=== PATIENT | male | born 1970 | race Caucasian/White ===

== ENCOUNTER 2019-07-17 12:53 | Emergency (ER) | payer SELFPAY ==
[2019-07-17] MEDS ORDERED: Sodium Chloride 0.9% 10 ML Syringe FLUSH PRN (13:42)
[2019-07-17] MEDS ORDERED: Sodium Chloride 0.9% 1,000 ML IV SCH (13:45)
--- NOTE | 2019-07-17 14:08 | EDM.PDOC ---
ED HPI GENERAL MEDICAL PROBLEM - General Chief Complaint: Back Pain or Injury Stated Complaint: [facility] Time Seen by Provider: 07/17/19 13:41 Source of Information: Reports: Patient, Family, RN Notes Reviewed History Limitations: Reports: No Limitations - History of Present Illness INITIAL COMMENTS - FREE TEXT/NARRATIVE: Patient is a 49-year-old male who presents to the ED via [place] [facility] for a few different reasons. The patient states that he is an alcoholic and drinks roughly a 12 pack of beer per day, he states that he did have 8-9 beers this morning already. He notes that he has a history of low back pain, cirrhosis, pancreas issues. They recently moved to [place] from [place] at the beginning of June and has not established a primary care provider in this area. The patient's had to call 911 today because she was unable to get him into the car as he was too weak to walk. The patient states that he was prescribed "a lot"of medications but he is unsure of what they car and has not taken these for 4-5 months. Patient also complains of bilateral 1 edema to his legs. Patient notes he has been to alcohol treatment centers in the past but these have failed to provide him sobriety. He notes that he did quit once or twice by himself but fell back into alcohol. Patient does have some mild nausea, lower back pain that is worse than normal. He states that the back pain is a sharp stabbing pain in nature and rates this at a 7 out of 10. Middle Back Pain Score (Numeric/FACES): 7 - Related Data Allergies Allergy/AdvReac Type Severity Reaction Status Date / Time adhesive tape Allergy Rash Verified 07/17/19 13:02 Home Meds: Home Meds LORazepam [Ativan] 1 mg PO TID PRN #12 tab 07/17/19 [Rx] levoFLOXacin [Levaquin] 500 mg PO DAILY #4 tab 07/17/19 [Rx] Past Medical History HEENT History: Reports: Impaired Vision Cardiovascular History: Reports: None Respiratory History: Reports: SOB Gastrointestinal History: Reports: Cirrhosis, Pancreatitis, Other (See Below) Other Gastrointestinal History: Fecal incontinence. Other Genitourinary History: Blood in the urine. Musculoskeletal History: Reports: Arthritis, Back Pain, Chronic Neurological History: Reports: Concussion, CVA Psychiatric History: Reports: ADD, ADHD, Addiction, Anxiety, Depression, Other ( See Below) Other Psychiatric History: Social Phobia Endocrine/Metabolic History: Reports: None Hematologic History: Reports: None Immunologic History: Reports: None Oncologic (Cancer) History: Reports: None Other Dermatologic History: Rash to the back for the last 2 years, unsure of what it is. - Infectious Disease History Infectious Disease History: Reports: Hepatitis C - Past Surgical History Head Surgeries/Procedures: Reports: None Other GI Surgeries/Procedures: Surgery on the belly when he was a baby, unsure of what it was for. Musculoskeletal Surgical History: Reports: Other (See Below) Other Musculoskeletal Surgeries/Procedures:: Pt had plates and screws placed and removed in the right foot. Social & Family History - Tobacco Use Smoking Status *Q: Current Every Day Smoker Years of Tobacco use: 33 Packs/Tins Daily: 1 - Caffeine Use Caffeine Use: Reports: None - Recreational Drug Use Recreational Drug Use: Yes Drug Use in Last 12 Months: Yes Recreational Drug Type: Reports: Marijuana/Hashish ED ROS GENERAL - Review of Systems Review Of Systems: See Below Constitutional: Reports: Weakness (generalized). Denies: Fever, Chills, Decreased Appetite, Weight Loss HEENT: Reports: No Symptoms Respiratory: Denies: Shortness of Breath Cardiovascular: Denies: Chest Pain Endocrine: Reports: No Symptoms GI/Abdominal: Reports: Nausea. Denies: Abdominal Pain, Diarrhea, Decreased Appetite, Hematemesis, Vomiting : Reports: No Symptoms Musculoskeletal: Reports: Back Pain (lower back apin) Skin: Reports: No Symptoms Neurological: Denies: Dizziness, Headache Psychiatric: Reports: No Symptoms Hematologic/Lymphatic: Reports: No Symptoms Immunologic: Reports: No Symptoms ED EXAM, GENERAL - Physical Exam Exam: See Below Exam Limited By: No Limitations General Appearance: Alert, WD/WN, No Apparent Distress (pt has a very strong odor of alcohol on him) Eye Exam: Bilateral Eye: EOMI, Normal Inspection, PERRL Ears: Normal External Exam Throat/Mouth: Normal Inspection, Normal Lips, Normal Gums, Normal Oropharynx, Normal Voice, No Airway Compromise, Other (dentition in poor repair) Head: Atraumatic, Normocephalic Neck: Normal Inspection, Supple, Non-Tender, Full Range of Motion Respiratory/Chest: No Respiratory Distress, Lungs Clear, Normal Breath Sounds, No Accessory Muscle Use, Chest Non-Tender Cardiovascular: Normal Peripheral Pulses, Regular Rate, Rhythm, No Murmur, Other (slight 1+ bilateral pitting edema to lower extremities) Peripheral Pulses: 3+: Dorsalis Pedis (L), Dorsalis Pedis (R) GI/Abdominal: Normal Bowel Sounds, Soft, Non-Tender, No Distention, No Mass Back Exam: Normal Inspection, Decreased Range of Motion (d/t pain). No: Full Range of Motion Extremities: Normal Inspection, Normal Range of Motion, Normal Capillary Refill , Other (bilateral 1 + pitting edema to lower extremities) Neurological: Alert, Oriented, Normal Cognition, No Motor/Sensory Deficits Psychiatric: Normal Affect, Normal Mood Skin Exam: Warm, Dry, Intact, Normal Color, No Rash Course - Vital Signs Last Recorded V/S: Last Vital Signs Temp 97.4 F 07/17/19 12:56 Pulse 72 07/17/19 12:56 Resp 16 07/17/19 12:56 BP 125/65 07/17/19 12:56 Pulse Ox 97 07/17/19 12:56 - Orders/Labs/Meds Orders: Active Orders 24 hr Category Date Time Status Peripheral IV Care [RC] . DIRECTED Care 07/17/19 13:42 Active Abdomen Pelvis w Cont [CT] Stat Exams 07/17/19 14:21 Ordered Foot Comp Min 3V Rt [CR] Stat Exams 07/17/19 15:53 Ordered CULTURE URINE [RM] Routine Lab 07/17/19 16:43 Ordered Levofloxacin/Dextrose 5%-Water [Levaquin in D5W 500 MG/ Med 07/17/19 17:01 Ordered 100 ML] 500 mg Premix Bag 1 bag IV ONETIME Sodium Chloride 0.9% [Normal Saline] 1,000 ml Med 07/17/19 13:45 Active IV ASDIRECTED Sodium Chloride 0.9% [Saline Flush] Med 07/17/19 13:42 Active 10 ml FLUSH ASDIRECTED PRN Peripheral IV Insertion Adult [OM.PC] Stat Oth 07/17/19 13:42 Ordered Medication Orders Sodium Chloride (Normal Saline) 1,000 mls @ 500 mls/hr IV ASDIRECTED ERI Last Admin: 07/17/19 13:52 Dose: 500 mls/hr Levofloxacin/Dextrose 500 mg/ (Premix) 100 mls @ 100 mls/hr IV ONETIME ONE Stop: 07/17/19 18:00 Sodium Chloride (Saline Flush) 10 ml FLUSH ASDIRECTED PRN PRN Reason: Keep Vein Open Last Admin: 07/17/19 13:49 Dose: 10 ml Labs: Laboratory Tests 07/17/19 07/17/19 07/17/19 Range/Units 13:50 13:50 14:21 WBC 3.91 L (4.23-9.07) K/mm3 RBC 3.87 L (4.63-6.08) M/mm3 Hgb 13.5 L (13.7-17.5) gm/L Hct 38.6 L (40.1-51.0) % MCV 99.7 H (79.0-92.2) fl MCH 34.9 H (25.7-32.2) pg MCHC 35.0 (32.2-35.5) g/dl RDW Std Deviation 47.1 H (35.1-43.9) fL Plt Count 65 L (163-337) K/mm3 MPV 10.1 (9.4-12.3) fl Neutrophils % (Manual) 57 (40-60) % Band Neutrophils % 0 (0-10) % Lymphocytes % (Manual) 33 (20-40) % Atypical Lymphs % 0 % Monocytes % (Manual) 6 (2-10) % Eosinophils % (Manual) 4 (0.8-7.0) % Basophils % (Manual) 0 L (0.2-1.2) Platelet Estimate Decreased RBC Morph Comment Normal Sodium 142 (136-145) mEq/L Potassium 3.8 (3.5-5.1) mEq/L Chloride 107 (98-107) mEq/L Carbon Dioxide 25 (21-32) mEq/L Anion Gap 13.8 (5-15) BUN 4 L (7-18) mg/dL Creatinine 0.6 L (0.7-1.3) mg/dL Est Cr Clr Drug Dosing 178.70 mL/min Estimated GFR (MDRD) > 60 (>60) mL/min BUN/Creatinine Ratio 6.7 L (14-18) Glucose 96 (74-106) mg/dL Calcium 8.3 L (8.5-10.1) mg/dL Total Bilirubin 2.0 H (0.2-1.0) mg/dL AST 143 H (15-37) U/L ALT 79 H (16-63) U/L Alkaline Phosphatase 89 (46-116) U/L Total Protein 7.2 (6.4-8.2) g/dl Albumin 3.5 (3.4-5.0) g/dl Globulin 3.7 gm/dL Albumin/Globulin Ratio 1.0 (1-2) Lipase 124 (73-393) U/L Urine Color (Yellow) Urine Appearance (Clear) Urine pH (5.0-8.0) Ur Specific [place] (1.005-1.030) Urine Protein (Negative) Urine Glucose (UA) (Negative) Urine Ketones (Negative) Urine Occult Blood (Negative) Urine Nitrite (Negative) Urine Bilirubin (Negative) Urine Urobilinogen (0.2-1.0) Ur Leukocyte Esterase (Negative) Urine RBC (0-5) /hpf Urine WBC (0-5) /hpf Ur Squamous Epith Cells (0-5) /hpf Urine Bacteria (FEW) /hpf Urine Mucus (FEW) /hpf Ethyl Alcohol 0.33 (0.00) gm% 07/17/19 Range/Units 14:30 WBC (4.23-9.07) K/mm3 RBC (4.63-6.08) M/mm3 Hgb (13.7-17.5) gm/L Hct (40.1-51.0) % MCV (79.0-92.2) fl MCH (25.7-32.2) pg MCHC (32.2-35.5) g/dl RDW Std Deviation (35.1-43.9) fL Plt Count (163-337) K/mm3 MPV (9.4-12.3) fl Neutrophils % (Manual) (40-60) % Band Neutrophils % (0-10) % Lymphocytes % (Manual) (20-40) % Atypical Lymphs % % Monocytes % (Manual) (2-10) % Eosinophils % (Manual) (0.8-7.0) % Basophils % (Manual) (0.2-1.2) Platelet Estimate RBC Morph Comment Sodium (136-145) mEq/L Potassium (3.5-5.1) mEq/L Chloride (98-107) mEq/L Carbon Dioxide (21-32) mEq/L Anion Gap (5-15) BUN (7-18) mg/dL Creatinine (0.7-1.3) mg/dL Est Cr Clr Drug Dosing mL/min Estimated GFR (MDRD) (>60) mL/min BUN/Creatinine Ratio (14-18) Glucose (74-106) mg/dL Calcium (8.5-10.1) mg/dL Total Bilirubin (0.2-1.0) mg/dL AST (15-37) U/L ALT (16-63) U/L Alkaline Phosphatase (46-116) U/L Total Protein (6.4-8.2) g/dl Albumin (3.4-5.0) g/dl Globulin gm/dL Albumin/Globulin Ratio (1-2) Lipase (73-393) U/L Urine Color Yellow (Yellow) Urine Appearance Clear (Clear) Urine pH 7.0 (5.0-8.0) Ur Specific [place] 1.015 (1.005-1.030) Urine Protein Negative (Negative) Urine Glucose (UA) Negative (Negative) Urine Ketones Negative (Negative) Urine Occult Blood Negative (Negative) Urine Nitrite Positive H (Negative) Urine Bilirubin Negative (Negative) Urine Urobilinogen 1.0 (0.2-1.0) Ur Leukocyte Esterase Negative (Negative) Urine RBC Not seen (0-5) /hpf Urine WBC Not seen (0-5) /hpf Ur Squamous Epith Cells 0-5 (0-5) /hpf Urine Bacteria Rare (FEW) /hpf Urine Mucus Not seen (FEW) /hpf Ethyl Alcohol (0.00) gm% Meds: Medications Generic Name Dose Route Start Last Admin Trade Name Freq PRN Reason Stop Dose Admin Sodium Chloride 1,000 mls @ 500 mls/hr 07/17/19 13:45 07/17/19 13:52 Normal Saline IV 500 mls/hr ASDIRECTED ERI Administration Levofloxacin/Dextrose 500 mg/ 100 mls @ 100 mls/hr 07/17/19 17:01 Premix IV 07/17/19 18:00 ONETIME ONE Sodium Chloride 10 ml 07/17/19 13:42 07/17/19 13:49 Saline Flush FLUSH 10 ml ASDIRECTED PRN Administration Keep Vein Open Discontinued Medications Generic Name Dose Route Start Last Admin Trade Name Freq PRN Reason Stop Dose Admin Diatrizoate Meglum/Diatrizoate Sod 90 ml 07/17/19 14:31 07/17/19 15:34 Gastrografin 37% PO 07/17/19 14:32 90 ml ONETIME ONE Administration Hydromorphone HCl 0.5 mg 07/17/19 14:22 07/17/19 14:32 Dilaudid IVPUSH 07/17/19 14:23 0.5 mg ONETIME ONE Administration Iopamidol 100 ml 07/17/19 15:29 07/17/19 15:34 Isovue-370 (76%) IVPUSH 07/17/19 15:30 100 ml ONETIME ONE Administration Lorazepam 0.5 mg 07/17/19 15:17 07/17/19 15:20 Ativan PO 07/17/19 15:18 0.5 mg ONETIME ONE Administration Lorazepam 0.5 mg 07/17/19 17:03 Ativan PO 07/17/19 17:04 ONETIME ONE Ondansetron HCl 4 mg 07/17/19 14:22 07/17/19 14:32 Zofran IVPUSH 07/17/19 14:23 4 mg ONETIME ONE Administration Sodium Chloride 10 ml 07/17/19 14:31 07/17/19 15:35 Saline Flush FLUSH 07/17/19 14:32 10 ml ONETIME ONE Administration Thiamine HCl 100 mg 07/17/19 14:55 07/17/19 15:15 Vitamin B-1 PO 07/17/19 14:56 100 mg ONETIME ONE Administration - Radiology Interpretation Free Text/Narrative:: Abdominal CT was done and demonstrates 1. mild proximal small bowel ileus. With no bowel obstruction. 2. Cirrhosis with portal hypertension and varices, with large splenorenal shunt on the left, an large varix between the inferior vena cava and superior mesenteric vein on the right. 3. Bladder distention. 4. Cholecystectomy. 5. Mild cardiomegaly. - Re-Assessments/Exams Free Text/Narrative Re-Assessment/Exam: 07/17/19 14:59 Patient presents to the ED for the evaluation of multiple issues. Did order CBC , CMP, lipase, UA, blood alcohol level, IV fluids to be given 4 mg Zofran, 0.5 mg Dilaudid in an abdomen and pelvis CT for further evaluation. As he notes he has had issues with his liver and pancreas in the times past imaging will be to assess complications due to alcoholism. We do not have access to his old records, as he has not had them transferred here. 07/17/19 15:25 The nurse taking care of the patient informed me that he was quite tremulous, I did order 0.5 mg PO Ativan for this. 07/17/19 17:04 Patient was reassessed at bedside, he states he is feeling better. I did direct him to consult with [facility] tomorrow regarding his alcohol use, he will call tomorrow morning. He was wondering about some medications for withdrawal type symptoms at home, did write him with a few tablets of Ativan for this. I will recommend that he takes some ibuprofen or Tylenol for his back pain. He states that he has not had much luck with tramadol the past. I did order 500 mg IV levofloxacin for initial management, his urinalysis was nitrite positive but everything else negative, I did send the urine for culture. Suspect this might be an early sort of UTI versus contamination. Patient was also advised to establish care with a primary care provider. He was also made aware of the CT results regarding his portal varices. Departure - Departure Time of Disposition: 17:06 Disposition: Home, Self-Care 01 Condition: Fair Clinical Impression: Alcohol abuse Back pain Qualifiers: Back pain location: back pain in unspecified location Chronicity: chronic Back pain laterality: unspecified Qualified Code(s): M54.9 - Dorsalgia, unspecified - Discharge Information Prescriptions: levoFLOXacin [Levaquin] 500 mg PO DAILY #4 tab LORazepam [Ativan] 1 mg PO TID PRN #12 tab PRN Reason: Withdrawal Symptoms Instructions: Alcohol Use Disorder, What You Need to Know About Alcohol Abuse and Dependence, Adult, What You Need to Know About Chronic Back Pain, Alcohol Abuse and Nutrition Forms: ED Department Discharge Additional Instructions: You were evaluated in the ED today for your back pain and alcohol issues. The imaging done at today's ER visit demonstrated that you to have some engorged veins near your liver which is due to your chronic alcoholism. These are called varices. You also did have a fatty liver which also is due to chronic alcoholism. All other findings on the CT were essentially within normal limits. Your urinalysis was positive for nitrites which could suggest a UTI, your urine was sent for culture and you will be given a dose of antibiotics for management of this. You will be called when your culture results to let you know if this is an actual UTI or if this is just contamination. You were given some tablets of Ativan, 1 mg TID PRN for withdrawal type symptoms. You will need to follow-up with [facility] resources for further management of your alcohol use. [facility] human services number is [phone] , their emergency number is [phone]. Your medications were electronically prescribed to the [place] pharmacy located [facility] [employer]. Please try to refrain from further alcohol use as much as able, you will need to wean yourself off of this please do not stop cold turkey. Please also establish with a primary care provider of your choosing, [facility]' s number [phone], the [place] clinic is [phone]. Please also have your records transferred so that they can provide you with the best care. Please return to the ED if your symptoms change or worsen. - My Orders Last 24 Hours: My Active Orders 07/17/19 13:42 Peripheral IV Care [RC] . DIRECTED Sodium Chloride 0.9% [Saline Flush] 10 ml FLUSH ASDIRECTED PRN Peripheral IV Insertion Adult [OM.PC] Stat 07/17/19 13:45 Sodium Chloride 0.9% [Normal Saline] 1,000 ml IV ASDIRECTED 07/17/19 14:21 Abdomen Pelvis w Cont [CT] Stat 07/17/19 15:53 Foot Comp Min 3V Rt [CR] Stat 07/17/19 16:43 CULTURE URINE [RM] Routine 07/17/19 17:01 Levofloxacin/Dextrose 5%-Water [Levaquin in D5W 500 MG/100 ML] 500 mg Premix Bag 1 bag IV ONETIME - Assessment/Plan Last 24 Hours: My Active Orders 07/17/19 13:42 Peripheral IV Care [RC] . DIRECTED Sodium Chloride 0.9% [Saline Flush] 10 ml FLUSH ASDIRECTED PRN Peripheral IV Insertion Adult [OM.PC] Stat 07/17/19 13:45 Sodium Chloride 0.9% [Normal Saline] 1,000 ml IV ASDIRECTED 07/17/19 14:21 Abdomen Pelvis w Cont [CT] Stat 07/17/19 15:53 Foot Comp Min 3V Rt [CR] Stat 07/17/19 16:43 CULTURE URINE [RM] Routine 07/17/19 17:01 Levofloxacin/Dextrose 5%-Water [Levaquin in D5W 500 MG/100 ML] 500 mg Premix Bag 1 bag IV ONETIME
[2019-07-17] MEDS ORDERED: Ondansetron 4 MG/2 ML SDV IVPUSH ONE (14:22)
[2019-07-17] MEDS ORDERED: HYDROmorphone 0.5 MG/0.5 ML Syringe IVPUSH ONE (14:22)
[2019-07-17] MEDS ORDERED: Iopamidol 612 MG/ML 100 ML Bottle IVPUSH ONE (14:31)
[2019-07-17] MEDS ORDERED: Diatrizoate Meglumine/Diatrizoate Sodium 37% 120 ML Bottle PO ONE (14:31)
[2019-07-17] MEDS ORDERED: Sodium Chloride 0.9% 10 ML Syringe FLUSH ONE (14:31)
[2019-07-17] MEDS ORDERED: Thiamine 100 MG Tab PO ONE (14:55)
[2019-07-17] MEDS ORDERED: LORazepam 0.5 MG Tab PO ONE ×2 (15:17→17:03)
[2019-07-17] MEDS ORDERED: Iopamidol 755 Mg/ML 100 ML Bottle IVPUSH ONE (15:29)
[2019-07-17] MEDS ORDERED: Levofloxacin/Dextrose 5%-Water 500 MG in Premix Bag 1 BAG IV ONE (17:01)
--- NOTE | 2019-07-21 06:41 | CT ---
CT abdomen and pelvis Technique: Multiple axial sections were obtained from above the dome of the diaphragm inferiorly through the pubic symphysis. Intravenous and oral contrast was utilized. Delayed images were also obtained through the bladder. Comparison: No prior abdominal imaging. Findings: Visualized portions of both lung bases show nothing acute. Liver is low in density compatible with fatty infiltration. Surface margins of the liver are slightly nodular suggesting the possibility of cirrhotic change. Spleen appears within normal limits. Adrenal glands show no nodule. Kidneys show symmetric contrast enhancement without hydronephrosis or mass. Pancreas is within normal limits. Surgical clips are seen from prior cholecystectomy. Aorta shows diffuse atherosclerotic calcification which continues into the iliac vessels. No aneurysm is seen. No retroperitoneal adenopathy or mesenteric abnormalities are seen. Vascular anomaly is noted anterior to the right psoas muscle which appears to originate or terminate within the superior mesenteric vein. This most likely represents a varicosity. No pelvic mass or adenopathy is seen. Delayed images show contrast within the distal ureters and within the bladder. Bone window settings were reviewed which appear within normal limits for the patient's age. Appendix is seen and is normal in size. Impression: 1. Low density within the liver suspicious for fatty infiltration as well as mildly nodular contour suspicious for cirrhosis. 2. Varicosity noted within the right abdomen which originates or terminates into the superior mesenteric vein. 3. Other incidental findings as noted above. No acute abnormality appreciated on CT study of the abdomen and pelvis. Diagnostic code #3 I agree with preliminary report from [facility], finalized on 07/17/19, 5:22 PM Central Time, code #2
--- NOTE | 2019-07-21 07:12 | CR ---
Right foot: Four views of the right foot were obtained. Comparison: No prior foot exam. Spur is noted at the attachment of the Achilles tendon to the calcaneus. Slight degenerative change is noted within the IP joint of the 1st digit. No acute fracture, dislocation or other bony abnormality is seen. Impression: 1. Incidental findings as noted above. Nothing acute is definitely appreciated on right foot study. Diagnostic code #2
== END 2019-07-17 18:25 | disposition home or self-care (01) ==
LOC: JD.ED 12:53
DX: F10.20 Alcohol dependence, uncomplicated (principal); Y90.0 Blood alcohol level of less than 20 mg/100 ml; M54.5 Low back pain; G89.29 Other chronic pain; F41.9 Anxiety disorder, unspecified; F32.9 Major depressive disorder, single episode, unspecified; F17.210 Nicotine dependence, cigarettes, uncomplicated; Z88.8 Allergy status to other drugs, medicaments and biological substances; Z79.899 Other long term (current) drug therapy
CPT/HCPCS: 36415; 73630; 74177; 80053; 80320; 81001; 83690; 85007; 85027; 87086; 96361; 96365; 96375; 99285; A9270; J1170; J1956; J2405; J7040; Q9963; Q9967; 99284; G0480

== ENCOUNTER 2019-10-12 18:27 | Emergency (ER) | payer MEDICAID | END 2019-10-12 19:45 | disposition left against medical advice (07) | LOC: JD.ED 18:27 | DX: Z53.21 Procedure and treatment not carried out due to patient leaving prior to being seen by health care provider (principal) ==

== ENCOUNTER 2020-02-21 09:38 | Emergency (ER) | payer MEDICAID ==
--- NOTE | 2020-02-21 09:55 | EDM.PDOC ---
ED HPI GENERAL MEDICAL PROBLEM - General Chief Complaint: Gastrointestinal Problem Stated Complaint: [facility] Time Seen by Provider: 02/21/20 09:55 - History of Present Illness INITIAL COMMENTS - FREE TEXT/NARRATIVE: 49-year-old male presents the emergency room with increased confusion weakness. This is been going on for several weeks. He is also noted some rectal bleeding when he has BMs. This started out as maroon blood now it is getting brighter. The patient has chronic alcoholism he is already had 6 or 7 beers today before 10 AM and he also says this is light for him. He states he has a 12 pack a day. Patient's had increasing weakness he never gets out of the house he eats some. His called and mentioned he is having some confusion this was reported to the airplane rental clerk. Patient also complains of worsening lower extremity edema over the last couple of weeks and he has some discomfort associated with this. - Related Data Allergies Allergy/AdvReac Type Severity Reaction Status Date / Time adhesive tape Allergy Rash Verified 02/21/20 09:56 Home Meds: Home Meds LORazepam [Ativan] 1 mg PO DAILY 02/21/20 [History] Past Medical History HEENT History: Reports: Impaired Vision Cardiovascular History: Reports: None Respiratory History: Reports: SOB Gastrointestinal History: Reports: Cirrhosis, Pancreatitis, Other (See Below) Other Gastrointestinal History: Fecal incontinence. Other Genitourinary History: Blood in the urine. Musculoskeletal History: Reports: Arthritis, Back Pain, Chronic, Other (See Below) Other Musculoskeletal History: cervical stenosis Neurological History: Reports: Concussion, CVA Psychiatric History: Reports: ADD, ADHD, Addiction, Anxiety, Depression, Other ( See Below) Other Psychiatric History: Social Phobia Endocrine/Metabolic History: Reports: None Hematologic History: Reports: None Immunologic History: Reports: None Other Immunologic History: Hep c pt says he has had treatment for it Oncologic (Cancer) History: Reports: None Other Dermatologic History: Rash to the back for the last 2 years, unsure of what it is. - Infectious Disease History Infectious Disease History: Reports: Hepatitis C - Past Surgical History Head Surgeries/Procedures: Reports: None Other GI Surgeries/Procedures: Surgery on the belly when he was a baby, unsure of what it was for. Musculoskeletal Surgical History: Reports: Other (See Below) Other Musculoskeletal Surgeries/Procedures:: Pt had plates and screws placed and removed in the right foot. Social & Family History - Caffeine Use Caffeine Use: Reports: Soda ED ROS GENERAL - Review of Systems Review Of Systems: See Below Constitutional: Reports: No Symptoms HEENT: Reports: No Symptoms Respiratory: Reports: No Symptoms, Other (Noted to be hypoxic with an O2 saturation of 88% so he was started on supplemental oxygen) Cardiovascular: Reports: Dyspnea on Exertion, Edema. Denies: No Symptoms, Chest Pain Endocrine: Reports: No Symptoms GI/Abdominal: Reports: No Symptoms : Reports: No Symptoms Musculoskeletal: Reports: No Symptoms Skin: Reports: No Symptoms Neurological: Reports: Confusion Psychiatric: Reports: Agitation, Anxiety, Confusion, Depression. Denies: Homicidal Ideation, Suicidal Ideation Hematologic/Lymphatic: Reports: Easy Bruising Immunologic: Reports: No Symptoms ED EXAM, GI/ABD - Physical Exam Exam: See Below Exam Limited By: Intoxication General Appearance: No Apparent Distress, Other (Is mildly tremulous) Eyes: Bilateral: Normal Appearance (Possible mild jaundice) Ears: Normal External Exam, Normal Canal, Hearing Grossly Normal, Normal TMs Nose: Normal Inspection, Normal Mucosa, No Blood Throat/Mouth: Other (Poor teeth semi-dry mucosa) Head: Atraumatic, Normocephalic Neck: Normal Inspection, Non-Tender. No: Limited Range of Motion, Lymphadenopathy (L), Lymphadenopathy (R) Respiratory/Chest: No Respiratory Distress, Lungs Clear, Normal Breath Sounds Cardiovascular: Normal Peripheral Pulses, Regular Rate, Rhythm, No Murmur GI/Abdominal Exam: Normal Bowel Sounds, Soft, Non-Tender, Other (No obvious ascites) Back Exam: Normal Inspection. No: CVA Tenderness (L), CVA Tenderness (R) Extremities: Pedal Edema (Lower extremity edema) Neurological: Alert, Oriented, Other (He is slow to respond but overall does answer mostly appropriately he is acting intoxicated) Psychiatric: Anxious Skin Exam: Warm, Dry, Intact, Other (Possible mild jaundice skin changes consistent with chronic alcoholism) Course - Vital Signs Last Recorded V/S: Last Vital Signs Temp 36.8 C 02/21/20 09:47 Pulse 70 02/21/20 09:47 Resp 14 02/21/20 09:47 BP 111/63 02/21/20 09:47 Pulse Ox 88 L 02/21/20 09:47 - Orders/Labs/Meds Orders: Active Orders 24 hr Category Date Time Status EKG Documentation Completion [RC] STAT Care 02/21/20 10:19 Active Chest 1V Frontal [CR] Stat Exams 02/21/20 10:19 Ordered DRUG SCREEN, URINE [URCHEM] Stat Lab 02/21/20 10:19 Ordered UA RFX JAME AND CULT IF INDIC [URIN] Stat Lab 02/21/20 10:19 Ordered Labs: Laboratory Tests 02/21/20 02/21/20 02/21/20 Range/Units 10:00 10:00 10:00 WBC 4.40 (4.23-9.07) K/mm3 RBC 3.88 L (4.63-6.08) M/mm3 Hgb 13.6 L (13.7-17.5) gm/dl Hct 39.1 L (40.1-51.0) % MCV 100.8 H (79.0-92.2) fl MCH 35.1 H (25.7-32.2) pg MCHC 34.8 (32.2-35.5) g/dl RDW Std Deviation 45.8 H (35.1-43.9) fL Plt Count 66 L (163-337) K/mm3 MPV 10.1 (9.4-12.3) fl Neut % (Auto) 59.6 (34.0-67.9) % Lymph % (Auto) 30.0 (21.8-53.1) % Rincon % (Auto) 7.0 (5.3-12.2) % Eos % (Auto) 1.8 (0.8-7.0) Baso % (Auto) 1.4 H (0.1-1.2) % Neut # (Auto) 2.62 (1.78-5.38) K/mm3 Lymph # (Auto) 1.32 (1.32-3.57) K/mm3 [place] # (Auto) 0.31 (0.30-0.82) K/mm3 Eos # (Auto) 0.08 (0.04-0.54) K/mm3 Baso # (Auto) 0.06 (0.01-0.08) K/mm3 Manual Slide Review Abnormal smear PT 13.2 H (9.7-12.0) SECONDS INR 1.23 APTT 32 H (22-31) SECONDS Sodium 142 (136-145) mEq/L Potassium 3.8 (3.5-5.1) mEq/L Chloride 106 (98-107) mEq/L Carbon Dioxide 24 (21-32) mEq/L Anion Gap 15.8 H (5-15) BUN 4 L (7-18) mg/dL Creatinine 0.6 L (0.7-1.3) mg/dL Est Cr Clr Drug Dosing 163.07 mL/min Estimated GFR (MDRD) > 60 (>60) mL/min BUN/Creatinine Ratio 6.7 L (14-18) Glucose 112 H (74-106) mg/dL Calcium 8.6 (8.5-10.1) mg/dL Total Bilirubin 2.8 H (0.2-1.0) mg/dL Direct Bilirubin 1.20 H (0.0-0.2) mg/dl GGT 141 H (15-85) U/L AST 150 H (15-37) U/L ALT 84 H (16-63) U/L Alkaline Phosphatase 80 (46-116) U/L Ammonia (11-32) umol/L Total Protein 7.6 (6.4-8.2) g/dl Albumin 3.5 (3.4-5.0) g/dl Globulin 4.1 gm/dL Albumin/Globulin Ratio 0.9 L (1-2) Ethyl Alcohol 0.38 (0.00) gm% 02/21/20 Range/Units 10:00 WBC (4.23-9.07) K/mm3 RBC (4.63-6.08) M/mm3 Hgb (13.7-17.5) gm/dl Hct (40.1-51.0) % MCV (79.0-92.2) fl MCH (25.7-32.2) pg MCHC (32.2-35.5) g/dl RDW Std Deviation (35.1-43.9) fL Plt Count (163-337) K/mm3 MPV (9.4-12.3) fl Neut % (Auto) (34.0-67.9) % Lymph % (Auto) (21.8-53.1) % Rincon % (Auto) (5.3-12.2) % Eos % (Auto) (0.8-7.0) Baso % (Auto) (0.1-1.2) % Neut # (Auto) (1.78-5.38) K/mm3 Lymph # (Auto) (1.32-3.57) K/mm3 [place] # (Auto) (0.30-0.82) K/mm3 Eos # (Auto) (0.04-0.54) K/mm3 Baso # (Auto) (0.01-0.08) K/mm3 Manual Slide Review PT (9.7-12.0) SECONDS INR APTT (22-31) SECONDS Sodium (136-145) mEq/L Potassium (3.5-5.1) mEq/L Chloride (98-107) mEq/L Carbon Dioxide (21-32) mEq/L Anion Gap (5-15) BUN (7-18) mg/dL Creatinine (0.7-1.3) mg/dL Est Cr Clr Drug Dosing mL/min Estimated GFR (MDRD) (>60) mL/min BUN/Creatinine Ratio (14-18) Glucose (74-106) mg/dL Calcium (8.5-10.1) mg/dL Total Bilirubin (0.2-1.0) mg/dL Direct Bilirubin (0.0-0.2) mg/dl GGT (15-85) U/L AST (15-37) U/L ALT (16-63) U/L Alkaline Phosphatase (46-116) U/L Ammonia 19 (11-32) umol/L Total Protein (6.4-8.2) g/dl Albumin (3.4-5.0) g/dl Globulin gm/dL Albumin/Globulin Ratio (1-2) Ethyl Alcohol (0.00) gm% - Re-Assessments/Exams Free Text/Narrative Re-Assessment/Exam: 02/21/20 10:44 After a visit with the patient the patient decided enough was not being done for him and signed out AMA. I did review his records and very concerned with his weakness and history from his who is not here but did call the hotel or motel receptionist and said he is more confused that he may have advancing alcoholic encephalopathy. Departure - Departure Time of Disposition: 10:30 Disposition: Against Medical Advice 07 Clinical Impression: Alcoholism /alcohol abuse, Alcohol intoxication, Rectal bleeding - Discharge Information Forms: ED Department Discharge Sepsis Event Note - Focused Exam Vital Signs: Vital Signs Temp Pulse Resp BP Pulse Ox 02/21/20 09:47 36.8 C 70 14 111/63 88 L Date Exam was Performed: 02/21/20 Time Exam was Performed: 10:43 - My Orders Last 24 Hours: My Active Orders 02/21/20 10:19 EKG Documentation Completion [RC] STAT Chest 1V Frontal [CR] Stat DRUG SCREEN, URINE [URCHEM] Stat UA RFX JAME AND CULT IF INDIC [URIN] Stat - Assessment/Plan Last 24 Hours: My Active Orders 02/21/20 10:19 EKG Documentation Completion [RC] STAT Chest 1V Frontal [CR] Stat DRUG SCREEN, URINE [URCHEM] Stat UA RFX JAME AND CULT IF INDIC [URIN] Stat
== END 2020-02-21 10:26 | disposition left against medical advice (07) ==
LOC: JD.ED 09:38
DX: K62.5 Hemorrhage of anus and rectum (principal); F10.229 Alcohol dependence with intoxication, unspecified; F17.210 Nicotine dependence, cigarettes, uncomplicated; Z86.73 Personal history of transient ischemic attack (TIA), and cerebral infarction without residual deficits
CPT/HCPCS: 36415; 80053; 80307; 82140; 82248; 82977; 85025; 85610; 85730; 99282; 99285-25

== ENCOUNTER 2020-02-23 16:15 | Emergency (ER) | payer MEDICAID ==
--- NOTE | 2020-02-23 17:35 | EDM.PDOC ---
ED HPI GENERAL MEDICAL PROBLEM - General Chief Complaint: General Stated Complaint: [facility] Time Seen by Provider: 02/23/20 17:00 Source of Information: Reports: Patient, Old Records History Limitations: Reports: Intoxication, Uncooperative - History of Present Illness INITIAL COMMENTS - FREE TEXT/NARRATIVE: Elmer is a 49 year old male brought in by EMS for multiple different complaints. seen Sunday. Left AMA. Complains of symptoms worsening since being seen. Reports symptoms of fever, temperatures of 109 and 103, fatigue, weakness, cough, bodyaches and malaise. He has multiple bruises on his right posterior upper arm, right chest which he will not elaborate on or says they are from his pit bull. Patient reprots he had 4-5 beers today. States he significantly cut down since sunday. called prior to arrival in the ER asking covid result from Sunday. Covid test was not done Sunday. He denies any contact with covid patients. I informed him I would like to do a work-up including chest xray, blood work and covid test. he told me i should know what is wrong with him since he had lab work done Sunday. I informed him what his tests were but according to him his symptoms have worsened therefor we need to do a more extensive work-up. He then left AMA. Generalized Pain Score (Numeric/FACES): 8 - Related Data Allergies Allergy/AdvReac Type Severity Reaction Status Date / Time adhesive tape Allergy Rash Verified 02/23/20 16:34 Home Meds: Home Meds LORazepam [Ativan] 1 mg PO DAILY 02/21/20 [History] Past Medical History HEENT History: Reports: Impaired Vision Cardiovascular History: Reports: None Respiratory History: Reports: SOB Gastrointestinal History: Reports: Cirrhosis, Pancreatitis, Other (See Below) Other Gastrointestinal History: Fecal incontinence. Other Genitourinary History: Blood in the urine. Musculoskeletal History: Reports: Arthritis, Back Pain, Chronic, Fracture, Other (See Below) Other Musculoskeletal History: cervical stenosis Neurological History: Reports: Concussion, CVA Psychiatric History: Reports: ADD, ADHD, Addiction, Anxiety, Depression, Other ( See Below) Other Psychiatric History: Social Phobia Endocrine/Metabolic History: Reports: None Hematologic History: Reports: None Immunologic History: Reports: None Other Immunologic History: Hep c pt says he has had treatment for it Oncologic (Cancer) History: Reports: None Other Dermatologic History: Rash to the back for the last 2 years, unsure of what it is. - Infectious Disease History Infectious Disease History: Reports: Hepatitis C - Past Surgical History GI Surgical History: Reports: Appendectomy, Cholecystectomy Other GI Surgeries/Procedures: Surgery on the belly when he was a baby, unsure of what it was for. Musculoskeletal Surgical History: Reports: Other (See Below) Other Musculoskeletal Surgeries/Procedures:: Pt had plates and screws placed and removed in the right foot. Social & Family History - Tobacco Use Smoking Status *Q: Current Every Day Smoker Years of Tobacco use: 39 Packs/Tins Daily: 1 - Caffeine Use Caffeine Use: Reports: Soda - Alcohol Use Days Per Week of Alcohol Use: 7 Number of Drinks Per Day: 15 Total Drinks Per Week: 105 - Recreational Drug Use Recreational Drug Use: Yes Drug Use in Last 12 Months: Yes Recreational Drug Type: Reports: Marijuana/Hashish Recreational Drug Use Frequency: Monthly ED ROS GENERAL - Review of Systems Review Of Systems: See Below Constitutional: Reports: Fever, Chills, Malaise, Weakness, Fatigue Respiratory: Reports: Shortness of Breath, Cough ED EXAM, GENERAL - Physical Exam Exam: See Below Exam Limited By: Intoxication General Appearance: Alert, No Apparent Distress, Thin Respiratory/Chest: No Respiratory Distress, Lungs Clear, Normal Breath Sounds Cardiovascular: Normal Peripheral Pulses, Regular Rate, Rhythm, No Murmur Neurological: Alert, Oriented, Normal Cognition Skin Exam: Ecchymosis (right posterior upper arm, right chest) Course - Vital Signs Last Recorded V/S: Last Vital Signs Temp 98.5 F 02/23/20 16:15 Pulse 72 02/23/20 16:15 Resp 12 02/23/20 16:15 BP 112/71 02/23/20 16:15 Pulse Ox 96 02/23/20 16:15 - Re-Assessments/Exams Free Text/Narrative Re-Assessment/Exam: 02/23/20 17:36 patient left AMA prior to testing or completion of the History and physical. Departure - Departure Time of Disposition: 17:36 Disposition: Against Medical Advice 07 Condition: Undetermined Clinical Impression: Alcohol intoxication - Discharge Information *PRESCRIPTION DRUG MONITORING PROGRAM REVIEWED*: No *COPY OF PRESCRIPTION DRUG MONITORING REPORT IN PATIENT LILA: No Referrals: PCP,None [Primary Care Provider] - Additional Instructions: Patient left AMA. Sepsis Event Note - Evaluation Sepsis Screening Result: No Definite Risk - Focused Exam Vital Signs: Vital Signs Temp Pulse Resp BP Pulse Ox 02/23/20 16:15 98.5 F 72 12 112/71 96 Date Exam was Performed: 02/23/20 Time Exam was Performed: 17:18
== END 2020-02-23 16:59 | disposition left against medical advice (07) ==
LOC: JD.ED 16:15
DX: S40.021A Contusion of right upper arm, initial encounter (principal); S20.211A Contusion of right front wall of thorax, initial encounter; F10.129 Alcohol abuse with intoxication, unspecified; M19.90 Unspecified osteoarthritis, unspecified site; F41.9 Anxiety disorder, unspecified; F32.9 Major depressive disorder, single episode, unspecified; F17.210 Nicotine dependence, cigarettes, uncomplicated; Z91.048 Other nonmedicinal substance allergy status; Z79.899 Other long term (current) drug therapy; X58.XXXA Exposure to other specified factors, initial encounter
CPT/HCPCS: 99284

== ENCOUNTER 2020-03-01 13:01 | Emergency (ER) | payer MEDICAID ==
[2020-03-01] MEDS ORDERED: Lactated Ringers 1,000 ML IV ONE (13:46)
--- NOTE | 2020-03-01 13:46 | EDM.PDOC ---
ED HPI GENERAL MEDICAL PROBLEM - General Chief Complaint: General Stated Complaint: WEAKNESS/DIARRHEA Time Seen by Provider: 03/01/20 13:41 - History of Present Illness INITIAL COMMENTS - FREE TEXT/NARRATIVE: 49-year-old male returns the emergency room with continued weakness and diarrhea. The patient has been here couple times over the last week, and left the last 2 visits AMA. He was intoxicated belligerent and inpatient. Apparently he was seen in the clinic today and found to be too weak and possibly dehydrated for them to deal with so he was sent over here there was some communication with the patient's and our ER director because the patient's was insistent on the ability to come back with the patient and this is not possible because of the COVID-19 restrictions. Patient is not able to give much of a history except he is weak and tired he has some abdominal discomfort he has been falling a lot he is uncertain if he is hit his head and he has diarrhea. No other history is obtained from the patient he appears tired and weak. - Related Data Allergies Allergy/AdvReac Type Severity Reaction Status Date / Time adhesive tape Allergy Rash Verified 03/01/20 13:34 Home Meds: Home Meds LORazepam [Ativan] 1 mg PO DAILY 02/21/20 [History] Past Medical History HEENT History: Reports: Impaired Vision Cardiovascular History: Reports: None Respiratory History: Reports: SOB Gastrointestinal History: Reports: Cirrhosis, Pancreatitis, Other (See Below) Other Gastrointestinal History: Fecal incontinence. Other Genitourinary History: Blood in the urine. Musculoskeletal History: Reports: Arthritis, Back Pain, Chronic, Fracture, Other (See Below) Other Musculoskeletal History: cervical stenosis Neurological History: Reports: Concussion, CVA Psychiatric History: Reports: ADD, ADHD, Addiction, Anxiety, Depression, Other ( See Below) Other Psychiatric History: Social Phobia Endocrine/Metabolic History: Reports: None Hematologic History: Reports: None Immunologic History: Reports: None Other Immunologic History: Hep c pt says he has had treatment for it Oncologic (Cancer) History: Reports: None Other Dermatologic History: Rash to the back for the last 2 years, unsure of what it is. - Infectious Disease History Infectious Disease History: Reports: Hepatitis C - Past Surgical History Head Surgeries/Procedures: Reports: None GI Surgical History: Reports: Appendectomy, Cholecystectomy Other GI Surgeries/Procedures: Surgery on the belly when he was a baby, unsure of what it was for. Musculoskeletal Surgical History: Reports: Other (See Below) Other Musculoskeletal Surgeries/Procedures:: Pt had plates and screws placed and removed in the right foot. Social & Family History - Tobacco Use Smoking Status *Q: Current Every Day Smoker Years of Tobacco use: 30 Packs/Tins Daily: 1 - Caffeine Use Caffeine Use: Reports: Soda ED ROS GENERAL - Review of Systems Review Of Systems: See Below Constitutional: Reports: Weakness, Fatigue. Denies: No Symptoms HEENT: Denies: No Symptoms Respiratory: Reports: No Symptoms. Denies: Cough, Sputum Cardiovascular: Reports: No Symptoms Endocrine: Reports: Fatigue. Denies: No Symptoms GI/Abdominal: Reports: No Symptoms, Abdominal Pain, Diarrhea, Nausea. Denies: Black Stool, Bloody Stool, Constipation, Vomiting : Reports: No Symptoms Musculoskeletal: Reports: No Symptoms, Other Skin: Reports: Other Neurological: Reports: Confusion ED EXAM, GENERAL - Physical Exam Exam: See Below Exam Limited By: Other (Lethargic) General Appearance: No Apparent Distress, Lethargic Eye Exam: Bilateral Eye: Normal Inspection Ears: Normal External Exam, Normal Canal, Hearing Grossly Normal, Normal TMs Nose: Normal Inspection, Normal Mucosa, No Blood Throat/Mouth: Other (Oral mucosa does not appear dry his teeth are in a poor state of repair and need attention and airway is stable). No: Normal Teeth Head: Atraumatic, Normocephalic Neck: No: Lymphadenopathy (L), Lymphadenopathy (R) Respiratory/Chest: No Respiratory Distress, Lungs Clear, Normal Breath Sounds Cardiovascular: Regular Rate, Rhythm, No Edema, No Murmur GI/Abdominal: Normal Bowel Sounds, Soft, Non-Tender. No: Guarding, Rigid, Rebound, Tender Back Exam: Normal Inspection. No: CVA Tenderness (L), CVA Tenderness (R) Neurological: Slow to Respond Course - Vital Signs Last Recorded V/S: Last Vital Signs Temp 36.4 C 03/01/20 13:30 Pulse 66 03/01/20 13:30 Resp 16 03/01/20 13:30 BP 125/72 03/01/20 13:30 Pulse Ox 94 L 03/01/20 13:30 - Orders/Labs/Meds Orders: Active Orders 24 hr Category Date Time Status EKG Documentation Completion [RC] STAT Care 03/01/20 13:48 Active Lactated Ringers [Ringers, Lactated] 1,000 ml Med 03/01/20 14:00 Active IV ASDIRECTED Magnesium Sulfate/Water [Magnesium Sulfate in Water Med 03/01/20 15:24 Active Premix] 2 gm Premix Bag 1 bag IV ONETIME Medication Orders Lactated Ringer's (Ringers, Lactated) 1,000 mls @ 150 mls/hr IV ASDIRECTED ERI Last Admin: 03/01/20 15:09 Dose: 150 mls/hr Magnesium Sulfate 2 gm/ Premix 50 mls @ 25 mls/hr IV ONETIME ONE Stop: 03/01/20 17:23 Labs: Laboratory Tests 03/01/20 03/01/20 03/01/20 Range/Units 13:55 13:55 13:55 WBC 2.68 L (4.23-9.07) K/mm3 RBC 3.70 L (4.63-6.08) M/mm3 Hgb 13.0 L (13.7-17.5) gm/dl Hct 36.8 L (40.1-51.0) % MCV 99.5 H (79.0-92.2) fl MCH 35.1 H (25.7-32.2) pg MCHC 35.3 (32.2-35.5) g/dl RDW Std Deviation 45.3 H (35.1-43.9) fL Plt Count 35 L (163-337) K/mm3 MPV 10.0 (9.4-12.3) fl Neut % (Auto) 77.3 H (34.0-67.9) % Lymph % (Auto) 16.0 L (21.8-53.1) % Burt % (Auto) 5.6 (5.3-12.2) % Eos % (Auto) 0.4 L (0.8-7.0) Baso % (Auto) 0.7 (0.1-1.2) % Neut # (Auto) 2.07 (1.78-5.38) K/mm3 Lymph # (Auto) 0.43 L (1.32-3.57) K/mm3 Burt # (Auto) 0.15 L (0.30-0.82) K/mm3 Eos # (Auto) 0.01 L (0.04-0.54) K/mm3 Baso # (Auto) 0.02 (0.01-0.08) K/mm3 Manual Slide Review Abnormal smear PT 13.9 H (9.7-12.0) SECONDS INR 1.29 Sodium 141 (136-145) mEq/L Potassium 3.4 L (3.5-5.1) mEq/L Chloride 105 (98-107) mEq/L Carbon Dioxide 24 (21-32) mEq/L Anion Gap 15.4 H (5-15) BUN 4 L (7-18) mg/dL Creatinine 0.5 L (0.7-1.3) mg/dL Est Cr Clr Drug Dosing 199.20 mL/min Estimated GFR (MDRD) > 60 (>60) mL/min BUN/Creatinine Ratio 8.0 L (14-18) Glucose 109 H (74-106) mg/dL Calcium 8.5 (8.5-10.1) mg/dL Magnesium (1.8-2.4) mg/dl Total Bilirubin 3.2 H (0.2-1.0) mg/dL GGT 230 H (15-85) U/L AST 234 H (15-37) U/L ALT 115 H (16-63) U/L Alkaline Phosphatase 91 (46-116) U/L Total Protein 7.5 (6.4-8.2) g/dl Albumin 3.0 L (3.4-5.0) g/dl Globulin 4.5 gm/dL Albumin/Globulin Ratio 0.7 L (1-2) Lipase (73-393) U/L Urine Color (Yellow) Urine Appearance (Clear) Urine pH (5.0-8.0) Ur Specific Harlan (1.005-1.030) Urine Protein (Negative) Urine Glucose (UA) (Negative) Urine Ketones (Negative) Urine Occult Blood (Negative) Urine Nitrite (Negative) Urine Bilirubin (Negative) Urine Urobilinogen (0.2-1.0) Ur Leukocyte Esterase (Negative) Urine Opiates Screen (OKDUZM=567) Ur Buprenorphine Scrn (CUTOFF=10) Ur Oxycodone Screen (CDM5UY=029) Urine Methadone Screen (IQW7LW=170) Ur Propoxyphene Screen (LMXYNF=375) Ur Barbiturates Screen (CJRXUD=590) Ur Tricyclics Screen (ISVRQU=106) Ur Phencyclidine Scrn (CUTOFF=25) Ur Amphetamine Screen (INNNUV=857) U Methamphetamines Scrn (EYILBV=820) U Benzodiazepines Scrn (NQWQWV=300) U Cocaine Metab Screen (SYQGDQ=779) U Marijuana (THC) Screen (CUTOFF=50) Ethyl Alcohol 0.09 (0.00) gm% 03/01/20 03/01/20 03/01/20 Range/Units 13:55 15:10 15:10 WBC (4.23-9.07) K/mm3 RBC (4.63-6.08) M/mm3 Hgb (13.7-17.5) gm/dl Hct (40.1-51.0) % MCV (79.0-92.2) fl MCH (25.7-32.2) pg MCHC (32.2-35.5) g/dl RDW Std Deviation (35.1-43.9) fL Plt Count (163-337) K/mm3 MPV (9.4-12.3) fl Neut % (Auto) (34.0-67.9) % Lymph % (Auto) (21.8-53.1) % Burt % (Auto) (5.3-12.2) % Eos % (Auto) (0.8-7.0) Baso % (Auto) (0.1-1.2) % Neut # (Auto) (1.78-5.38) K/mm3 Lymph # (Auto) (1.32-3.57) K/mm3 Burt # (Auto) (0.30-0.82) K/mm3 Eos # (Auto) (0.04-0.54) K/mm3 Baso # (Auto) (0.01-0.08) K/mm3 Manual Slide Review PT (9.7-12.0) SECONDS INR Sodium (136-145) mEq/L Potassium (3.5-5.1) mEq/L Chloride (98-107) mEq/L Carbon Dioxide (21-32) mEq/L Anion Gap (5-15) BUN (7-18) mg/dL Creatinine (0.7-1.3) mg/dL Est Cr Clr Drug Dosing mL/min Estimated GFR (MDRD) (>60) mL/min BUN/Creatinine Ratio (14-18) Glucose (74-106) mg/dL Calcium (8.5-10.1) mg/dL Magnesium 1.4 L (1.8-2.4) mg/dl Total Bilirubin (0.2-1.0) mg/dL GGT (15-85) U/L AST (15-37) U/L ALT (16-63) U/L Alkaline Phosphatase (46-116) U/L Total Protein (6.4-8.2) g/dl Albumin (3.4-5.0) g/dl Globulin gm/dL Albumin/Globulin Ratio (1-2) Lipase 114 (73-393) U/L Urine Color Alanis H (Yellow) Urine Appearance Clear (Clear) Urine pH 7.0 (5.0-8.0) Ur Specific Harlan 1.025 (1.005-1.030) Urine Protein Negative (Negative) Urine Glucose (UA) Negative (Negative) Urine Ketones Negative (Negative) Urine Occult Blood Negative (Negative) Urine Nitrite Negative (Negative) Urine Bilirubin 1+ H (Negative) Urine Urobilinogen 1.0 (0.2-1.0) Ur Leukocyte Esterase Negative (Negative) Urine Opiates Screen Negative (STCHTI=581) Ur Buprenorphine Scrn Negative (CUTOFF=10) Ur Oxycodone Screen Negative (ZEG4CL=326) Urine Methadone Screen Negative (FWU7OC=681) Ur Propoxyphene Screen Negative (LGOJTG=224) Ur Barbiturates Screen Negative (DTIVKC=332) Ur Tricyclics Screen Negative (EFGDZT=895) Ur Phencyclidine Scrn Negative (CUTOFF=25) Ur Amphetamine Screen Negative (SIDUAV=612) U Methamphetamines Scrn Negative (VZSWPF=142) U Benzodiazepines Scrn Negative (ECGXYX=953) U Cocaine Metab Screen Negative (LVHHEE=539) U Marijuana (THC) Screen Presumptive positive H (CUTOFF=50) Ethyl Alcohol (0.00) gm% Meds: Medications Generic Name Dose Route Start Last Admin Trade Name Freq PRN Reason Stop Dose Admin Lactated Ringer's 1,000 mls @ 150 mls/hr 03/01/20 14:00 03/01/20 15:09 Ringers, Lactated IV 150 mls/hr ASDIRECTED ERI Administration Magnesium Sulfate 2 gm/ Premix 50 mls @ 25 mls/hr 03/01/20 15:24 IV 04/27/20 17:23 ONETIME ONE Discontinued Medications Generic Name Dose Route Start Last Admin Trade Name Gaetano PRN Reason Stop Dose Admin Folic Acid 1 mg 03/02/20 13:48 Folic Acid IV 03/02/20 13:49 ONETIME ONE Folic Acid 1 mg 03/01/20 13:55 03/01/20 14:37 Folic Acid IV 03/01/20 13:56 1 mg ONETIME STA Administration Lactated Ringer's 1,000 mls @ 999 mls/hr 03/01/20 13:46 03/01/20 13:57 Ringers, Lactated IV 03/01/20 14:46 999 mls/hr .BOLUS ONE Administration Ondansetron HCl 4 mg 03/01/20 13:47 03/01/20 13:58 Zofran IVPUSH 03/01/20 13:48 4 mg ONETIME ONE Administration Pantoprazole Sodium 80 mg 03/01/20 15:27 Protonix Iv IVPUSH 03/01/20 15:28 BOLUS ONE Potassium Chloride 20 meq 03/01/20 15:24 Klor-Con M20 PO 03/01/20 15:25 ONETIME ONE - Re-Assessments/Exams Free Text/Narrative Re-Assessment/Exam: 03/01/20 15:39 Patient is doing much better he is received a liter of LR second liter is going. His magnesium is low I have ordered to grams of mag and some oral potassium. The patient is hinting that he really wants to go home and be with his I discussed the situation with the patient's who says she is getting supportive and what ever decision he makes but legally I have no grounds to hold him. Still waiting on some labs. Head CT is unremarkable. EKG shows no acute changes. 03/01/20 16:01 Several conversations with the patient he is wanting to leave AMA. I will put some recommendations in my discharge instructions. Departure - Departure Time of Disposition: 16:01 Disposition: Against Medical Advice 07 Clinical Impression: Alcoholism /alcohol abuse, Hypokalemia, Hypomagnesemia, Dehydration - Discharge Information Referrals: Mio Bowers Jr, MD [Primary Care Provider] - Forms: ED Department Discharge Additional Instructions: Return to the emergency room with any questions problems or worsening symptoms. Follow-up with your doctor soon as you can. pick up operator some magnesium oxide and some [id number] potassium and take as directed. pick up operator a vitamin and take 1 daily. Seek some help for your alcoholism Sepsis Event Note - Evaluation Sepsis Screening Result: No Definite Risk - Focused Exam Vital Signs: Vital Signs Temp Pulse Resp BP Pulse Ox 03/01/20 13:30 36.4 C 66 16 125/72 94 L Date Exam was Performed: 03/01/20 Time Exam was Performed: 16:01 - My Orders Last 24 Hours: My Active Orders 03/01/20 13:48 EKG Documentation Completion [RC] STAT 03/01/20 14:00 Lactated Ringers [Ringers, Lactated] 1,000 ml IV ASDIRECTED 03/01/20 15:24 Magnesium Sulfate/Water [Magnesium Sulfate in Water Premix] 2 gm Premix Bag 1 bag IV ONETIME - Assessment/Plan Last 24 Hours: My Active Orders 03/01/20 13:48 EKG Documentation Completion [RC] STAT 03/01/20 14:00 Lactated Ringers [Ringers, Lactated] 1,000 ml IV ASDIRECTED 03/01/20 15:24 Magnesium Sulfate/Water [Magnesium Sulfate in Water Premix] 2 gm Premix Bag 1 bag IV ONETIME
[2020-03-01] MEDS ORDERED: Ondansetron 4 MG/2 ML SDV IVPUSH ONE (13:47)
[2020-03-01] MEDS ORDERED: Folic Acid 50 MG/10 ML MDV IV STA (13:55)
[2020-03-01] MEDS ORDERED: Lactated Ringers 1,000 ML IV SCH (14:00)
--- NOTE | 2020-03-01 14:25 | CT ---
Head CT Technique: Multiple axial sections through the brain were obtained. Intravenous contrast was not utilized. Comparison: No prior intracranial imaging is available. Findings: Ventricles along with basal cisterns and sulci over the convexities are mildly prominent. Minimal areas of decreased density are scattered within the periventricular white matter which is compatible with small vessel ischemic demyelination change. No other abnormal parenchymal densities are seen. No evidence of intracranial hemorrhage. No midline shift or mass-effect is seen. Bone window settings were reviewed which shows minimal mucosal thickening within the right maxillary sinus. No acute calvarial abnormality is appreciated. Impression: 1. Mild senescent change as noted above. 2. Minimal sinus finding believed to be incidental. 3. No acute intracranial abnormality is appreciated. Diagnostic code #2 This report was dictated in MDT
[2020-03-01] MEDS ORDERED: Magnesium Sulfate/Water 2 GM in Premix Bag 1 BAG IV ONE (15:24)
[2020-03-01] MEDS ORDERED: Potassium Chloride 20 MEQ Tab.ER PO ONE (15:24)
[2020-03-01] MEDS ORDERED: Pantoprazole 40 MG Vial IVPUSH ONE (15:27)
[2020-03-02] MEDS ORDERED: Folic Acid 50 MG/10 ML MDV IV ONE (13:48)
== END 2020-03-01 16:06 | disposition left against medical advice (07) ==
LOC: JD.ED 13:01
DX: E86.0 Dehydration (principal); E83.42 Hypomagnesemia; F10.20 Alcohol dependence, uncomplicated; E87.6 Hypokalemia; F17.210 Nicotine dependence, cigarettes, uncomplicated; F10.229 Alcohol dependence with intoxication, unspecified; Y90.0 Blood alcohol level of less than 20 mg/100 ml; F41.9 Anxiety disorder, unspecified; Z91.09 Other allergy status, other than to drugs and biological substances
CPT/HCPCS: 36415; 70450; 80053; 80306; 80307; 81003; 82977; 83690; 83735; 85025; 85610; 93005; 96361; 96374; 96375; 99285; J2405; J7120; 99283

== ENCOUNTER 2020-04-07 18:34 | Emergency (ER) | payer MEDICAID | END 2020-04-07 19:30 | LOC: JD.ED 18:34 | DX: Z53.21 Procedure and treatment not carried out due to patient leaving prior to being seen by health care provider (principal) ==

== ENCOUNTER 2021-02-17 19:04 | Inpatient (IN) | payer MEDICAID ==
[2021-02-17] MEDS ORDERED: Sodium Chloride 0.9% 10 ML Syringe FLUSH PRN (19:43)
[2021-02-17] MEDS ORDERED: Ondansetron 4 MG/2 ML SDV IVPUSH ONE (19:45)
--- NOTE | 2021-02-17 20:15 | EDM.PDOC ---
ED HPI GENERAL MEDICAL PROBLEM - General Chief Complaint: General Stated Complaint: [facility] Time Seen by Provider: 02/17/21 19:22 Source of Information: Reports: Patient, EMS, Family History Limitations: Reports: No Limitations - History of Present Illness INITIAL COMMENTS - FREE TEXT/NARRATIVE: The patient presents by [facility] for generalized weakness and leg pain and swelling. The patient has had swelling and pain in his legs for months. They have never been this swollen though. He also has generalized weakness and this has gotten worse over the past week. He cannot walk because of this and the pain in his legs. He is an alcoholic and drinks from 2 to 18 twelve ounce cans of beer per day depending on the day. He says he drank from 5 to 10 beers today. He he has a history of hepatitis C that was treated when he lived in [place] years ago. He also was told by his doctor that he has cirrhosis of the liver. He has some generalized abdominal pain with nausea and vomiting. At one time he did vomit up some blood. He has no fever or chill but he does admit to having a cough the past few days. He has no chest pain but he is short of breath at times. Onset: Gradual Duration: Week(s): Location: Reports: Lower Extremity, Left, Lower Extremity, Right Quality: Reports: Sharp Severity: Severe Improves with: Reports: Immobilization Worsens with: Reports: Movement Context: Denies: Trauma Associated Symptoms: Reports: Cough, Nausea/Vomiting, Shortness of Breath. Denies: Chest Pain, Fever/Chills, Headaches Feet Pain Score (Numeric/FACES): 10 - Related Data Allergies Allergy/AdvReac Type Severity Reaction Status Date / Time adhesive tape Allergy Rash Verified 02/17/21 19:15 Home Meds: Home Meds Amitriptyline [Elavil] 1 tab PO BEDTIME 02/17/21 [History] Past Medical History HEENT History: Reports: Impaired Vision Cardiovascular History: Reports: None Respiratory History: Reports: SOB Gastrointestinal History: Reports: Cirrhosis, Pancreatitis, Other (See Below) Other Gastrointestinal History: Fecal incontinence. Other Genitourinary History: Blood in the urine. Musculoskeletal History: Reports: Arthritis, Back Pain, Chronic, Fracture, Other (See Below) Other Musculoskeletal History: cervical stenosis Neurological History: Reports: Concussion, CVA Psychiatric History: Reports: ADD, ADHD, Addiction, Anxiety, Depression, Other (See Below) Other Psychiatric History: Social Phobia Endocrine/Metabolic History: Reports: None Hematologic History: Reports: None Immunologic History: Reports: None Other Immunologic History: Hep c pt says he has had treatment for it Oncologic (Cancer) History: Reports: None Other Dermatologic History: Rash to the back for the last 2 years, unsure of what it is. - Infectious Disease History Infectious Disease History: Reports: Hepatitis C - Past Surgical History Head Surgeries/Procedures: Reports: None GI Surgical History: Reports: Appendectomy, Cholecystectomy Other GI Surgeries/Procedures: Surgery on the belly when he was a baby, unsure of what it was for. Musculoskeletal Surgical History: Reports: Other (See Below) Other Musculoskeletal Surgeries/Procedures:: Pt had plates and screws placed and removed in the right foot. Social & Family History - Tobacco Use Tobacco Use Status *Q: Current Every Day Tobacco User Years of Tobacco use: 30 Packs/Tins Daily: 0.5 - Caffeine Use Caffeine Use: Reports: Soda - Recreational Drug Use Recreational Drug Use: Yes Recreational Drug Type: Reports: Marijuana/Hashish ED ROS GENERAL - Review of Systems Review Of Systems: See Below Constitutional: Reports: Malaise, Weakness, Fatigue. Denies: Fever, Chills HEENT: Reports: No Symptoms Respiratory: Reports: Shortness of Breath, Cough Cardiovascular: Reports: Edema (bilateral lower legs). Denies: Chest Pain Endocrine: Reports: Fatigue GI/Abdominal: Reports: Abdominal Pain, Nausea, Vomiting. Denies: Diarrhea : Reports: No Symptoms Musculoskeletal: Reports: Leg Pain ED EXAM, GENERAL - Physical Exam Exam: See Below Exam Limited By: No Limitations General Appearance: Alert, No Apparent Distress Ears: Normal External Exam Nose: Normal Inspection Head: Atraumatic, Normocephalic Neck: Normal Inspection Respiratory/Chest: No Respiratory Distress, Decreased Breath Sounds Cardiovascular: Regular Rate, Rhythm, No Edema, No Murmur, Other (Edema of both legs) GI/Abdominal: Soft, No Organomegaly, No Mass, Tender (Moderate generalized abdominal pain) Extremities: Other (3+ edema to both legs) Neurological: Alert #1 Interpretation EKG Date: 02/17/21 Time: 19:58 Rhythm: NSR Rate (Beats/Min): 70 Trilla: Normal P-Wave: Present QRS: Normal ST-T: Normal QT: Normal Course - Vital Signs Last Recorded V/S: Last Vital Signs Temp 99.0 F 02/17/21 19:11 Pulse 69 02/17/21 19:11 Resp 13 02/17/21 19:11 BP 136/78 02/17/21 19:11 Pulse Ox 100 02/17/21 19:11 - Orders/Labs/Meds Orders: Active Orders 24 hr Category Date Time Status Cardiac Monitoring [RC] . DIRECTED Care 02/17/21 19:43 Active EKG Documentation Completion [RC] STAT Care 02/17/21 19:45 Active Peripheral IV Care [RC] . DIRECTED Care 02/17/21 19:45 Active Abdomen Pelvis w Cont [CT] Stat Exams 02/17/21 19:45 Taken Chest 1V Frontal [CR] Stat Exams 02/17/21 19:45 Taken DRUG SCREEN, URINE [URCHEM] Stat Lab 02/17/21 19:43 Ordered Sodium Chloride 0.9% [Saline Flush] Med 02/17/21 21:00 Active 10 ml FLUSH ASDIRECTED Sodium Chloride 0.9% [Saline Flush] Med 02/17/21 19:43 Active 10 ml FLUSH ASDIRECTED PRN Peripheral IV Insertion Adult [OM.PC] Stat Oth 02/17/21 19:43 Ordered Medication Orders Sodium Chloride (Sodium Chloride 0.9% 10 Ml Syringe) 10 ml FLUSH ASDIRECTED PRN PRN Reason: Keep Vein Open Last Admin: 02/17/21 19:54 Dose: 10 ml Documented by: KATIE Sodium Chloride (Sodium Chloride 0.9% 10 Ml Syringe) 10 ml FLUSH ASDIRECTED [facility] Last Admin: 02/17/21 20:55 Dose: 10 ml Documented by: SHO Labs: Laboratory Tests 02/17/21 02/17/21 02/17/21 Range/Units 20:12 20:12 20:12 WBC 3.28 L (4.23-9.07) K/mm3 RBC 3.47 L (4.63-6.08) M/mm3 Hgb 12.2 L (13.7-17.5) gm/dl Hct 35.8 L (40.1-51.0) % MCV 103.2 H D (79.0-92.2) fl MCH 35.2 H (25.7-32.2) pg MCHC 34.1 (32.2-35.5) g/dl RDW Std Deviation 56.6 H (35.1-43.9) fL Plt Count 39 L (163-337) K/mm3 MPV 9.9 (9.4-12.3) fl Neut % (Auto) 58.2 (34.0-67.9) % Lymph % (Auto) 30.5 (21.8-53.1) % [place] % (Auto) 7.3 (5.3-12.2) % Eos % (Auto) 3.4 (0.8-7.0) Baso % (Auto) 0.3 (0.1-1.2) % Neut # (Auto) 1.91 (1.78-5.38) K/mm3 Lymph # (Auto) 1.00 L (1.32-3.57) K/mm3 [place] # (Auto) 0.24 L (0.30-0.82) K/mm3 Eos # (Auto) 0.11 (0.04-0.54) K/mm3 Baso # (Auto) 0.01 (0.01-0.08) K/mm3 Manual Slide Review Abnormal smear PT 17.7 H (9.7-12.0) SECONDS INR 1.67 Sodium 142 (136-145) mEq/L Potassium 3.0 L (3.5-5.1) mEq/L Chloride 105 (98-107) mEq/L Carbon Dioxide 26 (21-32) mEq/L Anion Gap 14.0 (5-15) BUN 3 L (7-18) mg/dL Creatinine 0.7 (0.7-1.3) mg/dL Est Cr Clr Drug Dosing 162.64 mL/min Estimated GFR (MDRD) > 60 (>60) mL/min BUN/Creatinine Ratio 4.3 L (14-18) Glucose 101 (74-106) mg/dL Calcium 7.1 L (8.5-10.1) mg/dL Magnesium 1.7 L (1.8-2.4) mg/dl Total Bilirubin 6.6 H (0.2-1.0) mg/dL AST 253 H (15-37) U/L ALT 118 H (16-63) U/L Alkaline Phosphatase 130 H (46-116) U/L Ammonia (11-32) umol/L Troponin I 0.019 (0.00-0.056) ng/mL NT-Pro-B Natriuret Pep (0-125) pg/mL Total Protein 6.3 L (6.4-8.2) g/dl Albumin 2.5 L (3.4-5.0) g/dl Globulin 3.8 gm/dL Albumin/Globulin Ratio 0.7 L (1-2) Lipase 143 (73-393) U/L Ethyl Alcohol 0.27 (0.00) gm% SARS-CoV-2 RNA (BRIDGET) (NEGATIVE) 02/17/21 02/17/21 02/17/21 Range/Units 20:12 20:12 21:07 WBC (4.23-9.07) K/mm3 RBC (4.63-6.08) M/mm3 Hgb (13.7-17.5) gm/dl Hct (40.1-51.0) % MCV (79.0-92.2) fl MCH (25.7-32.2) pg MCHC (32.2-35.5) g/dl RDW Std Deviation (35.1-43.9) fL Plt Count (163-337) K/mm3 MPV (9.4-12.3) fl Neut % (Auto) (34.0-67.9) % Lymph % (Auto) (21.8-53.1) % [place] % (Auto) (5.3-12.2) % Eos % (Auto) (0.8-7.0) Baso % (Auto) (0.1-1.2) % Neut # (Auto) (1.78-5.38) K/mm3 Lymph # (Auto) (1.32-3.57) K/mm3 [place] # (Auto) (0.30-0.82) K/mm3 Eos # (Auto) (0.04-0.54) K/mm3 Baso # (Auto) (0.01-0.08) K/mm3 Manual Slide Review PT (9.7-12.0) SECONDS INR Sodium (136-145) mEq/L Potassium (3.5-5.1) mEq/L Chloride (98-107) mEq/L Carbon Dioxide (21-32) mEq/L Anion Gap (5-15) BUN (7-18) mg/dL Creatinine (0.7-1.3) mg/dL Est Cr Clr Drug Dosing mL/min Estimated GFR (MDRD) (>60) mL/min BUN/Creatinine Ratio (14-18) Glucose (74-106) mg/dL Calcium (8.5-10.1) mg/dL Magnesium (1.8-2.4) mg/dl Total Bilirubin (0.2-1.0) mg/dL AST (15-37) U/L ALT (16-63) U/L Alkaline Phosphatase (46-116) U/L Ammonia 24 (11-32) umol/L Troponin I (0.00-0.056) ng/mL NT-Pro-B Natriuret Pep 94 (0-125) pg/mL Total Protein (6.4-8.2) g/dl Albumin (3.4-5.0) g/dl Globulin gm/dL Albumin/Globulin Ratio (1-2) Lipase (73-393) U/L Ethyl Alcohol (0.00) gm% SARS-CoV-2 RNA ([facility]GET) Negative (NEGATIVE) Meds: Medications Generic Name Dose Route Start Last Admin Trade Name Frebossman PRN Reason Stop Dose Admin Sodium Chloride 10 ml 02/17/21 19:43 02/17/21 19:54 Sodium Chloride 0.9% 10 Ml Syringe FLUSH 10 ml ASDIRECTED PRN Administration Keep Vein Open Sodium Chloride 10 ml 02/17/21 21:00 02/17/21 20:55 Sodium Chloride 0.9% 10 Ml Syringe FLUSH 10 ml ASDIRECTED ERI Administration Discontinued Medications Generic Name Dose Route Start Last Admin Trade Name Freq PRN Reason Stop Dose Admin Hydromorphone HCl 0.5 mg 02/17/21 22:15 Hydromorphone 0.5 Mg/0.5 Ml Syringe IVPUSH 02/17/21 22:16 ONETIME ONE Iopamidol 100 ml 02/17/21 20:54 02/17/21 20:55 Iopamidol 612 Mg/Ml 100 Ml Bottle IVPUSH 02/17/21 20:55 100 ml ONETIME ONE Administration Iopamidol 50 ml 02/17/21 20:54 02/17/21 20:55 Iopamidol 612 Mg/Ml 50 Ml Sdv IVPUSH 02/17/21 20:55 50 ml ONETIME ONE Administration Ondansetron HCl 4 mg 02/17/21 19:45 02/17/21 19:55 Ondansetron 4 Mg/2 Ml Sdv IVPUSH 02/17/21 19:46 4 mg ONETIME ONE Administration - Re-Assessments/Exams Free Text/Narrative Re-Assessment/Exam: 02/17/21 20:17 I ordered an IV saline lock, EKG, CXR, CT of his abdomen and pelvis and labs. 02/17/21 22:16 His EKG shows a NSR with no acute changes. His CXR looks good. His WBC is low at 3.28. His Hgb is low at 12.2. His platelets are low at 39. His INR is 1.67. His K is low at 3. His calcium is low at 7.1. His magnesium is 1.7. His total bili is 6.6. His AST is elevated at 253. His ALT is elevated at 118. His Alk Phos is elevated at 130. He is COVID 19 negative. His ETOH is elevateda t 0.27. His ammonia is normal at 24. His troponin is negative. His lipase is normal. His BNP is normal. His CT shows marked hepatocellular disease as evidenced by nodular, heterogeneous liver, splenomegaly as well as numerous varices in the abdomen as above. Live is quite heterogeneous especially right lobe. Consider future dedicated hepatic mass MRI without with contrast to better characterize and exclude underlying mass. Moderate wall thickening of the colon predominately right colon. This can be seen with underlying hepatocellular disease although other colitis not excluded. In addition there are multiple scattered fluid- filled loops of small bowel which may represent enteritis or ileus. The patient is very weak and cannot get up because of that and leg pain and edema. I feel he may need to be admitted. 02/17/21 22:[address] Rivera our hospitalist and he agreed to the admission. Departure - Departure Time of Disposition: 22:30 Disposition: Admitted As Inpatient 68 Condition: Fair Clinical Impression: Alcoholism /alcohol abuse, Hypokalemia, Hypomagnesemia, Thrombocytopenia, Liver disease, Generalized weakness, Leg edema Alcohol intoxication Qualifiers: Complication of substance-induced condition: uncomplicated Qualified Code(s): F10.920 - Alcohol use, unspecified with intoxication, uncomplicated - Discharge Information Referrals: Radha Hayden PA-C [Primary Care Provider] - Forms: ED Department Discharge Sepsis Event Note (ED) - Evaluation Sepsis Screening Result: No Definite Risk - Focused Exam Vital Signs: Vital Signs Temp Pulse Resp BP Pulse Ox 02/17/21 19:11 99.0 F 69 13 136/78 100 - My Orders Last 24 Hours: My Active Orders 02/17/21 19:43 Cardiac Monitoring [RC] . DIRECTED DRUG SCREEN, URINE [URCHEM] Stat Sodium Chloride 0.9% [Saline Flush] 10 ml FLUSH ASDIRECTED PRN Peripheral IV Insertion Adult [OM.PC] Stat 02/17/21 19:45 EKG Documentation Completion [RC] STAT Peripheral IV Care [RC] . DIRECTED Abdomen Pelvis w Cont [CT] Stat Chest 1V Frontal [CR] Stat 02/17/21 21:00 Sodium Chloride 0.9% [Saline Flush] 10 ml FLUSH ASDIRECTED - Assessment/Plan Last 24 Hours: My Active Orders 02/17/21 19:43 Cardiac Monitoring [RC] . DIRECTED DRUG SCREEN, URINE [URCHEM] Stat Sodium Chloride 0.9% [Saline Flush] 10 ml FLUSH ASDIRECTED PRN Peripheral IV Insertion Adult [OM.PC] Stat 02/17/21 19:45 EKG Documentation Completion [RC] STAT Peripheral IV Care [RC] . DIRECTED Abdomen Pelvis w Cont [CT] Stat Chest 1V Frontal [CR] Stat 02/17/21 21:00 Sodium Chloride 0.9% [Saline Flush] 10 ml FLUSH ASDIRECTED
[2021-02-17] MEDS ORDERED: Iopamidol 612 MG/ML 50 ML SDV IVPUSH ONE (20:54)
[2021-02-17] MEDS ORDERED: Iopamidol 612 MG/ML 100 ML Bottle IVPUSH ONE (20:54)
[2021-02-17] MEDS ORDERED: Sodium Chloride 0.9% 10 ML Syringe FLUSH SCH (21:00)
[2021-02-17] MEDS ORDERED: HYDROmorphone 0.5 MG/0.5 ML Syringe IVPUSH ONE (22:15)
[2021-02-17] MEDS ORDERED: Thiamine 200 MG/2 ML MDV IVPUSH ONE (22:34)
[2021-02-17] MEDS ORDERED: D5 1/2 NS w/ 20 mEq/L KCl 1,000 ML IV SCH (22:45)
[2021-02-18] MEDS ORDERED: Ondansetron 4 MG/2 ML SDV IVPUSH PRN (01:36)
[2021-02-18] MEDS ORDERED: HYDROmorphone 0.5 MG/0.5 ML Syringe IVPUSH PRN (01:38)
--- NOTE | 2021-02-18 06:49 | PCM.HP.2 ---
H&P History of Present Illness - General Date of Service: 02/18/21 Admit Problem/Dx: Admission Diagnosis/Problem Admission Diagnosis/Problem Alcohol intoxication Source of Information: Patient, Old Records History Limitations: Reports: Intoxication - History of Present Illness Initial Comments - Free Text/Narative: The patient is a 50-year-old gentleman who was admitted to the emergency department with a complaint of generalized weakness and swelling of his lower extremities. In the emergency department the patient was found to be intoxicated with a blood alcohol level of 0.27. Patient reports heavy alcohol consumption for decades. He says he normally drinks anywhere between 4-8 drinks per night. Patient says that his feet hurt. 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 The patient does not have a concrete plan for sobriety after discharge. The patient had been previously taking amitriptyline although he is a poor historian. The patient is a tobacco user. The patient also reports a history of substance abuse with methamphetamine and heroin although he says he has not used illicit drugs in decades. Onset of Symptoms: Reports: Unknown/Unsure Duration of Symptoms: Reports: Chronic Location: Reports: Generalized Quality: Reports: Burning, Throbbing Severity: Moderate Improves with: Reports: Medication Worsens with: Reports: Movement Associated Symptoms: Reports: Confusion Feet Pain Score (Numeric/FACES): 4 - Related Data Allergies/Adverse Reactions: Allergies Allergy/AdvReac Type Severity Reaction Status Date / Time adhesive tape Allergy Rash Verified 02/17/21 19:15 Home Medications: Home Meds Amitriptyline [Elavil] 25 mg PO BEDTIME 02/18/21 [History] Furosemide 20 mg PO DAILY 02/18/21 [History] Past Medical History HEENT History: Reports: Impaired Vision Cardiovascular History: Reports: None Respiratory History: Reports: SOB Gastrointestinal History: Reports: Cirrhosis, Pancreatitis, Other (See Below) Other Gastrointestinal History: Fecal incontinence. Other Genitourinary History: Blood in the urine. Musculoskeletal History: Reports: Arthritis, Back Pain, Chronic, Fracture, Other (See Below) Other Musculoskeletal History: cervical stenosis Neurological History: Reports: Concussion, CVA Psychiatric History: Reports: ADD, ADHD, Addiction, Anxiety, Depression, Other (See Below) Other Psychiatric History: Social Phobia Endocrine/Metabolic History: Reports: None Hematologic History: Reports: None Immunologic History: Reports: None Other Immunologic History: Hep c pt says he has had treatment for it Oncologic (Cancer) History: Reports: None Other Dermatologic History: Rash to the back for the last 2 years, unsure of what it is. - Infectious Disease History Infectious Disease History: Reports: Hepatitis C - Past Surgical History Head Surgeries/Procedures: Reports: None GI Surgical History: Reports: Appendectomy, Cholecystectomy Other GI Surgeries/Procedures: Surgery on the belly when he was a baby, unsure of what it was for. Male Surgical History: Reports: None Musculoskeletal Surgical History: Reports: Other (See Below) Other Musculoskeletal Surgeries/Procedures:: Pt had plates and screws placed and removed in the right foot. Social & Family History - Family History Hematologic: Reports: None Oncologic: Reports: Pancreatic, Other (See Below) Other Oncologic Family History: gallbladder - Tobacco Use Tobacco Use Status *Q: Current Every Day Tobacco User Years of Tobacco use: 40 Packs/Tins Daily: 1 Used Tobacco, but Quit: No Month/Year Tobacco Last Used: 02/17/21 Second Hand Smoke Exposure: No - Caffeine Use Caffeine Use: Reports: Soda - Alcohol Use Days Per Week of Alcohol Use: 7 Number of Drinks Per Day: 10 Total Drinks Per Week: 70 Date of Last Drink: 02/17/21 Time of Last Drink: 15:00 - Recreational Drug Use Recreational Drug Use: Yes Drug Use in Last 12 Months: No Recreational Drug Type: Reports: Codiene, Heroin, Methamphetamine, Other (see below) Other Recreational Drug Type: Pt has been clean from recreational drug use for the last 23 yearsw Recreational Drug Use Frequency: Not Used In Over 6 Months H&P Review of Systems - Review of Systems: Review Of Systems: See Below General: Reports: Weakness, Fatigue, Decreased Appetite HEENT: Reports: No Symptoms Pulmonary: Reports: Shortness of Breath, Wheezing, Cough Cardiovascular: Reports: No Symptoms Gastrointestinal: Reports: Abdominal Pain, Nausea, Vomiting Genitourinary: Reports: No Symptoms Musculoskeletal: Reports: No Symptoms Skin: Reports: No Symptoms Psychiatric: Reports: No Symptoms Neurological: Reports: No Symptoms Hematologic/Lymphatic: Reports: No Symptoms Immunologic: Reports: No Symptoms Exam - Exam Exam: See Below - Vital Signs Vital Signs: Last Vital Signs Temp 36.3 C 02/18/21 00:48 Pulse 81 02/18/21 00:48 Resp 18 02/18/21 00:48 BP 108/63 02/18/21 00:48 Pulse Ox 98 02/18/21 00:48 Weight: 105.37 kg - Exam Quality Assessment: Supplemental Oxygen. No: DVT Prophylaxis (Antithrombotic hose) General: Alert, Oriented, Mild Distress, Other (Олег complexion) HEENT: Conjunctiva Clear, EOMI. No: Mucosa Moist & [place] (Very poor oral hygiene multiple decayed blackened teeth) Neck: Supple, Trachea Midline Lungs: Normal Respiratory Effort, Crackles (Bibasilar) Cardiovascular: Regular Rate, Regular Rhythm GI/Abdominal Exam: Normal Bowel Sounds, Distended (Ascites), Tender (Tender right upper quadrant) (Male) Exam: Deferred Rectal (Males) Exam: Deferred Back Exam: Normal Inspection Extremities: Normal Inspection, Pedal Edema (+2 pitting) Skin: Warm, Dry, Intact, Rash (Telangiectasias) Neurological: Cranial Nerves Intact, Normal Speech Neuro Extensive - Mental Status: Alert, Oriented x3 Psychiatric: Alert, Normal Affect - Patient Data Lab Results Last 24 hrs: Laboratory Results - last 24 hr 02/17/21 02/17/21 02/17/21 Range/Units 20:12 20:12 20:12 WBC 3.28 L (4.23-9.07) K/mm3 RBC 3.47 L (4.63-6.08) M/mm3 Hgb 12.2 L (13.7-17.5) gm/dl Hct 35.8 L (40.1-51.0) % MCV 103.2 H D (79.0-92.2) fl MCH 35.2 H (25.7-32.2) pg MCHC 34.1 (32.2-35.5) g/dl RDW Std Deviation 56.6 H (35.1-43.9) fL Plt Count 39 L (163-337) K/mm3 MPV 9.9 (9.4-12.3) fl Neut % (Auto) 58.2 (34.0-67.9) % Lymph % (Auto) 30.5 (21.8-53.1) % [place] % (Auto) 7.3 (5.3-12.2) % Eos % (Auto) 3.4 (0.8-7.0) Baso % (Auto) 0.3 (0.1-1.2) % Neut # (Auto) 1.91 (1.78-5.38) K/mm3 Lymph # (Auto) 1.00 L (1.32-3.57) K/mm3 [place] # (Auto) 0.24 L (0.30-0.82) K/mm3 Eos # (Auto) 0.11 (0.04-0.54) K/mm3 Baso # (Auto) 0.01 (0.01-0.08) K/mm3 Manual Slide Review Abnormal smear PT 17.7 H (9.7-12.0) SECONDS INR 1.67 Sodium 142 (136-145) mEq/L Potassium 3.0 L (3.5-5.1) mEq/L Chloride 105 (98-107) mEq/L Carbon Dioxide 26 (21-32) mEq/L Anion Gap 14.0 (5-15) BUN 3 L (7-18) mg/dL Creatinine 0.7 (0.7-1.3) mg/dL Est Cr Clr Drug Dosing 162.64 mL/min Estimated GFR (MDRD) > 60 (>60) mL/min BUN/Creatinine Ratio 4.3 L (14-18) Glucose 101 (74-106) mg/dL Calcium 7.1 L (8.5-10.1) mg/dL Magnesium 1.7 L (1.8-2.4) mg/dl Total Bilirubin 6.6 H (0.2-1.0) mg/dL AST 253 H (15-37) U/L ALT 118 H (16-63) U/L Alkaline Phosphatase 130 H (46-116) U/L Ammonia (11-32) umol/L Troponin I 0.019 (0.00-0.056) ng/mL NT-Pro-B Natriuret Pep (0-125) pg/mL Total Protein 6.3 L (6.4-8.2) g/dl Albumin 2.5 L (3.4-5.0) g/dl Globulin 3.8 gm/dL Albumin/Globulin Ratio 0.7 L (1-2) Lipase 143 (73-393) U/L Urine Opiates Screen (KJCBZR=624) Ur Buprenorphine Scrn (CUTOFF=10) Ur Oxycodone Screen (YLF1JP=871) Urine Methadone Screen (EQY2BI=101) Ur Propoxyphene Screen (VPMLQV=015) Ur Barbiturates Screen (SJFSQF=990) Ur Tricyclics Screen (HGYVOJ=203) Ur Phencyclidine Scrn (CUTOFF=25) Ur Amphetamine Screen (XZDZGR=153) U Methamphetamines Scrn (UXNHGR=691) U Benzodiazepines Scrn (AMVGCE=849) U Cocaine Metab Screen (LLPIDN=610) U Marijuana (THC) Screen (CUTOFF=50) Ethyl Alcohol 0.27 (0.00) gm% SARS-CoV-2 RNA (BRIDGET) (NEGATIVE) 02/17/21 02/17/21 02/17/21 Range/Units 20:12 20:12 21:07 WBC (4.23-9.07) K/mm3 RBC (4.63-6.08) M/mm3 Hgb (13.7-17.5) gm/dl Hct (40.1-51.0) % MCV (79.0-92.2) fl MCH (25.7-32.2) pg MCHC (32.2-35.5) g/dl RDW Std Deviation (35.1-43.9) fL Plt Count (163-337) K/mm3 MPV (9.4-12.3) fl Neut % (Auto) (34.0-67.9) % Lymph % (Auto) (21.8-53.1) % [place] % (Auto) (5.3-12.2) % Eos % (Auto) (0.8-7.0) Baso % (Auto) (0.1-1.2) % Neut # (Auto) (1.78-5.38) K/mm3 Lymph # (Auto) (1.32-3.57) K/mm3 [place] # (Auto) (0.30-0.82) K/mm3 Eos # (Auto) (0.04-0.54) K/mm3 Baso # (Auto) (0.01-0.08) K/mm3 Manual Slide Review PT (9.7-12.0) SECONDS INR Sodium (136-145) mEq/L Potassium (3.5-5.1) mEq/L Chloride (98-107) mEq/L Carbon Dioxide (21-32) mEq/L Anion Gap (5-15) BUN (7-18) mg/dL Creatinine (0.7-1.3) mg/dL Est Cr Clr Drug Dosing mL/min Estimated GFR (MDRD) (>60) mL/min BUN/Creatinine Ratio (14-18) Glucose (74-106) mg/dL Calcium (8.5-10.1) mg/dL Magnesium (1.8-2.4) mg/dl Total Bilirubin (0.2-1.0) mg/dL AST (15-37) U/L ALT (16-63) U/L Alkaline Phosphatase (46-116) U/L Ammonia 24 (11-32) umol/L Troponin I (0.00-0.056) ng/mL NT-Pro-B Natriuret Pep 94 (0-125) pg/mL Total Protein (6.4-8.2) g/dl Albumin (3.4-5.0) g/dl Globulin gm/dL Albumin/Globulin Ratio (1-2) Lipase (73-393) U/L Urine Opiates Screen (GZQRRA=930) Ur Buprenorphine Scrn (CUTOFF=10) Ur Oxycodone Screen (LGA7GJ=257) Urine Methadone Screen (BGV8BW=364) Ur Propoxyphene Screen (GEWCUL=339) Ur Barbiturates Screen (SKDQLO=992) Ur Tricyclics Screen (MEVUST=639) Ur Phencyclidine Scrn (CUTOFF=25) Ur Amphetamine Screen (CUKLMQ=178) U Methamphetamines Scrn (TEWEOD=906) U Benzodiazepines Scrn (XCOHBO=078) U Cocaine Metab Screen (BVTPLX=893) U Marijuana (THC) Screen (CUTOFF=50) Ethyl Alcohol (0.00) gm% SARS-CoV-2 RNA (BRIDGET) Negative (NEGATIVE) 02/18/21 Range/Units 01:08 WBC (4.23-9.07) K/mm3 RBC (4.63-6.08) M/mm3 Hgb (13.7-17.5) gm/dl Hct (40.1-51.0) % MCV (79.0-92.2) fl MCH (25.7-32.2) pg MCHC (32.2-35.5) g/dl RDW Std Deviation (35.1-43.9) fL Plt Count (163-337) K/mm3 MPV (9.4-12.3) fl Neut % (Auto) (34.0-67.9) % Lymph % (Auto) (21.8-53.1) % [place] % (Auto) (5.3-12.2) % Eos % (Auto) (0.8-7.0) Baso % (Auto) (0.1-1.2) % Neut # (Auto) (1.78-5.38) K/mm3 Lymph # (Auto) (1.32-3.57) K/mm3 [place] # (Auto) (0.30-0.82) K/mm3 Eos # (Auto) (0.04-0.54) K/mm3 Baso # (Auto) (0.01-0.08) K/mm3 Manual Slide Review PT (9.7-12.0) SECONDS INR Sodium (136-145) mEq/L Potassium (3.5-5.1) mEq/L Chloride (98-107) mEq/L Carbon Dioxide (21-32) mEq/L Anion Gap (5-15) BUN (7-18) mg/dL Creatinine (0.7-1.3) mg/dL Est Cr Clr Drug Dosing mL/min Estimated GFR (MDRD) (>60) mL/min BUN/Creatinine Ratio (14-18) Glucose (74-106) mg/dL Calcium (8.5-10.1) mg/dL Magnesium (1.8-2.4) mg/dl Total Bilirubin (0.2-1.0) mg/dL AST (15-37) U/L ALT (16-63) U/L Alkaline Phosphatase (46-116) U/L Ammonia (11-32) umol/L Troponin I (0.00-0.056) ng/mL NT-Pro-B Natriuret Pep (0-125) pg/mL Total Protein (6.4-8.2) g/dl Albumin (3.4-5.0) g/dl Globulin gm/dL Albumin/Globulin Ratio (1-2) Lipase (73-393) U/L Urine Opiates Screen Presumptive positive H (EBVMZZ=341) Ur Buprenorphine Scrn Negative (CUTOFF=10) Ur Oxycodone Screen Negative (HXZ9MC=676) Urine Methadone Screen Negative (JGT2QA=600) Ur Propoxyphene Screen Negative (BDATKQ=734) Ur Barbiturates Screen Negative (ABLETG=414) Ur Tricyclics Screen Presumptive positive H (DGSAPT=042) Ur Phencyclidine Scrn Negative (CUTOFF=25) Ur Amphetamine Screen Negative (UCDBTS=932) U Methamphetamines Scrn Negative (HYODJG=928) U Benzodiazepines Scrn Negative (IXARIY=908) U Cocaine Metab Screen Negative (SLLIKC=747) U Marijuana (THC) Screen Presumptive positive H (CUTOFF=50) Ethyl Alcohol (0.00) gm% SARS-CoV-2 RNA (BRIDGET) (NEGATIVE) Result Diagrams: 02/18/21 10:35 02/18/21 10:35 Sepsis Event Note - Evaluation Sepsis Screening Result: No Definite Risk - Focused Exam Vital Signs: Vital Signs Temp Pulse Pulse Resp BP Pulse Ox 02/18/21 00:48 36.3 C 81 18 108/63 98 02/17/21 19:11 37.2 C 69 13 136/78 100 - Problem List (1) Acute, mixed level of activity, alcohol withdrawal delirium SNOMED Code(s): 3251210, 642677305, 76409037284100211 ICD Code: F10.231 - ALCOHOL DEPENDENCE WITH WITHDRAWAL DELIRIUM Status: Acute Priority: High Current Visit: Yes (2) Leukopenia SNOMED Code(s): 81519222, 668297798 ICD Code: D72.819 - DECREASED WHITE BLOOD CELL COUNT, UNSPECIFIED Status: Acute Priority: High Current Visit: Yes Qualifiers: Leukopenia type: neutropenia (3) Alcohol intoxication SNOMED Code(s): 38047221 ICD Code: F10.929 - ALCOHOL USE, UNSPECIFIED WITH INTOXICATION, UNSPECIFIED Status: Chronic Priority: High Current Visit: Yes Qualifiers: Complication of substance-induced condition: with unspecified complication Qualified Code(s): F10.929 - Alcohol use, unspecified with intoxication, unspecified (4) Alcoholic cirrhosis of liver with ascites SNOMED Code(s): 324193121, 262734892 ICD Code: K70.31 - ALCOHOLIC CIRRHOSIS OF LIVER WITH ASCITES Status: Chronic Priority: High Current Visit: Yes (5) Hepatitis C SNOMED Code(s): 58389597 ICD Code: B19.20 - UNSPECIFIED VIRAL HEPATITIS C WITHOUT HEPATIC COMA Status: Chronic Priority: Medium Current Visit: Yes Qualifiers: Viral hepatitis chronicity: chronic Hepatic coma status: without hepatic coma Qualified Code(s): B18.2 - Chronic viral hepatitis C (6) Thrombocytopenia SNOMED Code(s): 261662031 ICD Code: D69.6 - THROMBOCYTOPENIA, UNSPECIFIED Status: Acute Priority: High Current Visit: Yes Problem List Initiated/Reviewed/Updated: Yes Orders Last 24hrs: Active Orders 24 hr Category Date Time Status Patient Status [ADT] Routine ADT 02/17/21 23:18 Active Bedrest [RC] ASDIRECTED Care 02/18/21 01:36 Active CIWAA Assessment [RC] Q1HR Care 02/18/21 01:39 Active Cardiac Monitoring [RC] . DIRECTED Care 02/17/21 19:43 Active EKG Documentation Completion [RC] STAT Care 02/17/21 19:45 Active Peripheral IV Care [RC] . DIRECTED Care 02/17/21 19:45 Active Regular Diet [DIET] Diet 02/18/21 Breakfast Active Abdomen Pelvis w Cont [CT] Stat Exams 02/17/21 19:45 Taken Chest 1V Frontal [CR] Stat Exams 02/17/21 19:45 Taken D5 1/2 NS w/ 20 mEq/L KCl 1,000 ml Med 02/17/21 22:45 Active IV ASDIRECTED HYDROmorphone [Dilaudid] Med 02/18/21 01:38 Active 0.5 mg IVPUSH Q2H PRN Ondansetron [Zofran] Med 02/18/21 01:36 Active 4 mg IVPUSH Q8H PRN Sodium Chloride 0.9% [Saline Flush] Med 02/17/21 21:00 Active 10 ml FLUSH ASDIRECTED Sodium Chloride 0.9% [Saline Flush] Med 02/17/21 19:43 Active 10 ml FLUSH ASDIRECTED PRN Isolation [COMM] Routine Oth 02/18/21 00:48 Ordered Peripheral IV Insertion Adult [OM.PC] Stat Oth 02/17/21 19:43 Ordered Resuscitation Status Routine Resus Stat 02/18/21 01:35 Ordered Medication Orders Hydromorphone HCl (Hydromorphone 0.5 Mg/0.5 Ml Syringe) 0.5 mg IVPUSH Q2H PRN PRN Reason: Pain Potassium Chloride/Dextrose/Sod Cl (D5 1/2 Ns W/ 20 Meq/L Kcl) 1,000 mls @ 100 mls/hr IV ASDIRECTED ERI Last Admin: 02/17/21 23:01 Dose: 100 mls/hr Documented by: KATIE Ondansetron HCl (Ondansetron 4 Mg/2 Ml Sdv) 4 mg IVPUSH Q8H PRN PRN Reason: Nausea/Vomiting Sodium Chloride (Sodium Chloride 0.9% 10 Ml Syringe) 10 ml FLUSH ASDIRECTED PRN PRN Reason: Keep Vein Open Last Admin: 02/17/21 19:54 Dose: 10 ml Documented by: KATIE Sodium Chloride (Sodium Chloride 0.9% 10 Ml Syringe) 10 ml FLUSH ASDIRECTED ERI Last Admin: 02/17/21 20:55 Dose: 10 ml Documented by: SHO Assessment/Plan Comment:: The patient is a 50-year-old gentleman who has been admitted as an inpatient secondary to possible alcohol withdrawal. The patient is currently intoxicated. The patient also has a CT scan that shows cirrhotic liver with a questionable liver mass. MRI of the liver and abdomen has been ordered to better evaluate this. The patient also has rather severe thrombocytopenia and is a fall risk therefore DVT prophylaxis will be completed with antithrombolic stockings. Patient also has peripheral edema and I have ordered a 2D echocardiogram. The patient will be kept on CIWA protocol. The patient will also have Ativan with regards to the CIWA protocol. The patient will also be fluid resuscitated with lactated Ringer's. I have ordered repeat laboratory studies for the morning. Patient also was noted to be hypomagnesemic and I have ordered 2 g of magnesium and water for him. The patient will also have thiamine 100 mg p.o. daily and folic acid 1 mg p.o. daily. - Mortality Measure Prognosis:: Good
[2021-02-18] MEDS ORDERED: oxyCODONE 5 MG Tab PO PRN (08:31)
[2021-02-18] MEDS ORDERED: Ondansetron 4 MG Tab.DIS PO PRN (08:31)
[2021-02-18] MEDS ORDERED: Ibuprofen 200 MG Tab PO PRN (08:31)
[2021-02-18] MEDS ORDERED: LORazepam 2 MG/ML SDV IVPUSH PRN ×2 (08:31→13:21)
--- NOTE | 2021-02-18 09:25 | CR ---
Chest: Portable view of the chest was obtained. Comparison: No prior chest imaging is available. Heart size and mediastinum are normal. Nodular density is seen above the left hilum measuring approximately 2 cm. Lungs otherwise are clear. No acute osseous finding is appreciated. Impression: 1. Questionable 2 cm nodular density off the upper left hilum. Please consider noncontrast chest CT study to hopefully rule out this possibility. 2. Nothing acute is otherwise seen. Diagnostic code #9
--- NOTE | 2021-02-18 09:27 | CT ---
CT abdomen and pelvis Technique: Multiple axial sections were obtained from above the dome of the diaphragm inferiorly through the pubic symphysis. Intravenous contrast was utilized. No oral contrast has been given. Delayed images were also obtained through the abdomen and pelvis. Comparison: Prior CT abdomen and pelvis exam of 07/17/19. Findings: Visualized lung bases show nothing acute. Liver is diffusely decreased in density. Slight nodularity is noted within the liver contour. There is a low-density abnormality being seen within the posterior right lobe of the liver measuring 2.7 cm. Uncertain if this represents normal liver or represents an actual liver mass. This is an interval change from prior exam. Spleen is enlarged with length of 4.9 cm. Small amount of low density is seen within the esophagus compatible with gastroesophageal reflux. Surgical clips are seen from prior cholecystectomy. Varicosities are seen within the upper abdomen. Varicosities are fairly stable from prior exam. Pancreas shows no focal abnormality. Kidneys show symmetric contrast enhancement. No hydronephrosis is appreciated. Very small low-density lesion noted within the inferior kidney measuring 6 mm which is too small to characterize but most likely represents a small cyst. Abdominal aorta shows atherosclerotic calcification without aneurysm. Atherosclerotic calcification continues into the iliac vessels. No retroperitoneal adenopathy is seen. Appendix is seen which is normal. No pelvic mass or adenopathy is appreciated. Bowel wall thickening is noted within the right colon and transverse colon. Slight areas of fluid within the small bowel are seen which most likely represent a mild ileus. Delayed images shows contrast excretion from both kidneys into nondilated ureters and into the bladder. Bone window settings were reviewed. No acute osseous abnormality is seen. Slight degenerative spurring is noted. Impression: 1. Fatty infiltration within the liver with nodular surface characteristics. Mild splenomegaly is seen with stable varicosities within the upper abdomen. 2. Hypoechoic area within the posterior right lobe of the liver, this may represent normal liver but difficult to exclude a liver mass. Consider liver MRI to further evaluate. 3. Slight fluid within the small bowel raising the possibility of an ileus. 4. Bowel wall thickening within the right and transverse colon raising the possibility of colitis versus change from liver disease. 5. Other nonacute findings as noted above. Diagnostic code #3 Agree with preliminary report issued by [email or web address], preliminary report finalized on 02/17/21, 10:40 PM CDT, code #1
[2021-02-18] MEDS: Nicotine 14 MG/24 Hr Patch TRDERM SCH (09:44)
[2021-02-18] MEDS: Folic Acid 1 MG Tab PO SCH (09:44)
[2021-02-18] MEDS: Lactated Ringers 1,000 ML IV SCH ×2 (10:12→20:21)
[2021-02-18] MEDS ORDERED: Magnesium Sulfate/Water 2 GM/50 ML BAG IV ONE (10:30)
[2021-02-18] MEDS ORDERED: Gadoxetate Disodium 10 ML SDV IV ONE (15:13)
[2021-02-18] MEDS ORDERED: Sodium Chloride 0.9% 100 ML IV SCH (15:15)
--- NOTE | 2021-02-18 16:54 | MR ---
MRI abdomen (without and with intravenous contrast) Technique: Various sequences were obtained in coronal and axial planes before and after contrast administration. Comparison: Prior CT abdomen and pelvis study performed on 02/17/21. Findings: Liver shows diffuse fatty infiltration. Liver shows irregular contrast enhancement. There is no focal mass being seen within the liver at this time. Spleen size is enlarged. Varicosities are again noted. Kidneys appear within normal limits. Pancreas shows no discrete abnormality. Abdominal aorta shows no aneurysm. Impression: 1. Liver shows diffuse fatty infiltration as well as irregular enhancement after contrast administration. No focal liver mass is seen. 2. Other findings as noted on prior CT study are appreciated which include splenomegaly and varicosities. Diagnostic code #3
[2021-02-18] MEDS ORDERED: AMITRIPTYLINE 50 MG PO SCH (21:00)
[2021-02-18] MEDS ORDERED: Thiamine 100 MG Tab PO SCH (21:00)
[2021-02-19] MEDS: Folic Acid 1 MG Tab PO SCH (08:05)
[2021-02-19] MEDS: Nicotine 14 MG/24 Hr Patch TRDERM SCH (08:05)
[2021-02-19] MEDS ORDERED: chlordiazePOXIDE 25 MG Cap PO SCH (09:00)
[2021-02-19] MEDS ORDERED: Sertraline 25 MG Tab PO SCH (09:00)
--- NOTE | 2021-02-19 13:04 | PCM.DCSUM1 ---
Discharge Summary - Hospital Course Free Text/Narrative:: - General Date of Service: 02/18/21 Admit Problem/Dx: Admission Diagnosis/Problem Admission Diagnosis/Problem Alcohol intoxication Source of Information: Patient, Old Records History Limitations: Reports: Intoxication - History of Present Illness Initial Comments - Free Text/Narative: The patient is a 50-year-old gentleman who was admitted to the emergency department with a complaint of generalized weakness and swelling of his lower extremities. In the emergency department the patient was found to be intoxicated with a blood alcohol level of 0.27. Patient reports heavy alcohol consumption for decades. He says he normally drinks anywhere between 4-8 drinks per night. Patient says that his feet hurt. 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 The patient does not have a concrete plan for sobriety after discharge. The patient had been previously taking amitriptyline although he is a poor historian. The patient is a tobacco user. The patient also reports a history of substance abuse with methamphetamine and heroin although he says he has not used illicit drugs in decades. Onset of Symptoms: Reports: Unknown/Unsure Duration of Symptoms: Reports: Chronic Location: Reports: Generalized Quality: Reports: Burning, Throbbing Severity: Moderate Improves with: Reports: Medication Worsens with: Reports: Movement Associated Symptoms: Reports: Confusion Feet Pain Score (Numeric/FACES): 4 - Related Data Allergies/Adverse Reactions: Allergies Allergy/AdvReac Type Severity Reaction Status Date / Time adhesive tape Allergy Rash Verified 02/17/21 19:15 Home Medications: Home Meds Amitriptyline [Elavil] 25 mg PO BEDTIME 02/18/21 [History] Furosemide 20 mg PO DAILY 02/18/21 [History] Past Medical History HEENT History: Reports: Impaired Vision Cardiovascular History: Reports: None Respiratory History: Reports: SOB Gastrointestinal History: Reports: Cirrhosis, Pancreatitis, Other (See Below) Other Gastrointestinal History: Fecal incontinence. Other Genitourinary History: Blood in the urine. Musculoskeletal History: Reports: Arthritis, Back Pain, Chronic, Fracture, Other (See Below) Other Musculoskeletal History: cervical stenosis Neurological History: Reports: Concussion, CVA Psychiatric History: Reports: ADD, ADHD, Addiction, Anxiety, Depression, Other (See Below) Other Psychiatric History: Social Phobia Endocrine/Metabolic History: Reports: None Hematologic History: Reports: None Immunologic History: Reports: None Other Immunologic History: Hep c pt says he has had treatment for it Oncologic (Cancer) History: Reports: None Other Dermatologic History: Rash to the back for the last 2 years, unsure of what it is. - Infectious Disease History Infectious Disease History: Reports: Hepatitis C - Past Surgical History Head Surgeries/Procedures: Reports: None GI Surgical History: Reports: Appendectomy, Cholecystectomy Other GI Surgeries/Procedures: Surgery on the belly when he was a baby, unsure of what it was for. Male Surgical History: Reports: None Musculoskeletal Surgical History: Reports: Other (See Below) Other Musculoskeletal Surgeries/Procedures:: Pt had plates and screws placed and removed in the right foot. Social & Family History - Family History Hematologic: Reports: None Oncologic: Reports: Pancreatic, Other (See Below) Other Oncologic Family History: gallbladder - Tobacco Use Tobacco Use Status *Q: Current Every Day Tobacco User Years of Tobacco use: 40 Packs/Tins Daily: 1 Used Tobacco, but Quit: No Month/Year Tobacco Last Used: 02/17/21 Second Hand Smoke Exposure: No - Caffeine Use Caffeine Use: Reports: Soda - Alcohol Use Days Per Week of Alcohol Use: 7 Number of Drinks Per Day: 10 Total Drinks Per Week: 70 Date of Last Drink: 02/17/21 Time of Last Drink: 15:00 - Recreational Drug Use Recreational Drug Use: Yes Drug Use in Last 12 Months: No Recreational Drug Type: Reports: Codiene, Heroin, Methamphetamine, Other (see below) Other Recreational Drug Type: Pt has been clean from recreational drug use for the last 23 yearsw Recreational Drug Use Frequency: Not Used In Over 6 Months H&P Review of Systems - Review of Systems: Review Of Systems: See Below General: Reports: Weakness, Fatigue, Decreased Appetite HEENT: Reports: No Symptoms Pulmonary: Reports: Shortness of Breath, Wheezing, Cough Cardiovascular: Reports: No Symptoms Gastrointestinal: Reports: Abdominal Pain, Nausea, Vomiting Genitourinary: Reports: No Symptoms Musculoskeletal: Reports: No Symptoms Skin: Reports: No Symptoms Psychiatric: Reports: No Symptoms Neurological: Reports: No Symptoms Hematologic/Lymphatic: Reports: No Symptoms Immunologic: Reports: No Symptoms Exam - Exam Exam: See Below - Vital Signs Vital Signs: Last Vital Signs Temp 36.3 C 02/18/21 00:48 Pulse 81 02/18/21 00:48 Resp 18 02/18/21 00:48 BP 108/63 02/18/21 00:48 Pulse Ox 98 02/18/21 00:48 Weight: 105.37 kg - Exam Quality Assessment: Supplemental Oxygen. No: DVT Prophylaxis (Antithrombotic hose) General: Alert, Oriented, Mild Distress, Other (Олег complexion) HEENT: Conjunctiva Clear, EOMI. No: Mucosa Moist & [place] (Very poor oral hygiene multiple decayed blackened teeth) Neck: Supple, Trachea Midline Lungs: Normal Respiratory Effort, Crackles (Bibasilar) Cardiovascular: Regular Rate, Regular Rhythm GI/Abdominal Exam: Normal Bowel Sounds, Distended (Ascites), Tender (Tender right upper quadrant) (Male) Exam: Deferred Rectal (Males) Exam: Deferred Back Exam: Normal Inspection Extremities: Normal Inspection, Pedal Edema (+2 pitting) Skin: Warm, Dry, Intact, Rash (Telangiectasias) Neurological: Cranial Nerves Intact, Normal Speech Neuro Extensive - Mental Status: Alert, Oriented x3 Psychiatric: Alert, Normal Affect - Patient Data Lab Results Last 24 hrs: Laboratory Results - last 24 hr 02/17/21 02/17/21 02/17/21 Range/Units 20:12 20:12 20:12 WBC 3.28 L (4.23-9.07) K/mm3 RBC 3.47 L (4.63-6.08) M/mm3 Hgb 12.2 L (13.7-17.5) gm/dl Hct 35.8 L (40.1-51.0) % MCV 103.2 H D (79.0-92.2) fl MCH 35.2 H (25.7-32.2) pg MCHC 34.1 (32.2-35.5) g/dl RDW Std Deviation 56.6 H (35.1-43.9) fL Plt Count 39 L (163-337) K/mm3 MPV 9.9 (9.4-12.3) fl Neut % (Auto) 58.2 (34.0-67.9) % Lymph % (Auto) 30.5 (21.8-53.1) % Beckham % (Auto) 7.3 (5.3-12.2) % Eos % (Auto) 3.4 (0.8-7.0) Baso % (Auto) 0.3 (0.1-1.2) % Neut # (Auto) 1.91 (1.78-5.38) K/mm3 Lymph # (Auto) 1.00 L (1.32-3.57) K/mm3 Beckham # (Auto) 0.24 L (0.30-0.82) K/mm3 Eos # (Auto) 0.11 (0.04-0.54) K/mm3 Baso # (Auto) 0.01 (0.01-0.08) K/mm3 Manual Slide Review Abnormal smear PT 17.7 H (9.7-12.0) SECONDS INR 1.67 Sodium 142 (136-145) mEq/L Potassium 3.0 L (3.5-5.1) mEq/L Chloride 105 (98-107) mEq/L Carbon Dioxide 26 (21-32) mEq/L Anion Gap 14.0 (5-15) BUN 3 L (7-18) mg/dL Creatinine 0.7 (0.7-1.3) mg/dL Est Cr Clr Drug Dosing 162.64 mL/min Estimated GFR (MDRD) > 60 (>60) mL/min BUN/Creatinine Ratio 4.3 L (14-18) Glucose 101 (74-106) mg/dL Calcium 7.1 L (8.5-10.1) mg/dL Magnesium 1.7 L (1.8-2.4) mg/dl Total Bilirubin 6.6 H (0.2-1.0) mg/dL AST 253 H (15-37) U/L ALT 118 H (16-63) U/L Alkaline Phosphatase 130 H (46-116) U/L Ammonia (11-32) umol/L Troponin I 0.019 (0.00-0.056) ng/mL NT-Pro-B Natriuret Pep (0-125) pg/mL Total Protein 6.3 L (6.4-8.2) g/dl Albumin 2.5 L (3.4-5.0) g/dl Globulin 3.8 gm/dL Albumin/Globulin Ratio 0.7 L (1-2) Lipase 143 (73-393) U/L Urine Opiates Screen (IOBJLH=638) Ur Buprenorphine Scrn (CUTOFF=10) Ur Oxycodone Screen (UEJ1TZ=559) Urine Methadone Screen (JBF8UP=923) Ur Propoxyphene Screen (LTEQUL=491) Ur Barbiturates Screen (TXLTVE=087) Ur Tricyclics Screen (LGXGQY=120) Ur Phencyclidine Scrn (CUTOFF=25) Ur Amphetamine Screen (YERWAS=590) U Methamphetamines Scrn (MOYFSB=532) U Benzodiazepines Scrn (PJAJVI=403) U Cocaine Metab Screen (FSGRRX=474) U Marijuana (THC) Screen (CUTOFF=50) Ethyl Alcohol 0.27 (0.00) gm% SARS-CoV-2 RNA (BRIDGET) (NEGATIVE) 02/17/21 02/17/21 02/17/21 Range/Units 20:12 20:12 21:07 WBC (4.23-9.07) K/mm3 RBC (4.63-6.08) M/mm3 Hgb (13.7-17.5) gm/dl Hct (40.1-51.0) % MCV (79.0-92.2) fl MCH (25.7-32.2) pg MCHC (32.2-35.5) g/dl RDW Std Deviation (35.1-43.9) fL Plt Count (163-337) K/mm3 MPV (9.4-12.3) fl Neut % (Auto) (34.0-67.9) % Lymph % (Auto) (21.8-53.1) % Beckham % (Auto) (5.3-12.2) % Eos % (Auto) (0.8-7.0) Baso % (Auto) (0.1-1.2) % Neut # (Auto) (1.78-5.38) K/mm3 Lymph # (Auto) (1.32-3.57) K/mm3 Beckham # (Auto) (0.30-0.82) K/mm3 Eos # (Auto) (0.04-0.54) K/mm3 Baso # (Auto) (0.01-0.08) K/mm3 Manual Slide Review PT (9.7-12.0) SECONDS INR Sodium (136-145) mEq/L Potassium (3.5-5.1) mEq/L Chloride (98-107) mEq/L Carbon Dioxide (21-32) mEq/L Anion Gap (5-15) BUN (7-18) mg/dL Creatinine (0.7-1.3) mg/dL Est Cr Clr Drug Dosing mL/min Estimated GFR (MDRD) (>60) mL/min BUN/Creatinine Ratio (14-18) Glucose (74-106) mg/dL Calcium (8.5-10.1) mg/dL Magnesium (1.8-2.4) mg/dl Total Bilirubin (0.2-1.0) mg/dL AST (15-37) U/L ALT (16-63) U/L Alkaline Phosphatase (46-116) U/L Ammonia 24 (11-32) umol/L Troponin I (0.00-0.056) ng/mL NT-Pro-B Natriuret Pep 94 (0-125) pg/mL Total Protein (6.4-8.2) g/dl Albumin (3.4-5.0) g/dl Globulin gm/dL Albumin/Globulin Ratio (1-2) Lipase (73-393) U/L Urine Opiates Screen (EUUCLE=824) Ur Buprenorphine Scrn (CUTOFF=10) Ur Oxycodone Screen (ONA4CN=699) Urine Methadone Screen (IKF5AG=785) Ur Propoxyphene Screen (WQTCJV=912) Ur Barbiturates Screen (DYERVX=937) Ur Tricyclics Screen (GOIZED=539) Ur Phencyclidine Scrn (CUTOFF=25) Ur Amphetamine Screen (XATEGU=253) U Methamphetamines Scrn (DAWUBS=338) U Benzodiazepines Scrn (DPTWSA=857) U Cocaine Metab Screen (YUCZXI=729) U Marijuana (THC) Screen (CUTOFF=50) Ethyl Alcohol (0.00) gm% SARS-CoV-2 RNA (BRIDGET) Negative (NEGATIVE) 02/18/21 Range/Units 01:08 WBC (4.23-9.07) K/mm3 RBC (4.63-6.08) M/mm3 Hgb (13.7-17.5) gm/dl Hct (40.1-51.0) % MCV (79.0-92.2) fl MCH (25.7-32.2) pg MCHC (32.2-35.5) g/dl RDW Std Deviation (35.1-43.9) fL Plt Count (163-337) K/mm3 MPV (9.4-12.3) fl Neut % (Auto) (34.0-67.9) % Lymph % (Auto) (21.8-53.1) % Beckham % (Auto) (5.3-12.2) % Eos % (Auto) (0.8-7.0) Baso % (Auto) (0.1-1.2) % Neut # (Auto) (1.78-5.38) K/mm3 Lymph # (Auto) (1.32-3.57) K/mm3 Beckham # (Auto) (0.30-0.82) K/mm3 Eos # (Auto) (0.04-0.54) K/mm3 Baso # (Auto) (0.01-0.08) K/mm3 Manual Slide Review PT (9.7-12.0) SECONDS INR Sodium (136-145) mEq/L Potassium (3.5-5.1) mEq/L Chloride (98-107) mEq/L Carbon Dioxide (21-32) mEq/L Anion Gap (5-15) BUN (7-18) mg/dL Creatinine (0.7-1.3) mg/dL Est Cr Clr Drug Dosing mL/min Estimated GFR (MDRD) (>60) mL/min BUN/Creatinine Ratio (14-18) Glucose (74-106) mg/dL Calcium (8.5-10.1) mg/dL Magnesium (1.8-2.4) mg/dl Total Bilirubin (0.2-1.0) mg/dL AST (15-37) U/L ALT (16-63) U/L Alkaline Phosphatase (46-116) U/L Ammonia (11-32) umol/L Troponin I (0.00-0.056) ng/mL NT-Pro-B Natriuret Pep (0-125) pg/mL Total Protein (6.4-8.2) g/dl Albumin (3.4-5.0) g/dl Globulin gm/dL Albumin/Globulin Ratio (1-2) Lipase (73-393) U/L Urine Opiates Screen Presumptive positive H (YJKQVS=068) Ur Buprenorphine Scrn Negative (CUTOFF=10) Ur Oxycodone Screen Negative (JKO7RW=989) Urine Methadone Screen Negative (FYK5MZ=800) Ur Propoxyphene Screen Negative (APUAJB=842) Ur Barbiturates Screen Negative (QPHAZZ=028) Ur Tricyclics Screen Presumptive positive H (GPPOVW=079) Ur Phencyclidine Scrn Negative (CUTOFF=25) Ur Amphetamine Screen Negative (HOQHFH=941) U Methamphetamines Scrn Negative (RFGERP=752) U Benzodiazepines Scrn Negative (YFYFCW=164) U Cocaine Metab Screen Negative (IQYFZR=319) U Marijuana (THC) Screen Presumptive positive H (CUTOFF=50) Ethyl Alcohol (0.00) gm% SARS-CoV-2 RNA (BRIDGET) (NEGATIVE) Result Diagrams: 02/18/21 10:35 02/18/21 10:35 Sepsis Event Note - Evaluation Sepsis Screening Result: No Definite Risk - Focused Exam Vital Signs: Vital Signs Temp Pulse Pulse Resp BP Pulse Ox 02/18/21 00:48 36.3 C 81 18 108/63 98 02/17/21 19:11 37.2 C 69 13 136/78 100 - Problem List (1) Acute, mixed level of activity, alcohol withdrawal delirium SNOMED Code(s): 4551862, 906222007, 40053838509086482 ICD Code: F10.231 - ALCOHOL DEPENDENCE WITH WITHDRAWAL DELIRIUM Status: Acute Priority: High Current Visit: Yes (2) Leukopenia SNOMED Code(s): 10226453, 519372549 ICD Code: D72.819 - DECREASED WHITE BLOOD CELL COUNT, UNSPECIFIED Status: Acute Priority: High Current Visit: Yes Qualifiers: Leukopenia type: neutropenia (3) Alcohol intoxication SNOMED Code(s): 81679630 ICD Code: F10.929 - ALCOHOL USE, UNSPECIFIED WITH INTOXICATION, UNSPECIFIED Status: Chronic Priority: High Current Visit: Yes Qualifiers: Complication of substance-induced condition: with unspecified complication Qualified Code(s): F10.929 - Alcohol use, unspecified with intoxication, unspecified (4) Alcoholic cirrhosis of liver with ascites SNOMED Code(s): 448375899, 057632405 ICD Code: K70.31 - ALCOHOLIC CIRRHOSIS OF LIVER WITH ASCITES Status: Chronic Priority: High Current Visit: Yes (5) Hepatitis C SNOMED Code(s): 93939611 ICD Code: B19.20 - UNSPECIFIED VIRAL HEPATITIS C WITHOUT HEPATIC COMA Status: Chronic Priority: Medium Current Visit: Yes Qualifiers: Viral hepatitis chronicity: chronic Hepatic coma status: without hepatic coma Qualified Code(s): B18.2 - Chronic viral hepatitis C (6) Thrombocytopenia SNOMED Code(s): 463798255 ICD Code: D69.6 - THROMBOCYTOPENIA, UNSPECIFIED Status: Acute Priority: High Current Visit: Yes Problem List Initiated/Reviewed/Updated: Yes Orders Last 24hrs: Active Orders 24 hr Category Date Time Status Patient Status [ADT] Routine ADT 02/17/21 23:18 Active Bedrest [RC] ASDIRECTED Care 02/18/21 01:36 Active CIWAA Assessment [RC] Q1HR Care 02/18/21 01:39 Active Cardiac Monitoring [RC] . DIRECTED Care 02/17/21 19:43 Active EKG Documentation Completion [RC] STAT Care 02/17/21 19:45 Active Peripheral IV Care [RC] . DIRECTED Care 02/17/21 19:45 Active Regular Diet [DIET] Diet 02/18/21 Breakfast Active Abdomen Pelvis w Cont [CT] Stat Exams 02/17/21 19:45 Taken Chest 1V Frontal [CR] Stat Exams 02/17/21 19:45 Taken D5 1/2 NS w/ 20 mEq/L KCl 1,000 ml Med 02/17/21 22:45 Active IV ASDIRECTED HYDROmorphone [Dilaudid] Med 02/18/21 01:38 Active 0.5 mg IVPUSH Q2H PRN Ondansetron [Zofran] Med 02/18/21 01:36 Active 4 mg IVPUSH Q8H PRN Sodium Chloride 0.9% [Saline Flush] Med 02/17/21 21:00 Active 10 ml FLUSH ASDIRECTED Sodium Chloride 0.9% [Saline Flush] Med 02/17/21 19:43 Active 10 ml FLUSH ASDIRECTED PRN Isolation [COMM] Routine Oth 02/18/21 00:48 Ordered Peripheral IV Insertion Adult [OM.PC] Stat Oth 02/17/21 19:43 Ordered Resuscitation Status Routine Resus Stat 02/18/21 01:35 Ordered Medication Orders Hydromorphone HCl (Hydromorphone 0.5 Mg/0.5 Ml Syringe) 0.5 mg IVPUSH Q2H PRN PRN Reason: Pain Potassium Chloride/Dextrose/Sod Cl (D5 1/2 Ns W/ 20 Meq/L Kcl) 1,000 mls @ 100 mls/hr IV ASDIRECTED ERI Last Admin: 02/17/21 23:01 Dose: 100 mls/hr Documented by: KATIE Ondansetron HCl (Ondansetron 4 Mg/2 Ml Sdv) 4 mg IVPUSH Q8H PRN PRN Reason: Nausea/Vomiting Sodium Chloride (Sodium Chloride 0.9% 10 Ml Syringe) 10 ml FLUSH ASDIRECTED PRN PRN Reason: Keep Vein Open Last Admin: 02/17/21 19:54 Dose: 10 ml Documented by: KATIE Sodium Chloride (Sodium Chloride 0.9% 10 Ml Syringe) 10 ml FLUSH ASDIRECTED ERI Last Admin: 02/17/21 20:55 Dose: 10 ml Documented by: SHO Assessment/Plan Comment:: The patient is a 50-year-old gentleman who has been admitted as an inpatient secondary to possible alcohol withdrawal. The patient is currently intoxicated. The patient also has a CT scan that shows cirrhotic liver with a questionable liver mass. MRI of the liver and abdomen has been ordered to better evaluate this. The patient also has rather severe thrombocytopenia and is a fall risk therefore DVT prophylaxis will be completed with antithrombolic stockings. Patient also has peripheral edema and I have ordered a 2D echocardiogram. The patient will be kept on CIWA protocol. The patient will also have Ativan with regards to the CIWA protocol. The patient will also be fluid resuscitated with lactated Ringer's. I have ordered repeat laboratory studies for the morning. Patient also was noted to be hypomagnesemic and I have ordered 2 g of magnesium and water for him. The patient will also have thiamine 100 mg p.o. daily and folic acid 1 mg p.o. daily. HPI Initial Comments: 02/19/21 afebrile//vss/ abd pain resolved. ciwa score 4-5. increased anxiety and aox 3 but hx poor. discussed he wants to dc home even though he has ongoing medical issues and is high risk to relapse (not addressing etoh use , states he has quit ) he describes some hallucinations with medication (given imiprimine 25 mg x 2 yesterday and nothing else.) he is aware of ascites and liver failure and bone marrow failure and platelet count 35 K with low cbc anc >1000. he denies any craving or need to drink/ abd complaints and or balance and or cognitive issues. supportive but does not support him going home sec. to past failures. will not consider etoh treatment . denies current med misuse despite pos. mjh and opiate screen . refractory tachycardia discussed . discussed him following up and switching to low dose librium and dangers of d.ts again discussed with him. p.e. lungs clear. cor rrr without murmur. s3/4 abd liver edge none tender. no splenomegaly noted neuro mild anxiety restless. mild cerebellar type tremors. speech fluent and thought process clear . ate breakfast minimally . assess : 1/ etoh abuse acute and chronic with patient trying to quit on his own . high risk for cog and other impairment and d.ts . cont low dose librium and folate / b12 and eat well . return to er if getting worse. 2/bone marrow failure imminent no active bleeding but high risk for ich if falling and discussed 3/fatty liver with cirrhosis and ascites and known hx of hep c. as well t.b 1.9 and imminent liver failure suspected if continues drinking. 4/ low cbc without bleeding 5/heart failure ruled out with echo showing e.f 70% 6/ongoing secondary effects of addiction . plan: discharge as above and follow up in clinic in 72 hours. libiurm low dose sec to impending widthdrawl and ongoing anxiety and other issues . no driving reviewed a nd picked him up and also acknowledged. avoid al drug use and etoh sec. to impending liver failure. /bne marrow failure / other Diagnosis: Stroke: No - Discharge Data Discharge Date: 02/19/21 Discharge Disposition: Home, Self-Care 01 Condition: Good - Referral to Home Health Primary Care Physician: ARDEN Quiroz - Discharge Diagnosis/Problem(s) (1) Acute, mixed level of activity, alcohol withdrawal delirium SNOMED Code(s): 4657010, 914224865, [id number] ICD Code: F10.231 - ALCOHOL DEPENDENCE WITH WITHDRAWAL DELIRIUM Status: Acute Priority: High Onset Date: ~02/19/21 (2) Alcohol abuse SNOMED Code(s): 62554106 ICD Code: F10.10 - ALCOHOL ABUSE, UNCOMPLICATED Status: Acute Priority: High Onset Date: ~02/19/21 Problem Details: complications liver and bone marrow and cognitive anxiety (3) Alcoholism /alcohol abuse SNOMED Code(s): 6917046 ICD Code: F10.20 - ALCOHOL DEPENDENCE, UNCOMPLICATED Status: Acute Priority: High Onset Date: ~02/19/21 (4) Back pain SNOMED Code(s): 371464069 ICD Code: M54.9 - DORSALGIA, UNSPECIFIED Status: Acute Priority: Medium Onset Date: ~02/19/21 Qualifiers: Back pain location: back pain in unspecified location Chronicity: chronic Back pain laterality: unspecified Qualified Code(s): M54.9 - Dorsalgia, unspecified; G89.29 - Other chronic pain (5) Dehydration SNOMED Code(s): 73974911 ICD Code: E86.0 - DEHYDRATION Status: Acute Priority: Low Onset Date: ~02/19/21 Problem Details: resolved dehydration (6) Generalized weakness SNOMED Code(s): 91705756 ICD Code: R53.1 - WEAKNESS Status: Acute Priority: Medium Onset Date: ~02/19/21 Problem Details: etoh myopathy suspected. high risk for falling and ich with low platlet count (7) Hyperbilirubinemia SNOMED Code(s): 15784200 ICD Code: E80.6 - OTHER DISORDERS OF BILIRUBIN METABOLISM Status: Acute Priority: High Onset Date: ~02/19/21 Problem Details: clotting cofactors thought to be comprimised (8) Hypodense mass of liver SNOMED Code(s): 908121446 ICD Code: R16.0 - HEPATOMEGALY, NOT ELSEWHERE CLASSIFIED Status: Acute Priority: High Onset Date: ~02/19/21 Problem Details: known hep c and no signs of liver failure per say but ongoing relapses theatening his health - Patient Summary/Data Hospital Course: afebrile//vss/ abd pain resolved. ciwa score 4-5. increased anxiety and aox 3 but hx poor. discussed he wants to dc home even though he has ongoing medical issues and is high risk to relapse (not addressing etoh use , states he has quit ) he describes some hallucinations with medication (given imiprimine 25 mg x 2 yesterday and nothing else.) he is aware of ascites and liver failure and bone marrow failure and platelet count 35 K with low cbc anc >1000. he denies any craving or need to drink/ abd complaints and or balance and or cognitive issues. supportive but does not support him going home sec. to past failures. will not consider etoh treatment . denies current med misuse despite pos. mjh and opiate screen . refractory tachycardia discussed . discussed him following up and switching to low dose librium and dangers of d.ts again discussed with him. p.e. lungs clear. cor rrr without murmur. s3/4 abd liver edge none tender. no splenomegaly noted neuro mild anxiety restless. mild cerebellar type tremors. speech fluent and thought process clear . ate breakfast minimally . assess : 1/ etoh abuse acute and chronic with patient trying to quit on his own . high risk for cog and other impairment and d.ts . cont low dose librium and folate / b12 and eat well . return to er if getting worse. 2/bone marrow failure imminent no active bleeding but high risk for ich if falling and discussed 3/fatty liver with cirrhosis and ascites and known hx of hep c. as well t.b 1.9 and imminent liver failure suspected if continues drinking. 4/ low cbc without bleeding 5/heart failure ruled out with echo showing e.f 70% 6/ongoing secondary effects of addiction . plan: discharge as above and follow up in clinic in 72 hours. libiurm low dose sec to impending widthdrawl and ongoing anxiety and other issues . no driving reviewed a nd picked him up and also acknowledged. avoid al drug use and etoh sec. to impending liver failure. /bne marrow failure / other - Patient Instructions Diet: Usual Diet as Tolerated Diet, Other: regular diet Activity: As Tolerated Driving: Do Not Drive Showering/Bathing: May Shower Notify Provider of: Fever, Increased Pain, Nausea and/or Vomiting Other/Special Instructions: Follow-wp with primary care provider within 5-7 days of discharge, sooner if needed. Resume home medications as ordered. Take all new medications as prescribed. You need to stop drinking. Should symptoms return or worsen contact primary care provider or retun to the Emergency Department. - Discharge Plan *PRESCRIPTION DRUG MONITORING PROGRAM REVIEWED*: No *COPY OF PRESCRIPTION DRUG MONITORING REPORT IN PATIENT LILA: No Prescriptions/Med Rec: Folic Acid 1 mg PO DAILY #20 tablet chlordiazePOXIDE [Librium] 10 mg PO BID #30 cap Magnesium Oxide [Magnesium] 400 mg PO DAILY #4 tablet Thiamine [Vitamin B-1] 100 mg PO BEDTIME #20 tablet Sertraline [Zoloft] 25 mg PO DAILY 30 Days tablet Home Medications: Home Meds Furosemide 20 mg PO DAILY 02/18/21 [History] Folic Acid 1 mg PO DAILY #20 tablet 02/19/21 [Rx] Magnesium Oxide [Magnesium] 400 mg PO DAILY #4 tablet 02/19/21 [Rx] Sertraline [Zoloft] 25 mg PO DAILY 30 Days tablet 02/19/21 [Rx] Thiamine [Vitamin B-1] 100 mg PO BEDTIME #20 tablet 02/19/21 [Rx] chlordiazePOXIDE [Librium] 10 mg PO BID #30 cap 02/19/21 [Rx] Oxygen Therapy Mode: Room Air Patient Handouts: Steps to Quit Smoking, Alcohol Use Disorder Forms: ED Department Discharge Referrals: Radha Hayden PA-C [Primary Care Provider] - - Discharge Summary/Plan Comment DC Time >30 min.: Yes - General Info Date of Service: 02/19/21 Admission Dx/Problem (Free Text: Admission Diagnosis/Problem Admission Diagnosis/Problem Alcohol intoxication - General Date of Service: 02/18/21 Admit Problem/Dx: Admission Diagnosis/Problem Admission Diagnosis/Problem Alcohol intoxication Source of Information: Patient, Old Records History Limitations: Reports: Intoxication - History of Present Illness Initial Comments - Free Text/Narative: The patient is a 50-year-old gentleman who was admitted to the emergency department with a complaint of generalized weakness and swelling of his lower extremities. In the emergency department the patient was found to be intoxicated with a blood alcohol level of 0.27. Patient reports heavy alcohol consumption for decades. He says he normally drinks anywhere between 4-8 drinks per night. Patient says that his feet hurt. 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 The patient does not have a concrete plan for sobriety after discharge. The patient had been previously taking amitriptyline although he is a poor historian. The patient is a tobacco user. The patient also reports a history of substance abuse with methamphetamine and heroin although he says he has not used illicit drugs in decades. Onset of Symptoms: Reports: Unknown/Unsure Duration of Symptoms: Reports: Chronic Location: Reports: Generalized Quality: Reports: Burning, Throbbing Severity: Moderate Improves with: Reports: Medication Worsens with: Reports: Movement Associated Symptoms: Reports: Confusion Feet Pain Score (Numeric/FACES): 4 - Related Data Allergies/Adverse Reactions: Allergies Allergy/AdvReac Type Severity Reaction Status Date / Time adhesive tape Allergy Rash Verified 02/17/21 19:15 Home Medications: Home Meds Amitriptyline [Elavil] 25 mg PO BEDTIME 02/18/21 [History] Furosemide 20 mg PO DAILY 02/18/21 [History] Past Medical History HEENT History: Reports: Impaired Vision Cardiovascular History: Reports: None Respiratory History: Reports: SOB Gastrointestinal History: Reports: Cirrhosis, Pancreatitis, Other (See Below) Other Gastrointestinal History: Fecal incontinence. Other Genitourinary History: Blood in the urine. Musculoskeletal History: Reports: Arthritis, Back Pain, Chronic, Fracture, Other (See Below) Other Musculoskeletal History: cervical stenosis Neurological History: Reports: Concussion, CVA Psychiatric History: Reports: ADD, ADHD, Addiction, Anxiety, Depression, Other (See Below) Other Psychiatric History: Social Phobia Endocrine/Metabolic History: Reports: None Hematologic History: Reports: None Immunologic History: Reports: None Other Immunologic History: Hep c pt says he has had treatment for it Oncologic (Cancer) History: Reports: None Other Dermatologic History: Rash to the back for the last 2 years, unsure of what it is. - Infectious Disease History Infectious Disease History: Reports: Hepatitis C - Past Surgical History Head Surgeries/Procedures: Reports: None GI Surgical History: Reports: Appendectomy, Cholecystectomy Other GI Surgeries/Procedures: Surgery on the belly when he was a baby, unsure of what it was for. Male Surgical History: Reports: None Musculoskeletal Surgical History: Reports: Other (See Below) Other Musculoskeletal Surgeries/Procedures:: Pt had plates and screws placed and removed in the right foot. Social & Family History - Family History Hematologic: Reports: None Oncologic: Reports: Pancreatic, Other (See Below) Other Oncologic Family History: gallbladder - Tobacco Use Tobacco Use Status *Q: Current Every Day Tobacco User Years of Tobacco use: 40 Packs/Tins Daily: 1 Used Tobacco, but Quit: No Month/Year Tobacco Last Used: 02/17/21 Second Hand Smoke Exposure: No - Caffeine Use Caffeine Use: Reports: Soda - Alcohol Use Days Per Week of Alcohol Use: 7 Number of Drinks Per Day: 10 Total Drinks Per Week: 70 Date of Last Drink: 02/17/21 Time of Last Drink: 15:00 - Recreational Drug Use Recreational Drug Use: Yes Drug Use in Last 12 Months: No Recreational Drug Type: Reports: Codiene, Heroin, Methamphetamine, Other (see below) Other Recreational Drug Type: Pt has been clean from recreational drug use for the last 23 yearsw Recreational Drug Use Frequency: Not Used In Over 6 Months H&P Review of Systems - Review of Systems: Review Of Systems: See Below General: Reports: Weakness, Fatigue, Decreased Appetite HEENT: Reports: No Symptoms Pulmonary: Reports: Shortness of Breath, Wheezing, Cough Cardiovascular: Reports: No Symptoms Gastrointestinal: Reports: Abdominal Pain, Nausea, Vomiting Genitourinary: Reports: No Symptoms Musculoskeletal: Reports: No Symptoms Skin: Reports: No Symptoms Psychiatric: Reports: No Symptoms Neurological: Reports: No Symptoms Hematologic/Lymphatic: Reports: No Symptoms Immunologic: Reports: No Symptoms Exam - Exam Exam: See Below - Vital Signs Vital Signs: Last Vital Signs Temp 36.3 C 02/18/21 00:48 Pulse 81 02/18/21 00:48 Resp 18 02/18/21 00:48 BP 108/63 02/18/21 00:48 Pulse Ox 98 02/18/21 00:48 Weight: 105.37 kg - Exam Quality Assessment: Supplemental Oxygen. No: DVT Prophylaxis (Antithrombotic hose) General: Alert, Oriented, Mild Distress, Other (Олег complexion) HEENT: Conjunctiva Clear, EOMI. No: Mucosa Moist & [place] (Very poor oral hygiene multiple decayed blackened teeth) Neck: Supple, Trachea Midline Lungs: Normal Respiratory Effort, Crackles (Bibasilar) Cardiovascular: Regular Rate, Regular Rhythm GI/Abdominal Exam: Normal Bowel Sounds, Distended (Ascites), Tender (Tender right upper quadrant) (Male) Exam: Deferred Rectal (Males) Exam: Deferred Back Exam: Normal Inspection Extremities: Normal Inspection, Pedal Edema (+2 pitting) Skin: Warm, Dry, Intact, Rash (Telangiectasias) Neurological: Cranial Nerves Intact, Normal Speech Neuro Extensive - Mental Status: Alert, Oriented x3 Psychiatric: Alert, Normal Affect - Patient Data Lab Results Last 24 hrs: Laboratory Results - last 24 hr 02/17/21 02/17/21 02/17/21 Range/Units 20:12 20:12 20:12 WBC 3.28 L (4.23-9.07) K/mm3 RBC 3.47 L (4.63-6.08) M/mm3 Hgb 12.2 L (13.7-17.5) gm/dl Hct 35.8 L (40.1-51.0) % MCV 103.2 H D (79.0-92.2) fl MCH 35.2 H (25.7-32.2) pg MCHC 34.1 (32.2-35.5) g/dl RDW Std Deviation 56.6 H (35.1-43.9) fL Plt Count 39 L (163-337) K/mm3 MPV 9.9 (9.4-12.3) fl Neut % (Auto) 58.2 (34.0-67.9) % Lymph % (Auto) 30.5 (21.8-53.1) % Beckham % (Auto) 7.3 (5.3-12.2) % Eos % (Auto) 3.4 (0.8-7.0) Baso % (Auto) 0.3 (0.1-1.2) % Neut # (Auto) 1.91 (1.78-5.38) K/mm3 Lymph # (Auto) 1.00 L (1.32-3.57) K/mm3 Beckham # (Auto) 0.24 L (0.30-0.82) K/mm3 Eos # (Auto) 0.11 (0.04-0.54) K/mm3 Baso # (Auto) 0.01 (0.01-0.08) K/mm3 Manual Slide Review Abnormal smear PT 17.7 H (9.7-12.0) SECONDS INR 1.67 Sodium 142 (136-145) mEq/L Potassium 3.0 L (3.5-5.1) mEq/L Chloride 105 (98-107) mEq/L Carbon Dioxide 26 (21-32) mEq/L Anion Gap 14.0 (5-15) BUN 3 L (7-18) mg/dL Creatinine 0.7 (0.7-1.3) mg/dL Est Cr Clr Drug Dosing 162.64 mL/min Estimated GFR (MDRD) > 60 (>60) mL/min BUN/Creatinine Ratio 4.3 L (14-18) Glucose 101 (74-106) mg/dL Calcium 7.1 L (8.5-10.1) mg/dL Magnesium 1.7 L (1.8-2.4) mg/dl Total Bilirubin 6.6 H (0.2-1.0) mg/dL AST 253 H (15-37) U/L ALT 118 H (16-63) U/L Alkaline Phosphatase 130 H (46-116) U/L Ammonia (11-32) umol/L Troponin I 0.019 (0.00-0.056) ng/mL NT-Pro-B Natriuret Pep (0-125) pg/mL Total Protein 6.3 L (6.4-8.2) g/dl Albumin 2.5 L (3.4-5.0) g/dl Globulin 3.8 gm/dL Albumin/Globulin Ratio 0.7 L (1-2) Lipase 143 (73-393) U/L Urine Opiates Screen (AYLJDB=366) Ur Buprenorphine Scrn (CUTOFF=10) Ur Oxycodone Screen (QDN8QZ=136) Urine Methadone Screen (OSD2ON=536) Ur Propoxyphene Screen (OBAVGH=404) Ur Barbiturates Screen (VFYRXQ=080) Ur Tricyclics Screen (DYXNEH=227) Ur Phencyclidine Scrn (CUTOFF=25) Ur Amphetamine Screen (PCNBUR=723) U Methamphetamines Scrn (GOTSMR=566) U Benzodiazepines Scrn (MWQMZU=637) U Cocaine Metab Screen (HFEVPP=034) U Marijuana (THC) Screen (CUTOFF=50) Ethyl Alcohol 0.27 (0.00) gm% SARS-CoV-2 RNA (BRIDGET) (NEGATIVE) 02/17/21 02/17/21 02/17/21 Range/Units 20:12 20:12 21:07 WBC (4.23-9.07) K/mm3 RBC (4.63-6.08) M/mm3 Hgb (13.7-17.5) gm/dl Hct (40.1-51.0) % MCV (79.0-92.2) fl MCH (25.7-32.2) pg MCHC (32.2-35.5) g/dl RDW Std Deviation (35.1-43.9) fL Plt Count (163-337) K/mm3 MPV (9.4-12.3) fl Neut % (Auto) (34.0-67.9) % Lymph % (Auto) (21.8-53.1) % Beckham % (Auto) (5.3-12.2) % Eos % (Auto) (0.8-7.0) Baso % (Auto) (0.1-1.2) % Neut # (Auto) (1.78-5.38) K/mm3 Lymph # (Auto) (1.32-3.57) K/mm3 Beckham # (Auto) (0.30-0.82) K/mm3 Eos # (Auto) (0.04-0.54) K/mm3 Baso # (Auto) (0.01-0.08) K/mm3 Manual Slide Review PT (9.7-12.0) SECONDS INR Sodium (136-145) mEq/L Potassium (3.5-5.1) mEq/L Chloride (98-107) mEq/L Carbon Dioxide (21-32) mEq/L Anion Gap (5-15) BUN (7-18) mg/dL Creatinine (0.7-1.3) mg/dL Est Cr Clr Drug Dosing mL/min Estimated GFR (MDRD) (>60) mL/min BUN/Creatinine Ratio (14-18) Glucose (74-106) mg/dL Calcium (8.5-10.1) mg/dL Magnesium (1.8-2.4) mg/dl Total Bilirubin (0.2-1.0) mg/dL AST (15-37) U/L ALT (16-63) U/L Alkaline Phosphatase (46-116) U/L Ammonia 24 (11-32) umol/L Troponin I (0.00-0.056) ng/mL NT-Pro-B Natriuret Pep 94 (0-125) pg/mL Total Protein (6.4-8.2) g/dl Albumin (3.4-5.0) g/dl Globulin gm/dL Albumin/Globulin Ratio (1-2) Lipase (73-393) U/L Urine Opiates Screen (TLDZME=856) Ur Buprenorphine Scrn (CUTOFF=10) Ur Oxycodone Screen (XVR9GL=927) Urine Methadone Screen (ONR0KE=733) Ur Propoxyphene Screen (IEHIJY=501) Ur Barbiturates Screen (UAZJYN=367) Ur Tricyclics Screen (DIINMK=189) Ur Phencyclidine Scrn (CUTOFF=25) Ur Amphetamine Screen (ZTATYM=274) U Methamphetamines Scrn (KRGDEV=871) U Benzodiazepines Scrn (LZRFNV=949) U Cocaine Metab Screen (JJSCXS=257) U Marijuana (THC) Screen (CUTOFF=50) Ethyl Alcohol (0.00) gm% SARS-CoV-2 RNA (BRIDGET) Negative (NEGATIVE) 02/18/21 Range/Units 01:08 WBC (4.23-9.07) K/mm3 RBC (4.63-6.08) M/mm3 Hgb (13.7-17.5) gm/dl Hct (40.1-51.0) % MCV (79.0-92.2) fl MCH (25.7-32.2) pg MCHC (32.2-35.5) g/dl RDW Std Deviation (35.1-43.9) fL Plt Count (163-337) K/mm3 MPV (9.4-12.3) fl Neut % (Auto) (34.0-67.9) % Lymph % (Auto) (21.8-53.1) % Beckham % (Auto) (5.3-12.2) % Eos % (Auto) (0.8-7.0) Baso % (Auto) (0.1-1.2) % Neut # (Auto) (1.78-5.38) K/mm3 Lymph # (Auto) (1.32-3.57) K/mm3 Beckham # (Auto) (0.30-0.82) K/mm3 Eos # (Auto) (0.04-0.54) K/mm3 Baso # (Auto) (0.01-0.08) K/mm3 Manual Slide Review PT (9.7-12.0) SECONDS INR Sodium (136-145) mEq/L Potassium (3.5-5.1) mEq/L Chloride (98-107) mEq/L Carbon Dioxide (21-32) mEq/L Anion Gap (5-15) BUN (7-18) mg/dL Creatinine (0.7-1.3) mg/dL Est Cr Clr Drug Dosing mL/min Estimated GFR (MDRD) (>60) mL/min BUN/Creatinine Ratio (14-18) Glucose (74-106) mg/dL Calcium (8.5-10.1) mg/dL Magnesium (1.8-2.4) mg/dl Total Bilirubin (0.2-1.0) mg/dL AST (15-37) U/L ALT (16-63) U/L Alkaline Phosphatase (46-116) U/L Ammonia (11-32) umol/L Troponin I (0.00-0.056) ng/mL NT-Pro-B Natriuret Pep (0-125) pg/mL Total Protein (6.4-8.2) g/dl Albumin (3.4-5.0) g/dl Globulin gm/dL Albumin/Globulin Ratio (1-2) Lipase (73-393) U/L Urine Opiates Screen Presumptive positive H (FEPJFV=410) Ur Buprenorphine Scrn Negative (CUTOFF=10) Ur Oxycodone Screen Negative (YCS5PE=983) Urine Methadone Screen Negative (HWP9LI=153) Ur Propoxyphene Screen Negative (SHGDBH=397) Ur Barbiturates Screen Negative (CJOSOY=604) Ur Tricyclics Screen Presumptive positive H (PMHDCP=351) Ur Phencyclidine Scrn Negative (CUTOFF=25) Ur Amphetamine Screen Negative (RAEZVU=705) U Methamphetamines Scrn Negative (TICHPQ=243) U Benzodiazepines Scrn Negative (UCXVDA=054) U Cocaine Metab Screen Negative (MMNXBA=416) U Marijuana (THC) Screen Presumptive positive H (CUTOFF=50) Ethyl Alcohol (0.00) gm% SARS-CoV-2 RNA (BRIDGET) (NEGATIVE) Result Diagrams: 02/18/21 10:35 02/18/21 10:35 Sepsis Event Note - Evaluation Sepsis Screening Result: No Definite Risk - Focused Exam Vital Signs: Vital Signs Temp Pulse Pulse Resp BP Pulse Ox 02/18/21 00:48 36.3 C 81 18 108/63 98 02/17/21 19:11 37.2 C 69 13 136/78 100 - Problem List (1) Acute, mixed level of activity, alcohol withdrawal delirium SNOMED Code(s): 4607001, 457510556, [id number] ICD Code: F10.231 - ALCOHOL DEPENDENCE WITH WITHDRAWAL DELIRIUM Status: Acute Priority: High Current Visit: Yes (2) Leukopenia SNOMED Code(s): 39080535, 267370295 ICD Code: D72.819 - DECREASED WHITE BLOOD CELL COUNT, UNSPECIFIED Status: Acute Priority: High Current Visit: Yes Qualifiers: Leukopenia type: neutropenia (3) Alcohol intoxication SNOMED Code(s): 58626327 ICD Code: F10.929 - ALCOHOL USE, UNSPECIFIED WITH INTOXICATION, UNSPECIFIED Status: Chronic Priority: High Current Visit: Yes Qualifiers: Complication of substance-induced condition: with unspecified complication Qualified Code(s): F10.929 - Alcohol use, unspecified with intoxication, unspecified (4) Alcoholic cirrhosis of liver with ascites SNOMED Code(s): 289649225, 084048621 ICD Code: K70.31 - ALCOHOLIC CIRRHOSIS OF LIVER WITH ASCITES Status: Chronic Priority: High Current Visit: Yes (5) Hepatitis C SNOMED Code(s): 47605420 ICD Code: B19.20 - UNSPECIFIED VIRAL HEPATITIS C WITHOUT HEPATIC COMA Status: Chronic Priority: Medium Current Visit: Yes Qualifiers: Viral hepatitis chronicity: chronic Hepatic coma status: without hepatic coma Qualified Code(s): B18.2 - Chronic viral hepatitis C (6) Thrombocytopenia SNOMED Code(s): 546835146 ICD Code: D69.6 - THROMBOCYTOPENIA, UNSPECIFIED Status: Acute Priority: High Current Visit: Yes Problem List Initiated/Reviewed/Updated: Yes Orders Last 24hrs: Active Orders 24 hr Category Date Time Status Patient Status [ADT] Routine ADT 02/17/21 23:18 Active Bedrest [RC] ASDIRECTED Care 02/18/21 01:36 Active CIWAA Assessment [RC] Q1HR Care 02/18/21 01:39 Active Cardiac Monitoring [RC] . DIRECTED Care 02/17/21 19:43 Active EKG Documentation Completion [RC] STAT Care 02/17/21 19:45 Active Peripheral IV Care [RC] . DIRECTED Care 02/17/21 19:45 Active Regular Diet [DIET] Diet 02/18/21 Breakfast Active Abdomen Pelvis w Cont [CT] Stat Exams 02/17/21 19:45 Taken Chest 1V Frontal [CR] Stat Exams 02/17/21 19:45 Taken D5 1/2 NS w/ 20 mEq/L KCl 1,000 ml Med 02/17/21 22:45 Active IV ASDIRECTED HYDROmorphone [Dilaudid] Med 02/18/21 01:38 Active 0.5 mg IVPUSH Q2H PRN Ondansetron [Zofran] Med 02/18/21 01:36 Active 4 mg IVPUSH Q8H PRN Sodium Chloride 0.9% [Saline Flush] Med 02/17/21 21:00 Active 10 ml FLUSH ASDIRECTED Sodium Chloride 0.9% [Saline Flush] Med 02/17/21 19:43 Active 10 ml FLUSH ASDIRECTED PRN Isolation [COMM] Routine Oth 02/18/21 00:48 Ordered Peripheral IV Insertion Adult [OM.PC] Stat Oth 02/17/21 19:43 Ordered Resuscitation Status Routine Resus Stat 02/18/21 01:35 Ordered Medication Orders Hydromorphone HCl (Hydromorphone 0.5 Mg/0.5 Ml Syringe) 0.5 mg IVPUSH Q2H PRN PRN Reason: Pain Potassium Chloride/Dextrose/Sod Cl (D5 1/2 Ns W/ 20 Meq/L Kcl) 1,000 mls @ 100 mls/hr IV ASDIRECTED [facility] Last Admin: 02/17/21 23:01 Dose: 100 mls/hr Documented by: KATIE Ondansetron HCl (Ondansetron 4 Mg/2 Ml Sdv) 4 mg IVPUSH Q8H PRN PRN Reason: Nausea/Vomiting Sodium Chloride (Sodium Chloride 0.9% 10 Ml Syringe) 10 ml FLUSH ASDIRECTED PRN PRN Reason: Keep Vein Open Last Admin: 02/17/21 19:54 Dose: 10 ml Documented by: KATIE Sodium Chloride (Sodium Chloride 0.9% 10 Ml Syringe) 10 ml FLUSH ASDIRECTED [facility] Last Admin: 02/17/21 20:55 Dose: 10 ml Documented by: SHO Assessment/Plan Comment:: The patient is a 50-year-old gentleman who has been admitted as an inpatient secondary to possible alcohol withdrawal. The patient is currently intoxicated. The patient also has a CT scan that shows cirrhotic liver with a questionable liver mass. MRI of the liver and abdomen has been ordered to better evaluate this. The patient also has rather severe thrombocytopenia and is a fall risk therefore DVT prophylaxis will be completed with antithrombolic stockings. Patient also has peripheral edema and I have ordered a 2D echocardiogram. The patient will be kept on CIWA protocol. The patient will also have Ativan with regards to the CIWA protocol. The patient will also be fluid resuscitated with lactated Ringer's. I have ordered repeat laboratory studies for the morning. Patient also was noted to be hypomagnesemic and I have ordered 2 g of magnesium and water for him. The patient will also have thiamine 100 mg p.o. daily and folic acid 1 mg p.o. daily. - Review of Systems General: Reports: No Symptoms HEENT: Reports: No Symptoms Pulmonary: Reports: No Symptoms Cardiovascular: Reports: No Symptoms Gastrointestinal: Reports: No Symptoms Genitourinary: Reports: No Symptoms Musculoskeletal: Reports: No Symptoms Skin: Reports: No Symptoms Neurological: Reports: No Symptoms Psychiatric: Reports: No Symptoms - Patient Data Vitals - Most Recent: Last Vital Signs Temp 36.7 C 02/19/21 07:15 Pulse 86 02/19/21 07:15 Resp 20 02/19/21 07:15 BP 155/86 H 02/19/21 07:15 Pulse Ox 98 02/19/21 08:31 Weight - Most Recent: 105.732 kg I&O - Last 24 hours: Intake & Output 02/18/21 02/19/21 02/19/21 22:59 06:59 14:59 Intake Total 540 Output Total 825 1150 Balance -285 -1150 Lab Results - Last 24 hrs: Laboratory Results - last 24 hr 02/19/21 02/19/21 Range/Units 04:35 04:35 WBC 2.14 L* (4.23-9.07) K/mm3 RBC 3.53 L (4.63-6.08) M/mm3 Hgb 12.3 L (13.7-17.5) gm/dl Hct 36.8 L (40.1-51.0) % MCV 104.2 H (79.0-92.2) fl MCH 34.8 H (25.7-32.2) pg MCHC 33.4 (32.2-35.5) g/dl RDW Std Deviation 55.8 H (35.1-43.9) fL Plt Count 36 L (163-337) K/mm3 MPV 10.2 (9.4-12.3) fl Neut % (Auto) 59.8 (34.0-67.9) % Lymph % (Auto) 27.1 (21.8-53.1) % Beckham % (Auto) 9.8 (5.3-12.2) % Eos % (Auto) 2.8 (0.8-7.0) Baso % (Auto) 0.5 (0.1-1.2) % Neut # (Auto) 1.28 L (1.78-5.38) K/mm3 Lymph # (Auto) 0.58 L (1.32-3.57) K/mm3 Beckham # (Auto) 0.21 L (0.30-0.82) K/mm3 Eos # (Auto) 0.06 (0.04-0.54) K/mm3 Baso # (Auto) 0.01 (0.01-0.08) K/mm3 Manual Slide Review Abnormal smear Sodium 137 (136-145) mEq/L Potassium 4.0 (3.5-5.1) mEq/L Chloride 105 (98-107) mEq/L Carbon Dioxide 28 (21-32) mEq/L Anion Gap 8.0 (5-15) BUN 3 L (7-18) mg/dL Creatinine 0.7 (0.7-1.3) mg/dL Est Cr Clr Drug Dosing 162.64 mL/min Estimated GFR (MDRD) > 60 (>60) mL/min BUN/Creatinine Ratio 4.3 L (14-18) Glucose 103 (74-106) mg/dL Calcium 8.0 L (8.5-10.1) mg/dL Magnesium 1.6 L (1.8-2.4) mg/dl Total Bilirubin 7.1 H (0.2-1.0) mg/dL AST 223 H (15-37) U/L ALT 105 H (16-63) U/L Alkaline Phosphatase 136 H (46-116) U/L Total Protein 6.2 L (6.4-8.2) g/dl Albumin 2.3 L (3.4-5.0) g/dl Globulin 3.9 gm/dL Albumin/Globulin Ratio 0.6 L (1-2) Med Orders - Current: Current Medications Discontinued Medications Chlordiazepoxide HCl (Chlordiazepoxide 25 Mg Cap) 12.5 mg PO BID [facility] Folic Acid (Folic Acid 1 Mg Tab) 1 mg PO DAILY [facility] Last Admin: 02/19/21 08:05 Dose: 1 mg Documented by: Gadoxetate Disodium (Gadoxetate Disodium 10 Ml Sdv) 10 ml IV ONETIME ONE Stop: 02/18/21 15:14 Last Admin: 02/18/21 16:13 Dose: 10 ml Documented by: Hydromorphone HCl (Hydromorphone 0.5 Mg/0.5 Ml Syringe) 0.5 mg IVPUSH ONETIME ONE Stop: 02/17/21 22:16 Last Admin: 02/17/21 22:33 Dose: 0.5 mg Documented by: Hydromorphone HCl (Hydromorphone 0.5 Mg/0.5 Ml Syringe) 0.5 mg IVPUSH Q2H PRN PRN Reason: Pain Potassium Chloride/Dextrose/Sod Cl (D5 1/2 Ns W/ 20 Meq/L Kcl) 1,000 mls @ [facility] Admin: 02/17/21 23:01 Dose: 100 mls/hr Documented by: Lactated Ringer's (Ringers, Lactated) 1,000 mls @ 50 mls/hr IV ASDIRECTED [facility] Last Infusion: 02/18/21 20:53 Dose: 50 mls/hr Documented by: Magnesium Sulfate (Magnesium Sulfate In Water 2 Gm/50 Ml) 2 gm in 50 mls @ 25 mls/hr IV ONETIME ONE Stop: 02/18/21 12:29 Last Admin: 02/18/21 10:12 Dose: 25 mls/hr Documented by: Sodium Chloride (Normal Saline) 100 mls @ 60 mls/hr IV ASDIRECTED [facility] Stop: 02/18/21 17:00 Last Admin: 02/18/21 16:14 Dose: 60 mls/hr Documented by: Ibuprofen (Ibuprofen 200 Mg Tab) 200 mg PO Q6H PRN PRN Reason: Pain (mild 1-3) Iopamidol (Iopamidol 612 Mg/Ml 100 Ml Bottle) 100 ml IVPUSH ONETIME ONE Stop: 02/17/21 20:55 Last Admin: 02/17/21 20:55 Dose: 100 ml Documented by: Iopamidol (Iopamidol 612 Mg/Ml 50 Ml Sdv) 50 ml IVPUSH ONETIME ONE Stop: 02/17/21 20:55 Last Admin: 02/17/21 20:55 Dose: 50 ml Documented by: Lorazepam (Lorazepam 2 Mg/Ml Sdv) 1 mg IVPUSH Q6H PRN PRN Reason: Agitation Last Admin: 02/18/21 14:19 Dose: 1 mg Documented by: Lorazepam (Lorazepam 2 Mg/Ml Sdv) 0 mg IVPUSH Q4H PRN; Protocol PRN Reason: withdraw symptoms Miscellaneous Information (Remove Nicotine Patch) 1 ea TRDERM DAILY [facility] Last Admin: 02/19/21 08:06 Dose: Not Given Documented by: Nicotine (Nicotine 14 Mg/24 Hr Patch) 14 mg TRDERM DAILY [facility] Last Admin: 02/19/21 08:05 Dose: Not Given Documented by: Non-Formulary Medication (Amitriptyline [Elavil]) 1 tab PO BEDTIME [facility] Ondansetron HCl (Ondansetron 4 Mg/2 Ml Sdv) 4 mg IVPUSH ONETIME ONE Stop: 02/17/21 19:46 Last Admin: 02/17/21 19:55 Dose: 4 mg Documented by: Ondansetron HCl (Ondansetron 4 Mg/2 Ml Sdv) 4 mg IVPUSH Q8H PRN PRN Reason: Nausea/Vomiting Ondansetron HCl (Ondansetron 4 Mg Tab.Dis) 4 mg PO Q6H PRN PRN Reason: nausea, able to take PO Oxycodone HCl (Oxycodone 5 Mg Tab) 5 mg PO Q4H PRN PRN Reason: Pain (moderate 4-6) Sertraline HCl (Sertraline 25 Mg Tab) 25 mg PO DAILY [facility] Last Admin: 02/19/21 08:05 Dose: 25 mg Documented by: Sodium Chloride (Sodium Chloride 0.9% 10 Ml Syringe) 10 ml FLUSH ASDIRECTED PRN PRN Reason: Keep Vein Open Last Admin: 02/17/21 19:54 Dose: 10 ml Documented by: Sodium Chloride (Sodium Chloride 0.9% 10 Ml Syringe) 10 ml FLUSH ASDIRECTED [facility] Last Admin: 02/17/21 20:55 Dose: 10 ml Documented by: Thiamine HCl (Thiamine 200 Mg/2 Ml Mdv) 100 mg IVPUSH ONETIME ONE Stop: 02/17/21 22:35 Last Admin: 02/17/21 23:01 Dose: 100 mg Documented by: Thiamine HCl (Thiamine 100 Mg Tab) 100 mg PO BEDTIME [facility] Last Admin: 02/18/21 20:21 Dose: 100 mg Documented by: - Exam General: Reports: Alert, Oriented HEENT: Reports: Pupils Equal, Pupils Reactive, EOMI, Mucous Membr. Moist/[place] Neck: Reports: Supple Lungs: Reports: Clear to Auscultation, Normal Respiratory Effort Cardiovascular: Reports: Regular Rate, Regular Rhythm GI/Abdominal Exam: Normal Bowel Sounds, Soft, Non-Tender, No Organomegaly, No Distention, No Abnormal Bruit, No Mass, Pelvis Stable (Male) Exam: No Hernia, Normal Inspection, Normal Prostate, Circumcised Rectal (Males) Exam: Normal Exam, Normal Rectal Tone, Prostate Normal Back Exam: Reports: Normal Inspection, Full Range of Motion Extremities: Normal Inspection, Normal Range of Motion, Non-Tender, No Pedal Edema, Normal Capillary Refill Skin: Reports: Warm, Dry, Intact Wound/Incisions: Reports: Healing Well Neurological: Reports: No New Focal Deficit Psy/Mental Status: Reports: Alert, Normal Affect, Normal Mood *Q Meaningful Use (DIS) - VTE *Q VTE Mechanical Contraindications *Q: Bilateral Lower Edema VTE Pharmacological Contraindications *Q: Thrombocytopenia
== END 2021-02-19 08:54 | disposition home or self-care (01) | DRG 897 ==
LOC: JD.ED 19:04 → JD.ICU 23:25
PROVIDERS: ADMIT Internal Medicine; ATTEND Internal Medicine
DX: F10.231 Alcohol dependence with withdrawal delirium (principal); D61.9 Aplastic anemia, unspecified; K70.31 Alcoholic cirrhosis of liver with ascites; B18.2 Chronic viral hepatitis C; D69.6 Thrombocytopenia, unspecified; E83.42 Hypomagnesemia; D72.819 Decreased white blood cell count, unspecified; M54.9 Dorsalgia, unspecified; G89.29 Other chronic pain; E86.0 Dehydration; Z20.822 Contact with and (suspected) exposure to COVID-19; Y90.0 Blood alcohol level of less than 20 mg/100 ml; R53.1 Weakness; E80.6 Other disorders of bilirubin metabolism; R16.0 Hepatomegaly, not elsewhere classified; K76.0 Fatty (change of) liver, not elsewhere classified; H54.7 Unspecified visual loss; F90.9 Attention-deficit hyperactivity disorder, unspecified type; F41.9 Anxiety disorder, unspecified; F32.9 Major depressive disorder, single episode, unspecified; F17.200 Nicotine dependence, unspecified, uncomplicated; E87.6 Hypokalemia; Z79.899 Other long term (current) drug therapy; Z90.49 Acquired absence of other specified parts of digestive tract; Z91.09 Other allergy status, other than to drugs and biological substances; Z86.73 Personal history of transient ischemic attack (TIA), and cerebral infarction without residual deficits
CPT/HCPCS: 36415; 71045; 71045-26; 74177; 74177-26; 74183; 74183-26; 80053; 80306; 80307; 82140; 83690; 83735; 83880; 84484; 85025; 85610; 93005; 93010; 93306; 96365; 96375; 99284; 99285-25; A9270-GY; A9581; J1170; J2060; J2405; J3411; J3475; J3480; J7120; Q9967; U0002

== ENCOUNTER 2021-04-05 17:23 | Emergency (ER) | payer MEDICAID ==
[2021-04-05] MEDS ORDERED: Sodium Chloride 0.9% 10 ML Syringe FLUSH PRN (17:57)
--- NOTE | 2021-04-05 18:20 | EDM.PDOC ---
ED HPI GENERAL MEDICAL PROBLEM - General Chief Complaint: Gastrointestinal Problem Stated Complaint: [facility] Time Seen by Provider: 04/05/21 17:36 Source of Information: Reports: Patient History Limitations: Reports: No Limitations - History of Present Illness INITIAL COMMENTS - FREE TEXT/NARRATIVE: 51-year-old male presents the emergency department with complaints of increased falling at home, confusion, rectal bleeding, and hematuria. The patient has a significant history of alcoholic cirrhosis of the liver and he continues to drink. The patient's states that his last drink was approximately 5 days ago when he did have a couple of beers. In late February the patient was started on Librium and Ativan by his primary care provider. He continued to drink while taking these medications. On March 30, 2021 the patient had a follow-up appointment with his primary care provider and at that time the patient's mentioned that he has been having black tarry stools. The patient's states there was no follow-up at that time regarding the issue. The patient was noted to be having more falls at home at the time and intermittent confusion. The patient was started on lactulose 30 mL twice daily at that time. The patient however has not been compliant with taking this medication. Patient's states that he has fallen numerous times per day over the course the past few days. She does not believe he has his head however the patient states he has hit his head. Of note the patient is a poor historian as he is slightly confused and rambling on words that do not pertain to our conversation. Patient's also states that he has had issues with urinary retention of recent. - Related Data Allergies Allergy/AdvReac Type Severity Reaction Status Date / Time adhesive tape Allergy Rash Verified 04/05/21 17:37 Home Meds: Home Meds Furosemide 20 mg PO DAILY 02/18/21 [History] Folic Acid 1 mg PO DAILY #20 tablet 02/19/21 [Rx] Magnesium Oxide [Magnesium] 400 mg PO DAILY #4 tablet 02/19/21 [Rx] chlordiazePOXIDE [Librium] 10 mg PO BID #30 cap 02/19/21 [Rx] Amitriptyline [Elavil] 100 mg BEDTIME 04/05/21 [History] LORazepam [Lorazepam] 1 mg PO BID PRN 04/05/21 [History] Omeprazole 20 mg PO DAILY 04/05/21 [History] Potassium Chloride 10 meq PO DAILY 04/05/21 [History] Thiamine [Vitamin B-1] 100 mg PO ASDIRECTED 04/05/21 [History] Past Medical History HEENT History: Reports: Impaired Vision Cardiovascular History: Reports: None Respiratory History: Reports: SOB Gastrointestinal History: Reports: Cirrhosis, Pancreatitis, Other (See Below) Other Gastrointestinal History: Fecal incontinence. Other Genitourinary History: Blood in the urine. Musculoskeletal History: Reports: Arthritis, Back Pain, Chronic, Fracture, Other (See Below) Other Musculoskeletal History: cervical stenosis Neurological History: Reports: Concussion, CVA Psychiatric History: Reports: ADD, ADHD, Addiction, Anxiety, Depression, Other (See Below) Other Psychiatric History: Social Phobia Endocrine/Metabolic History: Reports: None Hematologic History: Reports: None Immunologic History: Reports: None Other Immunologic History: Hep c pt says he has had treatment for it Oncologic (Cancer) History: Reports: None Other Dermatologic History: Rash to the back for the last 2 years, unsure of what it is. - Infectious Disease History Infectious Disease History: Reports: Hepatitis C - Past Surgical History Head Surgeries/Procedures: Reports: None GI Surgical History: Reports: Appendectomy, Cholecystectomy Other GI Surgeries/Procedures: Surgery on the belly when he was a baby, unsure of what it was for. Male Surgical History: Reports: None Musculoskeletal Surgical History: Reports: Other (See Below) Other Musculoskeletal Surgeries/Procedures:: Pt had plates and screws placed and removed in the right foot. Social & Family History - Family History Hematologic: Reports: None Oncologic: Reports: Pancreatic, Other (See Below) Other Oncologic Family History: gallbladder - Tobacco Use Tobacco Use Status *Q: Current Every Day Tobacco User Years of Tobacco use: 30 Packs/Tins Daily: 0.5 - Caffeine Use Caffeine Use: Reports: Soda - Alcohol Use Date of Last Drink: 04/03/21 - Recreational Drug Use Recreational Drug Use: No ED ROS GENERAL - Review of Systems Review Of Systems: See Below Constitutional: Reports: Decreased Appetite. Denies: Fever, Chills HEENT: Reports: No Symptoms Respiratory: Reports: No Symptoms Cardiovascular: Reports: No Symptoms Endocrine: Reports: No Symptoms GI/Abdominal: Reports: Black Stool, Decreased Appetite, Melena. Denies: Abdominal Pain, Bloody Stool, Constipation, Diarrhea, Nausea, Vomiting : Reports: Hematuria, Urinary Retention Musculoskeletal: Reports: Other (Weakness with frequent falls at home) Skin: Reports: Jaundice Neurological: Reports: Confusion, Difficulty Walking (Frequent falls at home), Gait Disturbance Psychiatric: Reports: Confusion Hematologic/Lymphatic: Reports: No Symptoms Immunologic: Reports: No Symptoms ED EXAM, GENERAL - Physical Exam Exam: See Below Exam Limited By: No Limitations General Appearance: Alert, WD/WN, No Apparent Distress Ears: Normal External Exam, Hearing Grossly Normal Nose: Normal Inspection, No Blood Throat/Mouth: Normal Inspection, Normal Lips, Normal Voice, No Airway Compromise Head: Atraumatic Neck: Normal Inspection, Supple Respiratory/Chest: No Respiratory Distress, Lungs Clear, Normal Breath Sounds, No Accessory Muscle Use, Chest Non-Tender Cardiovascular: Normal Peripheral Pulses, Regular Rate, Rhythm, No Edema, Systolic Murmur Peripheral Pulses: 2+: Radial (L), Radial (R) GI/Abdominal: Normal Bowel Sounds, Soft, Non-Tender, No Distention (Male) Exam: Deferred Rectal (Males) Exam: Deferred Back Exam: Normal Inspection Extremities: Normal Inspection, Normal Range of Motion Neurological: Alert, Confused. No: Normal Cognition Psychiatric: Normal Affect, Normal Mood Skin Exam: Warm, Dry, Intact, Normal Color, No Rash Lymphatic: No Adenopathy Course - Vital Signs Text/Narrative:: Patient presents with frequent falls over the past 2 days, increased confusion, did not decreased urinary output with retention and hematuria, and melena. Patient does have a his significant history of alcoholic cirrhosis of the liver, held alcoholism. Patient does continue to drink despite being prescribed Librium and Ativan. Was recently started on lactulose 30 mL twice daily approximately 3 days ago. Patient is confused at the time of assessment. Attempting to participate in our conversation however he is not making much sense. I have ordered for the patient to have a CT of the head as he has had several falls recently and he does have cirrhosis on liver and likely has clotting issues. I have also ordered lab studies and a Covid swab as the patient will likely need to be admitted to the hospital. Last Recorded V/S: Last Vital Signs Temp 97.8 F 04/05/21 17:29 Pulse 97 04/05/21 17:29 Resp 20 04/05/21 17:29 BP 131/64 04/05/21 17:29 Pulse Ox 97 04/05/21 17:29 - Orders/Labs/Meds Orders: Active Orders 24 hr Category Date Time Status CULTURE URINE [MREF] Stat Lab 04/05/21 19:50 Received Potassium Chloride [KCl in Water 10 MEQ/100 ML] 10 meq Med 04/05/21 19:30 Active Premix Bag 1 bag IV Q1H Sodium Chloride 0.9% [Normal Saline] 1,000 ml Med 04/05/21 19:30 Active IV ASDIRECTED Sodium Chloride 0.9% [Saline Flush] Med 04/05/21 17:57 Active 10 ml FLUSH ASDIRECTED PRN Saline Lock Insert [OM.PC] Stat Oth 04/05/21 17:57 Ordered Medication Orders Potassium Chloride 10 meq/ (Premix) 100 mls @ 100 mls/hr IV Q1H ERI Stop: 04/05/21 23:29 Last Admin: 04/05/21 21:48 Dose: 100 mls/hr Documented by: Infusion: 04/05/21 21:46 Dose: 100 mls/hr Documented by: Admin: 04/05/21 20:46 Dose: 100 mls/hr Documented by: Infusion: 04/05/21 20:26 Dose: 100 mls/hr Documented by: Admin: 04/05/21 19:26 Dose: 100 mls/hr Documented by: DIMAS Sodium Chloride (Normal Saline) 1,000 mls @ 150 mls/hr IV ASDIRECTED ERI Last Admin: 04/05/21 19:26 Dose: 150 mls/hr Documented by: DIMAS Sodium Chloride (Sodium Chloride 0.9% 10 Ml Syringe) 10 ml FLUSH ASDIRECTED PRN PRN Reason: Keep Vein Open Last Admin: 04/05/21 19:20 Dose: 10 ml Documented by: DIMAS Labs: Laboratory Tests 04/05/21 04/05/21 04/05/21 Range/Units 18:08 18:08 18:08 WBC 5.45 (4.23-9.07) K/mm3 RBC 3.40 L (4.63-6.08) M/mm3 Hgb 12.2 L (13.7-17.5) gm/dl Hct 35.1 L (40.1-51.0) % MCV 103.2 H (79.0-92.2) fl MCH 35.9 H (25.7-32.2) pg MCHC 34.8 (32.2-35.5) g/dl RDW Std Deviation 49.5 H (35.1-43.9) fL Plt Count 79 L (163-337) K/mm3 MPV 9.2 L (9.4-12.3) fl Neut % (Auto) 65.9 (34.0-67.9) % Lymph % (Auto) 19.8 L (21.8-53.1) % [place] % (Auto) 8.4 (5.3-12.2) % Eos % (Auto) 5.0 (0.8-7.0) Baso % (Auto) 0.7 (0.1-1.2) % Neut # (Auto) 3.59 (1.78-5.38) K/mm3 Lymph # (Auto) 1.08 L (1.32-3.57) K/mm3 [place] # (Auto) 0.46 (0.30-0.82) K/mm3 Eos # (Auto) 0.27 (0.04-0.54) K/mm3 Baso # (Auto) 0.04 (0.01-0.08) K/mm3 Manual Slide Review Abnormal smear PT 15.1 H (9.7-12.0) SECONDS INR 1.42 APTT 32.8 H (21.7-31.4) SECONDS Sodium 139 (136-145) mEq/L Potassium 3.0 L (3.5-5.1) mEq/L Chloride 105 (98-107) mEq/L Carbon Dioxide 23 (21-32) mEq/L Anion Gap 14.0 (5-15) BUN 9 (7-18) mg/dL Creatinine 0.9 (0.7-1.3) mg/dL Est Cr Clr Drug Dosing 121.90 mL/min Estimated GFR (MDRD) > 60 (>60) mL/min BUN/Creatinine Ratio 10.0 L (14-18) Glucose 111 H (70-99) mg/dL Calcium 8.5 (8.5-10.1) mg/dL Magnesium 1.8 (1.8-2.4) mg/dL Total Bilirubin 5.8 H (0.2-1.0) mg/dL AST 42 H (15-37) U/L ALT 40 (16-63) U/L Alkaline Phosphatase 110 (46-116) U/L Ammonia (11-32) umol/L C-Reactive Protein 0.8 (<1.0) mg/dL Total Protein 6.9 (6.4-8.2) g/dl Albumin 2.9 L (3.4-5.0) g/dl Globulin 4.0 gm/dL Albumin/Globulin Ratio 0.7 L (1-2) Urine Color (Yellow) Urine Appearance (Clear) Urine pH (5.0-8.0) Ur Specific [place] (1.005-1.030) Urine Protein (Negative) Urine Glucose (UA) (Negative) Urine Ketones (Negative) Urine Occult Blood (Negative) Urine Nitrite (Negative) Urine Bilirubin (Negative) Urine Urobilinogen (0.2-1.0) Ur Leukocyte Esterase (Negative) Urine RBC (0-5) /hpf Urine WBC (0-5) /hpf Ur Squamous Epith Cells (0-5) /hpf Urine Bacteria (FEW) /hpf Urine Mucus (FEW) /hpf SARS-CoV-2 RNA (BRIDGET) (NEGATIVE) 04/05/21 04/05/21 04/05/21 Range/Units 18:08 18:30 19:50 WBC (4.23-9.07) K/mm3 RBC (4.63-6.08) M/mm3 Hgb (13.7-17.5) gm/dl Hct (40.1-51.0) % MCV (79.0-92.2) fl MCH (25.7-32.2) pg MCHC (32.2-35.5) g/dl RDW Std Deviation (35.1-43.9) fL Plt Count (163-337) K/mm3 MPV (9.4-12.3) fl Neut % (Auto) (34.0-67.9) % Lymph % (Auto) (21.8-53.1) % [place] % (Auto) (5.3-12.2) % Eos % (Auto) (0.8-7.0) Baso % (Auto) (0.1-1.2) % Neut # (Auto) (1.78-5.38) K/mm3 Lymph # (Auto) (1.32-3.57) K/mm3 [place] # (Auto) (0.30-0.82) K/mm3 Eos # (Auto) (0.04-0.54) K/mm3 Baso # (Auto) (0.01-0.08) K/mm3 Manual Slide Review PT (9.7-12.0) SECONDS INR APTT (21.7-31.4) SECONDS Sodium (136-145) mEq/L Potassium (3.5-5.1) mEq/L Chloride (98-107) mEq/L Carbon Dioxide (21-32) mEq/L Anion Gap (5-15) BUN (7-18) mg/dL Creatinine (0.7-1.3) mg/dL Est Cr Clr Drug Dosing mL/min Estimated GFR (MDRD) (>60) mL/min BUN/Creatinine Ratio (14-18) Glucose (70-99) mg/dL Calcium (8.5-10.1) mg/dL Magnesium (1.8-2.4) mg/dL Total Bilirubin (0.2-1.0) mg/dL AST (15-37) U/L ALT (16-63) U/L Alkaline Phosphatase (46-116) U/L Ammonia 104 H (11-32) umol/L C-Reactive Protein (<1.0) mg/dL Total Protein (6.4-8.2) g/dl Albumin (3.4-5.0) g/dl Globulin gm/dL Albumin/Globulin Ratio (1-2) Urine Color Alanis H (Yellow) Urine Appearance Clear (Clear) Urine pH 6.0 (5.0-8.0) Ur Specific [place] 1.025 (1.005-1.030) Urine Protein 1+ H (Negative) Urine Glucose (UA) Trace H (Negative) Urine Ketones 1+ H (Negative) Urine Occult Blood Negative (Negative) Urine Nitrite Positive H (Negative) Urine Bilirubin 2+ H (Negative) Urine Urobilinogen >=8.0 H (0.2-1.0) Ur Leukocyte Esterase Negative (Negative) Urine RBC 0-5 (0-5) /hpf Urine WBC 0-5 (0-5) /hpf Ur Squamous Epith Cells 0-5 (0-5) /hpf Urine Bacteria Few (FEW) /hpf Urine Mucus Moderate H (FEW) /hpf SARS-CoV-2 RNA (BRIDGET) Negative (NEGATIVE) Meds: Medications Generic Name Dose Route Start Last Admin Trade Name Christianq PRN Reason Stop Dose Admin Potassium Chloride 10 meq/ 100 mls @ 100 mls/hr 04/05/21 19:30 04/05/21 21:48 Premix IV 04/05/21 23:29 100 mls/hr Q1H ERI Administration Sodium Chloride 1,000 mls @ 150 mls/hr 04/05/21 19:30 04/05/21 19:26 Normal Saline IV 150 mls/hr ASDIRECTED ERI Administration Sodium Chloride 10 ml 04/05/21 17:57 04/05/21 19:20 Sodium Chloride 0.9% 10 Ml Syringe FLUSH 10 ml ASDIRECTED PRN Administration Keep Vein Open Discontinued Medications Generic Name Dose Route Start Last Admin Trade Name Christianq PRN Reason Stop Dose Admin Lactulose 20 gm 04/05/21 19:19 04/05/21 19:32 Lactulose Soln 10 Gm/15 Ml 30 Ml Ud Cup PO 04/05/21 19:20 20 gm ONETIME ONE Administration Pantoprazole Sodium 40 mg 04/05/21 21:21 04/05/21 21:48 Pantoprazole 40 Mg Vial IVPUSH 04/05/21 21:22 40 mg ONETIME ONE Administration - Re-Assessments/Exams Free Text/Narrative Re-Assessment/Exam: 04/05/21 19:17 Hematology reveals a WBC of 5.45, hemoglobin 12.2, hematocrit 35.1, platelet count 79, pro time 15.1, INR 1.42, PTT 32.8, sodium 139, potassium 3.0, carbon dioxide 23, anion gap 14.0, BUN 9, creatinine 0.9, GFR greater than 60, glucose 111, magnesium 1.8, total bilirubin 5.8, AST 42, ALT 40, alk phos 110, ammonia 104, C-reactive protein 0.8, total protein 6.[address] of the head: Comparison to prior head CT of 03/01/2020: Ventricles along with basal cisterns and sulci over the convexities are mildly prominent. Diminished density is noticed within portions of the periventricular white matter which most likely represents small vessel ischemic demyelination change. No other abnormal parenchymal densities are seen. No evidence of intracranial hemorrhage. No midline shift or mass-effect is appreciated. Bone window settings were reviewed which show no acute abnormality within the visualized paranasal sinuses or mastoid sinuses. No acute calvarial abnormality is appreciated. I will order for the patient to receive 40 mEq of IV potassium. He will also need to receive lactulose 30 mL now. 04/05/21 20:07 I do believe that this patient needs to be admitted to the hospital. I have called our hospitalist to see if he would accept him under his care. He is hesitant as he states he believes the patient likely will need to be scoped. I was going to run the patient case by the surgeon on-call however the ER charge nurse notifies me that we no longer have any beds available in the hospital. I will place a call to [place] after speak with the patient. I have done a rectal exam on the patient it is Hemoccult positive. Patient does have a moderate amount of stool noted in his rectal vault. I discussed the severity of the patient's health status with him and his . Patient's wants him transferred to [place] however at this time he does not want to be transferred to [place]. I again reiterated that the patient could likely due to his current health status. I stepped out of the room and allow them to visit regarding what plan of care they like to go forward with. 04/05/21 21:20 I phoned [facility] call as the patient has agreed to be transferred to [place]. I spoke with Dr. Sheriff and gave her report on the patient and she has graciously accepted his care. She asked that we do give him Protonix 40 mg IV x1 dose. Patient will then be transferred to [place] via ambulance. Departure - Departure Time of Disposition: 21:55 Disposition: DC/Tfer to Acute Hospital 02 Condition: Fair Clinical Impression: Hypokalemia, Hepatic encephalopathy GIB (gastrointestinal bleeding) Qualifiers: GI bleed type/associated pathology: unspecified gastrointestinal hemorrhage type Qualified Code(s): K92.2 - Gastrointestinal hemorrhage, unspecified - Discharge Information Referrals: Radha Hayden PA-C [Primary Care Provider] - Forms: ED Department Discharge Sepsis Event Note (ED) - Evaluation Sepsis Screening Result: No Definite Risk - Focused Exam Vital Signs: Vital Signs Temp Pulse Resp BP Pulse Ox 04/05/21 17:29 97.8 F 97 20 131/64 97 - My Orders Last 24 Hours: My Active Orders 04/05/21 17:57 Sodium Chloride 0.9% [Saline Flush] 10 ml FLUSH ASDIRECTED PRN Saline Lock Insert [OM.PC] Stat 04/05/21 19:30 Potassium Chloride [KCl in Water 10 MEQ/100 ML] 10 meq Premix Bag 1 bag IV Q1H Sodium Chloride 0.9% [Normal Saline] 1,000 ml IV ASDIRECTED 04/05/21 19:50 CULTURE URINE [MREF] Stat - Assessment/Plan Last 24 Hours: My Active Orders 04/05/21 17:57 Sodium Chloride 0.9% [Saline Flush] 10 ml FLUSH ASDIRECTED PRN Saline Lock Insert [OM.PC] Stat 04/05/21 19:30 Potassium Chloride [KCl in Water 10 MEQ/100 ML] 10 meq Premix Bag 1 bag IV Q1H Sodium Chloride 0.9% [Normal Saline] 1,000 ml IV ASDIRECTED 04/05/21 19:50 CULTURE URINE [MREF] Stat
--- NOTE | 2021-04-05 18:48 | CT ---
Head CT Technique: Multiple axial sections through the brain were obtained. Intravenous contrast was not utilized. Reconstructed coronal and sagittal images were obtained. Comparison: Prior head CT exam of 03/01/20. Findings: Ventricles along with basal cisterns and sulci over the convexities are mildly prominent. Diminished density is noted within portions of the periventricular white matter which most likely represent small vessel ischemic demyelination change. No other abnormal parenchymal densities are seen. No evidence of intracranial hemorrhage. No midline shift or mass-effect is appreciated. Bone window settings were reviewed which show no acute abnormality within the visualized paranasal sinuses or mastoid sinuses. No acute calvarial abnormality is appreciated. Impression: 1. Senescent findings as noted above. Findings are fairly stable from prior exam. Findings could also relate to chronic drug use. 2. Nothing acute is seen on noncontrast head CT exam. Diagnostic code #2
[2021-04-05] MEDS ORDERED: Lactulose Soln 10 GM/15 ML 30 ML UD Cup PO ONE (19:19)
[2021-04-05] MEDS: Potassium Chloride 10 MEQ in Premix Bag 1 BAG IV SCH ×3 (19:26→21:48)
[2021-04-05] MEDS ORDERED: Sodium Chloride 0.9% 1,000 ML IV SCH (19:30)
[2021-04-05] MEDS ORDERED: Pantoprazole 40 MG Vial IVPUSH ONE (21:21)
== END 2021-04-05 20:15 ==
LOC: JD.ED 17:23
DX: K92.2 Gastrointestinal hemorrhage, unspecified (principal); K72.90 Hepatic failure, unspecified without coma; E87.6 Hypokalemia; Z91.048 Other nonmedicinal substance allergy status; Z79.899 Other long term (current) drug therapy; Z20.822 Contact with and (suspected) exposure to COVID-19; Z72.0 Tobacco use
CPT/HCPCS: 36415; 70450; 80053; 81001; 82140; 83735; 85025; 85610; 85730; 86140; 87086; 87635; 96365; 96366; 96375; 99285; A9270; C9113; J3480; J7030; U0002

== ENCOUNTER 2021-04-12 15:33 | Inpatient (IN) | payer MEDICAID ==
--- NOTE | 2021-04-12 15:44 | EDM.PDOC ---
ED HPI GENERAL MEDICAL PROBLEM - General Chief Complaint: General Stated Complaint: [facility] Time Seen by Provider: 04/12/21 15:43 - History of Present Illness INITIAL COMMENTS - FREE TEXT/NARRATIVE: 51-year-old male brought into the emergency room by EMS with increased confusion and he fell twice today. The patient was able to catch himself with the falls and get himself into chairs and staff he had no hard landings with them. He was also noted to have a fever of 101.7 at home by the in-home care associate. Patient was recently admitted to [facility] in [place]. Since that time he has not been drinking he is taking his medication as directed he is more confused and generally just not doing so well. He denies pain at this time. - Related Data Allergies Allergy/AdvReac Type Severity Reaction Status Date / Time adhesive tape Allergy Rash Verified 04/12/21 15:46 Home Meds: Home Meds Furosemide 20 mg PO DAILY 02/18/21 [History] Folic Acid 1 mg PO DAILY #20 tablet 02/19/21 [Rx] Magnesium Oxide [Magnesium] 400 mg PO DAILY #4 tablet 02/19/21 [Rx] chlordiazePOXIDE [Librium] 10 mg PO BID #30 cap 02/19/21 [Rx] Amitriptyline [Elavil] 100 mg BEDTIME 04/05/21 [History] LORazepam [Lorazepam] 1 mg PO BID PRN 04/05/21 [History] Potassium Chloride 10 meq PO DAILY 04/05/21 [History] Thiamine [Vitamin B-1] 100 mg PO ASDIRECTED 04/05/21 [History] Lactulose 20 gm PO ASDIRECTED 04/12/21 [History] Pantoprazole Sodium [Protonix] 40 mg PO ASDIRECTED 04/12/21 [History] Propranolol [Inderal] 1 tab PO ASDIRECTED 04/12/21 [History] Past Medical History HEENT History: Reports: Impaired Vision Cardiovascular History: Reports: None Respiratory History: Reports: SOB Gastrointestinal History: Reports: Cirrhosis, Pancreatitis, Other (See Below) Other Gastrointestinal History: Fecal incontinence. Other Genitourinary History: Blood in the urine. Musculoskeletal History: Reports: Arthritis, Back Pain, Chronic, Fracture, Other (See Below) Other Musculoskeletal History: cervical stenosis Neurological History: Reports: Concussion, CVA Psychiatric History: Reports: ADD, ADHD, Addiction, Anxiety, Depression, Other (See Below) Other Psychiatric History: Social Phobia Endocrine/Metabolic History: Reports: None Hematologic History: Reports: None Immunologic History: Reports: None Other Immunologic History: Hep c pt says he has had treatment for it Oncologic (Cancer) History: Reports: None Other Dermatologic History: Rash to the back for the last 2 years, unsure of what it is. - Infectious Disease History Infectious Disease History: Reports: Hepatitis C - Past Surgical History Head Surgeries/Procedures: Reports: None GI Surgical History: Reports: Appendectomy, Cholecystectomy Other GI Surgeries/Procedures: Surgery on the belly when he was a baby, unsure of what it was for. Male Surgical History: Reports: None Musculoskeletal Surgical History: Reports: Other (See Below) Other Musculoskeletal Surgeries/Procedures:: Pt had plates and screws placed and removed in the right foot. Social & Family History - Family History Hematologic: Reports: None Oncologic: Reports: Pancreatic, Other (See Below) Other Oncologic Family History: gallbladder - Caffeine Use Caffeine Use: Reports: Soda ED ROS GENERAL - Review of Systems Review Of Systems: See Below Constitutional: Reports: Fever. Denies: Chills HEENT: Reports: No Symptoms Respiratory: Reports: No Symptoms Cardiovascular: Reports: No Symptoms Endocrine: Reports: No Symptoms GI/Abdominal: Reports: No Symptoms. Denies: Abdominal Pain : Reports: No Symptoms Musculoskeletal: Reports: No Symptoms Skin: Reports: No Symptoms Neurological: Reports: Confusion, Difficulty Walking, Weakness. Denies: Headache Hematologic/Lymphatic: Reports: No Symptoms Immunologic: Reports: No Symptoms ED EXAM, GENERAL - Physical Exam Exam: See Below Exam Limited By: No Limitations General Appearance: Alert, No Apparent Distress Eye Exam: Bilateral Eye: Other (Sclera mildly icteric) Ears: Normal External Exam, Normal Canal, Hearing Grossly Normal, Normal TMs Nose: Normal Inspection, Normal Mucosa, No Blood Throat/Mouth: Normal Lips, Normal Oropharynx, Normal Voice, No Airway Compromise. No: Normal Teeth (Poor dentition) Head: Atraumatic, Normocephalic Neck: Normal Inspection, Supple, Non-Tender, Full Range of Motion. No: Lymphadenopathy (L), Lymphadenopathy (R) Respiratory/Chest: No Respiratory Distress, Lungs Clear, Normal Breath Sounds Cardiovascular: Regular Rate, Rhythm, No Murmur, Other (Trace to +1 edema lower extremities) GI/Abdominal: Normal Bowel Sounds, Soft, Non-Tender Back Exam: Normal Inspection. No: CVA Tenderness (L), CVA Tenderness (R) Extremities: Normal Inspection, Pedal Edema. No: No Pedal Edema Neurological: Alert, Confused. No: Oriented, Normal Cognition Lymphatic: No Adenopathy Course - Vital Signs Last Recorded V/S: Last Vital Signs Temp 36.6 C 04/12/21 15:55 Pulse 71 04/12/21 15:55 Resp 22 H 04/12/21 15:55 BP 138/55 L 04/12/21 15:55 Pulse Ox 99 04/12/21 15:55 - Orders/Labs/Meds Orders: Active Orders 24 hr Category Date Time Status Head wo Cont [CT] Stat Exams 04/12/21 18:14 Taken CORONAVIRUS COVID-19 BRIDGET [MOLEC] Stat Lab 04/12/21 18:47 Received CULTURE BLOOD [BC] Stat Lab 04/12/21 16:20 Received CULTURE BLOOD [BC] Stat Lab 04/12/21 16:30 Received CULTURE URINE [MREF] Stat Lab 04/12/21 18:15 Received cefTRIAXone [Rocephin] 1 gm Med 04/12/21 19:15 Ordered Sodium Chloride 0.9% [Normal Saline] 100 ml IV Q24H Blood Culture x2 Reflex Set [OM.PC] Stat Oth 04/12/21 16:00 Ordered Medication Orders Ceftriaxone Sodium 1 gm/ (Sodium Chloride) 100 mls @ 200 mls/hr IV Q24H [facility] Labs: Laboratory Tests 04/12/21 04/12/21 04/12/21 Range/Units 16:20 16:20 16:20 WBC 6.38 (4.23-9.07) K/mm3 RBC 3.58 L (4.63-6.08) M/mm3 Hgb 12.9 L (13.7-17.5) gm/dl Hct 37.7 L (40.1-51.0) % MCV 105.3 H (79.0-92.2) fl MCH 36.0 H (25.7-32.2) pg MCHC 34.2 (32.2-35.5) g/dl RDW Std Deviation 56.6 H (35.1-43.9) fL Plt Count 93 L (163-337) K/mm3 MPV 9.4 (9.4-12.3) fl Neutrophils % (Manual) 77 H (40-60) % Band Neutrophils % 0 (0-10) % Lymphocytes % (Manual) 16 L (20-40) % Atypical Lymphs % 0 % Monocytes % (Manual) 4 (2-10) % Eosinophils % (Manual) 2 (0.8-7.0) % Basophils % (Manual) 1 (0.2-1.2) Platelet Estimate Decreased Plt Morphology Comment See note Anisocytosis 1+ slight Macrocytosis 1+ slight Ovalocytes 1+ slight RBC Morph Comment Not Reportable PT (9.7-12.0) SECONDS INR Sodium 143 (136-145) mEq/L Potassium 4.2 (3.5-5.1) mEq/L Chloride 107 (98-107) mEq/L Carbon Dioxide 26 (21-32) mEq/L Anion Gap 14.2 (5-15) BUN 5 L (7-18) mg/dL Creatinine 0.9 (0.7-1.3) mg/dL Est Cr Clr Drug Dosing 121.90 mL/min Estimated GFR (MDRD) > 60 (>60) mL/min BUN/Creatinine Ratio 5.6 L (14-18) Glucose 117 H (70-99) mg/dL Lactic Acid 1.8 (0.4-2.0) mmol/L Calcium 8.8 (8.5-10.1) mg/dL Total Bilirubin 5.4 H (0.2-1.0) mg/dL GGT 48 (15-85) U/L AST 58 H (15-37) U/L ALT 44 (16-63) U/L Alkaline Phosphatase 102 (46-116) U/L Ammonia (11-32) umol/L Total Protein 7.3 (6.4-8.2) g/dl Albumin 3.0 L (3.4-5.0) g/dl Globulin 4.3 gm/dL Albumin/Globulin Ratio 0.7 L (1-2) Urine Color (Yellow) Urine Appearance (Clear) Urine pH (5.0-8.0) Ur Specific Brooks (1.005-1.030) Urine Protein (Negative) Urine Glucose (UA) (Negative) Urine Ketones (Negative) Urine Occult Blood (Negative) Urine Nitrite (Negative) Urine Bilirubin (Negative) Urine Urobilinogen (0.2-1.0) Ur Leukocyte Esterase (Negative) Urine RBC (0-5) /hpf Urine WBC (0-5) /hpf Ur Squamous Epith Cells (0-5) /hpf Amorphous Sediment (NOT SEEN) /hpf Urine Bacteria (FEW) /hpf Urine Mucus (FEW) /hpf Urine Opiates Screen (QNFVEH=105) Ur Buprenorphine Scrn (CUTOFF=10) Ur Oxycodone Screen (XPH6OJ=599) Urine Methadone Screen (SCP2AW=123) Ur Propoxyphene Screen (QBOREO=053) Ur Barbiturates Screen (EWQNKF=170) Ur Tricyclics Screen (FMOOID=531) Ur Phencyclidine Scrn (CUTOFF=25) Ur Amphetamine Screen (CUPJEG=006) U Methamphetamines Scrn (OJRAOM=079) U Benzodiazepines Scrn (IDHPEW=324) U Cocaine Metab Screen (VFHEZD=528) U Marijuana (THC) Screen (CUTOFF=50) Ethyl Alcohol 0.00 (0.00) gm% 04/12/21 04/12/21 04/12/21 Range/Units 16:20 16:30 18:15 WBC (4.23-9.07) K/mm3 RBC (4.63-6.08) M/mm3 Hgb (13.7-17.5) gm/dl Hct (40.1-51.0) % MCV (79.0-92.2) fl MCH (25.7-32.2) pg MCHC (32.2-35.5) g/dl RDW Std Deviation (35.1-43.9) fL Plt Count (163-337) K/mm3 MPV (9.4-12.3) fl Neutrophils % (Manual) (40-60) % Band Neutrophils % (0-10) % Lymphocytes % (Manual) (20-40) % Atypical Lymphs % % Monocytes % (Manual) (2-10) % Eosinophils % (Manual) (0.8-7.0) % Basophils % (Manual) (0.2-1.2) Platelet Estimate Plt Morphology Comment Anisocytosis Macrocytosis Ovalocytes RBC Morph Comment PT 14.6 H (9.7-12.0) SECONDS INR 1.37 Sodium (136-145) mEq/L Potassium (3.5-5.1) mEq/L Chloride (98-107) mEq/L Carbon Dioxide (21-32) mEq/L Anion Gap (5-15) BUN (7-18) mg/dL Creatinine (0.7-1.3) mg/dL Est Cr Clr Drug Dosing mL/min Estimated GFR (MDRD) (>60) mL/min BUN/Creatinine Ratio (14-18) Glucose (70-99) mg/dL Lactic Acid (0.4-2.0) mmol/L Calcium (8.5-10.1) mg/dL Total Bilirubin (0.2-1.0) mg/dL GGT (15-85) U/L AST (15-37) U/L ALT (16-63) U/L Alkaline Phosphatase (46-116) U/L Ammonia 60 H (11-32) umol/L Total Protein (6.4-8.2) g/dl Albumin (3.4-5.0) g/dl Globulin gm/dL Albumin/Globulin Ratio (1-2) Urine Color [place] H (Yellow) Urine Appearance Slt cloudy H (Clear) Urine pH 7.0 (5.0-8.0) Ur Specific Brooks > or = 1.030 (1.005-1.030) Urine Protein Negative (Negative) Urine Glucose (UA) Negative (Negative) Urine Ketones Negative (Negative) Urine Occult Blood Negative (Negative) Urine Nitrite Positive H (Negative) Urine Bilirubin 1+ H (Negative) Urine Urobilinogen >=8.0 H (0.2-1.0) Ur Leukocyte Esterase Negative (Negative) Urine RBC 0-5 (0-5) /hpf Urine WBC 0-5 (0-5) /hpf Ur Squamous Epith Cells 0-5 (0-5) /hpf Amorphous Sediment Many H (NOT SEEN) /hpf Urine Bacteria Moderate H (FEW) /hpf Urine Mucus Not seen (FEW) /hpf Urine Opiates Screen (JBCBBV=938) Ur Buprenorphine Scrn (CUTOFF=10) Ur Oxycodone Screen (ZCG7XQ=730) Urine Methadone Screen (MVL4SW=193) Ur Propoxyphene Screen (ARQMEO=314) Ur Barbiturates Screen (VINFJP=941) Ur Tricyclics Screen (DUCREP=295) Ur Phencyclidine Scrn (CUTOFF=25) Ur Amphetamine Screen (WLJDXA=767) U Methamphetamines Scrn (TBHDLG=344) U Benzodiazepines Scrn (RGDRBV=373) U Cocaine Metab Screen (XIZHBC=595) U Marijuana (THC) Screen (CUTOFF=50) Ethyl Alcohol (0.00) gm% 04/12/21 Range/Units 18:15 WBC (4.23-9.07) K/mm3 RBC (4.63-6.08) M/mm3 Hgb (13.7-17.5) gm/dl Hct (40.1-51.0) % MCV (79.0-92.2) fl MCH (25.7-32.2) pg MCHC (32.2-35.5) g/dl RDW Std Deviation (35.1-43.9) fL Plt Count (163-337) K/mm3 MPV (9.4-12.3) fl Neutrophils % (Manual) (40-60) % Band Neutrophils % (0-10) % Lymphocytes % (Manual) (20-40) % Atypical Lymphs % % Monocytes % (Manual) (2-10) % Eosinophils % (Manual) (0.8-7.0) % Basophils % (Manual) (0.2-1.2) Platelet Estimate Plt Morphology Comment Anisocytosis Macrocytosis Ovalocytes RBC Morph Comment PT (9.7-12.0) SECONDS INR Sodium (136-145) mEq/L Potassium (3.5-5.1) mEq/L Chloride (98-107) mEq/L Carbon Dioxide (21-32) mEq/L Anion Gap (5-15) BUN (7-18) mg/dL Creatinine (0.7-1.3) mg/dL Est Cr Clr Drug Dosing mL/min Estimated GFR (MDRD) (>60) mL/min BUN/Creatinine Ratio (14-18) Glucose (70-99) mg/dL Lactic Acid (0.4-2.0) mmol/L Calcium (8.5-10.1) mg/dL Total Bilirubin (0.2-1.0) mg/dL GGT (15-85) U/L AST (15-37) U/L ALT (16-63) U/L Alkaline Phosphatase (46-116) U/L Ammonia (11-32) umol/L Total Protein (6.4-8.2) g/dl Albumin (3.4-5.0) g/dl Globulin gm/dL Albumin/Globulin Ratio (1-2) Urine Color (Yellow) Urine Appearance (Clear) Urine pH (5.0-8.0) Ur Specific Brooks (1.005-1.030) Urine Protein (Negative) Urine Glucose (UA) (Negative) Urine Ketones (Negative) Urine Occult Blood (Negative) Urine Nitrite (Negative) Urine Bilirubin (Negative) Urine Urobilinogen (0.2-1.0) Ur Leukocyte Esterase (Negative) Urine RBC (0-5) /hpf Urine WBC (0-5) /hpf Ur Squamous Epith Cells (0-5) /hpf Amorphous Sediment (NOT SEEN) /hpf Urine Bacteria (FEW) /hpf Urine Mucus (FEW) /hpf Urine Opiates Screen Negative (ZZPJXB=748) Ur Buprenorphine Scrn Negative (CUTOFF=10) Ur Oxycodone Screen Negative (VKA8FQ=139) Urine Methadone Screen Negative (CQS2MZ=004) Ur Propoxyphene Screen Negative (YXCMUZ=637) Ur Barbiturates Screen Negative (JYWJDS=595) Ur Tricyclics Screen Presumptive positive H (YUNUXL=168) Ur Phencyclidine Scrn Negative (CUTOFF=25) Ur Amphetamine Screen Negative (RJAGED=418) U Methamphetamines Scrn Negative (PXGOFI=497) U Benzodiazepines Scrn Presumptive positive H (PKBQXI=084) U Cocaine Metab Screen Negative (MWDFLP=102) U Marijuana (THC) Screen Presumptive positive H (CUTOFF=50) Ethyl Alcohol (0.00) gm% Meds: Medications Generic Name Dose Route Start Last Admin Trade Name Freq PRN Reason Stop Dose Admin Ceftriaxone Sodium 1 gm/ 100 mls @ 200 mls/hr 04/12/21 19:15 Sodium Chloride IV Q24H [facility] - Re-Assessments/Exams Free Text/Narrative Re-Assessment/Exam: 04/12/21 18:46 The patient has been afebrile here in the emergency department he did have a reported temperature at home. Awaiting his urinalysis report his ammonia has come down from his admission time. 04/12/21 19:[address] Jurado who will assume care of the patient will give a dose of Rocephin. Departure - Departure Time of Disposition: 19:15 Disposition: Admitted As Inpatient 68 Clinical Impression: Generalized weakness, Alcoholic cirrhosis of liver with ascites, Hepatic encephalopathy - Discharge Information Referrals: Destini Holt NP [Primary Care Provider] - Forms: ED Department Discharge Sepsis Event Note (ED) - Focused Exam Vital Signs: Vital Signs Temp Pulse Resp BP Pulse Ox 04/12/21 15:55 36.6 C 71 22 H 138/55 L 99 - My Orders Last 24 Hours: My Active Orders 04/12/21 16:00 Blood Culture x2 Reflex Set [OM.PC] Stat 04/12/21 16:20 CULTURE BLOOD [BC] Stat 04/12/21 16:30 CULTURE BLOOD [BC] Stat 04/12/21 18:14 Head wo Cont [CT] Stat 04/12/21 18:15 CULTURE URINE [MREF] Stat 04/12/21 18:47 CORONAVIRUS COVID-19 BRIDGET [MOLEC] Stat 04/12/21 19:15 cefTRIAXone [Rocephin] 1 gm Sodium Chloride 0.9% [Normal Saline] 100 ml IV Q24H - Assessment/Plan Last 24 Hours: My Active Orders 04/12/21 16:00 Blood Culture x2 Reflex Set [OM.PC] Stat 04/12/21 16:20 CULTURE BLOOD [BC] Stat 04/12/21 16:30 CULTURE BLOOD [BC] Stat 04/12/21 18:14 Head wo Cont [CT] Stat 04/12/21 18:15 CULTURE URINE [MREF] Stat 04/12/21 18:47 CORONAVIRUS COVID-19 BRIDGET [MOLEC] Stat 04/12/21 19:15 cefTRIAXone [Rocephin] 1 gm Sodium Chloride 0.9% [Normal Saline] 100 ml IV Q24H
[2021-04-12] MEDS ORDERED: cefTRIAXone 1 GM in Sodium Chloride 0.9% 100 ML IV SCH (19:15)
--- NOTE | 2021-04-12 19:16 | CT ---
Head CT Technique: Multiple axial sections through the brain were obtained. Intravenous contrast was not utilized. Reconstructed coronal and sagittal images were obtained. Comparison: Prior noncontrast head CT study of 04/05/21. Findings: Ventricles along with basal cisterns and sulci over the convexities are mildly prominent. Diminished density is noted within portions of the periventricular white matter which is compatible with small vessel ischemic demyelination change. These findings are fairly stable from prior head CT exam. No other abnormal parenchymal densities are seen. No evidence of intracranial hemorrhage. No midline shift or mass-effect is seen. Bone window settings were reviewed. Visualized mastoid sinuses and visualized paranasal sinuses show nothing acute. No acute calvarial abnormality is appreciated. Impression: 1. Mild senescent change as noted above. 2. No acute intracranial abnormality is appreciated. 3. Noncontrast head CT study appears to be fairly stable from previous exam. Diagnostic code #2
[2021-04-12] MEDS ORDERED: Lactulose Soln 10 GM/15 ML 30 ML UD Cup PO SCH (20:00)
[2021-04-12] MEDS ORDERED: Propranolol 20 MG Tab PO SCH (20:00)
[2021-04-12] MEDS ORDERED: Non-Formulary Medication 1 Each (Pantoprazole Sodium 40 MG Tablet.Dr) PO SCH (20:00)
[2021-04-12] MEDS ORDERED: Thiamine 100 MG Tab PO SCH (20:00)
--- NOTE | 2021-04-12 20:05 | PCM.HP.2 ---
H&P History of Present Illness - General Date of Service: 04/12/21 Admit Problem/Dx: Admission Diagnosis/Problem Admission Diagnosis/Problem Metabolic encephalopathy Source of Information: Family, Provider History Limitations: Reports: Altered Mental Status - History of Present Illness Initial Comments - Free Text/Narative: 51-year-old male with a past medical history as listed below who presents to the [facility] emergency department with his due to persistent weakness, worsening mental status, and persistent falls. The patient has a history significant for alcoholic hepatitis and chronic liver failure who was recently admitted and transferred to a higher level of care in [place] due to GI bleeding. Patient was experiencing hematuria and upper GI bleeding. Bleeding varices were ruled out. There was gastritis that was noted. Since then he has been placed on a PPI. Patient is also confused at baseline due to hyperammonemia. Patient was placed on lactulose 3 times daily which his states that she has been giving him faithfully. Today his ammonia level is 60. Upon presentation last admission it was approximately 150. The patient has not drank a drop of alcohol since April 03. He is only taking medications as prescribed. Since being discharged his mental status has been waning. He is not oriented. He does recognize family. The patient is very weak to the point where he cannot get up. His cannot take care of him. He continues to fall if he tries to get up by himself. Visiting nursing came to see him today and supposedly they measured an objective fever of 101 F and recommended that he be brought into the hospital for lester luation. There has not been a measured fever during his entire ER course. His other vital signs are normal. White count normal. His laboratory studies, although being abnormal in regards to various categories, are improved in comparison to previous within the past 2 weeks. Due to a slightly abnormal urinalysis which showed nitrites and bacteria (without white cells) the patient was loaded with Rocephin. Abdominal exam was benign according to ER provider. Patient was then referred to the internal medicine service as he has been increasingly difficult to take care of and likely will require placement into a halfway. His has expressed the wishes to have a hospice discussion. A 14 point review of systems was reviewed with the patient's and only pertinent for the above information. CODE STATUS: Reviewed and she wishes for him to be DNR. He cannot make this decision as he does not have mental capacity to do so. - Related Data Allergies/Adverse Reactions: Allergies Allergy/AdvReac Type Severity Reaction Status Date / Time adhesive tape Allergy Rash Verified 04/12/21 15:46 Home Medications: Home Meds Furosemide 20 mg PO DAILY 02/18/21 [History] Folic Acid 1 mg PO DAILY #20 tablet 02/19/21 [Rx] Magnesium Oxide [Magnesium] 400 mg PO DAILY #4 tablet 02/19/21 [Rx] chlordiazePOXIDE [Librium] 10 mg PO BID #30 cap 02/19/21 [Rx] Amitriptyline [Elavil] 100 mg BEDTIME 04/05/21 [History] LORazepam [Lorazepam] 1 mg PO BID PRN 04/05/21 [History] Potassium Chloride 10 meq PO DAILY 04/05/21 [History] Thiamine [Vitamin B-1] 100 mg PO ASDIRECTED 04/05/21 [History] Lactulose 20 gm PO ASDIRECTED 04/12/21 [History] Pantoprazole Sodium [Protonix] 40 mg PO ASDIRECTED 04/12/21 [History] Propranolol [Inderal] 1 tab PO ASDIRECTED 04/12/21 [History] Past Medical History HEENT History: Reports: Impaired Vision Cardiovascular History: Reports: None Respiratory History: Reports: SOB Gastrointestinal History: Reports: Cirrhosis, Pancreatitis, Other (See Below) Other Gastrointestinal History: Fecal incontinence. Other Genitourinary History: Blood in the urine. Musculoskeletal History: Reports: Arthritis, Back Pain, Chronic, Fracture, Other (See Below) Other Musculoskeletal History: cervical stenosis Neurological History: Reports: Concussion, CVA Psychiatric History: Reports: ADD, ADHD, Addiction, Anxiety, Depression, Other (See Below) Other Psychiatric History: Social Phobia Endocrine/Metabolic History: Reports: None Hematologic History: Reports: None Immunologic History: Reports: None Other Immunologic History: Hep c pt says he has had treatment for it Oncologic (Cancer) History: Reports: None Other Dermatologic History: Rash to the back for the last 2 years, unsure of what it is. - Infectious Disease History Infectious Disease History: Reports: Hepatitis C - Past Surgical History Head Surgeries/Procedures: Reports: None GI Surgical History: Reports: Appendectomy, Cholecystectomy Other GI Surgeries/Procedures: Surgery on the belly when he was a baby, unsure of what it was for. Male Surgical History: Reports: None Musculoskeletal Surgical History: Reports: Other (See Below) Other Musculoskeletal Surgeries/Procedures:: Pt had plates and screws placed and removed in the right foot. Social & Family History - Family History Hematologic: Reports: None Oncologic: Reports: Pancreatic, Other (See Below) Other Oncologic Family History: gallbladder - Tobacco Use Tobacco Use Status *Q: Current Every Day Tobacco User Years of Tobacco use: 30 Packs/Tins Daily: 1 - Caffeine Use Caffeine Use: Reports: Soda - Alcohol Use Date of Last Drink: 04/03/21 - Recreational Drug Use Recreational Drug Use: Yes Drug Use in Last 12 Months: Yes Recreational Drug Type: Reports: Marijuana/Hashish Recreational Drug Use Frequency: Daily H&P Review of Systems - Review of Systems: Review Of Systems: Comprehensive ROS is negative, except as noted in HPI. (ROS as per patient's .) Exam - Exam Exam: See Below - Vital Signs Vital Signs: Last Vital Signs Temp 98.9 F 04/12/21 19:30 Pulse 74 04/12/21 19:30 Resp 16 04/12/21 19:30 BP 102/70 04/12/21 19:30 Pulse Ox 90 L 04/12/21 19:30 Weight: 208 lb - Exam Quality Assessment: DVT Prophylaxis General: Alert. No: Oriented HEENT: EOMI, Mucosa Moist & [place], Pupils Equal, Pupils Reactive, Scleral Icterus Neck: Supple, Trachea Midline Lungs: Clear to Auscultation, Normal Respiratory Effort Cardiovascular: Regular Rate, Regular Rhythm, Normal S1, Normal S2 GI/Abdominal Exam: Normal Bowel Sounds, Soft, Non-Tender, No Organomegaly, No Distention, No Abnormal Bruit Extremities: Normal Inspection, Pedal Edema Skin: Other (diffuse jaundice) Neuro Extensive - Mental Status: Disorientation to Person, Disorientation to Place, Disorientation to Time, Memory Loss-Remote Events, Memory Loss-Recent Events, Opens Eyes to Commands, Slow Response to Commands Neuro Extensive - Motor, Sensory, Reflexes: CN II-XII Intact, Normal Reflexes - Patient Data Lab Results Last 24 hrs: Laboratory Results - last 24 hr 04/12/21 04/12/21 04/12/21 Range/Units 16:20 16:20 16:20 WBC 6.38 (4.23-9.07) K/mm3 RBC 3.58 L (4.63-6.08) M/mm3 Hgb 12.9 L (13.7-17.5) gm/dl Hct 37.7 L (40.1-51.0) % MCV 105.3 H (79.0-92.2) fl MCH 36.0 H (25.7-32.2) pg MCHC 34.2 (32.2-35.5) g/dl RDW Std Deviation 56.6 H (35.1-43.9) fL Plt Count 93 L (163-337) K/mm3 MPV 9.4 (9.4-12.3) fl Neutrophils % (Manual) 77 H (40-60) % Band Neutrophils % 0 (0-10) % Lymphocytes % (Manual) 16 L (20-40) % Atypical Lymphs % 0 % Monocytes % (Manual) 4 (2-10) % Eosinophils % (Manual) 2 (0.8-7.0) % Basophils % (Manual) 1 (0.2-1.2) Platelet Estimate Decreased Plt Morphology Comment See note Anisocytosis 1+ slight Macrocytosis 1+ slight Ovalocytes 1+ slight RBC Morph Comment Not Reportable PT (9.7-12.0) SECONDS INR Sodium 143 (136-145) mEq/L Potassium 4.2 (3.5-5.1) mEq/L Chloride 107 (98-107) mEq/L Carbon Dioxide 26 (21-32) mEq/L Anion Gap 14.2 (5-15) BUN 5 L (7-18) mg/dL Creatinine 0.9 (0.7-1.3) mg/dL Est Cr Clr Drug Dosing 121.90 mL/min Estimated GFR (MDRD) > 60 (>60) mL/min BUN/Creatinine Ratio 5.6 L (14-18) Glucose 117 H (70-99) mg/dL Lactic Acid 1.8 (0.4-2.0) mmol/L Calcium 8.8 (8.5-10.1) mg/dL Total Bilirubin 5.4 H (0.2-1.0) mg/dL GGT 48 (15-85) U/L AST 58 H (15-37) U/L ALT 44 (16-63) U/L Alkaline Phosphatase 102 (46-116) U/L Ammonia (11-32) umol/L Total Protein 7.3 (6.4-8.2) g/dl Albumin 3.0 L (3.4-5.0) g/dl Globulin 4.3 gm/dL Albumin/Globulin Ratio 0.7 L (1-2) Urine Color (Yellow) Urine Appearance (Clear) Urine pH (5.0-8.0) Ur Specific [place] (1.005-1.030) Urine Protein (Negative) Urine Glucose (UA) (Negative) Urine Ketones (Negative) Urine Occult Blood (Negative) Urine Nitrite (Negative) Urine Bilirubin (Negative) Urine Urobilinogen (0.2-1.0) Ur Leukocyte Esterase (Negative) Urine RBC (0-5) /hpf Urine WBC (0-5) /hpf Ur Squamous Epith Cells (0-5) /hpf Amorphous Sediment (NOT SEEN) /hpf Urine Bacteria (FEW) /hpf Urine Mucus (FEW) /hpf Urine Opiates Screen (JJAUOL=801) Ur Buprenorphine Scrn (CUTOFF=10) Ur Oxycodone Screen (XLO8UJ=019) Urine Methadone Screen (KHO0HX=145) Ur Propoxyphene Screen (TBDOFA=812) Ur Barbiturates Screen (EKKJOY=072) Ur Tricyclics Screen (XHIEQW=393) Ur Phencyclidine Scrn (CUTOFF=25) Ur Amphetamine Screen (ICUCLN=127) U Methamphetamines Scrn (IZKUUU=948) U Benzodiazepines Scrn (ECRDEZ=484) U Cocaine Metab Screen (DJTVCR=046) U Marijuana (THC) Screen (CUTOFF=50) Ethyl Alcohol 0.00 (0.00) gm% SARS-CoV-2 RNA (BRIDGET) (NEGATIVE) 04/12/21 04/12/21 04/12/21 Range/Units 16:20 16:30 18:15 WBC (4.23-9.07) K/mm3 RBC (4.63-6.08) M/mm3 Hgb (13.7-17.5) gm/dl Hct (40.1-51.0) % MCV (79.0-92.2) fl MCH (25.7-32.2) pg MCHC (32.2-35.5) g/dl RDW Std Deviation (35.1-43.9) fL Plt Count (163-337) K/mm3 MPV (9.4-12.3) fl Neutrophils % (Manual) (40-60) % Band Neutrophils % (0-10) % Lymphocytes % (Manual) (20-40) % Atypical Lymphs % % Monocytes % (Manual) (2-10) % Eosinophils % (Manual) (0.8-7.0) % Basophils % (Manual) (0.2-1.2) Platelet Estimate Plt Morphology Comment Anisocytosis Macrocytosis Ovalocytes RBC Morph Comment PT 14.6 H (9.7-12.0) SECONDS INR 1.37 Sodium (136-145) mEq/L Potassium (3.5-5.1) mEq/L Chloride (98-107) mEq/L Carbon Dioxide (21-32) mEq/L Anion Gap (5-15) BUN (7-18) mg/dL Creatinine (0.7-1.3) mg/dL Est Cr Clr Drug Dosing mL/min Estimated GFR (MDRD) (>60) mL/min BUN/Creatinine Ratio (14-18) Glucose (70-99) mg/dL Lactic Acid (0.4-2.0) mmol/L Calcium (8.5-10.1) mg/dL Total Bilirubin (0.2-1.0) mg/dL GGT (15-85) U/L AST (15-37) U/L ALT (16-63) U/L Alkaline Phosphatase (46-116) U/L Ammonia 60 H (11-32) umol/L Total Protein (6.4-8.2) g/dl Albumin (3.4-5.0) g/dl Globulin gm/dL Albumin/Globulin Ratio (1-2) Urine Color [place] H (Yellow) Urine Appearance Slt cloudy H (Clear) Urine pH 7.0 (5.0-8.0) Ur Specific [place] > or = 1.030 (1.005-1.030) Urine Protein Negative (Negative) Urine Glucose (UA) Negative (Negative) Urine Ketones Negative (Negative) Urine Occult Blood Negative (Negative) Urine Nitrite Positive H (Negative) Urine Bilirubin 1+ H (Negative) Urine Urobilinogen >=8.0 H (0.2-1.0) Ur Leukocyte Esterase Negative (Negative) Urine RBC 0-5 (0-5) /hpf Urine WBC 0-5 (0-5) /hpf Ur Squamous Epith Cells 0-5 (0-5) /hpf Amorphous Sediment Many H (NOT SEEN) /hpf Urine Bacteria Moderate H (FEW) /hpf Urine Mucus Not seen (FEW) /hpf Urine Opiates Screen (RKUITH=384) Ur Buprenorphine Scrn (CUTOFF=10) Ur Oxycodone Screen (HAU3HZ=668) Urine Methadone Screen (TBW3MK=213) Ur Propoxyphene Screen (BWWBNR=880) Ur Barbiturates Screen (KNWFIO=497) Ur Tricyclics Screen (WEGYZU=125) Ur Phencyclidine Scrn (CUTOFF=25) Ur Amphetamine Screen (DIOBOT=279) U Methamphetamines Scrn (ISVWIT=276) U Benzodiazepines Scrn (JZHCJG=064) U Cocaine Metab Screen (MAKXPZ=521) U Marijuana (THC) Screen (CUTOFF=50) Ethyl Alcohol (0.00) gm% SARS-CoV-2 RNA (BRIDGET) (NEGATIVE) 04/12/21 04/12/21 Range/Units 18:15 18:47 WBC (4.23-9.07) K/mm3 RBC (4.63-6.08) M/mm3 Hgb (13.7-17.5) gm/dl Hct (40.1-51.0) % MCV (79.0-92.2) fl MCH (25.7-32.2) pg MCHC (32.2-35.5) g/dl RDW Std Deviation (35.1-43.9) fL Plt Count (163-337) K/mm3 MPV (9.4-12.3) fl Neutrophils % (Manual) (40-60) % Band Neutrophils % (0-10) % Lymphocytes % (Manual) (20-40) % Atypical Lymphs % % Monocytes % (Manual) (2-10) % Eosinophils % (Manual) (0.8-7.0) % Basophils % (Manual) (0.2-1.2) Platelet Estimate Plt Morphology Comment Anisocytosis Macrocytosis Ovalocytes RBC Morph Comment PT (9.7-12.0) SECONDS INR Sodium (136-145) mEq/L Potassium (3.5-5.1) mEq/L Chloride (98-107) mEq/L Carbon Dioxide (21-32) mEq/L Anion Gap (5-15) BUN (7-18) mg/dL Creatinine (0.7-1.3) mg/dL Est Cr Clr Drug Dosing mL/min Estimated GFR (MDRD) (>60) mL/min BUN/Creatinine Ratio (14-18) Glucose (70-99) mg/dL Lactic Acid (0.4-2.0) mmol/L Calcium (8.5-10.1) mg/dL Total Bilirubin (0.2-1.0) mg/dL GGT (15-85) U/L AST (15-37) U/L ALT (16-63) U/L Alkaline Phosphatase (46-116) U/L Ammonia (11-32) umol/L Total Protein (6.4-8.2) g/dl Albumin (3.4-5.0) g/dl Globulin gm/dL Albumin/Globulin Ratio (1-2) Urine Color (Yellow) Urine Appearance (Clear) Urine pH (5.0-8.0) Ur Specific [place] (1.005-1.030) Urine Protein (Negative) Urine Glucose (UA) (Negative) Urine Ketones (Negative) Urine Occult Blood (Negative) Urine Nitrite (Negative) Urine Bilirubin (Negative) Urine Urobilinogen (0.2-1.0) Ur Leukocyte Esterase (Negative) Urine RBC (0-5) /hpf Urine WBC (0-5) /hpf Ur Squamous Epith Cells (0-5) /hpf Amorphous Sediment (NOT SEEN) /hpf Urine Bacteria (FEW) /hpf Urine Mucus (FEW) /hpf Urine Opiates Screen Negative (TTCJDA=125) Ur Buprenorphine Scrn Negative (CUTOFF=10) Ur Oxycodone Screen Negative (ZVO6MA=336) Urine Methadone Screen Negative (UBZ9IW=352) Ur Propoxyphene Screen Negative (JJWGUI=290) Ur Barbiturates Screen Negative (HUADIN=746) Ur Tricyclics Screen Presumptive positive H (QAGFHW=768) Ur Phencyclidine Scrn Negative (CUTOFF=25) Ur Amphetamine Screen Negative (WGTPKW=666) U Methamphetamines Scrn Negative (NIUJXV=132) U Benzodiazepines Scrn Presumptive positive H (PWFSYQ=287) U Cocaine Metab Screen Negative (NKDJHX=510) U Marijuana (THC) Screen Presumptive positive H (CUTOFF=50) Ethyl Alcohol (0.00) gm% SARS-CoV-2 RNA (BRIDGET) Negative (NEGATIVE) Result Diagrams: 04/12/21 16:20 04/12/21 16:20 Imaging Impressions Last 24 hrs: CT of head personally reviewed. Also have reviewed formal reading. Agree with no acute intracranial process. Sepsis Event Note - Evaluation Sepsis Screening Result: No Definite Risk - Focused Exam Vital Signs: Vital Signs Temp Pulse Resp BP Pulse Ox 04/12/21 19:30 98.9 F 74 16 102/70 90 L 04/12/21 19:00 116/95 H 04/12/21 18:15 122/80 04/12/21 15:55 97.9 F 71 22 H 138/55 L 99 Problem List Initiated/Reviewed/Updated: Yes Orders Last 24hrs: Active Orders 24 hr Category Date Time Status Patient Status [ADT] Routine ADT 04/12/21 19:55 Ordered Oxygen Therapy [RC] PRN Care 04/12/21 19:55 Ordered VTE/DVT Education [RC] PER UNIT ROUTINE Care 04/12/21 19:55 Ordered Vital Signs [RC] Q4H Care 04/12/21 19:55 Ordered CULTURE BLOOD [BC] Stat Lab 04/12/21 16:20 Received CULTURE BLOOD [BC] Stat Lab 04/12/21 16:30 Received CULTURE URINE [MREF] Stat Lab 04/12/21 18:15 Received Amitriptyline Med 04/12/21 21:00 Ordered 100 mg PO BEDTIME Folic Acid Med 04/13/21 09:00 Ordered 1 mg PO DAILY Furosemide [Lasix] Med 04/13/21 09:00 Ordered 20 mg PO DAILY Lactulose [Cephulac] Med 04/12/21 20:00 Ordered 20 gm PO ASDIRECTED Pantoprazole Sodium Med 04/12/21 20:00 Ordered 40 mg PO ASDIRECTED Propranolol [Inderal] Med 04/12/21 20:00 Ordered 20 mg PO ASDIRECTED Thiamine [Vitamin B-1] Med 04/12/21 20:00 Ordered 100 mg PO ASDIRECTED cefTRIAXone [Rocephin] 1 gm Med 04/12/21 19:15 Active Sodium Chloride 0.9% [Normal Saline] 100 ml IV Q24H Blood Culture x2 Reflex Set [OM.PC] Stat Oth 04/12/21 16:00 Ordered Resuscitation Status Routine Resus Stat 04/12/21 19:55 Ordered Medication Orders Folic Acid (Folic Acid 1 Mg Tab) 1 mg PO DAILY ERI Furosemide (Furosemide 20 Mg Tab) 20 mg PO DAILY ERI Ceftriaxone Sodium 1 gm/ (Sodium Chloride) 100 mls @ 200 mls/hr IV Q24H [facility] Last Admin: 04/12/21 19:30 Dose: 200 mls/hr Documented by: BERNA Lactulose (Lactulose Soln 10 Gm/15 Ml 30 Ml Ud Cup) 20 gm PO ASDIRECTED [facility] Non-Formulary Medication (Amitriptyline) 100 mg PO BEDTIME ERI Non-Formulary Medication (Pantoprazole Sodium) 40 mg PO ASDIRECTED [facility] Propranolol HCl (Propranolol 20 Mg Tab) 20 mg PO ASDIRECTED [facility] Thiamine HCl (Thiamine 100 Mg Tab) 100 mg PO ASDIRECTED [facility] Assessment/Plan Comment:: 51-year-old male with a past medical history as listed above who presents to the [facility] emergency department due to worsening mental status, weakness, functional decline, and report of subjective fever in the field. 1. Metabolic encephalopathy. Secondary to hepatic failure and Warnicke Korsakoff syndrome. Continue lactulose as regularly scheduled. Intermittently check ammonia level. Will initiate Xifaxan. Refrain from any mind altering medications including benzodiazepines or sleep aids. Continue folic acid and thiamine. 2. 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 Meld score of 16 and discriminant function of 17. Hold off on steroids as mortality is not significant at current time. has wished for hospice consult which we will consult case management and social work to set up. 3. Subjective fever in the field. Patient does not meet SIRS criteria based upon recorded values in the emergency department. Patient does not appear toxic. Urinalysis although appears abnormal does not show any signs of leukocytes or white blood cells. Patient was given a dose of Rocephin. Will reevaluate tomorrow for the possible need for further antibiotic therapy. 4. Hyperammonemia. Secondary to problem #2. Plan as above as per lactulose. 5. History of GI bleeding. Secondary to alcoholic gastritis recently. Continue PPI. Continue propranolol as the patient likely has varices. CODE STATUS: DNR/DNI. DVT prophylaxis with heparin subcu and close monitoring for bleeding considering mild thrombocytopenia. - Mortality Measure Prognosis:: Poor
[2021-04-12] MEDS ORDERED: Sodium Chloride 0.9% 10 ML Syringe FLUSH PRN (20:15)
[2021-04-12] MEDS ORDERED: Ondansetron 4 MG Tab.DIS PO PRN (20:15)
[2021-04-12] MEDS ORDERED: Ondansetron 4 MG/2 ML SDV IV PRN (20:15)
[2021-04-12] MEDS ORDERED: AMITRIPTYLINE 50 MG PO SCH (21:00)
[2021-04-12] MEDS: Heparin Sodium 5,000 Units/ML Vial SUBCUT SCH (22:20)
[2021-04-12] MEDS: Rifaximin 550 MG Tab PO SCH (22:20)
[2021-04-13] MEDS: Furosemide 20 MG Tab PO SCH (08:42)
[2021-04-13] MEDS: Rifaximin 550 MG Tab PO SCH ×2 (08:43→20:27)
[2021-04-13] MEDS: Pantoprazole 40 MG Tab.CR PO SCH (08:43)
[2021-04-13] MEDS: Folic Acid 1 MG Tab PO SCH (08:43)
[2021-04-13] MEDS: Propranolol 40 MG Tab PO SCH (08:43)
[2021-04-13] MEDS: Lactulose Soln 10 GM/15 ML 30 ML UD Cup PO SCH ×3 (08:44→20:27)
[2021-04-13] MEDS: Heparin Sodium 5,000 Units/ML Vial SUBCUT SCH ×3 (08:44→16:07)
--- NOTE | 2021-04-13 08:44 | PCM.PN ---
- General Info Date of Service: 04/13/21 Admission Dx/Problem (Free Text): Admission Diagnosis/Problem Admission Diagnosis/Problem Metabolic encephalopathy Subjective Update: No acute issues overnight. No new nursing concerns. Patient does not endorse any specific complaints. Mostly sleepy and lethargic. Will answer some questions. - Review of Systems HEENT: Reports: Post Nasal Drip - Patient Data Vitals - Most Recent: Last Vital Signs Temp 98.1 F 04/13/21 06:15 Pulse 57 L 04/13/21 06:15 Resp 16 04/13/21 06:15 BP 95/64 04/13/21 06:15 Pulse Ox 95 04/13/21 06:15 Weight - Most Recent: 217 lb 3.2 oz I&O - Last 24 Hours: Intake & Output 04/12/21 04/13/21 04/13/21 22:59 06:59 14:59 Intake Total 0 Output Total 0 Balance 0 Lab Results Last 24 Hours: Laboratory Results - last 24 hr 04/12/21 04/12/21 04/12/21 Range/Units 16:20 16:20 16:20 WBC 6.38 (4.23-9.07) K/mm3 RBC 3.58 L (4.63-6.08) M/mm3 Hgb 12.9 L (13.7-17.5) gm/dl Hct 37.7 L (40.1-51.0) % MCV 105.3 H (79.0-92.2) fl MCH 36.0 H (25.7-32.2) pg MCHC 34.2 (32.2-35.5) g/dl RDW Std Deviation 56.6 H (35.1-43.9) fL Plt Count 93 L (163-337) K/mm3 MPV 9.4 (9.4-12.3) fl Neutrophils % (Manual) 77 H (40-60) % Band Neutrophils % 0 (0-10) % Lymphocytes % (Manual) 16 L (20-40) % Atypical Lymphs % 0 % Monocytes % (Manual) 4 (2-10) % Eosinophils % (Manual) 2 (0.8-7.0) % Basophils % (Manual) 1 (0.2-1.2) Platelet Estimate Decreased Plt Morphology Comment See note Anisocytosis 1+ slight Macrocytosis 1+ slight Ovalocytes 1+ slight RBC Morph Comment Not Reportable PT (9.7-12.0) SECONDS INR Sodium 143 (136-145) mEq/L Potassium 4.2 (3.5-5.1) mEq/L Chloride 107 (98-107) mEq/L Carbon Dioxide 26 (21-32) mEq/L Anion Gap 14.2 (5-15) BUN 5 L (7-18) mg/dL Creatinine 0.9 (0.7-1.3) mg/dL Est Cr Clr Drug Dosing 121.90 mL/min Estimated GFR (MDRD) > 60 (>60) mL/min BUN/Creatinine Ratio 5.6 L (14-18) Glucose 117 H (70-99) mg/dL Lactic Acid 1.8 (0.4-2.0) mmol/L Calcium 8.8 (8.5-10.1) mg/dL Total Bilirubin 5.4 H (0.2-1.0) mg/dL GGT 48 (15-85) U/L AST 58 H (15-37) U/L ALT 44 (16-63) U/L Alkaline Phosphatase 102 (46-116) U/L Ammonia (11-32) umol/L Total Protein 7.3 (6.4-8.2) g/dl Albumin 3.0 L (3.4-5.0) g/dl Globulin 4.3 gm/dL Albumin/Globulin Ratio 0.7 L (1-2) Urine Color (Yellow) Urine Appearance (Clear) Urine pH (5.0-8.0) Ur Specific [place] (1.005-1.030) Urine Protein (Negative) Urine Glucose (UA) (Negative) Urine Ketones (Negative) Urine Occult Blood (Negative) Urine Nitrite (Negative) Urine Bilirubin (Negative) Urine Urobilinogen (0.2-1.0) Ur Leukocyte Esterase (Negative) Urine RBC (0-5) /hpf Urine WBC (0-5) /hpf Ur Squamous Epith Cells (0-5) /hpf Amorphous Sediment (NOT SEEN) /hpf Urine Bacteria (FEW) /hpf Urine Mucus (FEW) /hpf Urine Opiates Screen (NICHWB=369) Ur Buprenorphine Scrn (CUTOFF=10) Ur Oxycodone Screen (HEN0QX=894) Urine Methadone Screen (KHQ1GI=811) Ur Propoxyphene Screen (TGKACJ=904) Ur Barbiturates Screen (FMCELE=951) Ur Tricyclics Screen (ALHRFR=275) Ur Phencyclidine Scrn (CUTOFF=25) Ur Amphetamine Screen (CHUDMY=975) U Methamphetamines Scrn (REGQCY=569) U Benzodiazepines Scrn (FWRWHM=097) U Cocaine Metab Screen (SZHZAN=139) U Marijuana (THC) Screen (CUTOFF=50) Ethyl Alcohol 0.00 (0.00) gm% SARS-CoV-2 RNA (BRIDGET) (NEGATIVE) 04/12/21 04/12/21 04/12/21 Range/Units 16:20 16:30 18:15 WBC (4.23-9.07) K/mm3 RBC (4.63-6.08) M/mm3 Hgb (13.7-17.5) gm/dl Hct (40.1-51.0) % MCV (79.0-92.2) fl MCH (25.7-32.2) pg MCHC (32.2-35.5) g/dl RDW Std Deviation (35.1-43.9) fL Plt Count (163-337) K/mm3 MPV (9.4-12.3) fl Neutrophils % (Manual) (40-60) % Band Neutrophils % (0-10) % Lymphocytes % (Manual) (20-40) % Atypical Lymphs % % Monocytes % (Manual) (2-10) % Eosinophils % (Manual) (0.8-7.0) % Basophils % (Manual) (0.2-1.2) Platelet Estimate Plt Morphology Comment Anisocytosis Macrocytosis Ovalocytes RBC Morph Comment PT 14.6 H (9.7-12.0) SECONDS INR 1.37 Sodium (136-145) mEq/L Potassium (3.5-5.1) mEq/L Chloride (98-107) mEq/L Carbon Dioxide (21-32) mEq/L Anion Gap (5-15) BUN (7-18) mg/dL Creatinine (0.7-1.3) mg/dL Est Cr Clr Drug Dosing mL/min Estimated GFR (MDRD) (>60) mL/min BUN/Creatinine Ratio (14-18) Glucose (70-99) mg/dL Lactic Acid (0.4-2.0) mmol/L Calcium (8.5-10.1) mg/dL Total Bilirubin (0.2-1.0) mg/dL GGT (15-85) U/L AST (15-37) U/L ALT (16-63) U/L Alkaline Phosphatase (46-116) U/L Ammonia 60 H (11-32) umol/L Total Protein (6.4-8.2) g/dl Albumin (3.4-5.0) g/dl Globulin gm/dL Albumin/Globulin Ratio (1-2) Urine Color [place] H (Yellow) Urine Appearance Slt cloudy H (Clear) Urine pH 7.0 (5.0-8.0) Ur Specific [place] > or = 1.030 (1.005-1.030) Urine Protein Negative (Negative) Urine Glucose (UA) Negative (Negative) Urine Ketones Negative (Negative) Urine Occult Blood Negative (Negative) Urine Nitrite Positive H (Negative) Urine Bilirubin 1+ H (Negative) Urine Urobilinogen >=8.0 H (0.2-1.0) Ur Leukocyte Esterase Negative (Negative) Urine RBC 0-5 (0-5) /hpf Urine WBC 0-5 (0-5) /hpf Ur Squamous Epith Cells 0-5 (0-5) /hpf Amorphous Sediment Many H (NOT SEEN) /hpf Urine Bacteria Moderate H (FEW) /hpf Urine Mucus Not seen (FEW) /hpf Urine Opiates Screen (VEJHIA=317) Ur Buprenorphine Scrn (CUTOFF=10) Ur Oxycodone Screen (AFB8QI=530) Urine Methadone Screen (SUV1OY=385) Ur Propoxyphene Screen (RTMPSB=376) Ur Barbiturates Screen (GXOPEW=580) Ur Tricyclics Screen (SKONZX=367) Ur Phencyclidine Scrn (CUTOFF=25) Ur Amphetamine Screen (PUOVES=919) U Methamphetamines Scrn (EGNWIL=139) U Benzodiazepines Scrn (AVHMLG=720) U Cocaine Metab Screen (ATMFSO=034) U Marijuana (THC) Screen (CUTOFF=50) Ethyl Alcohol (0.00) gm% SARS-CoV-2 RNA (BRIDGET) (NEGATIVE) 04/12/21 04/12/21 Range/Units 18:15 18:47 WBC (4.23-9.07) K/mm3 RBC (4.63-6.08) M/mm3 Hgb (13.7-17.5) gm/dl Hct (40.1-51.0) % MCV (79.0-92.2) fl MCH (25.7-32.2) pg MCHC (32.2-35.5) g/dl RDW Std Deviation (35.1-43.9) fL Plt Count (163-337) K/mm3 MPV (9.4-12.3) fl Neutrophils % (Manual) (40-60) % Band Neutrophils % (0-10) % Lymphocytes % (Manual) (20-40) % Atypical Lymphs % % Monocytes % (Manual) (2-10) % Eosinophils % (Manual) (0.8-7.0) % Basophils % (Manual) (0.2-1.2) Platelet Estimate Plt Morphology Comment Anisocytosis Macrocytosis Ovalocytes RBC Morph Comment PT (9.7-12.0) SECONDS INR Sodium (136-145) mEq/L Potassium (3.5-5.1) mEq/L Chloride (98-107) mEq/L Carbon Dioxide (21-32) mEq/L Anion Gap (5-15) BUN (7-18) mg/dL Creatinine (0.7-1.3) mg/dL Est Cr Clr Drug Dosing mL/min Estimated GFR (MDRD) (>60) mL/min BUN/Creatinine Ratio (14-18) Glucose (70-99) mg/dL Lactic Acid (0.4-2.0) mmol/L Calcium (8.5-10.1) mg/dL Total Bilirubin (0.2-1.0) mg/dL GGT (15-85) U/L AST (15-37) U/L ALT (16-63) U/L Alkaline Phosphatase (46-116) U/L Ammonia (11-32) umol/L Total Protein (6.4-8.2) g/dl Albumin (3.4-5.0) g/dl Globulin gm/dL Albumin/Globulin Ratio (1-2) Urine Color (Yellow) Urine Appearance (Clear) Urine pH (5.0-8.0) Ur Specific [place] (1.005-1.030) Urine Protein (Negative) Urine Glucose (UA) (Negative) Urine Ketones (Negative) Urine Occult Blood (Negative) Urine Nitrite (Negative) Urine Bilirubin (Negative) Urine Urobilinogen (0.2-1.0) Ur Leukocyte Esterase (Negative) Urine RBC (0-5) /hpf Urine WBC (0-5) /hpf Ur Squamous Epith Cells (0-5) /hpf Amorphous Sediment (NOT SEEN) /hpf Urine Bacteria (FEW) /hpf Urine Mucus (FEW) /hpf Urine Opiates Screen Negative (HGXXMA=047) Ur Buprenorphine Scrn Negative (CUTOFF=10) Ur Oxycodone Screen Negative (EJH7VM=532) Urine Methadone Screen Negative (KGN3IW=003) Ur Propoxyphene Screen Negative (KAKFYX=698) Ur Barbiturates Screen Negative (KJPWHY=044) Ur Tricyclics Screen Presumptive positive H (OCKIWX=659) Ur Phencyclidine Scrn Negative (CUTOFF=25) Ur Amphetamine Screen Negative (MYAITV=966) U Methamphetamines Scrn Negative (UEMHOK=322) U Benzodiazepines Scrn Presumptive positive H (IMRVNQ=615) U Cocaine Metab Screen Negative (QYYHRN=902) U Marijuana (THC) Screen Presumptive positive H (CUTOFF=50) Ethyl Alcohol (0.00) gm% SARS-CoV-2 RNA (BRIDGET) Negative (NEGATIVE) Med Orders - Current: Current Medications Amitriptyline HCl (Amitriptyline 25 Mg Tab) 100 mg PO BEDTIME [facility] Docusate Sodium (Docusate Sodium 100 Mg Cap) 100 mg PO BID PRN PRN Reason: Constipation Folic Acid (Folic Acid 1 Mg Tab) 1 mg PO DAILY [facility] Furosemide (Furosemide 20 Mg Tab) 20 mg PO DAILY [facility] Heparin Sodium (Porcine) (Heparin Sodium 5,000 Units/Ml Vial) 5,000 units SUBCUT Q8H [facility] Ceftriaxone Sodium 1 gm/ (Sodium Chloride) 100 mls @ 200 mls/hr IV Q24H [facility] Last Admin: 04/12/21 19:30 Dose: 200 mls/hr Documented by: Lactulose (Lactulose Soln 10 Gm/15 Ml 30 Ml Ud Cup) 20 gm PO TID [facility] Ondansetron HCl (Ondansetron 4 Mg Tab.Dis) 4 mg PO Q4H PRN PRN Reason: nausea, able to take PO Ondansetron HCl (Ondansetron 4 Mg/2 Ml Sdv) 4 mg IV Q4H PRN PRN Reason: Nausea/Vomiting Pantoprazole Sodium (Pantoprazole 40 Mg Tab.Cr) 40 mg PO DAILY [facility] Propranolol HCl (Propranolol 40 Mg Tab) 40 mg PO DAILY [facility] Rifaximin (Rifaximin 550 Mg Tab) 550 mg PO BID [facility] Last Admin: 04/12/21 22:20 Dose: Not Given Documented by: Sodium Chloride (Sodium Chloride 0.9% 10 Ml Syringe) 10 ml FLUSH ASDIRECTED PRN PRN Reason: Keep Vein Open Thiamine HCl (Thiamine 100 Mg Tab) 100 mg PO Q48H ERI Discontinued Medications Heparin Sodium (Porcine) (Heparin Sodium 5,000 Units/Ml Vial) 5,000 units SUBCUT Q8H [facility] Last Admin: 04/12/21 22:20 Dose: 5,000 units Documented by: Lactulose (Lactulose Soln 10 Gm/15 Ml 30 Ml Ud Cup) 20 gm PO ASDIRECTED [facility] Non-Formulary Medication (Amitriptyline) 100 mg PO BEDTIME [facility] Last Admin: 04/12/21 22:20 Dose: Not Given Documented by: Non-Formulary Medication (Pantoprazole Sodium) 40 mg PO ASDIRECTED ERI Propranolol HCl (Propranolol 20 Mg Tab) 20 mg PO ASDIRECTED ERI Thiamine HCl (Thiamine 100 Mg Tab) 100 mg PO ASDIRECTED ERI - Exam Quality Assessment: DVT Prophylaxis General: Alert. No: Oriented HEENT: Pupils Equal, Scleral Icterus Lungs: Clear to Auscultation Cardiovascular: Regular Rate, Regular Rhythm GI/Abdominal Exam: Normal Bowel Sounds, Soft, Non-Tender, Distended Extremities: Normal Inspection, Pedal Edema Neurological: No New Focal Deficit - Patient Data Lab Results Last 24 hrs: Laboratory Results - last 24 hr 04/12/21 04/12/21 04/12/21 Range/Units 16:20 16:20 16:20 WBC 6.38 (4.23-9.07) K/mm3 RBC 3.58 L (4.63-6.08) M/mm3 Hgb 12.9 L (13.7-17.5) gm/dl Hct 37.7 L (40.1-51.0) % MCV 105.3 H (79.0-92.2) fl MCH 36.0 H (25.7-32.2) pg MCHC 34.2 (32.2-35.5) g/dl RDW Std Deviation 56.6 H (35.1-43.9) fL Plt Count 93 L (163-337) K/mm3 MPV 9.4 (9.4-12.3) fl Neutrophils % (Manual) 77 H (40-60) % Band Neutrophils % 0 (0-10) % Lymphocytes % (Manual) 16 L (20-40) % Atypical Lymphs % 0 % Monocytes % (Manual) 4 (2-10) % Eosinophils % (Manual) 2 (0.8-7.0) % Basophils % (Manual) 1 (0.2-1.2) Platelet Estimate Decreased Plt Morphology Comment See note Anisocytosis 1+ slight Macrocytosis 1+ slight Ovalocytes 1+ slight RBC Morph Comment Not Reportable PT (9.7-12.0) SECONDS INR Sodium 143 (136-145) mEq/L Potassium 4.2 (3.5-5.1) mEq/L Chloride 107 (98-107) mEq/L Carbon Dioxide 26 (21-32) mEq/L Anion Gap 14.2 (5-15) BUN 5 L (7-18) mg/dL Creatinine 0.9 (0.7-1.3) mg/dL Est Cr Clr Drug Dosing 121.90 mL/min Estimated GFR (MDRD) > 60 (>60) mL/min BUN/Creatinine Ratio 5.6 L (14-18) Glucose 117 H (70-99) mg/dL Lactic Acid 1.8 (0.4-2.0) mmol/L Calcium 8.8 (8.5-10.1) mg/dL Total Bilirubin 5.4 H (0.2-1.0) mg/dL GGT 48 (15-85) U/L AST 58 H (15-37) U/L ALT 44 (16-63) U/L Alkaline Phosphatase 102 (46-116) U/L Ammonia (11-32) umol/L Total Protein 7.3 (6.4-8.2) g/dl Albumin 3.0 L (3.4-5.0) g/dl Globulin 4.3 gm/dL Albumin/Globulin Ratio 0.7 L (1-2) Urine Color (Yellow) Urine Appearance (Clear) Urine pH (5.0-8.0) Ur Specific [place] (1.005-1.030) Urine Protein (Negative) Urine Glucose (UA) (Negative) Urine Ketones (Negative) Urine Occult Blood (Negative) Urine Nitrite (Negative) Urine Bilirubin (Negative) Urine Urobilinogen (0.2-1.0) Ur Leukocyte Esterase (Negative) Urine RBC (0-5) /hpf Urine WBC (0-5) /hpf Ur Squamous Epith Cells (0-5) /hpf Amorphous Sediment (NOT SEEN) /hpf Urine Bacteria (FEW) /hpf Urine Mucus (FEW) /hpf Urine Opiates Screen (UIUGXJ=334) Ur Buprenorphine Scrn (CUTOFF=10) Ur Oxycodone Screen (FMF0YM=847) Urine Methadone Screen (YPK9VT=261) Ur Propoxyphene Screen (YVGCFL=651) Ur Barbiturates Screen (PIECOC=565) Ur Tricyclics Screen (NKOQQD=285) Ur Phencyclidine Scrn (CUTOFF=25) Ur Amphetamine Screen (EASLXU=391) U Methamphetamines Scrn (XAKCFV=535) U Benzodiazepines Scrn (IGZHDX=048) U Cocaine Metab Screen (SQCMAG=381) U Marijuana (THC) Screen (CUTOFF=50) Ethyl Alcohol 0.00 (0.00) gm% SARS-CoV-2 RNA (BRIDGET) (NEGATIVE) 04/12/21 04/12/21 04/12/21 Range/Units 16:20 16:30 18:15 WBC (4.23-9.07) K/mm3 RBC (4.63-6.08) M/mm3 Hgb (13.7-17.5) gm/dl Hct (40.1-51.0) % MCV (79.0-92.2) fl MCH (25.7-32.2) pg MCHC (32.2-35.5) g/dl RDW Std Deviation (35.1-43.9) fL Plt Count (163-337) K/mm3 MPV (9.4-12.3) fl Neutrophils % (Manual) (40-60) % Band Neutrophils % (0-10) % Lymphocytes % (Manual) (20-40) % Atypical Lymphs % % Monocytes % (Manual) (2-10) % Eosinophils % (Manual) (0.8-7.0) % Basophils % (Manual) (0.2-1.2) Platelet Estimate Plt Morphology Comment Anisocytosis Macrocytosis Ovalocytes RBC Morph Comment PT 14.6 H (9.7-12.0) SECONDS INR 1.37 Sodium (136-145) mEq/L Potassium (3.5-5.1) mEq/L Chloride (98-107) mEq/L Carbon Dioxide (21-32) mEq/L Anion Gap (5-15) BUN (7-18) mg/dL Creatinine (0.7-1.3) mg/dL Est Cr Clr Drug Dosing mL/min Estimated GFR (MDRD) (>60) mL/min BUN/Creatinine Ratio (14-18) Glucose (70-99) mg/dL Lactic Acid (0.4-2.0) mmol/L Calcium (8.5-10.1) mg/dL Total Bilirubin (0.2-1.0) mg/dL GGT (15-85) U/L AST (15-37) U/L ALT (16-63) U/L Alkaline Phosphatase (46-116) U/L Ammonia 60 H (11-32) umol/L Total Protein (6.4-8.2) g/dl Albumin (3.4-5.0) g/dl Globulin gm/dL Albumin/Globulin Ratio (1-2) Urine Color [place] H (Yellow) Urine Appearance Slt cloudy H (Clear) Urine pH 7.0 (5.0-8.0) Ur Specific [place] > or = 1.030 (1.005-1.030) Urine Protein Negative (Negative) Urine Glucose (UA) Negative (Negative) Urine Ketones Negative (Negative) Urine Occult Blood Negative (Negative) Urine Nitrite Positive H (Negative) Urine Bilirubin 1+ H (Negative) Urine Urobilinogen >=8.0 H (0.2-1.0) Ur Leukocyte Esterase Negative (Negative) Urine RBC 0-5 (0-5) /hpf Urine WBC 0-5 (0-5) /hpf Ur Squamous Epith Cells 0-5 (0-5) /hpf Amorphous Sediment Many H (NOT SEEN) /hpf Urine Bacteria Moderate H (FEW) /hpf Urine Mucus Not seen (FEW) /hpf Urine Opiates Screen (OEFQFJ=087) Ur Buprenorphine Scrn (CUTOFF=10) Ur Oxycodone Screen (BUX4ZV=747) Urine Methadone Screen (CZD3IV=946) Ur Propoxyphene Screen (EBFWBG=233) Ur Barbiturates Screen (XLSEYW=167) Ur Tricyclics Screen (XRHKBS=745) Ur Phencyclidine Scrn (CUTOFF=25) Ur Amphetamine Screen (JRVQJZ=694) U Methamphetamines Scrn (EELTAX=784) U Benzodiazepines Scrn (GUDDQC=515) U Cocaine Metab Screen (FUBTDB=772) U Marijuana (THC) Screen (CUTOFF=50) Ethyl Alcohol (0.00) gm% SARS-CoV-2 RNA (BRIDGET) (NEGATIVE) 04/12/21 04/12/21 Range/Units 18:15 18:47 WBC (4.23-9.07) K/mm3 RBC (4.63-6.08) M/mm3 Hgb (13.7-17.5) gm/dl Hct (40.1-51.0) % MCV (79.0-92.2) fl MCH (25.7-32.2) pg MCHC (32.2-35.5) g/dl RDW Std Deviation (35.1-43.9) fL Plt Count (163-337) K/mm3 MPV (9.4-12.3) fl Neutrophils % (Manual) (40-60) % Band Neutrophils % (0-10) % Lymphocytes % (Manual) (20-40) % Atypical Lymphs % % Monocytes % (Manual) (2-10) % Eosinophils % (Manual) (0.8-7.0) % Basophils % (Manual) (0.2-1.2) Platelet Estimate Plt Morphology Comment Anisocytosis Macrocytosis Ovalocytes RBC Morph Comment PT (9.7-12.0) SECONDS INR Sodium (136-145) mEq/L Potassium (3.5-5.1) mEq/L Chloride (98-107) mEq/L Carbon Dioxide (21-32) mEq/L Anion Gap (5-15) BUN (7-18) mg/dL Creatinine (0.7-1.3) mg/dL Est Cr Clr Drug Dosing mL/min Estimated GFR (MDRD) (>60) mL/min BUN/Creatinine Ratio (14-18) Glucose (70-99) mg/dL Lactic Acid (0.4-2.0) mmol/L Calcium (8.5-10.1) mg/dL Total Bilirubin (0.2-1.0) mg/dL GGT (15-85) U/L AST (15-37) U/L ALT (16-63) U/L Alkaline Phosphatase (46-116) U/L Ammonia (11-32) umol/L Total Protein (6.4-8.2) g/dl Albumin (3.4-5.0) g/dl Globulin gm/dL Albumin/Globulin Ratio (1-2) Urine Color (Yellow) Urine Appearance (Clear) Urine pH (5.0-8.0) Ur Specific [place] (1.005-1.030) Urine Protein (Negative) Urine Glucose (UA) (Negative) Urine Ketones (Negative) Urine Occult Blood (Negative) Urine Nitrite (Negative) Urine Bilirubin (Negative) Urine Urobilinogen (0.2-1.0) Ur Leukocyte Esterase (Negative) Urine RBC (0-5) /hpf Urine WBC (0-5) /hpf Ur Squamous Epith Cells (0-5) /hpf Amorphous Sediment (NOT SEEN) /hpf Urine Bacteria (FEW) /hpf Urine Mucus (FEW) /hpf Urine Opiates Screen Negative (XDIZYQ=167) Ur Buprenorphine Scrn Negative (CUTOFF=10) Ur Oxycodone Screen Negative (JFF2YX=986) Urine Methadone Screen Negative (PCI0DS=232) Ur Propoxyphene Screen Negative (RRDXGV=163) Ur Barbiturates Screen Negative (UBETCV=324) Ur Tricyclics Screen Presumptive positive H (RQSGMY=893) Ur Phencyclidine Scrn Negative (CUTOFF=25) Ur Amphetamine Screen Negative (XIYZNV=441) U Methamphetamines Scrn Negative (SVOOYX=360) U Benzodiazepines Scrn Presumptive positive H (BWGRFR=183) U Cocaine Metab Screen Negative (MHYWBV=462) U Marijuana (THC) Screen Presumptive positive H (CUTOFF=50) Ethyl Alcohol (0.00) gm% SARS-CoV-2 RNA (BRIDGET) Negative (NEGATIVE) Result Diagrams: 04/12/21 16:20 04/12/21 16:20 Sepsis Event Note - Evaluation Sepsis Screening Result: No Definite Risk - Focused Exam Vital Signs: Vital Signs Temp Temp Pulse Pulse Resp BP BP 04/13/21 06:15 98.1 F 57 L 16 95/64 04/13/21 00:42 98 F 65 20 135/118 H 04/12/21 22:00 98.2 F 66 20 135/94 H Pulse Ox 04/13/21 06:15 95 04/13/21 00:42 94 L 04/12/21 22:00 99 - Problem List Review Problem List Initiated/Reviewed/Updated: Yes - My Orders Last 24 Hours: My Active Orders 04/12/21 19:55 Patient Status [ADT] Routine Oxygen Therapy [RC] PRN VTE/DVT Education [RC] DAILY Vital Signs [RC] Q4HR Resuscitation Status Routine 04/12/21 20:15 Up With Assistance [RC] BID INVENTORY CONTROLLER Evaluation and Treatment [CONS] Routine Docusate Sodium [Colace] 100 mg PO BID PRN Ondansetron [Zofran ODT] 4 mg PO Q4H PRN Ondansetron [Zofran] 4 mg IV Q4H PRN Sodium Chloride 0.9% [Saline Flush] 10 ml FLUSH ASDIRECTED PRN Saline Lock Insert [OM.PC] Routine 04/12/21 21:00 Rifaximin [Xifaxan] 550 mg PO BID 04/13/21 05:06 Consult to Case Management/Lcac Radar Operator/Navigator [CONS] Routine 04/13/21 07:35 Amitriptyline [Elavil] 100 mg PO BEDTIME 04/13/21 09:00 Folic Acid 1 mg PO DAILY Furosemide [Lasix] 20 mg PO DAILY Heparin Sodium 5,000 units SUBCUT Q8H Lactulose [Cephulac] 20 gm PO TID Pantoprazole [ProTONIX] 40 mg PO DAILY Propranolol [Inderal] 40 mg PO DAILY 04/13/21 21:00 Thiamine [Vitamin B-1] 100 mg PO Q48H - Plan Plan:: 51-year-old male with a past medical history as listed above who presents to the [facility] emergency department due to worsening mental status, weakness, functional decline, and report of subjective fever in the field. 1. Metabolic encephalopathy. Secondary to hepatic failure and Warnicke Korsakoff syndrome. Continue lactulose as regularly scheduled. Intermittently check ammonia level. Xifaxan started at time of admission. Refrain from any mind altering medications including benzodiazepines or sleep aids. Continue folic acid and thiamine. 2. 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 Meld score of 16 and discriminant function of 17. Hold off on steroids as mortality is not significant at current time. has wished for hospice consult. Case management has been aware. They will arrange for consultation. 3. Subjective fever in the field. Patient does not meet SIRS criteria based upon any recorded values. Patient does not appear toxic. Urinalysis although appears abnormal does not show any signs of leukocytes or white blood cells. Patient was given a dose of Rocephin. Patient started on Xifaxan. Abdomen is benign on examination, patient has not received a paracentesis before. Likely has minimal ascites fluid. Low suspicion for spontaneous bacterial peritonitis. 4. Hyperammonemia. Secondary to problem #2. Plan as above as per lactulose. 5. History of GI bleeding. Secondary to alcoholic gastritis recently. Continue PPI. Continue propranolol as the patient likely has varices. CODE STATUS: DNR/DNI. DVT prophylaxis with heparin subcu and close monitoring for bleeding considering mild thrombocytopenia.
[2021-04-13] MEDS: Amitriptyline 25 MG Tab PO SCH (20:27)
[2021-04-13] MEDS: Thiamine 100 MG Tab PO SCH (20:27)
[2021-04-14] MEDS: Heparin Sodium 5,000 Units/ML Vial SUBCUT SCH ×3 (00:10→17:59)
[2021-04-14] MEDS: Lactulose Soln 10 GM/15 ML 30 ML UD Cup PO SCH ×3 (08:40→21:23)
[2021-04-14] MEDS: Furosemide 20 MG Tab PO SCH (08:41)
[2021-04-14] MEDS: Rifaximin 550 MG Tab PO SCH ×2 (08:41→21:23)
[2021-04-14] MEDS: Pantoprazole 40 MG Tab.CR PO SCH (08:42)
[2021-04-14] MEDS: Folic Acid 1 MG Tab PO SCH (08:42)
[2021-04-14] MEDS: Propranolol 40 MG Tab PO SCH (08:42)
--- NOTE | 2021-04-14 10:37 | PCM.PN ---
- General Info Date of Service: 04/14/21 Admission Dx/Problem (Free Text): Admission Diagnosis/Problem Admission Diagnosis/Problem Metabolic encephalopathy Subjective Update: No acute events overnight. No new nursing concerns. Patient has been sleeping most of the time. When he wakes up he is only oriented to self. Past swallow evaluation. Taking medications without issues. Ammonia level stable at 60. Awaiting discharge planning for intermediate disposition. - Patient Data Vitals - Most Recent: Last Vital Signs Temp 97.9 F 04/14/21 08:34 Pulse 53 L 04/14/21 04:04 Resp 16 04/14/21 08:34 BP 133/89 04/14/21 08:34 Pulse Ox 96 04/14/21 04:04 Weight - Most Recent: 218 lb 3.2 oz I&O - Last 24 Hours: Intake & Output 04/13/21 04/14/21 04/14/21 22:59 06:59 14:59 Intake Total 760 300 Balance 760 300 Lab Results Last 24 Hours: Laboratory Results - last 24 hr 04/14/21 04/14/21 Range/Units 09:05 09:05 Sodium 140 (136-145) mEq/L Potassium 4.1 (3.5-5.1) mEq/L Chloride 106 (98-107) mEq/L Carbon Dioxide 27 (21-32) mEq/L Anion Gap 11.1 (5-15) BUN 8 (7-18) mg/dL Creatinine 0.9 (0.7-1.3) mg/dL Est Cr Clr Drug Dosing 121.84 mL/min Estimated GFR (MDRD) > 60 (>60) mL/min BUN/Creatinine Ratio 8.9 L (14-18) Glucose 117 H (70-99) mg/dL Calcium 8.3 L (8.5-10.1) mg/dL Total Bilirubin 4.7 H (0.2-1.0) mg/dL AST 37 (15-37) U/L ALT 28 (16-63) U/L Alkaline Phosphatase 93 (46-116) U/L Ammonia 61 H (11-32) umol/L Total Protein 6.3 L (6.4-8.2) g/dl Albumin 2.6 L (3.4-5.0) g/dl Globulin 3.7 gm/dL Albumin/Globulin Ratio 0.7 L (1-2) [place] Results Last 24 Hours: Microbiology 04/12/21 16:30 Aerobic Blood Culture - Preliminary Blood - Venous - Lab Draw NO GROWTH AFTER 1 DAY Anaerobic Blood Culture - Preliminary NO GROWTH AFTER 1 DAY 04/12/21 16:20 Aerobic Blood Culture - Preliminary Blood - Venous NO GROWTH AFTER 1 DAY Anaerobic Blood Culture - Final Med Orders - Current: Current Medications Amitriptyline HCl (Amitriptyline 25 Mg Tab) 100 mg PO BEDTIME [facility] Last Admin: 04/13/21 20:27 Dose: 100 mg Documented by: Docusate Sodium (Docusate Sodium 100 Mg Cap) 100 mg PO BID PRN PRN Reason: Constipation Folic Acid (Folic Acid 1 Mg Tab) 1 mg PO DAILY [facility] Last Admin: 04/14/21 08:42 Dose: 1 mg Documented by: Furosemide (Furosemide 20 Mg Tab) 20 mg PO DAILY [facility] Last Admin: 04/14/21 08:41 Dose: 20 mg Documented by: Heparin Sodium (Porcine) (Heparin Sodium 5,000 Units/Ml Vial) 5,000 units SUBCUT Q8H [facility] Last Admin: 04/14/21 08:42 Dose: 5,000 units Documented by: Lactulose (Lactulose Soln 10 Gm/15 Ml 30 Ml Ud Cup) 20 gm PO TID [facility] Last Admin: 04/14/21 08:40 Dose: 20 gm Documented by: Ondansetron HCl (Ondansetron 4 Mg Tab.Dis) 4 mg PO Q4H PRN PRN Reason: nausea, able to take PO Ondansetron HCl (Ondansetron 4 Mg/2 Ml Sdv) 4 mg IV Q4H PRN PRN Reason: Nausea/Vomiting Pantoprazole Sodium (Pantoprazole 40 Mg Tab.Cr) 40 mg PO DAILY [facility] Last Admin: 04/14/21 08:42 Dose: 40 mg Documented by: Propranolol HCl (Propranolol 40 Mg Tab) 40 mg PO DAILY [facility] Last Admin: 04/14/21 08:42 Dose: 40 mg Documented by: Rifaximin (Rifaximin 550 Mg Tab) 550 mg PO BID [facility] Last Admin: 04/14/21 08:41 Dose: 550 mg Documented by: Sodium Chloride (Sodium Chloride 0.9% 10 Ml Syringe) 10 ml FLUSH ASDIRECTED PRN PRN Reason: Keep Vein Open Thiamine HCl (Thiamine 100 Mg Tab) 100 mg PO Q48H [facility] Last Admin: 04/13/21 20:27 Dose: 100 mg Documented by: Discontinued Medications Heparin Sodium (Porcine) (Heparin Sodium 5,000 Units/Ml Vial) 5,000 units SUBCUT Q8H [facility] Last Admin: 04/13/21 08:44 Dose: Not Given Documented by: Ceftriaxone Sodium 1 gm/ (Sodium Chloride) 100 mls @ 200 mls/hr IV Q24H [facility] Last Admin: 04/12/21 19:30 Dose: 200 mls/hr Documented by: Lactulose (Lactulose Soln 10 Gm/15 Ml 30 Ml Ud Cup) 20 gm PO ASDIRECTED [facility] Non-Formulary Medication (Amitriptyline) 100 mg PO BEDTIME [facility] Last Admin: 04/12/21 22:20 Dose: Not Given Documented by: Non-Formulary Medication (Pantoprazole Sodium) 40 mg PO ASDIRECTED [facility] Propranolol HCl (Propranolol 20 Mg Tab) 20 mg PO ASDIRECTED [facility] Thiamine HCl (Thiamine 100 Mg Tab) 100 mg PO ASDIRECTED [facility] - Exam General: Alert, Other (Only oriented to self.) HEENT: Scleral Icterus Lungs: Clear to Auscultation, Normal Respiratory Effort Cardiovascular: Regular Rate GI/Abdominal Exam: Normal Bowel Sounds, Soft, Non-Tender, Distended Extremities: Normal Inspection, No Pedal Edema Skin: Other (Diffuse jaundice) Neurological: No New Focal Deficit - Patient Data Lab Results Last 24 hrs: Laboratory Results - last 24 hr 04/14/21 04/14/21 Range/Units 09:05 09:05 Sodium 140 (136-145) mEq/L Potassium 4.1 (3.5-5.1) mEq/L Chloride 106 (98-107) mEq/L Carbon Dioxide 27 (21-32) mEq/L Anion Gap 11.1 (5-15) BUN 8 (7-18) mg/dL Creatinine 0.9 (0.7-1.3) mg/dL Est Cr Clr Drug Dosing 121.84 mL/min Estimated GFR (MDRD) > 60 (>60) mL/min BUN/Creatinine Ratio 8.9 L (14-18) Glucose 117 H (70-99) mg/dL Calcium 8.3 L (8.5-10.1) mg/dL Total Bilirubin 4.7 H (0.2-1.0) mg/dL AST 37 (15-37) U/L ALT 28 (16-63) U/L Alkaline Phosphatase 93 (46-116) U/L Ammonia 61 H (11-32) umol/L Total Protein 6.3 L (6.4-8.2) g/dl Albumin 2.6 L (3.4-5.0) g/dl Globulin 3.7 gm/dL Albumin/Globulin Ratio 0.7 L (1-2) Result Diagrams: 04/12/21 16:20 04/14/21 09:05 [place] Results Last 24 hrs: Microbiology 04/12/21 16:30 Aerobic Blood Culture - Preliminary Blood - Venous - Lab Draw NO GROWTH AFTER 1 DAY Anaerobic Blood Culture - Preliminary NO GROWTH AFTER 1 DAY 04/12/21 16:20 Aerobic Blood Culture - Preliminary Blood - Venous NO GROWTH AFTER 1 DAY Anaerobic Blood Culture - Final Sepsis Event Note - Evaluation Sepsis Screening Result: No Definite Risk - Focused Exam Vital Signs: Vital Signs Temp Pulse Resp BP Pulse Ox 04/14/21 08:34 97.9 F 16 133/89 04/14/21 04:04 98.2 F 53 L 14 111/57 L 96 - Problem List Review Problem List Initiated/Reviewed/Updated: Yes - My Orders Last 24 Hours: My Active Orders 04/13/21 Lunch Mechanical Soft Diet [DIET] 04/13/21 14:34 Consult to Occupational Therapy [OT Evaluation and Treatment] [CONS] Routine Consult to Physical Therapy [PT Evaluation and Treatment] [CONS] Routine 04/13/21 21:00 Thiamine [Vitamin B-1] 100 mg PO Q48H - Plan Plan:: 51-year-old male with a past medical history as listed above who presents to the [facility] emergency department due to worsening mental status, weakness, functional decline, and report of subjective fever in the field. 1. Metabolic encephalopathy. Secondary to hepatic failure and Warnicke Korsakoff syndrome. Continue lactulose as regularly scheduled. Intermittently check ammonia level. Stable at 60. Xifaxan started at time of admission. Refrain from any mind altering medications including benzodiazepines or sleep aids. Continue folic acid and thiamine. 2. 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 Meld score of 16 and discriminant function of 17 on admission. Hold off on steroids as mortality is not significant at current time. 3. Subjective fever in the field. Has not had an objective fever since admission. Patient does not meet SIRS criteria based upon any recorded values. Patient does not appear toxic. Urinalysis, although appears abnormal, does not show any signs of leukocytes or white blood cells. Patient was given a dose of Rocephin. Patient started on Xifaxan. Abdomen is benign on examination, patient has not received a paracentesis before. Likely has minimal ascites fluid. Low suspicion for spontaneous bacterial peritonitis. 4. Hyperammonemia. Secondary to problem #2. Plan as above as per lactulose. Levels stable 5. History of GI bleeding. Secondary to alcoholic gastritis recently. Continue PPI. Continue propranolol as the patient likely has varices. CODE STATUS: DNR/DNI. DVT prophylaxis with heparin subcu and close monitoring for bleeding considering mild thrombocytopenia.
[2021-04-14] MEDS: Amitriptyline 25 MG Tab PO SCH (21:23)
[2021-04-15] MEDS: Heparin Sodium 5,000 Units/ML Vial SUBCUT SCH ×3 (02:04→17:35)
[2021-04-15] MEDS: Lactulose Soln 10 GM/15 ML 30 ML UD Cup PO SCH ×3 (08:45→20:58)
[2021-04-15] MEDS: Pantoprazole 40 MG Tab.CR PO SCH (08:45)
[2021-04-15] MEDS: Folic Acid 1 MG Tab PO SCH (08:45)
[2021-04-15] MEDS: Rifaximin 550 MG Tab PO SCH ×2 (08:45→20:59)
[2021-04-15] MEDS: Furosemide 20 MG Tab PO SCH (08:45)
--- NOTE | 2021-04-15 08:52 | PCM.PN ---
- General Info Date of Service: 04/15/21 Admission Dx/Problem (Free Text): Admission Diagnosis/Problem Admission Diagnosis/Problem Metabolic encephalopathy Subjective Update: No acute events overnight. No new nursing concerns. Patient continues to sleep most of the day. Only oriented to self most of the time. Otherwise encephalopathic. Will answer questions. Does comprehend some. Awaiting cognitive evaluation, which I am told will not be until April 18 . PCP is being established. Case management and social work arranging for placement into correction. - Patient Data Vitals - Most Recent: Last Vital Signs Temp 97.9 F 04/14/21 21:21 Pulse 52 L 04/14/21 21: Resp 18 04/14/21 21:21 BP 101/59 L 04/14/21 21: Pulse Ox 96 04/14/21 21:21 Weight - Most Recent: 219 lb 14.4 oz I&O - Last 24 Hours: Intake & Output 04/14/21 04/15/21 04/15/21 22:59 06:59 14:59 Intake Total 637 200 Output Total 700 Balance -63 200 Lab Results Last 24 Hours: Laboratory Results - last 24 hr 04/14/21 04/14/21 Range/Units 09:05 09:05 Sodium 140 (136-145) mEq/L Potassium 4.1 (3.5-5.1) mEq/L Chloride 106 (98-107) mEq/L Carbon Dioxide 27 (21-32) mEq/L Anion Gap 11.1 (5-15) BUN 8 (7-18) mg/dL Creatinine 0.9 (0.7-1.3) mg/dL Est Cr Clr Drug Dosing 121.84 mL/min Estimated GFR (MDRD) > 60 (>60) mL/min BUN/Creatinine Ratio 8.9 L (14-18) Glucose 117 H (70-99) mg/dL Calcium 8.3 L (8.5-10.1) mg/dL Total Bilirubin 4.7 H (0.2-1.0) mg/dL AST 37 (15-37) U/L ALT 28 (16-63) U/L Alkaline Phosphatase 93 (46-116) U/L Ammonia 61 H (11-32) umol/L Total Protein 6.3 L (6.4-8.2) g/dl Albumin 2.6 L (3.4-5.0) g/dl Globulin 3.7 gm/dL Albumin/Globulin Ratio 0.7 L (1-2) [place] Results Last 24 Hours: Microbiology 04/12/21 16:30 Aerobic Blood Culture - Preliminary Blood - Venous - Lab Draw NO GROWTH AFTER 2 DAYS Anaerobic Blood Culture - Preliminary NO GROWTH AFTER 2 DAYS 04/12/21 16:20 Aerobic Blood Culture - Preliminary Blood - Venous NO GROWTH AFTER 2 DAYS Anaerobic Blood Culture - Final 04/12/21 18:15 Urine Culture - Preliminary Urine Med Orders - Current: Current Medications Amitriptyline HCl (Amitriptyline 25 Mg Tab) 100 mg PO BEDTIME [facility] Last Admin: 04/14/21 21:23 Dose: 100 mg Documented by: Docusate Sodium (Docusate Sodium 100 Mg Cap) 100 mg PO BID PRN PRN Reason: Constipation Folic Acid (Folic Acid 1 Mg Tab) 1 mg PO DAILY [facility] Last Admin: 04/15/21 08:45 Dose: 1 mg Documented by: Furosemide (Furosemide 20 Mg Tab) 20 mg PO DAILY [facility] Last Admin: 04/15/21 08:45 Dose: 20 mg Documented by: Heparin Sodium (Porcine) (Heparin Sodium 5,000 Units/Ml Vial) 5,000 units SUBCUT Q8H [facility] Last Admin: 04/15/21 08:44 Dose: 5,000 units Documented by: Lactulose (Lactulose Soln 10 Gm/15 Ml 30 Ml Ud Cup) 20 gm PO TID [facility] Last Admin: 04/15/21 08:45 Dose: 20 gm Documented by: Ondansetron HCl (Ondansetron 4 Mg Tab.Dis) 4 mg PO Q4H PRN PRN Reason: nausea, able to take PO Ondansetron HCl (Ondansetron 4 Mg/2 Ml Sdv) 4 mg IV Q4H PRN PRN Reason: Nausea/Vomiting Pantoprazole Sodium (Pantoprazole 40 Mg Tab.Cr) 40 mg PO DAILY [facility] Last Admin: 04/15/21 08:45 Dose: 40 mg Documented by: Propranolol HCl (Propranolol 40 Mg Tab) 40 mg PO DAILY [facility] Last Admin: 04/14/21 08:42 Dose: 40 mg Documented by: Rifaximin (Rifaximin 550 Mg Tab) 550 mg PO BID [facility] Last Admin: 04/15/21 08:45 Dose: 550 mg Documented by: Sodium Chloride (Sodium Chloride 0.9% 10 Ml Syringe) 10 ml FLUSH ASDIRECTED PRN PRN Reason: Keep Vein Open Thiamine HCl (Thiamine 100 Mg Tab) 100 mg PO Q48H [facility] Last Admin: 04/13/21 20:27 Dose: 100 mg Documented by: Discontinued Medications Heparin Sodium (Porcine) (Heparin Sodium 5,000 Units/Ml Vial) 5,000 units SUBCUT Q8H [facility] Last Admin: 04/13/21 08:44 Dose: Not Given Documented by: Ceftriaxone Sodium 1 gm/ (Sodium Chloride) 100 mls @ 200 mls/hr IV Q24H [facility] Last Admin: 04/12/21 19:30 Dose: 200 mls/hr Documented by: Lactulose (Lactulose Soln 10 Gm/15 Ml 30 Ml Ud Cup) 20 gm PO ASDIRECTED [facility] Non-Formulary Medication (Amitriptyline) 100 mg PO BEDTIME [facility] Last Admin: 04/12/21 22:20 Dose: Not Given Documented by: Non-Formulary Medication (Pantoprazole Sodium) 40 mg PO ASDIRECTED [facility] Propranolol HCl (Propranolol 20 Mg Tab) 20 mg PO ASDIRECTED [facility] Thiamine HCl (Thiamine 100 Mg Tab) 100 mg PO ASDIRECTED [facility] - Exam Quality Assessment: DVT Prophylaxis General: Alert, Other (Only oriented to self.) HEENT: Pupils Equal, Scleral Icterus Lungs: Clear to Auscultation, Normal Respiratory Effort Cardiovascular: Regular Rate GI/Abdominal Exam: Normal Bowel Sounds, Soft, Non-Tender, Distended Extremities: Normal Inspection, Pedal Edema (Mild) Skin: Other (Diffuse jaundice) Neurological: No New Focal Deficit - Patient Data Lab Results Last 24 hrs: Laboratory Results - last 24 hr 04/14/21 04/14/21 Range/Units 09:05 09:05 Sodium 140 (136-145) mEq/L Potassium 4.1 (3.5-5.1) mEq/L Chloride 106 (98-107) mEq/L Carbon Dioxide 27 (21-32) mEq/L Anion Gap 11.1 (5-15) BUN 8 (7-18) mg/dL Creatinine 0.9 (0.7-1.3) mg/dL Est Cr Clr Drug Dosing 121.84 mL/min Estimated GFR (MDRD) > 60 (>60) mL/min BUN/Creatinine Ratio 8.9 L (14-18) Glucose 117 H (70-99) mg/dL Calcium 8.3 L (8.5-10.1) mg/dL Total Bilirubin 4.7 H (0.2-1.0) mg/dL AST 37 (15-37) U/L ALT 28 (16-63) U/L Alkaline Phosphatase 93 (46-116) U/L Ammonia 61 H (11-32) umol/L Total Protein 6.3 L (6.4-8.2) g/dl Albumin 2.6 L (3.4-5.0) g/dl Globulin 3.7 gm/dL Albumin/Globulin Ratio 0.7 L (1-2) Result Diagrams: 04/12/21 16:20 04/14/21 09:05 [place] Results Last 24 hrs: Microbiology 04/12/21 16:30 Aerobic Blood Culture - Preliminary Blood - Venous - Lab Draw NO GROWTH AFTER 2 DAYS Anaerobic Blood Culture - Preliminary NO GROWTH AFTER 2 DAYS 04/12/21 16:20 Aerobic Blood Culture - Preliminary Blood - Venous NO GROWTH AFTER 2 DAYS Anaerobic Blood Culture - Final 04/12/21 18:15 Urine Culture - Preliminary Urine Sepsis Event Note - Evaluation Sepsis Screening Result: No Definite Risk - Focused Exam Vital Signs: Vital Signs Temp Pulse Resp BP Pulse Ox 04/14/21 21:21 97.9 F 52 L 18 101/59 L 96 - Problem List Review Problem List Initiated/Reviewed/Updated: Yes - My Orders Last 24 Hours: My Active Orders 04/16/21 06:00 AMMONIA VENOUS [CHEM] Routine BASIC METABOLIC PANEL,BMP [CHEM] Routine CBC WITH AUTO DIFF [HEME] Routine 04/18/21 08:22 Consult to Speech Language Pathology [CORPORATE HEALTH CONSULTANT Evaluation and Treatment] [CONS] Routine - Plan Plan:: 51-year-old male with a past medical history as listed above who presents to the [facility] emergency department due to worsening mental status, weakness, fu nctional decline, and report of subjective fever in the field. 1. Metabolic encephalopathy. Secondary to hepatic failure and Warnicke-Korsakoff syndrome. Continue lactulose as regularly scheduled. Intermittently check ammonia level. Stable at 60. Next check will be 04/16/2021. Xifaxan started at time of admission. Refrain from any mind altering medications including benzodiazepines or sleep aids. Continue folic acid and thiamine. Awaiting cognitive evaluation. Case management and social work arranging for placement into local correction. 2. 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 Meld score of 16 and discriminant function of 17 on admission. Hold off on steroids as mortality is not significant at current time. 3. Subjective fever in the field. Has not had an objective fever since admission. Patient does not meet SIRS criteria based upon any recorded values. Patient does not appear toxic. Urinalysis, although appears abnormal, does not show any signs of leukocytes or white blood cells. Patient was given a dose of Rocephin in the emergency department. Patient started on Xifaxan. Abdomen is benign on examination, patient has not received a paracentesis before. Likely has minimal ascites fluid. Low suspicion for spontaneous bacterial peritonitis. 4. Hyperammonemia. Secondary to problem #2. Plan as above as per lactulose. Levels stable 5. History of GI bleeding. Secondary to alcoholic gastritis recently. Continue PPI. Continue propranolol (with parameters) as the patient likely has varices. CODE STATUS: DNR/DNI. DVT prophylaxis with heparin subcu and close monitoring for bleeding considering mild thrombocytopenia.
[2021-04-15] MEDS: Propranolol 40 MG Tab PO SCH (08:55)
[2021-04-15] MEDS: Docusate Sodium 100 MG Cap PO PRN ×2 (14:44→20:59)
[2021-04-15] MEDS: Amitriptyline 25 MG Tab PO SCH (20:58)
[2021-04-15] MEDS: Thiamine 100 MG Tab PO SCH (20:59)
[2021-04-16] MEDS: Heparin Sodium 5,000 Units/ML Vial SUBCUT SCH ×2 (01:47→08:11)
[2021-04-16] MEDS: Lactulose Soln 10 GM/15 ML 30 ML UD Cup PO SCH ×3 (08:11→20:43)
[2021-04-16] MEDS: Docusate Sodium 100 MG Cap PO PRN ×2 (08:12→20:43)
[2021-04-16] MEDS: Pantoprazole 40 MG Tab.CR PO SCH (08:12)
[2021-04-16] MEDS: Rifaximin 550 MG Tab PO SCH ×2 (08:12→20:43)
[2021-04-16] MEDS: Folic Acid 1 MG Tab PO SCH (08:12)
[2021-04-16] MEDS: Propranolol 40 MG Tab PO SCH (08:12)
[2021-04-16] MEDS: Furosemide 20 MG Tab PO SCH (08:12)
--- NOTE | 2021-04-16 12:54 | PCM.PN ---
- General Info Date of Service: 04/16/21 Admission Dx/Problem (Free Text): No new complaints. Patient is afebrile. He is calm and cooperative. - Review of Systems General: Reports: No Symptoms - Patient Data Vitals - Most Recent: Last Vital Signs Temp 97.7 F 04/16/21 11:13 Pulse 62 04/16/21 11:13 Resp 16 04/16/21 11:13 BP 107/73 04/16/21 11:13 Pulse Ox 98 04/16/21 11:13 Weight - Most Recent: 216 lb 9.6 oz I&O - Last 24 Hours: Intake & Output 04/15/21 04/16/21 04/16/21 22:59 06:59 14:59 Intake Total 410 560 Output Total 300 Balance 110 560 Lab Results Last 24 Hours: Laboratory Results - last 24 hr 04/16/21 04/16/21 04/16/21 Range/Units 07:10 07:10 07:10 WBC 5.05 (4.23-9.07) K/mm3 RBC 3.41 L (4.63-6.08) M/mm3 Hgb 12.4 L (13.7-17.5) gm/dl Hct 35.9 L (40.1-51.0) % MCV 105.3 H (79.0-92.2) fl MCH 36.4 H (25.7-32.2) pg MCHC 34.5 (32.2-35.5) g/dl RDW Std Deviation 57.9 H (35.1-43.9) fL Plt Count 100 L (163-337) K/mm3 MPV 9.5 (9.4-12.3) fl Neut % (Auto) 61.4 (34.0-67.9) % Lymph % (Auto) 25.9 (21.8-53.1) % [place] % (Auto) 7.5 (5.3-12.2) % Eos % (Auto) 4.6 (0.8-7.0) Baso % (Auto) 0.6 (0.1-1.2) % Neut # (Auto) 3.10 (1.78-5.38) K/mm3 Lymph # (Auto) 1.31 L (1.32-3.57) K/mm3 [place] # (Auto) 0.38 (0.30-0.82) K/mm3 Eos # (Auto) 0.23 (0.04-0.54) K/mm3 Baso # (Auto) 0.03 (0.01-0.08) K/mm3 Manual Slide Review Abnormal smear Sodium 143 (136-145) mEq/L Potassium 3.8 (3.5-5.1) mEq/L Chloride 108 H (98-107) mEq/L Carbon Dioxide 26 (21-32) mEq/L Anion Gap 12.8 (5-15) BUN 9 (7-18) mg/dL Creatinine 1.0 (0.7-1.3) mg/dL Est Cr Clr Drug Dosing 109.66 mL/min Estimated GFR (MDRD) > 60 (>60) mL/min BUN/Creatinine Ratio 9.0 L (14-18) Glucose 125 H (70-99) mg/dL Calcium 8.4 L (8.5-10.1) mg/dL Ammonia 45 H (11-32) umol/L [place] Results Last 24 Hours: Microbiology 04/12/21 16:30 Aerobic Blood Culture - Preliminary Blood - Venous - Lab Draw NO GROWTH AFTER 3 DAYS Anaerobic Blood Culture - Preliminary NO GROWTH AFTER 3 DAYS 04/12/21 16:20 Aerobic Blood Culture - Preliminary Blood - Venous NO GROWTH AFTER 3 DAYS Anaerobic Blood Culture - Final 04/12/21 18:15 Urine Culture - Final Urine Med Orders - Current: Current Medications Amitriptyline HCl (Amitriptyline 25 Mg Tab) 100 mg PO BEDTIME [facility] Last Admin: 04/15/21 20:58 Dose: 100 mg Documented by: Docusate Sodium (Docusate Sodium 100 Mg Cap) 100 mg PO BID PRN PRN Reason: Constipation Last Admin: 04/16/21 08:12 Dose: 100 mg Documented by: Folic Acid (Folic Acid 1 Mg Tab) 1 mg PO DAILY [facility] Last Admin: 04/16/21 08:12 Dose: 1 mg Documented by: Furosemide (Furosemide 20 Mg Tab) 20 mg PO DAILY [facility] Last Admin: 04/16/21 08:12 Dose: 20 mg Documented by: Heparin Sodium (Porcine) (Heparin Sodium 5,000 Units/Ml Vial) 5,000 units SUBCUT Q8H [facility] Last Admin: 04/16/21 08:11 Dose: 5,000 units Documented by: Lactulose (Lactulose Soln 10 Gm/15 Ml 30 Ml Ud Cup) 20 gm PO TID [facility] Last Admin: 04/16/21 08:11 Dose: 20 gm Documented by: Ondansetron HCl (Ondansetron 4 Mg Tab.Dis) 4 mg PO Q4H PRN PRN Reason: nausea, able to take PO Ondansetron HCl (Ondansetron 4 Mg/2 Ml Sdv) 4 mg IV Q4H PRN PRN Reason: Nausea/Vomiting Pantoprazole Sodium (Pantoprazole 40 Mg Tab.Cr) 40 mg PO DAILY [facility] Last Admin: 04/16/21 08:12 Dose: 40 mg Documented by: Propranolol HCl (Propranolol 40 Mg Tab) 40 mg PO DAILY [facility] Last Admin: 04/16/21 08:12 Dose: 40 mg Documented by: Rifaximin (Rifaximin 550 Mg Tab) 550 mg PO BID [facility] Last Admin: 04/16/21 08:12 Dose: 550 mg Documented by: Sodium Chloride (Sodium Chloride 0.9% 10 Ml Syringe) 10 ml FLUSH ASDIRECTED PRN PRN Reason: Keep Vein Open Thiamine HCl (Thiamine 100 Mg Tab) 100 mg PO Q48H [facility] Last Admin: 04/15/21 20:59 Dose: 100 mg Documented by: Discontinued Medications Heparin Sodium (Porcine) (Heparin Sodium 5,000 Units/Ml Vial) 5,000 units SUBCUT Q8H [facility] Last Admin: 04/13/21 08:44 Dose: Not Given Documented by: Ceftriaxone Sodium 1 gm/ (Sodium Chloride) 100 mls @ 200 mls/hr IV Q24H [facility] Last Admin: 04/12/21 19:30 Dose: 200 mls/hr Documented by: Lactulose (Lactulose Soln 10 Gm/15 Ml 30 Ml Ud Cup) 20 gm PO ASDIRECTED [facility] Non-Formulary Medication (Amitriptyline) 100 mg PO BEDTIME [facility] Last Admin: 04/12/21 22:20 Dose: Not Given Documented by: Non-Formulary Medication (Pantoprazole Sodium) 40 mg PO ASDIRECTED [facility] Propranolol HCl (Propranolol 20 Mg Tab) 20 mg PO ASDIRECTED [facility] Thiamine HCl (Thiamine 100 Mg Tab) 100 mg PO ASDIRECTED [facility] - Exam General: Alert, Oriented HEENT: Pupils Equal, EOMI Neck: Supple Lungs: Clear to Auscultation Cardiovascular: Regular Rate, Regular Rhythm GI/Abdominal Exam: Soft, Non-Tender Extremities: Normal Inspection Skin: Warm, Dry Neurological: No New Focal Deficit, Other (no tremors ) - Patient Data Lab Results Last 24 hrs: Laboratory Results - last 24 hr 04/16/21 04/16/21 04/16/21 Range/Units 07:10 07:10 07:10 WBC 5.05 (4.23-9.07) K/mm3 RBC 3.41 L (4.63-6.08) M/mm3 Hgb 12.4 L (13.7-17.5) gm/dl Hct 35.9 L (40.1-51.0) % MCV 105.3 H (79.0-92.2) fl MCH 36.4 H (25.7-32.2) pg MCHC 34.5 (32.2-35.5) g/dl RDW Std Deviation 57.9 H (35.1-43.9) fL Plt Count 100 L (163-337) K/mm3 MPV 9.5 (9.4-12.3) fl Neut % (Auto) 61.4 (34.0-67.9) % Lymph % (Auto) 25.9 (21.8-53.1) % [place] % (Auto) 7.5 (5.3-12.2) % Eos % (Auto) 4.6 (0.8-7.0) Baso % (Auto) 0.6 (0.1-1.2) % Neut # (Auto) 3.10 (1.78-5.38) K/mm3 Lymph # (Auto) 1.31 L (1.32-3.57) K/mm3 [place] # (Auto) 0.38 (0.30-0.82) K/mm3 Eos # (Auto) 0.23 (0.04-0.54) K/mm3 Baso # (Auto) 0.03 (0.01-0.08) K/mm3 Manual Slide Review Abnormal smear Sodium 143 (136-145) mEq/L Potassium 3.8 (3.5-5.1) mEq/L Chloride 108 H (98-107) mEq/L Carbon Dioxide 26 (21-32) mEq/L Anion Gap 12.8 (5-15) BUN 9 (7-18) mg/dL Creatinine 1.0 (0.7-1.3) mg/dL Est Cr Clr Drug Dosing 109.66 mL/min Estimated GFR (MDRD) > 60 (>60) mL/min BUN/Creatinine Ratio 9.0 L (14-18) Glucose 125 H (70-99) mg/dL Calcium 8.4 L (8.5-10.1) mg/dL Ammonia 45 H (11-32) umol/L Result Diagrams: 04/16/21 07:10 04/16/21 07:10 [place] Results Last 24 hrs: Microbiology 04/12/21 16:30 Aerobic Blood Culture - Preliminary Blood - Venous - Lab Draw NO GROWTH AFTER 3 DAYS Anaerobic Blood Culture - Preliminary NO GROWTH AFTER 3 DAYS 04/12/21 16:20 Aerobic Blood Culture - Preliminary Blood - Venous NO GROWTH AFTER 3 DAYS Anaerobic Blood Culture - Final 04/12/21 18:15 Urine Culture - Final Urine Sepsis Event Note - Evaluation Sepsis Screening Result: No Definite Risk - Focused Exam Vital Signs: Vital Signs Temp Pulse Resp BP Pulse Ox 04/16/21 11:13 97.7 F 62 16 107/73 98 04/16/21 07:56 97.9 F 58 L 18 119/83 97 04/16/21 05:40 97.9 F 66 16 107/76 97 - Problem List Review Problem List Initiated/Reviewed/Updated: Yes - Plan Plan:: 1. Encephalopathy likely secondary to alcoholism. Secondary to hepatic failure and Wernicke-Korsakoff syndrome. Xifaxan started at time of admission Refrain from any mind altering medications including benzodiazepines or sleep aids. Continue folic acid and thiamine. Awaiting cognitive evaluation. Case management and social work arranging for placement into local fpc. 2. 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 Meld score of 16 and discriminant function of 17 on admission. Hold off on steroids as mortality is not significant at current time. 3. Hyperammonemia. On lactulose. Secondary to problem #2. Plan as above as per lactulose. 4. History of GI bleeding. Secondary to alcoholic gastritis recently. Continue PPI. Continue propranolol (with parameters) as the patient likely has varices. CODE STATUS: DNR/DNI. DVT prophylaxis with heparin subcu and close monitoring for bleeding considering mild thrombocytopenia.
[2021-04-16] MEDS: Amitriptyline 25 MG Tab PO SCH (20:43)
[2021-04-17] MEDS: Rifaximin 550 MG Tab PO SCH (08:00)
[2021-04-17] MEDS: Propranolol 40 MG Tab PO SCH (08:00)
[2021-04-17] MEDS: Folic Acid 1 MG Tab PO SCH (08:01)
[2021-04-17] MEDS: Furosemide 20 MG Tab PO SCH (08:01)
[2021-04-17] MEDS: Lactulose Soln 10 GM/15 ML 30 ML UD Cup PO SCH (08:02)
[2021-04-17] MEDS: Pantoprazole 40 MG Tab.CR PO SCH (08:02)
--- NOTE | 2021-04-17 11:49 | PCM.DCSUM1 ---
Discharge Summary - Hospital Course Free Text/Narrative:: Discharge diagnosis: Hepatic encephalopathy Chronic alcoholism Wernicke's encephalopathy Cognitive impairment Alcoholic hepatitis with chronic liver failure Hyperammonemia Frequent falls. Discharge medications: see MAR Short history/ hospital course: Yves Noel is a 51-year-old male with a history of chronic alcoholism who presented to the [facility] emergency department with his due to weakness, worsening mental status, and frequent falls. The patient has a history significant for alcoholic hepatitis and chronic liver failure who was recently admitted and transferred to a higher level of care in [place] due to GI bleeding. The etiology was thought to be due to gastritis. He also was noted to have elevated ammonia levels for which he was started on lactulose. Despite being off alcohol and taking his medication as prescribed, patient remained confused with waxing and waning mentation. According to the , patient is unable to localize family members and was unable to take of his ADLs. The reported he was falling multiple times at home and that she was unable to continue taking care of him. Is at this point it was brought to the hospital for further care. During his hospital stay patient received lactulose along with his other home medications. Case management was involved to help with rehab placement. Patient's hospital stay was uneventful. On 04/17/2021, the requested to have patient discharged home with home health. Arrangements were made for home health to resume services at home. He was later discharged home in a stable condition. Patient on discharge: Patient was stable. Follow-up: Patient will follow up with Dr. Gayle as his new PCP and will monitor the home health treatments. Activity: As tolerated Diet: Regular diet Patient is advised to strictly abstain from alcohol consumption Physical examination: Subjective: Patient has no new complaints. He would like to go home today. The is agreeable to taking him home and is willing to monitor closely for several hours throughout the day. He is still unsteady and requires supervision when ambulating. Objective: Patient is awake and alert in no distress Vitals: Stable CVS: S1-S2 appreciated regular rate and rhythm no murmurs rubs or gallops Lungs: Clear without wheezes Abdomen: Soft nontender bowel sounds present Extremities: No clubbing cyanosis or edema. Neuro: Patient has average poor short-term memory. He is very poor cognitive skills and mental capacity. His conversations are inconsistent. He does not recall things he recently said. Gait is very unsteady and requires a walker along with assistance Diagnosis: Stroke: No - Discharge Data Discharge Date: 04/17/21 Discharge Disposition: Home, Self-Care 01 Condition: Fair - Referral to Home Health Primary Care Physician: Destini Holt NP - Patient Summary/Data Consults: Consultations 04/12/21 20:15 PSYCHOLOGISTS Evaluation and Treatment [CONS] Routine 04/13/21 05:06 Consult to Case Management/Early Childhood Aide Classroom [CONS] Routine 04/13/21 14:34 Consult to Occupational Therapy [OT Evaluation and Treatment] [CONS] Routine Consult to Physical Therapy [PT Evaluation and Treatment] [CONS] Routine 04/18/21 08:22 Consult to Speech Language Pathology [PSYCHOLOGISTS Evaluation and Treatment] [CONS] Routine - Discharge Plan Prescriptions/Med Rec: Multivit with Minerals/Lutein [A Thru Z Advanced Formula Tab] 1 each PO DAILY 90 Days #100 tablet Rifaximin [Xifaxan] 550 mg PO BID 30 Days #60 tablet Home Medications: Home Meds Furosemide 20 mg PO DAILY 02/18/21 [History] Folic Acid 1 mg PO DAILY #20 tablet 02/19/21 [Rx] Magnesium Oxide [Magnesium] 400 mg PO DAILY #4 tablet 02/19/21 [Rx] chlordiazePOXIDE [Librium] 10 mg PO BID #30 cap 02/19/21 [Rx] Amitriptyline [Elavil] 100 mg BEDTIME 04/05/21 [History] Potassium Chloride 10 meq PO DAILY 04/05/21 [History] Thiamine [Vitamin B-1] 100 mg PO Q48H 04/05/21 [History] Lactulose 20 gm PO TID 04/12/21 [History] Pantoprazole Sodium [Protonix] 40 mg PO DAILY 04/12/21 [History] Propranolol [Inderal] 2 tab PO DAILY 04/12/21 [History] Docusate Sodium [Colace] 100 mg PO BID PRN cap 04/17/21 [Rx] Multivit with Minerals/Lutein [A Thru Z Advanced Formula Tab] 1 each PO DAILY 90 Days #100 tablet 04/17/21 [Rx] Rifaximin [Xifaxan] 550 mg PO BID 30 Days #60 tablet 04/17/21 [Rx] Patient Handouts: Alcoholic Liver Disease, [id number], Confusion, Toxic Metabolic Encephalopathy, Steps to Quit Smoking Referrals: Roverto Welch MD [Physician] - (Please call Sunday to see Dr. Welch or his Nurse Practitioner as soon as able.) - Discharge Summary/Plan Comment DC Time >30 min.: Yes - Patient Data Vitals - Most Recent: Last Vital Signs Temp 97.7 F 04/17/21 07:55 Pulse 58 L 04/17/21 07:55 Resp 16 04/17/21 07:55 BP 111/59 L 04/17/21 07:55 Pulse Ox 98 04/17/21 07:55 Weight - Most Recent: 209 lb 14.4 oz I&O - Last 24 hours: Intake & Output 04/16/21 04/17/21 04/17/21 22:59 06:59 14:59 Intake Total 150 300 Output Total 700 Balance -550 300 JAME Results - Last 24 hrs: Microbiology 04/12/21 16:30 Aerobic Blood Culture - Preliminary Blood - Venous - Lab Draw NO GROWTH AFTER 4 DAYS Anaerobic Blood Culture - Preliminary NO GROWTH AFTER 4 DAYS 04/12/21 16:20 Aerobic Blood Culture - Preliminary Blood - Venous NO GROWTH AFTER 4 DAYS Anaerobic Blood Culture - Final Med Orders - Current: Current Medications Amitriptyline HCl (Amitriptyline 25 Mg Tab) 100 mg PO BEDTIME [facility] Last Admin: 04/16/21 20:43 Dose: 100 mg Documented by: Docusate Sodium (Docusate Sodium 100 Mg Cap) 100 mg PO BID PRN PRN Reason: Constipation Last Admin: 04/16/21 20:43 Dose: 100 mg Documented by: Folic Acid (Folic Acid 1 Mg Tab) 1 mg PO DAILY [facility] Last Admin: 04/17/21 08:01 Dose: 1 mg Documented by: Furosemide (Furosemide 20 Mg Tab) 20 mg PO DAILY [facility] Last Admin: 04/17/21 08:01 Dose: 20 mg Documented by: Lactulose (Lactulose Soln 10 Gm/15 Ml 30 Ml Ud Cup) 20 gm PO TID [facility] Last Admin: 04/17/21 08:02 Dose: 20 gm Documented by: Ondansetron HCl (Ondansetron 4 Mg Tab.Dis) 4 mg PO Q4H PRN PRN Reason: nausea, able to take PO Ondansetron HCl (Ondansetron 4 Mg/2 Ml Sdv) 4 mg IV Q4H PRN PRN Reason: Nausea/Vomiting Pantoprazole Sodium (Pantoprazole 40 Mg Tab.Cr) 40 mg PO DAILY [facility] Last Admin: 04/17/21 08:02 Dose: 40 mg Documented by: Propranolol HCl (Propranolol 40 Mg Tab) 40 mg PO DAILY [facility] Last Admin: 04/17/21 08:00 Dose: 40 mg Documented by: Rifaximin (Rifaximin 550 Mg Tab) 550 mg PO BID [facility] Last Admin: 04/17/21 08:00 Dose: 550 mg Documented by: Sodium Chloride (Sodium Chloride 0.9% 10 Ml Syringe) 10 ml FLUSH ASDIRECTED PRN PRN Reason: Keep Vein Open Thiamine HCl (Thiamine 100 Mg Tab) 100 mg PO Q48H [facility] Last Admin: 04/15/21 20:59 Dose: 100 mg Documented by: Discontinued Medications Heparin Sodium (Porcine) (Heparin Sodium 5,000 Units/Ml Vial) 5,000 units SUBCUT Q8H [facility] Last Admin: 04/13/21 08:44 Dose: Not Given Documented by: Heparin Sodium (Porcine) (Heparin Sodium 5,000 Units/Ml Vial) 5,000 units SUBCUT Q8H [facility] Last Admin: 04/16/21 08:11 Dose: 5,000 units Documented by: Ceftriaxone Sodium 1 gm/ (Sodium Chloride) 100 mls @ 200 mls/hr IV Q24H [facility] Last Admin: 04/12/21 19:30 Dose: 200 mls/hr Documented by: Lactulose (Lactulose Soln 10 Gm/15 Ml 30 Ml Ud Cup) 20 gm PO ASDIRECTED [facility] Non-Formulary Medication (Amitriptyline) 100 mg PO BEDTIME [facility] Last Admin: 04/12/21 22:20 Dose: Not Given Documented by: Non-Formulary Medication (Pantoprazole Sodium) 40 mg PO ASDIRECTED [facility] Propranolol HCl (Propranolol 20 Mg Tab) 20 mg PO ASDIRECTED [facility] Thiamine HCl (Thiamine 100 Mg Tab) 100 mg PO ASDIRECTED [facility]
== END 2021-04-17 12:48 | disposition home or self-care (01) | DRG 441 ==
LOC: JD.ED 15:33 → JD.MS 19:55
PROVIDERS: ADMIT Hospitalist; ATTEND Hospitalist
DX: K72.90 Hepatic failure, unspecified without coma (principal); G93.41 Metabolic encephalopathy; E51.2 Wernicke's encephalopathy; F04 Amnestic disorder due to known physiological condition; F10.20 Alcohol dependence, uncomplicated; G31.84 Mild cognitive impairment of uncertain or unknown etiology; Z66 Do not resuscitate; K70.10 Alcoholic hepatitis without ascites; R29.6 Repeated falls; K70.31 Alcoholic cirrhosis of liver with ascites; K72.10 Chronic hepatic failure without coma; H54.7 Unspecified visual loss; R15.9 Full incontinence of feces; M19.90 Unspecified osteoarthritis, unspecified site; G89.29 Other chronic pain; M54.9 Dorsalgia, unspecified; F90.9 Attention-deficit hyperactivity disorder, unspecified type; F41.9 Anxiety disorder, unspecified; F32.9 Major depressive disorder, single episode, unspecified; F17.210 Nicotine dependence, cigarettes, uncomplicated; Z79.899 Other long term (current) drug therapy; Z91.09 Other allergy status, other than to drugs and biological substances; Z90.49 Acquired absence of other specified parts of digestive tract; Z86.73 Personal history of transient ischemic attack (TIA), and cerebral infarction without residual deficits
CPT/HCPCS: 36415; 70450; 70450-26; 80048; 80053; 80306; 80307; 81001; 82140; 82977; 83605; 85007; 85025; 85027; 85610; 87040; 87086; 92523-GN; 92610-GN; 96365; 97116-GP; 97162-GP; 97167-GO; 97530-GO; 99223; 99233; 99239; 99284; 99285-25; A9270-GY; J0696; J1644; U0002

== ENCOUNTER 2021-04-20 10:42 | Inpatient (IN) | payer MEDICAID ==
--- NOTE | 2021-04-20 11:08 | EDM.PDOC ---
ED HPI GENERAL MEDICAL PROBLEM - General Chief Complaint: General Stated Complaint: CONFUSION/UNABLE TO WALK Time Seen by Provider: 04/20/21 11:00 Source of Information: Reports: Patient, Family History Limitations: Reports: Altered Mental Status ( and mother. Patient is mildly confused.) - History of Present Illness INITIAL COMMENTS - FREE TEXT/NARRATIVE: 51-year-old male presents to the ED after being just discharged from the hospital on SundayApril 17. He was admitted on April. Admission was secondary to possible fever at home and possible urinary tract infection. His serum ammonia at that time was 60. Patient carries a history of alcohol induced cirrhosis of the liver. He stopped drinking alcohol April 03. Patient clinically is jaundiced. He fell again this morning at home and his had to help him back up. He does not have a walker to aid his gait at home. A roller walker may be of some benefit. Discussion centered about need to come into a [facility] which the patient is adamantly against. His states that she is no longer able to care for him at home. He is eating satisfactory but likely not taking adequate fluids. She reports that he voids in the morning and then sometimes only once otherwise. Urine is dark magui in color and will be partly due to urobilinogen. She has not appreciated any fever at home. He denies cough or sputum production. 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 Fell again this morning. Did not get hurt other than a few scratches and abrasions to the left knee.). Denies: Activity, Exercise, Lifting, Sick Contact, Trauma Associated Symptoms: Reports: Confusion, Cough, Loss of Appetite, Malaise, Weakness (Particular in his legs.). Denies: Chest Pain, cough w sputum (Nonproductive), Diaphoresis, Fever/Chills, Headaches, Nausea/Vomiting, Rash, Seizure, Syncope Treatments SECURITIES ATTORNEY: Reports: Other (see below) (Only prescribed medications. His provides his medications for him.) - Related Data Allergies Allergy/AdvReac Type Severity Reaction Status Date / Time adhesive tape Allergy Rash Verified 04/20/21 10:54 Home Meds: Home Meds Furosemide 20 mg PO DAILY 02/18/21 [History] Folic Acid 1 mg PO DAILY #20 tablet 02/19/21 [Rx] Magnesium Oxide [Magnesium] 400 mg PO DAILY #4 tablet 02/19/21 [Rx] Amitriptyline [Elavil] 100 mg BEDTIME 04/05/21 [History] Potassium Chloride 10 meq PO DAILY 04/05/21 [History] Thiamine [Vitamin B-1] 100 mg PO Q48H 04/05/21 [History] Lactulose 20 gm PO TID 04/12/21 [History] Pantoprazole Sodium [Protonix] 40 mg PO DAILY 04/12/21 [History] Propranolol [Inderal] 2 tab PO DAILY 04/12/21 [History] Docusate Sodium [Colace] 100 mg PO BID PRN cap 04/17/21 [Rx] Multivit with Minerals/Lutein [A Thru Z Advanced Formula Tab] 1 each PO DAILY 90 Days #100 tablet 04/17/21 [Rx] Rifaximin [Xifaxan] 550 mg PO BID 30 Days #60 tablet 04/17/21 [Rx] Past Medical History HEENT History: Reports: Impaired Vision, Other (See Below) Other HEENT History: Wears glasses, poor dentician Cardiovascular History: Reports: None Respiratory History: Reports: SOB Gastrointestinal History: Reports: Cirrhosis (With hepatic failure.), GERD, Pancreatitis, Other (See Below) Other Gastrointestinal History: Fecal incontinence. Recently hospitalized for a upper GI bleed. No varices were identified and on endoscopy only gastritis. Other Genitourinary History: Blood in the urine. Musculoskeletal History: Reports: Arthritis, Back Pain, Chronic, Fracture, Other (See Below) Other Musculoskeletal History: cervical stenosis Neurological History: Reports: Concussion, CVA Psychiatric History: Reports: ADD, ADHD, Addiction, Anxiety, Depression, Other (See Below) Other Psychiatric History: Social Phobia Endocrine/Metabolic History: Reports: None Hematologic History: Reports: None Immunologic History: Reports: None Other Immunologic History: Hep c pt says he has had treatment for it Oncologic (Cancer) History: Reports: None Other Dermatologic History: Rash to the back for the last 2 years, unsure of what it is. - Infectious Disease History Infectious Disease History: Reports: Chicken Pox, Hepatitis C - Past Surgical History GI Surgical History: Reports: Appendectomy, Cholecystectomy Other GI Surgeries/Procedures: Surgery on the belly when he was a baby, unsure of what it was for. Musculoskeletal Surgical History: Reports: Other (See Below) Other Musculoskeletal Surgeries/Procedures:: Pt had plates and screws placed and removed in the right foot. Social & Family History - Family History Family Medical History: Unobtainable Hematologic: Reports: None Oncologic: Reports: Pancreatic, Other (See Below) Other Oncologic Family History: gallbladder - Tobacco Use Tobacco Use Status *Q: Current Every Day Tobacco User Years of Tobacco use: 30 Packs/Tins Daily: 1 - Caffeine Use Caffeine Use: Reports: Soda - Recreational Drug Use Recreational Drug Use: Yes Recreational Drug Type: Reports: Marijuana/Hashish - Living Situation & Occupation Living situation: Reports: Occupation: Disabled ED ROS GENERAL - Review of Systems Review Of Systems: See Below Constitutional: Reports: Malaise, Weakness, Fatigue, Decreased Appetite, Weight Loss. Denies: Fever, Chills HEENT: Reports: No Symptoms Respiratory: Reports: Shortness of Breath. Denies: Wheezing, Pleuritic Chest Pain, Cough, Sputum, Hemoptysis Cardiovascular: Reports: Blood Pressure Problem, Dyspnea on Exertion ( at the feet.), Edema (Trace edema), Lightheadedness. Denies: Chest Pain, Claudication (Usually runs on the low side.), Orthopnea, Palpitations Endocrine: Reports: Fatigue GI/Abdominal: Reports: Diarrhea ( on lactulose 3 times daily.), Decreased Appetite. Denies: Abdominal Pain, Difficulty Swallowing, Distension, Flatus, Hematemesis, Hematochezia, Melena : Reports: Other ( reports that he only voids once in the morning a day 0830 hrs. and likely if he voids more than once or twice otherwise.) Musculoskeletal: Reports: Neck Pain, Back Pain, Joint Pain Skin: Reports: Bruising (See bruising.), Other (Chronically bruise. Mild pruritus.) Neurological: Reports: Confusion, Dizziness, Difficulty Walking (In his lower extremities.), Weakness, Gait Disturbance (Chronically.). Denies: Headache, Numbness, Syncope, Tingling, Trouble Speaking ( Partly due to cerebellar ataxia.), Change in Speech Psychiatric: Reports: Anxiety, Confusion, Depression Hematologic/Lymphatic: Reports: Easy Bruising Immunologic: Reports: No Symptoms ED EXAM, GENERAL - Physical Exam Exam: See Below Exam Limited By: Altered Mental Status (Patient is oriented to person and place. Disoriented slightly to time. He answers most questions accurately. Speech is mumbled sometimes difficult to understand what he is trying to convey.) General Appearance: Alert, Anxious, Lethargic, Mild Distress (Anxious about possibly being admitted to a [facility] for care.), Other (Obviously jaundiced. Temperature is 35.7. Heart rate 66 and sinus respiratory to 16 with O2 sats of 99% room air. BP 118/64 and later came down to 109/60.) Eye Exam: Bilateral Eye: Normal Inspection (Bilateral scleral icterus and mild blepharal pallor bilaterally.), PERRL Throat/Mouth: Other (Tongue is mildly dry and coated beefy red in appearance.) Head: Atraumatic, Normocephalic, Other (Apparently did hit his head when he fell this morning but no overt signs of any head trauma appreciated. No scalp hematomas). No: Facial Swelling ( no open wounds), Facial Tenderness Neck: Normal Inspection, Full Range of Motion. No: Carotid Bruit, Lymphadenopathy (L), Lymphadenopathy (R), Tender Lateral Respiratory/Chest: No Respiratory Distress, Lungs Clear, Normal Breath Sounds, No Accessory Muscle Use, Decreased Breath Sounds. No: Rhonchi, Wheezing Cardiovascular: Regular Rate, Rhythm, No Edema, No Gallop, No Murmur, No Rub. No: Normal Peripheral Pulses Peripheral Pulses: 2+: Carotid (L), Carotid (R), Posterior Tibial (L), Posterior Tibial (R), Dorsalis Pedis (L), Dorsalis Pedis (R) GI/Abdominal: Normal Bowel Sounds, Soft, Non-Tender, Pelvis Stable, Distended (Mildly tympany to percussion upper abdomen combined with some aerophagia. No clinical evidence of significant ascites.), Hepatomegaly (Liver is palpable with deep inspiration 1 fingerbreadth below the right costal margin. It is mildly tender as well.), Other (Multiple ecchymoses abdominal wall some are very dark purple and color. Presumably this is secondary to Lovenox injections while recently hospitalized.) (Male) Exam: No Hernia Rectal (Males) Exam: Deferred Back Exam: Normal Inspection, Decreased Range of Motion. No: CVA Tenderness (L), CVA Tenderness (R) Extremities: Normal Range of Motion, Pedal Edema (Face edema at the ankles and dorsal feet.), Other (Left patella superficial scratch distal anterior quadriceps of the thigh new abrasion from fall this morning) Neurological: Alert, CN II-XII Intact, Confused (Transiently confused.), Disoriented (Disoriented to time.), Sensory/Motor Deficit. No: Oriented (Disoriented to time), Normal Cognition, Normal Gait Psychiatric: Anxious (He is anxious about having to potentially be admitted to a [facility].) Skin Exam: Warm, Dry, Intact, Ecchymosis (Multiple ecchymoses of varying integrity abdominal wall from recent recent hospitalization and Lovenox subcu injections.), Other (Patient is chronically jaundiced.). No: Normal Color #1 Interpretation EKG Date: 04/20/21 Time: 11:24 Rhythm: Other (Sinus bradycardia) Rate (Beats/Min): 58 [place]: Normal P-Wave: Enlarged (Left atrial hypertrophy pattern) QRS: Other (Early R wave transition consider right ventricular perjury versus septal hypertrophy pattern. Nonspecific intraventricular conduction delay) ST-T: Other (T wave flattening in leads III, aVF nonspecific) QT: Normal EKG Interpretation Comments: Abnormal ECG Course - Vital Signs Last Recorded V/S: Last Vital Signs Temp 35.7 C L 04/20/21 10:50 Pulse 64 04/20/21 12:15 Resp 16 04/20/21 12:15 BP 108/56 L 04/20/21 12:15 Pulse Ox 100 04/20/21 12:15 - Orders/Labs/Meds Orders: Active Orders 24 hr Category Date Time Status EKG Documentation Completion [RC] STAT Care 04/20/21 11:06 Active Consult to Case Management/House Servant [CONS] Cons 04/20/21 11:06 Active Routine PRO B-TYPE NATRIUR PEPT,BNPPRO [CHEM] Stat Lab 04/20/21 11:18 Received URINALYSIS W/MICROSCOPIC [UA W/MICROSCOPIC] [URIN] Stat Lab 04/20/21 11:07 Ordered Dextrose 5%-Lactated Ringers 1,000 ml Med 04/20/21 11:15 Active IV ASDIRECTED Medication Orders Dextrose/Lactated Ringer's (Dextrose 5%-Lactated Ringers) 1,000 mls @ 125 mls/hr IV ASDIRECTED ERI Last Admin: 04/20/21 11:19 Dose: 125 mls/hr Documented by: DIMAS Labs: Laboratory Tests 04/20/21 04/20/21 04/20/21 Range/Units 11:18 11:18 11:18 WBC 4.86 (4.23-9.07) K/mm3 RBC 3.26 L (4.63-6.08) M/mm3 Hgb 11.6 L (13.7-17.5) gm/dl Hct 34.5 L (40.1-51.0) % MCV 105.8 H (79.0-92.2) fl MCH 35.6 H (25.7-32.2) pg MCHC 33.6 (32.2-35.5) g/dl RDW Std Deviation 59.7 H (35.1-43.9) fL Plt Count 89 L (163-337) K/mm3 MPV 10.0 (9.4-12.3) fl Neut % (Auto) 61.6 (34.0-67.9) % Lymph % (Auto) 24.5 (21.8-53.1) % [place] % (Auto) 8.8 (5.3-12.2) % Eos % (Auto) 4.1 (0.8-7.0) Baso % (Auto) 0.8 (0.1-1.2) % Neut # (Auto) 2.99 (1.78-5.38) K/mm3 Lymph # (Auto) 1.19 L (1.32-3.57) K/mm3 [place] # (Auto) 0.43 (0.30-0.82) K/mm3 Eos # (Auto) 0.20 (0.04-0.54) K/mm3 Baso # (Auto) 0.04 (0.01-0.08) K/mm3 Manual Slide Review Abnormal smear PT 14.6 H (9.7-12.0) SECONDS INR 1.37 APTT 32.8 H (21.7-31.4) SECONDS Sodium 142 (136-145) mEq/L Potassium 3.9 (3.5-5.1) mEq/L Chloride 105 (98-107) mEq/L Carbon Dioxide 30 (21-32) mEq/L Anion Gap 10.9 (5-15) BUN 10 (7-18) mg/dL Creatinine 1.0 (0.7-1.3) mg/dL Est Cr Clr Drug Dosing 108.93 mL/min Estimated GFR (MDRD) > 60 (>60) mL/min BUN/Creatinine Ratio 10.0 L (14-18) Glucose 133 H (70-99) mg/dL Calcium 8.5 (8.5-10.1) mg/dL Magnesium 2.6 H (1.8-2.4) mg/dL Total Bilirubin 5.0 H (0.2-1.0) mg/dL AST 47 H (15-37) U/L ALT 41 (16-63) U/L Alkaline Phosphatase 104 (46-116) U/L Ammonia (11-32) umol/L Troponin I < 0.017 (0.00-0.056) ng/mL C-Reactive Protein <0.2 (<1.0) mg/dL Total Protein 7.0 (6.4-8.2) g/dl Albumin 2.9 L (3.4-5.0) g/dl Globulin 4.1 gm/dL Albumin/Globulin Ratio 0.7 L (1-2) SARS-CoV-2 RNA (BRIDGET) (NEGATIVE) 04/20/21 04/20/21 Range/Units 11:18 11:30 WBC (4.23-9.07) K/mm3 RBC (4.63-6.08) M/mm3 Hgb (13.7-17.5) gm/dl Hct (40.1-51.0) % MCV (79.0-92.2) fl MCH (25.7-32.2) pg MCHC (32.2-35.5) g/dl RDW Std Deviation (35.1-43.9) fL Plt Count (163-337) K/mm3 MPV (9.4-12.3) fl Neut % (Auto) (34.0-67.9) % Lymph % (Auto) (21.8-53.1) % [place] % (Auto) (5.3-12.2) % Eos % (Auto) (0.8-7.0) Baso % (Auto) (0.1-1.2) % Neut # (Auto) (1.78-5.38) K/mm3 Lymph # (Auto) (1.32-3.57) K/mm3 [place] # (Auto) (0.30-0.82) K/mm3 Eos # (Auto) (0.04-0.54) K/mm3 Baso # (Auto) (0.01-0.08) K/mm3 Manual Slide Review PT (9.7-12.0) SECONDS INR APTT (21.7-31.4) SECONDS Sodium (136-145) mEq/L Potassium (3.5-5.1) mEq/L Chloride (98-107) mEq/L Carbon Dioxide (21-32) mEq/L Anion Gap (5-15) BUN (7-18) mg/dL Creatinine (0.7-1.3) mg/dL Est Cr Clr Drug Dosing mL/min Estimated GFR (MDRD) (>60) mL/min BUN/Creatinine Ratio (14-18) Glucose (70-99) mg/dL Calcium (8.5-10.1) mg/dL Magnesium (1.8-2.4) mg/dL Total Bilirubin (0.2-1.0) mg/dL AST (15-37) U/L ALT (16-63) U/L Alkaline Phosphatase (46-116) U/L Ammonia 86 H (11-32) umol/L Troponin I (0.00-0.056) ng/mL C-Reactive Protein (<1.0) mg/dL Total Protein (6.4-8.2) g/dl Albumin (3.4-5.0) g/dl Globulin gm/dL Albumin/Globulin Ratio (1-2) SARS-CoV-2 RNA (BRIDGET) Negative (NEGATIVE) Meds: Medications Generic Name Dose Route Start Last Admin Trade Name Freq PRN Reason Stop Dose Admin Dextrose/Lactated Ringer's 1,000 mls @ 125 mls/hr 04/20/21 11:15 04/20/21 11:19 Dextrose 5%-Lactated Ringers IV 125 mls/hr ASDIRECTED ERI Administration - Radiology Interpretation Free Text/Narrative:: 51-year-old male presents to the ED in accompaniment of his and mother whom care for him. Patient has end-stage cirrhosis of the liver secondary to alcoholism. He was recently admitted to the hospital on April 12 and stayed until April 17 when he was discharged home. Serum ammonia at the time of admission was 60. The concern was whether he was running a low-grade fever at home with underlying infective process. Apparently serum ammonia was down to 45 at the time of discharge. He was ambulating in the hallway with the help of 1 nurse. He does not have a roller walker at home. He is prone to falling and fell again this morning skinning up his left knee primarily. Apparently at his head with no significant injuries identified on exam. Patient is alert but confused at times as well. He knows his name and where he is at but it is disoriented to time. Patient is deeply jaundiced. Bilateral scleral icterus. Plan routine labs to be performed including a serum ammonia level. I have asked social work job titles to see the family in consultation as there is some talk that they want him admitted to a [facility] as they can no longer care for him at home. Patient is adamant he does not want to be admitted to a [facility] creating the conflict. There is also some financial barriers to being admitted to a [facility] as he is not on Medicare at this time. - Re-Assessments/Exams Free Text/Narrative Re-Assessment/Exam: 04/20/21 12:01 chest x-ray reveals stigmata of mild COPD. Cardiac silhouette within normal limits. No infiltrates in the lung parenchyma. No pleural effusions. 04/20/21 12:48 White count is 4.86 today. The auto differential shows 61.6% neutrophils on the auto differential. Hemoglobin slightly low at 11.6 with hematocrit of 34.5. MCV elevated at 105.8. Platelet count low at 89,000. The smear reveals 1+ anisocytosis. Macrocytosis 2+ and polychromasia 1+. Platelet count is decreased with normal morphology. PT is 14.6 with an INR of 1.37 i.e. mildly auto anticoagulated. PTT is 32.8. Sodium is 142 with a potassium of 3.9. Chloride is 105 with a bicarb of 30. Anion gap is 110.9 BUN is 10 with a creatinine of 1.0 and a GFR greater than 60. Glucose is slightly elevated at 133. Calcium is 8.5. Magnesium is 2.6. Total bilirubin is 5.0 with an AST of 47 and ALT of 41. Alkaline phosphatase is 104. Serum ammonia today is elevated at 86. Troponin I is less than 0.017. C-reactive protein is less than 0.2. Total protein is 7.0 with an albumin fraction low at 2.9. COVID-19 screen is pending. 04/20/21 13:21 Discussed the findings of his labs including a elevated serum ammonia at 86 which is contributing to his confusional state. He is still trying to get out of the hospital. He is so worried about being admitted to a [facility]. Once again Kim from [employer] has spoken with the family primarily and has a call into [facility] for potential placement for 30 days. Since he does not have Medicare insurance yet admission past that timeframe would be very financially burdensome to the family. Patient essentially has a terminal illness. I will discuss case with our hospitalist Dr. Boyd with a view to admission to the hospital for IV fluids to improve his serum ammonia levels and confusional state. 04/20/21 13:35 Covid 19 screen is negative. I have spoken with Dr. Boyd on-call hospitalist and he agrees to admission to the med surgery floor Departure - Departure Time of Disposition: 13:40 Disposition: Admitted As Inpatient 66 Condition: Poor Clinical Impression: Hepatic encephalopathy syndrome, Elevated INR Fall at home Qualifiers: Encounter type: initial encounter Qualified Code(s): W19.XXXA - Unspecified fall, initial encounter - Discharge Information Sepsis Event Note (ED) - Evaluation Sepsis Screening Result: No Definite Risk - Focused Exam Vital Signs: Vital Signs Temp Pulse Resp BP Pulse Ox 04/20/21 12:15 64 16 108/56 L 100 04/20/21 10:50 35.7 C L 66 16 118/64 100 - My Orders Last 24 Hours: My Active Orders 04/20/21 11:06 EKG Documentation Completion [RC] STAT 04/20/21 11:07 URINALYSIS W/MICROSCOPIC [UA W/MICROSCOPIC] [URIN] Stat 04/20/21 11:15 Dextrose 5%-Lactated Ringers 1,000 ml IV ASDIRECTED 04/20/21 11:18 PRO B-TYPE NATRIUR PEPT,BNPPRO [CHEM] Stat - Assessment/Plan Last 24 Hours: My Active Orders 04/20/21 11:06 EKG Documentation Completion [RC] STAT 04/20/21 11:07 URINALYSIS W/MICROSCOPIC [UA W/MICROSCOPIC] [URIN] Stat 04/20/21 11:15 Dextrose 5%-Lactated Ringers 1,000 ml IV ASDIRECTED 04/20/21 11:18 PRO B-TYPE NATRIUR PEPT,BNPPRO [CHEM] Stat
[2021-04-20] MEDS: Dextrose 5%-Lactated Ringers 1,000 ML IV SCH ×2 (11:19→19:59)
--- NOTE | 2021-04-20 11:57 | CR ---
Chest: Portable view of the chest was obtained. Comparison: Prior chest x-ray of 02/17/21. Heart size and mediastinum are within normal limits for portable technique. Lungs are clear with no acute parenchymal change. Bony structure shows nothing acute. Previous study showed a questionable nodule above the upper left hilum which is not seen on current exam. Impression: 1. Nothing acute is seen on portable chest x-ray. Diagnostic code #1
[2021-04-20] MEDS ORDERED: Albuterol/Ipratropium 3.0-0.5 MG/3 ML Neb Soln NEB PRN (14:53)
[2021-04-20] MEDS ORDERED: Morphine 2 MG/ML SYRINGE IVPUSH PRN (14:53)
[2021-04-20] MEDS ORDERED: oxyCODONE 5 MG Tab PO PRN (14:53)
[2021-04-20] MEDS ORDERED: Promethazine 12.5 MG in Sodium Chloride 0.9% 50 ML IV PRN (14:53)
[2021-04-20] MEDS ORDERED: Docusate Sodium 100 MG Cap PO PRN (14:58)
--- NOTE | 2021-04-20 15:18 | PCM.HP.2 ---
H&P History of Present Illness - General Date of Service: 04/20/21 Admit Problem/Dx: Admission Diagnosis/Problem Admission Diagnosis/Problem Hepatic encephalopathy Source of Information: Patient History Limitations: Reports: Other (chart) - History of Present Illness Initial Comments - Free Text/Narative: Patient is a 51-year-old male with a history of alcoholic liver cirrhosis and a history of GI bleeding who presented to the ER due to a mechanical ground-level fall. Pt added that he had multiple falls recently. Patient was admitted to our hospital on April 12, 2021 due to UTI and encephalopathy and discharged on April 17, 2021. During that admission, ammonia 60. Patient has an alcoholic liver cirrhosis. He stopped drinking alcohol April 03. In the ER, ammonia 86. stated that she is no longer able to take care of him and would like to send him to SNF. But patient self stated to ER physician Dr. Morse that he does not want to go to SNF. - Related Data Allergies/Adverse Reactions: Allergies Allergy/AdvReac Type Severity Reaction Status Date / Time adhesive tape Allergy Rash Verified 04/20/21 10:54 Home Medications: Home Meds Furosemide 20 mg PO DAILY 02/18/21 [History] Folic Acid 1 mg PO DAILY #20 tablet 02/19/21 [Rx] Magnesium Oxide [Magnesium] 400 mg PO DAILY #4 tablet 02/19/21 [Rx] Amitriptyline [Elavil] 100 mg BEDTIME 04/05/21 [History] Potassium Chloride 10 meq PO DAILY 04/05/21 [History] Thiamine [Vitamin B-1] 100 mg PO Q48H 04/05/21 [History] Lactulose 20 gm PO TID 04/12/21 [History] Pantoprazole Sodium [Protonix] 40 mg PO DAILY 04/12/21 [History] Propranolol [Inderal] 2 tab PO DAILY 04/12/21 [History] Docusate Sodium [Colace] 100 mg PO BID PRN cap 04/17/21 [Rx] Multivit with Minerals/Lutein [A Thru Z Advanced Formula Tab] 1 each PO DAILY 90 Days #100 tablet 04/17/21 [Rx] Rifaximin [Xifaxan] 550 mg PO BID 30 Days #60 tablet 04/17/21 [Rx] Past Medical History HEENT History: Reports: Impaired Vision, Other (See Below) Other HEENT History: Wears glasses, poor dentician Cardiovascular History: Reports: None Respiratory History: Reports: SOB Gastrointestinal History: Reports: Cirrhosis (With hepatic failure.), GERD, Pancreatitis, Other (See Below) Other Gastrointestinal History: Fecal incontinence. Recently hospitalized for a upper GI bleed. No varices were identified and on endoscopy only gastritis. Other Genitourinary History: Blood in the urine. Musculoskeletal History: Reports: Arthritis, Back Pain, Chronic, Fracture, Other (See Below) Other Musculoskeletal History: cervical stenosis Neurological History: Reports: Concussion, CVA Psychiatric History: Reports: ADD, ADHD, Addiction, Anxiety, Depression, Other (See Below) Other Psychiatric History: Social Phobia Endocrine/Metabolic History: Reports: None Hematologic History: Reports: None Immunologic History: Reports: None Other Immunologic History: Hep c pt says he has had treatment for it Oncologic (Cancer) History: Reports: None Other Dermatologic History: Rash to the back for the last 2 years, unsure of wha t it is. - Infectious Disease History Infectious Disease History: Reports: Chicken Pox, Hepatitis C - Past Surgical History GI Surgical History: Reports: Appendectomy, Cholecystectomy Other GI Surgeries/Procedures: Surgery on the belly when he was a baby, unsure of what it was for. Musculoskeletal Surgical History: Reports: Other (See Below) Other Musculoskeletal Surgeries/Procedures:: Pt had plates and screws placed and removed in the right foot. Social & Family History - Family History Family Medical History: No Pertinent Family History (Denies genetic diseases in family) Hematologic: Reports: None Oncologic: Reports: Pancreatic, Other (See Below) Other Oncologic Family History: gallbladder - Tobacco Use Tobacco Use Status *Q: Current Every Day Tobacco User Years of Tobacco use: 30 Packs/Tins Daily: 1 - Caffeine Use Caffeine Use: Reports: Soda - Recreational Drug Use Recreational Drug Use: Yes Recreational Drug Type: Reports: Marijuana/Hashish - Living Situation & Occupation Living situation: Reports: Occupation: Disabled H&P Review of Systems - Review of Systems: Review Of Systems: See Below General: Reports: Weakness HEENT: Reports: No Symptoms Pulmonary: Reports: No Symptoms Cardiovascular: Reports: No Symptoms Gastrointestinal: Reports: No Symptoms Genitourinary: Reports: No Symptoms Musculoskeletal: Reports: No Symptoms Skin: Reports: No Symptoms Psychiatric: Reports: No Symptoms Hematologic/Lymphatic: Reports: No Symptoms Immunologic: Reports: No Symptoms Exam - Exam Exam: See Below - Vital Signs Vital Signs: Last Vital Signs Temp 35.7 C L 04/20/21 10:50 Pulse 64 04/20/21 12:15 Resp 16 04/20/21 12:15 BP 108/56 L 04/20/21 12:15 Pulse Ox 100 04/20/21 12:15 Weight: 86.183 kg - Exam General: Cooperative HEENT: EOMI, Pupils Equal, Pupils Reactive Neck: Supple, Trachea Midline, Full Range of Motion Lungs: Clear to Auscultation, Normal Respiratory Effort Cardiovascular: Regular Rate, Regular Rhythm GI/Abdominal Exam: Normal Bowel Sounds, Soft, Non-Tender, Distended Extremities: Normal Inspection, Normal Range of Motion, Non-Tender Skin: Warm, Dry, Intact (mild janundice) Neurological: Strength Equal Bilateral, Normal Speech, Normal Tone, Sensation Intact Neuro Extensive - Mental Status: Normal Mood/Affect, Disorientation to Place, Disorientation to Time Psychiatric: Normal Mood - Patient Data Lab Results Last 24 hrs: Laboratory Results - last 24 hr 04/20/21 04/20/21 04/20/21 Range/Units 11:18 11:18 11:18 WBC 4.86 (4.23-9.07) K/mm3 RBC 3.26 L (4.63-6.08) M/mm3 Hgb 11.6 L (13.7-17.5) gm/dl Hct 34.5 L (40.1-51.0) % MCV 105.8 H (79.0-92.2) fl MCH 35.6 H (25.7-32.2) pg MCHC 33.6 (32.2-35.5) g/dl RDW Std Deviation 59.7 H (35.1-43.9) fL Plt Count 89 L (163-337) K/mm3 MPV 10.0 (9.4-12.3) fl Neut % (Auto) 61.6 (34.0-67.9) % Lymph % (Auto) 24.5 (21.8-53.1) % Sherman % (Auto) 8.8 (5.3-12.2) % Eos % (Auto) 4.1 (0.8-7.0) Baso % (Auto) 0.8 (0.1-1.2) % Neut # (Auto) 2.99 (1.78-5.38) K/mm3 Lymph # (Auto) 1.19 L (1.32-3.57) K/mm3 Sherman # (Auto) 0.43 (0.30-0.82) K/mm3 Eos # (Auto) 0.20 (0.04-0.54) K/mm3 Baso # (Auto) 0.04 (0.01-0.08) K/mm3 Manual Slide Review Abnormal smear PT 14.6 H (9.7-12.0) SECONDS INR 1.37 APTT 32.8 H (21.7-31.4) SECONDS Sodium 142 (136-145) mEq/L Potassium 3.9 (3.5-5.1) mEq/L Chloride 105 (98-107) mEq/L Carbon Dioxide 30 (21-32) mEq/L Anion Gap 10.9 (5-15) BUN 10 (7-18) mg/dL Creatinine 1.0 (0.7-1.3) mg/dL Est Cr Clr Drug Dosing 108.93 mL/min Estimated GFR (MDRD) > 60 (>60) mL/min BUN/Creatinine Ratio 10.0 L (14-18) Glucose 133 H (70-99) mg/dL Calcium 8.5 (8.5-10.1) mg/dL Magnesium 2.6 H (1.8-2.4) mg/dL Total Bilirubin 5.0 H (0.2-1.0) mg/dL AST 47 H (15-37) U/L ALT 41 (16-63) U/L Alkaline Phosphatase 104 (46-116) U/L Ammonia (11-32) umol/L Troponin I < 0.017 (0.00-0.056) ng/mL C-Reactive Protein <0.2 (<1.0) mg/dL NT-Pro-B Natriuret Pep (0-125) pg/mL Total Protein 7.0 (6.4-8.2) g/dl Albumin 2.9 L (3.4-5.0) g/dl Globulin 4.1 gm/dL Albumin/Globulin Ratio 0.7 L (1-2) SARS-CoV-2 RNA ([facility]) (NEGATIVE) 04/20/21 04/20/21 04/20/21 Range/Units 11:18 11:18 11:30 WBC (4.23-9.07) K/mm3 RBC (4.63-6.08) M/mm3 Hgb (13.7-17.5) gm/dl Hct (40.1-51.0) % MCV (79.0-92.2) fl MCH (25.7-32.2) pg MCHC (32.2-35.5) g/dl RDW Std Deviation (35.1-43.9) fL Plt Count (163-337) K/mm3 MPV (9.4-12.3) fl Neut % (Auto) (34.0-67.9) % Lymph % (Auto) (21.8-53.1) % Sherman % (Auto) (5.3-12.2) % Eos % (Auto) (0.8-7.0) Baso % (Auto) (0.1-1.2) % Neut # (Auto) (1.78-5.38) K/mm3 Lymph # (Auto) (1.32-3.57) K/mm3 Sherman # (Auto) (0.30-0.82) K/mm3 Eos # (Auto) (0.04-0.54) K/mm3 Baso # (Auto) (0.01-0.08) K/mm3 Manual Slide Review PT (9.7-12.0) SECONDS INR APTT (21.7-31.4) SECONDS Sodium (136-145) mEq/L Potassium (3.5-5.1) mEq/L Chloride (98-107) mEq/L Carbon Dioxide (21-32) mEq/L Anion Gap (5-15) BUN (7-18) mg/dL Creatinine (0.7-1.3) mg/dL Est Cr Clr Drug Dosing mL/min Estimated GFR (MDRD) (>60) mL/min BUN/Creatinine Ratio (14-18) Glucose (70-99) mg/dL Calcium (8.5-10.1) mg/dL Magnesium (1.8-2.4) mg/dL Total Bilirubin (0.2-1.0) mg/dL AST (15-37) U/L ALT (16-63) U/L Alkaline Phosphatase (46-116) U/L Ammonia 86 H (11-32) umol/L Troponin I (0.00-0.056) ng/mL C-Reactive Protein (<1.0) mg/dL NT-Pro-B Natriuret Pep 148 H (0-125) pg/mL Total Protein (6.4-8.2) g/dl Albumin (3.4-5.0) g/dl Globulin gm/dL Albumin/Globulin Ratio (1-2) SARS-CoV-2 RNA ([facility]) Negative (NEGATIVE) Result Diagrams: 04/20/21 11:18 04/20/21 11:18 Sepsis Event Note - Evaluation Sepsis Screening Result: No Definite Risk - Focused Exam Vital Signs: Vital Signs Temp Pulse Resp BP Pulse Ox 04/20/21 12:15 64 16 108/56 L 100 04/20/21 10:50 35.7 C L 66 16 118/64 100 Problem List Initiated/Reviewed/Updated: Yes Orders Last 24hrs: Active Orders 24 hr Category Date Time Status Patient Status [ADT] Routine ADT 04/20/21 13:37 Active Antiembolic Devices [RC] PER UNIT ROUTINE Care 04/20/21 14:55 Ordered Bedrest Bedside Commode [RC] ASDIRECTED Care 04/20/21 14:53 Ordered EKG Documentation Completion [RC] STAT Care 04/20/21 11:06 Active Height and Weight [RC] DAILY Care 04/20/21 14:53 Ordered Intake and Output [RC] QSHIFT Care 04/20/21 14:54 Ordered Oxygen Therapy [RC] PRN Care 04/20/21 14:53 Ordered Pulse Oximetry [RC] CONTINUOUS Care 04/20/21 14:54 Ordered RT Aerosol Therapy [RC] ASDIRECTED Care 04/20/21 14:56 Ordered VTE/DVT Education [RC] PER UNIT ROUTINE Care 04/20/21 14:53 Ordered Vital Signs [RC] Q4H Care 04/20/21 14:53 Ordered Consult to Case Management/[employer] [CONS] Cons 04/20/21 11:06 Active Routine OT Evaluation and Treatment [CONS] Routine Cons 04/20/21 14:53 Ordered PT Evaluation and Treatment [CONS] Routine Cons 04/20/21 14:53 Ordered 2 Gram Sodium Diet [DIET] Diet 04/20/21 Dinner Ordered CBC WITH AUTO DIFF [HEME] DAILY Lab 04/21/21 05:00 Ordered CBC WITH AUTO DIFF [HEME] DAILY Lab 04/22/21 05:00 Ordered CBC WITH AUTO DIFF [HEME] DAILY Lab 04/23/21 05:00 Ordered CBC WITH AUTO DIFF [HEME] DAILY Lab 04/24/21 05:00 Ordered CBC WITH AUTO DIFF [HEME] DAILY Lab 04/25/21 05:00 Ordered COMPREHENSIVE METABOLIC PN,CMP [CHEM] DAILY Lab 04/21/21 05:00 Ordered COMPREHENSIVE METABOLIC PN,CMP [CHEM] DAILY Lab 04/22/21 05:00 Ordered COMPREHENSIVE METABOLIC PN,CMP [CHEM] DAILY Lab 04/23/21 05:00 Ordered COMPREHENSIVE METABOLIC PN,CMP [CHEM] DAILY Lab 04/24/21 05:00 Ordered COMPREHENSIVE METABOLIC PN,CMP [CHEM] DAILY Lab 04/25/21 05:00 Ordered MAGNESIUM [CHEM] DAILY Lab 04/21/21 05:00 Ordered MAGNESIUM [CHEM] DAILY Lab 04/22/21 05:00 Ordered URINALYSIS W/MICROSCOPIC [UA W/MICROSCOPIC] [URIN] Stat Lab 04/20/21 11:07 Ordered Albuterol/Ipratropium [DuoNeb 3.0-0.5 MG/3 ML] Med 04/20/21 14:53 Ordered 3 ml NEB Q4H PRN Amitriptyline [Elavil] Med 04/20/21 21:00 Ordered 100 mg PO BEDTIME Dextrose 5%-Lactated Ringers 1,000 ml Med 04/20/21 11:15 Active IV ASDIRECTED Docusate Sodium [Colace] Med 04/20/21 14:58 Ordered 100 mg PO BID PRN Folic Acid Med 04/21/21 09:00 Ordered 1 mg PO DAILY Furosemide [Lasix] Med 04/21/21 09:00 Ordered 20 mg PO DAILY Lactulose [Cephulac] Med 04/20/21 15:00 Ordered 20 gm PO TID Morphine Med 04/20/21 14:53 Ordered 2 mg IVPUSH Q4H PRN Multivit with Minerals/Lutein [A Thru Z Advanced Med 04/21/21 09:00 Ordered Formula Tab] 1 each PO DAILY Pantoprazole Med 04/21/21 09:00 Ordered 40 mg PO DAILY Potassium Chloride [Klor-Con 10] Med 04/21/21 09:00 Ordered 10 meq PO DAILY Promethazine [Phenergan] 12.5 mg Med 04/20/21 14:53 Ordered Sodium Chloride 0.9% [Normal Saline] 50 ml IV Q6H Propranolol [Inderal] Med 04/21/21 09:00 Ordered 40 mg PO DAILY Rifaximin [Xifaxan] Med 04/20/21 15:00 Ordered 550 mg PO BID Thiamine [Vitamin B-1] Med 04/20/21 15:00 Ordered 100 mg PO Q48H oxyCODONE Med 04/20/21 14:53 Ordered 5 mg PO Q4H PRN Sequential Compression Device [OM.PC] Per Unit Routine Oth 04/20/21 14:54 Ordered Medication Orders Albuterol/Ipratropium (Albuterol/Ipratropium 3.0-0.5 Mg/3 Ml Neb Soln) 3 ml NEB Q4H PRN PRN Reason: Shortness Of Breath/wheezing Docusate Sodium (Docusate Sodium 100 Mg Cap) 100 mg PO BID PRN PRN Reason: Constipation Folic Acid (Folic Acid 1 Mg Tab) 1 mg PO DAILY [facility]RI Furosemide (Furosemide 20 Mg Tab) 20 mg PO DAILY [facility] Dextrose/Lactated Ringer's (Dextrose 5%-Lactated Ringers) 1,000 mls @ 125 mls/hr IV ASDIRECTED ERI Last Admin: 04/20/21 11:19 Dose: 125 mls/hr Documented by: DIMAS Promethazine HCl 12.5 mg/ (Sodium Chloride) 50.5 mls @ 100 mls/hr IV Q6H PRN PRN Reason: Nausea/Vomiting Lactulose (Lactulose Soln 10 Gm/15 Ml 30 Ml Ud Cup) 20 gm PO TID [facility] Morphine Sulfate (Morphine 2 Mg/Ml Syringe) 2 mg IVPUSH Q4H PRN PRN Reason: Pain (severe 7-10) Stop: 04/21/21 14:55 Non-Formulary Medication (Amitriptyline [Elavil]) 100 mg PO BEDTIME [facility] Non-Formulary Medication (Multivit With Minerals/Lutein [A Thru Z Advanced Formula Tab]) 1 each PO DAILY [facility] Non-Formulary Medication (Pantoprazole) 40 mg PO DAILY [facility] Oxycodone HCl (Oxycodone 5 Mg Tab) 5 mg PO Q4H PRN PRN Reason: Pain (moderate 4-6) Potassium Chloride (Potassium Chloride 10 Meq Tab.Er) 10 meq PO DAILY ERI Propranolol HCl (Propranolol 20 Mg Tab) 40 mg PO DAILY ERI Rifaximin (Rifaximin 550 Mg Tab) 550 mg PO BID ERI Thiamine HCl (Thiamine 100 Mg Tab) 100 mg PO Q48H ERI Assessment/Plan Comment:: Patient is a 51-year-old male with a history of alcoholic liver cirrhosis and a history of GI bleeding who presented to the ER due to a mechanical ground-level fall. Assessment and plan: Hepatic encephalopathy -ammonia 86 -was admitted to hospital on 04/12/2021 due to encephalopathy -continue home lactulose 20mg tid and rifaximin 550mg bid -continue home lasix 20mg daily -repeat ammonia daily in am Alcoholic liver cirrhosis -MELD score - 16 points, 6.0% Estimated 3-Month Mortality -Discriminant function - 17.0 points. > 32 points indicates poor prognosis and patient may benefit from glucocorticoid therapy -continue folic acid, mv and thiamine COPD -inhalers Thrombocytopenia -Hx of GI bleeding -repeat CBC in am Mechanical ground level fall -most likely related to his encephalopathy -no focal neurological deficits -PT/OT DVT prophylaxis: SCD. no pharmacological DVt prophylaxis due to thrombocytpenia and hx of GI bleeding Code status: DNR/DNI Deposition: is unable to take care of him and would like to send him to SNF. - Mortality Measure Prognosis:: Poor
[2021-04-20] MEDS: Lactulose Soln 10 GM/15 ML 30 ML UD Cup PO SCH ×2 (15:42→23:35)
[2021-04-20] MEDS: Amitriptyline 25 MG Tab PO SCH (23:35)
[2021-04-20] MEDS: Rifaximin 550 MG Tab PO SCH (23:35)
[2021-04-21] MEDS: Dextrose 5%-Lactated Ringers 1,000 ML IV SCH ×2 (03:45→14:47)
[2021-04-21] MEDS: Lactulose Soln 10 GM/15 ML 30 ML UD Cup PO SCH ×3 (08:52→21:23)
[2021-04-21] MEDS: Multivitamin Tab PO SCH (08:53)
[2021-04-21] MEDS: Rifaximin 550 MG Tab PO SCH ×2 (08:53→21:24)
[2021-04-21] MEDS: Pantoprazole 40 MG Tab.CR PO SCH (08:53)
[2021-04-21] MEDS: Furosemide 20 MG Tab PO SCH (08:53)
[2021-04-21] MEDS: Potassium Chloride 10 MEQ Tab.ER PO SCH (08:53)
[2021-04-21] MEDS: Thiamine 100 MG Tab PO SCH (08:53)
[2021-04-21] MEDS: Folic Acid 1 MG Tab PO SCH (08:53)
[2021-04-21] MEDS ORDERED: Magnesium Sulfate/Water 4 GM in Premix Bag 1 BAG IV ONE (09:00)
[2021-04-21] MEDS ORDERED: Propranolol 20 MG Tab PO SCH (09:00)
[2021-04-21] MEDS: Potassium Chloride 20 MEQ Tab.ER PO SCH ×3 (09:26→16:46)
--- NOTE | 2021-04-21 12:52 | PCM.PN ---
- General Info Date of Service: 04/21/21 Admission Dx/Problem (Free Text): Admission Diagnosis/Problem Admission Diagnosis/Problem Hepatic encephalopathy Subjective Update: Patient is a 51-year-old male with a history of alcoholic liver cirrhosis and a history of GI bleeding who presented to the ER due to a mechanical ground-level fall. Pt is still confused. He can not give reliable to answers to questions. Blood pressure was soft in the morning but improved in the afternoon He is now on room air Potassium 3.3, magnesium 1.7, Hemoglobin 9.8, platelets 168 T bilirubin 3.3, ammonia 56 - Review of Systems Systems Review Comment:: General: Reports: Weakness HEENT: Reports: No Symptoms Pulmonary: Reports: No Symptoms Cardiovascular: Reports: No Symptoms Gastrointestinal: Reports: No Symptoms Genitourinary: Reports: No Symptoms Musculoskeletal: Reports: No Symptoms Skin: Reports: No Symptoms Psychiatric: Reports: No Symptoms Hematologic/Lymphatic: Reports: No Symptoms Immunologic: Reports: No Symptoms - Patient Data Vitals - Most Recent: Last Vital Signs Temp 36.6 C 04/21/21 11:22 Pulse 56 L 04/21/21 11:22 Resp 14 04/21/21 11:22 BP 128/85 04/21/21 11:22 Pulse Ox 100 04/21/21 11:22 Weight - Most Recent: 97.477 kg I&O - Last 24 Hours: Intake & Output 04/20/21 04/21/21 04/21/21 22:59 06:59 14:59 Intake Total 246 1603 360 Output Total 575 Balance -329 1603 360 Lab Results Last 24 Hours: Laboratory Results - last 24 hr 04/20/21 04/20/21 04/20/21 Range/Units 11:18 11:18 11:30 WBC (4.23-9.07) K/mm3 RBC (4.63-6.08) M/mm3 Hgb (13.7-17.5) gm/dl Hct (40.1-51.0) % MCV (79.0-92.2) fl MCH (25.7-32.2) pg MCHC (32.2-35.5) g/dl RDW Std Deviation (35.1-43.9) fL Plt Count (163-337) K/mm3 MPV (9.4-12.3) fl Neut % (Auto) (34.0-67.9) % Lymph % (Auto) (21.8-53.1) % [place] % (Auto) (5.3-12.2) % Eos % (Auto) (0.8-7.0) Baso % (Auto) (0.1-1.2) % Neut # (Auto) (1.78-5.38) K/mm3 Lymph # (Auto) (1.32-3.57) K/mm3 [place] # (Auto) (0.30-0.82) K/mm3 Eos # (Auto) (0.04-0.54) K/mm3 Baso # (Auto) (0.01-0.08) K/mm3 Manual Slide Review Sodium (136-145) mEq/L Potassium (3.5-5.1) mEq/L Chloride (98-107) mEq/L Carbon Dioxide (21-32) mEq/L Anion Gap (5-15) BUN (7-18) mg/dL Creatinine (0.7-1.3) mg/dL Est Cr Clr Drug Dosing mL/min Estimated GFR (MDRD) (>60) mL/min BUN/Creatinine Ratio (14-18) Glucose (70-99) mg/dL Calcium (8.5-10.1) mg/dL Magnesium 1.9 (1.8-2.4) mg/dL Total Bilirubin (0.2-1.0) mg/dL AST (15-37) U/L ALT (16-63) U/L Alkaline Phosphatase (46-116) U/L Ammonia (11-32) umol/L NT-Pro-B Natriuret Pep 148 H (0-125) pg/mL Total Protein (6.4-8.2) g/dl Albumin (3.4-5.0) g/dl Globulin gm/dL Albumin/Globulin Ratio (1-2) Urine Color (Yellow) Urine Appearance (Clear) Urine pH (5.0-8.0) Ur Specific [place] (1.005-1.030) Urine Protein (Negative) Urine Glucose (UA) (Negative) Urine Ketones (Negative) Urine Occult Blood (Negative) Urine Nitrite (Negative) Urine Bilirubin (Negative) Urine Urobilinogen (0.2-1.0) Ur Leukocyte Esterase (Negative) Urine RBC (0-5) /hpf Urine WBC (0-5) /hpf Ur Squamous Epith Cells (0-5) /hpf Amorphous Sediment (NOT SEEN) /hpf Urine Bacteria (FEW) /hpf Urine Mucus (FEW) /hpf SARS-CoV-2 RNA (BRIDGET) Negative (NEGATIVE) 04/20/21 04/21/21 04/21/21 Range/Units 18:30 05:45 05:45 WBC 2.91 L (4.23-9.07) K/mm3 RBC 2.73 L (4.63-6.08) M/mm3 Hgb 9.8 L D (13.7-17.5) gm/dl Hct 28.9 L (40.1-51.0) % MCV 105.9 H (79.0-92.2) fl MCH 35.9 H (25.7-32.2) pg MCHC 33.9 (32.2-35.5) g/dl RDW Std Deviation 58.9 H (35.1-43.9) fL Plt Count 68 L (163-337) K/mm3 MPV 9.5 (9.4-12.3) fl Neut % (Auto) 52.2 (34.0-67.9) % Lymph % (Auto) 32.3 (21.8-53.1) % [place] % (Auto) 10.0 (5.3-12.2) % Eos % (Auto) 4.8 (0.8-7.0) Baso % (Auto) 0.7 (0.1-1.2) % Neut # (Auto) 1.52 L (1.78-5.38) K/mm3 Lymph # (Auto) 0.94 L (1.32-3.57) K/mm3 [place] # (Auto) 0.29 L (0.30-0.82) K/mm3 Eos # (Auto) 0.14 (0.04-0.54) K/mm3 Baso # (Auto) 0.02 (0.01-0.08) K/mm3 Manual Slide Review Abnormal smear Sodium 144 (136-145) mEq/L Potassium 3.3 L (3.5-5.1) mEq/L Chloride 109 H (98-107) mEq/L Carbon Dioxide 28 (21-32) mEq/L Anion Gap 10.3 (5-15) BUN 8 (7-18) mg/dL Creatinine 0.8 (0.7-1.3) mg/dL Est Cr Clr Drug Dosing 137.13 mL/min Estimated GFR (MDRD) > 60 (>60) mL/min BUN/Creatinine Ratio 10.0 L (14-18) Glucose 121 H (70-99) mg/dL Calcium 8.2 L (8.5-10.1) mg/dL Magnesium 1.7 L (1.8-2.4) mg/dL Total Bilirubin 3.3 H (0.2-1.0) mg/dL AST 46 H (15-37) U/L ALT 33 (16-63) U/L Alkaline Phosphatase 80 (46-116) U/L Ammonia (11-32) umol/L NT-Pro-B Natriuret Pep (0-125) pg/mL Total Protein 5.6 L (6.4-8.2) g/dl Albumin 2.3 L (3.4-5.0) g/dl Globulin 3.3 gm/dL Albumin/Globulin Ratio 0.7 L (1-2) Urine Color Alanis H (Yellow) Urine Appearance Slt cloudy H (Clear) Urine pH 7.0 (5.0-8.0) Ur Specific [place] 1.020 (1.005-1.030) Urine Protein Negative (Negative) Urine Glucose (UA) Trace H (Negative) Urine Ketones Trace H (Negative) Urine Occult Blood Negative (Negative) Urine Nitrite Negative (Negative) Urine Bilirubin 2+ H (Negative) Urine Urobilinogen >=8.0 H (0.2-1.0) Ur Leukocyte Esterase Negative (Negative) Urine RBC 0-5 (0-5) /hpf Urine WBC 0-5 (0-5) /hpf Ur Squamous Epith Cells 0-5 (0-5) /hpf Amorphous Sediment Many H (NOT SEEN) /hpf Urine Bacteria Moderate H (FEW) /hpf Urine Mucus Few (FEW) /hpf SARS-CoV-2 RNA (BRIDGET) (NEGATIVE) 04/21/21 Range/Units 09:05 WBC (4.23-9.07) K/mm3 RBC (4.63-6.08) M/mm3 Hgb (13.7-17.5) gm/dl Hct (40.1-51.0) % MCV (79.0-92.2) fl MCH (25.7-32.2) pg MCHC (32.2-35.5) g/dl RDW Std Deviation (35.1-43.9) fL Plt Count (163-337) K/mm3 MPV (9.4-12.3) fl Neut % (Auto) (34.0-67.9) % Lymph % (Auto) (21.8-53.1) % [place] % (Auto) (5.3-12.2) % Eos % (Auto) (0.8-7.0) Baso % (Auto) (0.1-1.2) % Neut # (Auto) (1.78-5.38) K/mm3 Lymph # (Auto) (1.32-3.57) K/mm3 [place] # (Auto) (0.30-0.82) K/mm3 Eos # (Auto) (0.04-0.54) K/mm3 Baso # (Auto) (0.01-0.08) K/mm3 Manual Slide Review Sodium (136-145) mEq/L Potassium (3.5-5.1) mEq/L Chloride (98-107) mEq/L Carbon Dioxide (21-32) mEq/L Anion Gap (5-15) BUN (7-18) mg/dL Creatinine (0.7-1.3) mg/dL Est Cr Clr Drug Dosing mL/min Estimated GFR (MDRD) (>60) mL/min BUN/Creatinine Ratio (14-18) Glucose (70-99) mg/dL Calcium (8.5-10.1) mg/dL Magnesium (1.8-2.4) mg/dL Total Bilirubin (0.2-1.0) mg/dL AST (15-37) U/L ALT (16-63) U/L Alkaline Phosphatase (46-116) U/L Ammonia 56 H (11-32) umol/L NT-Pro-B Natriuret Pep (0-125) pg/mL Total Protein (6.4-8.2) g/dl Albumin (3.4-5.0) g/dl Globulin gm/dL Albumin/Globulin Ratio (1-2) Urine Color (Yellow) Urine Appearance (Clear) Urine pH (5.0-8.0) Ur Specific [place] (1.005-1.030) Urine Protein (Negative) Urine Glucose (UA) (Negative) Urine Ketones (Negative) Urine Occult Blood (Negative) Urine Nitrite (Negative) Urine Bilirubin (Negative) Urine Urobilinogen (0.2-1.0) Ur Leukocyte Esterase (Negative) Urine RBC (0-5) /hpf Urine WBC (0-5) /hpf Ur Squamous Epith Cells (0-5) /hpf Amorphous Sediment (NOT SEEN) /hpf Urine Bacteria (FEW) /hpf Urine Mucus (FEW) /hpf SARS-CoV-2 RNA (BRIDGET) (NEGATIVE) Med Orders - Current: Current Medications Albuterol/Ipratropium (Albuterol/Ipratropium 3.0-0.5 Mg/3 Ml Neb Soln) 3 ml NEB Q4H PRN PRN Reason: Shortness Of Breath/wheezing Amitriptyline HCl (Amitriptyline 25 Mg Tab) 100 mg PO BEDTIME [facility] Last Admin: 04/20/21 23:35 Dose: 100 mg Documented by: Docusate Sodium (Docusate Sodium 100 Mg Cap) 100 mg PO BID PRN PRN Reason: Constipation Folic Acid (Folic Acid 1 Mg Tab) 1 mg PO DAILY [facility] Last Admin: 04/21/21 08:53 Dose: 1 mg Documented by: Furosemide (Furosemide 20 Mg Tab) 20 mg PO DAILY [facility] Last Admin: 04/21/21 08:53 Dose: 20 mg Documented by: Dextrose/Lactated Ringer's (Dextrose 5%-Lactated Ringers) 1,000 mls @ 125 mls/hr IV ASDIRECTED [facility] Last Admin: 04/21/21 03:45 Dose: 125 mls/hr Documented by: Promethazine HCl 12.5 mg/ (Sodium Chloride) 50.5 mls @ 100 mls/hr IV Q6H PRN PRN Reason: Nausea/Vomiting Magnesium Sulfate 4 gm/ Premix 50 mls @ 12.5 mls/hr IV ONETIME ONE Stop: 04/21/21 12:59 Last Admin: 04/21/21 09:25 Dose: 12.5 mls/hr Documented by: Lactulose (Lactulose Soln 10 Gm/15 Ml 30 Ml Ud Cup) 20 gm PO TID [facility] Last Admin: 04/21/21 08:52 Dose: 20 gm Documented by: Morphine Sulfate (Morphine 2 Mg/Ml Syringe) 2 mg IVPUSH Q4H PRN PRN Reason: Pain (severe 7-10) Stop: 04/21/21 14:55 Multivitamins/Minerals/Vitamin C (Multivitamin Tab) 1 tab PO DAILY [facility] Last Admin: 04/21/21 08:53 Dose: 1 tab Documented by: Oxycodone HCl (Oxycodone 5 Mg Tab) 5 mg PO Q4H PRN PRN Reason: Pain (moderate 4-6) Pantoprazole Sodium (Pantoprazole 40 Mg Tab.Cr) 40 mg PO DAILY [facility] Last Admin: 04/21/21 08:53 Dose: 40 mg Documented by: Potassium Chloride (Potassium Chloride 10 Meq Tab.Er) 10 meq PO DAILY [facility] Last Admin: 04/21/21 08:53 Dose: 10 meq Documented by: Potassium Chloride (Potassium Chloride 20 Meq Tab.Er) 20 meq PO TIDMEALS [facility] Stop: 04/21/21 17:01 Last Admin: 04/21/21 11:09 Dose: 20 meq Documented by: Propranolol HCl (Propranolol 20 Mg Tab) 20 mg PO DAILY [facility] Rifaximin (Rifaximin 550 Mg Tab) 550 mg PO BID [facility] Last Admin: 04/21/21 08:53 Dose: 550 mg Documented by: Thiamine HCl (Thiamine 100 Mg Tab) 100 mg PO Q48H [facility] Last Admin: 04/21/21 08:53 Dose: 100 mg Documented by: Discontinued Medications Propranolol HCl (Propranolol 20 Mg Tab) 40 mg PO DAILY [facility] Last Admin: 04/21/21 08:53 Dose: 40 mg Documented by: - Exam Physical Findings Comments:: General: Cooperative HEENT: EOMI, Pupils Equal, Pupils Reactive, mild icterus Neck: Supple, Trachea Midline, Full Range of Motion Lungs: Clear to Auscultation, Normal Respiratory Effort Cardiovascular: Regular Rate, Regular Rhythm GI/Abdominal Exam: Normal Bowel Sounds, Soft, Non-Tender, Distended Extremities: Normal Inspection, Normal Range of Motion, Non-Tender Skin: Warm, Dry, Intact (mild jaundice) Neurological: Strength Equal Bilateral, Normal Speech, Normal Tone, Sensation Intact Neuro Extensive - Mental Status: Normal Mood/Affect, Disorientation to Place, Disorientation to Time Psychiatric: Normal Mood - Patient Data Lab Results Last 24 hrs: Laboratory Results - last 24 hr 04/20/21 04/20/21 04/20/21 Range/Units 11:18 11:18 11:30 WBC (4.23-9.07) K/mm3 RBC (4.63-6.08) M/mm3 Hgb (13.7-17.5) gm/dl Hct (40.1-51.0) % MCV (79.0-92.2) fl MCH (25.7-32.2) pg MCHC (32.2-35.5) g/dl RDW Std Deviation (35.1-43.9) fL Plt Count (163-337) K/mm3 MPV (9.4-12.3) fl Neut % (Auto) (34.0-67.9) % Lymph % (Auto) (21.8-53.1) % [place] % (Auto) (5.3-12.2) % Eos % (Auto) (0.8-7.0) Baso % (Auto) (0.1-1.2) % Neut # (Auto) (1.78-5.38) K/mm3 Lymph # (Auto) (1.32-3.57) K/mm3 [place] # (Auto) (0.30-0.82) K/mm3 Eos # (Auto) (0.04-0.54) K/mm3 Baso # (Auto) (0.01-0.08) K/mm3 Manual Slide Review Sodium (136-145) mEq/L Potassium (3.5-5.1) mEq/L Chloride (98-107) mEq/L Carbon Dioxide (21-32) mEq/L Anion Gap (5-15) BUN (7-18) mg/dL Creatinine (0.7-1.3) mg/dL Est Cr Clr Drug Dosing mL/min Estimated GFR (MDRD) (>60) mL/min BUN/Creatinine Ratio (14-18) Glucose (70-99) mg/dL Calcium (8.5-10.1) mg/dL Magnesium 1.9 (1.8-2.4) mg/dL Total Bilirubin (0.2-1.0) mg/dL AST (15-37) U/L ALT (16-63) U/L Alkaline Phosphatase (46-116) U/L Ammonia (11-32) umol/L NT-Pro-B Natriuret Pep 148 H (0-125) pg/mL Total Protein (6.4-8.2) g/dl Albumin (3.4-5.0) g/dl Globulin gm/dL Albumin/Globulin Ratio (1-2) Urine Color (Yellow) Urine Appearance (Clear) Urine pH (5.0-8.0) Ur Specific [place] (1.005-1.030) Urine Protein (Negative) Urine Glucose (UA) (Negative) Urine Ketones (Negative) Urine Occult Blood (Negative) Urine Nitrite (Negative) Urine Bilirubin (Negative) Urine Urobilinogen (0.2-1.0) Ur Leukocyte Esterase (Negative) Urine RBC (0-5) /hpf Urine WBC (0-5) /hpf Ur Squamous Epith Cells (0-5) /hpf Amorphous Sediment (NOT SEEN) /hpf Urine Bacteria (FEW) /hpf Urine Mucus (FEW) /hpf SARS-CoV-2 RNA (BRIDGET) Negative (NEGATIVE) 04/20/21 04/21/21 04/21/21 Range/Units 18:30 05:45 05:45 WBC 2.91 L (4.23-9.07) K/mm3 RBC 2.73 L (4.63-6.08) M/mm3 Hgb 9.8 L D (13.7-17.5) gm/dl Hct 28.9 L (40.1-51.0) % MCV 105.9 H (79.0-92.2) fl MCH 35.9 H (25.7-32.2) pg MCHC 33.9 (32.2-35.5) g/dl RDW Std Deviation 58.9 H (35.1-43.9) fL Plt Count 68 L (163-337) K/mm3 MPV 9.5 (9.4-12.3) fl Neut % (Auto) 52.2 (34.0-67.9) % Lymph % (Auto) 32.3 (21.8-53.1) % [place] % (Auto) 10.0 (5.3-12.2) % Eos % (Auto) 4.8 (0.8-7.0) Baso % (Auto) 0.7 (0.1-1.2) % Neut # (Auto) 1.52 L (1.78-5.38) K/mm3 Lymph # (Auto) 0.94 L (1.32-3.57) K/mm3 [place] # (Auto) 0.29 L (0.30-0.82) K/mm3 Eos # (Auto) 0.14 (0.04-0.54) K/mm3 Baso # (Auto) 0.02 (0.01-0.08) K/mm3 Manual Slide Review Abnormal smear Sodium 144 (136-145) mEq/L Potassium 3.3 L (3.5-5.1) mEq/L Chloride 109 H (98-107) mEq/L Carbon Dioxide 28 (21-32) mEq/L Anion Gap 10.3 (5-15) BUN 8 (7-18) mg/dL Creatinine 0.8 (0.7-1.3) mg/dL Est Cr Clr Drug Dosing 137.13 mL/min Estimated GFR (MDRD) > 60 (>60) mL/min BUN/Creatinine Ratio 10.0 L (14-18) Glucose 121 H (70-99) mg/dL Calcium 8.2 L (8.5-10.1) mg/dL Magnesium 1.7 L (1.8-2.4) mg/dL Total Bilirubin 3.3 H (0.2-1.0) mg/dL AST 46 H (15-37) U/L ALT 33 (16-63) U/L Alkaline Phosphatase 80 (46-116) U/L Ammonia (11-32) umol/L NT-Pro-B Natriuret Pep (0-125) pg/mL Total Protein 5.6 L (6.4-8.2) g/dl Albumin 2.3 L (3.4-5.0) g/dl Globulin 3.3 gm/dL Albumin/Globulin Ratio 0.7 L (1-2) Urine Color Alanis H (Yellow) Urine Appearance Slt cloudy H (Clear) Urine pH 7.0 (5.0-8.0) Ur Specific [place] 1.020 (1.005-1.030) Urine Protein Negative (Negative) Urine Glucose (UA) Trace H (Negative) Urine Ketones Trace H (Negative) Urine Occult Blood Negative (Negative) Urine Nitrite Negative (Negative) Urine Bilirubin 2+ H (Negative) Urine Urobilinogen >=8.0 H (0.2-1.0) Ur Leukocyte Esterase Negative (Negative) Urine RBC 0-5 (0-5) /hpf Urine WBC 0-5 (0-5) /hpf Ur Squamous Epith Cells 0-5 (0-5) /hpf Amorphous Sediment Many H (NOT SEEN) /hpf Urine Bacteria Moderate H (FEW) /hpf Urine Mucus Few (FEW) /hpf SARS-CoV-2 RNA (BRIDGET) (NEGATIVE) 04/21/21 Range/Units 09:05 WBC (4.23-9.07) K/mm3 RBC (4.63-6.08) M/mm3 Hgb (13.7-17.5) gm/dl Hct (40.1-51.0) % MCV (79.0-92.2) fl MCH (25.7-32.2) pg MCHC (32.2-35.5) g/dl RDW Std Deviation (35.1-43.9) fL Plt Count (163-337) K/mm3 MPV (9.4-12.3) fl Neut % (Auto) (34.0-67.9) % Lymph % (Auto) (21.8-53.1) % [place] % (Auto) (5.3-12.2) % Eos % (Auto) (0.8-7.0) Baso % (Auto) (0.1-1.2) % Neut # (Auto) (1.78-5.38) K/mm3 Lymph # (Auto) (1.32-3.57) K/mm3 [place] # (Auto) (0.30-0.82) K/mm3 Eos # (Auto) (0.04-0.54) K/mm3 Baso # (Auto) (0.01-0.08) K/mm3 Manual Slide Review Sodium (136-145) mEq/L Potassium (3.5-5.1) mEq/L Chloride (98-107) mEq/L Carbon Dioxide (21-32) mEq/L Anion Gap (5-15) BUN (7-18) mg/dL Creatinine (0.7-1.3) mg/dL Est Cr Clr Drug Dosing mL/min Estimated GFR (MDRD) (>60) mL/min BUN/Creatinine Ratio (14-18) Glucose (70-99) mg/dL Calcium (8.5-10.1) mg/dL Magnesium (1.8-2.4) mg/dL Total Bilirubin (0.2-1.0) mg/dL AST (15-37) U/L ALT (16-63) U/L Alkaline Phosphatase (46-116) U/L Ammonia 56 H (11-32) umol/L NT-Pro-B Natriuret Pep (0-125) pg/mL Total Protein (6.4-8.2) g/dl Albumin (3.4-5.0) g/dl Globulin gm/dL Albumin/Globulin Ratio (1-2) Urine Color (Yellow) Urine Appearance (Clear) Urine pH (5.0-8.0) Ur Specific [place] (1.005-1.030) Urine Protein (Negative) Urine Glucose (UA) (Negative) Urine Ketones (Negative) Urine Occult Blood (Negative) Urine Nitrite (Negative) Urine Bilirubin (Negative) Urine Urobilinogen (0.2-1.0) Ur Leukocyte Esterase (Negative) Urine RBC (0-5) /hpf Urine WBC (0-5) /hpf Ur Squamous Epith Cells (0-5) /hpf Amorphous Sediment (NOT SEEN) /hpf Urine Bacteria (FEW) /hpf Urine Mucus (FEW) /hpf SARS-CoV-2 RNA (BRIDGET) (NEGATIVE) Result Diagrams: 04/21/21 05:45 04/21/21 05:45 Sepsis Event Note - Evaluation Sepsis Screening Result: No Definite Risk - Focused Exam Vital Signs: Vital Signs Temp Pulse Resp BP Pulse Ox 04/21/21 11:22 36.6 C 56 L 14 128/85 100 04/21/21 08:55 61 98 04/21/21 07:17 36.4 C 63 16 95/57 L 100 04/21/21 03:35 36.6 C 56 L 18 95/53 L 100 - Problem List Review Problem List Initiated/Reviewed/Updated: Yes - My Orders Last 24 Hours: My Active Orders 04/20/21 14:53 Bedrest Bedside Commode [RC] BID Height and Weight [RC] 06 Oxygen Therapy [RC] PRN VTE/DVT Education [RC] DAILY Vital Signs [RC] Q4HR OT Evaluation and Treatment [CONS] Routine PT Evaluation and Treatment [CONS] Routine Albuterol/Ipratropium [DuoNeb 3.0-0.5 MG/3 ML] 3 ml NEB Q4H PRN Morphine 2 mg IVPUSH Q4H PRN Promethazine [Phenergan] 12.5 mg Sodium Chloride 0.9% [Normal Saline] 50 ml IV Q6H oxyCODONE 5 mg PO Q4H PRN 04/20/21 14:54 Intake and Output [RC] 04,16 Pulse Oximetry [RC] CONTINUOUS Sequential Compression Device [OM.PC] Per Unit Routine 04/20/21 14:55 Antiembolic Devices [RC] DAILY 04/20/21 14:56 RT Aerosol Therapy [RC] ASDIRECTED 04/20/21 14:58 Docusate Sodium [Colace] 100 mg PO BID PRN 04/20/21 15:00 Lactulose [Cephulac] 20 gm PO TID 04/20/21 Dinner 2 Gram Sodium Diet [DIET] 04/20/21 17:46 Resuscitation Status Routine 04/20/21 21:00 Amitriptyline [Elavil] 100 mg PO BEDTIME Rifaximin [Xifaxan] 550 mg PO BID 04/21/21 09:00 Folic Acid 1 mg PO DAILY Furosemide [Lasix] 20 mg PO DAILY Magnesium Sulfate/Water [Magnesium Sulfate in Water 4 GM/50 ML] 4 gm Premix Bag 1 bag IV ONETIME Multivitamins [Tab-A-Aarti] 1 tab PO DAILY Pantoprazole [ProTONIX] 40 mg PO DAILY Potassium Chloride [Klor-Con 10] 10 meq PO DAILY Potassium Chloride [Klor-Con M20] 20 meq PO TIDMEALS Thiamine [Vitamin B-1] 100 mg PO Q48H 04/22/21 05:00 AMMONIA VENOUS [CHEM] DAILY CBC WITH AUTO DIFF [HEME] DAILY COMPREHENSIVE METABOLIC PN,CMP [CHEM] DAILY MAGNESIUM [CHEM] DAILY MAGNESIUM [CHEM] Routine 04/22/21 09:00 Propranolol [Inderal] 20 mg PO DAILY 04/23/21 05:00 AMMONIA VENOUS [CHEM] DAILY CBC WITH AUTO DIFF [HEME] DAILY COMPREHENSIVE METABOLIC PN,CMP [CHEM] DAILY 04/24/21 05:00 AMMONIA VENOUS [CHEM] DAILY CBC WITH AUTO DIFF [HEME] DAILY COMPREHENSIVE METABOLIC PN,CMP [CHEM] DAILY 04/25/21 05:00 AMMONIA VENOUS [CHEM] DAILY CBC WITH AUTO DIFF [HEME] DAILY COMPREHENSIVE METABOLIC PN,CMP [CHEM] DAILY - Plan Plan:: Patient is a 51-year-old male with a history of alcoholic liver cirrhosis and a history of GI bleeding who presented to the ER due to a mechanical ground-level fall. Assessment and plan: Hepatic encephalopathy -ammonia 86 -> 56 -was admitted to hospital on 04/12/2021 due to encephalopathy -continue home lactulose 20mg tid and rifaximin 550mg bid -continue home lasix 20mg daily -repeat ammonia daily in am Alcoholic liver cirrhosis -MELD score - 16 points, 6.0% Estimated 3-Month Mortality -Discriminant function - 17.0 points. > 32 points indicates poor prognosis and patient may benefit from glucocorticoid therapy -continue folic acid, mv and thiamine COPD -inhalers Thrombocytopenia -Hx of GI bleeding -repeat CBC in am Mechanical ground level fall -most likely related to his encephalopathy -no focal neurological deficits -PT/OT DVT prophylaxis: SCD. no pharmacological DVt prophylaxis due to thrombocytpenia and hx of GI bleeding Code status: DNR/DNI Deposition: is unable to take care of him and would like to send him to SNF. 1-2 more days
[2021-04-21] MEDS: Dextrose 5%-Lact Ringers w/KCl 1,000 ML IV SCH (16:47)
[2021-04-21] MEDS: Amitriptyline 25 MG Tab PO SCH (21:24)
[2021-04-22] MEDS: Multivitamin Tab PO SCH (08:36)
[2021-04-22] MEDS: Rifaximin 550 MG Tab PO SCH ×2 (08:36→20:50)
[2021-04-22] MEDS: Propranolol 20 MG Tab PO SCH (08:36)
[2021-04-22] MEDS: Lactulose Soln 10 GM/15 ML 30 ML UD Cup PO SCH ×3 (08:36→20:49)
[2021-04-22] MEDS: Furosemide 20 MG Tab PO SCH (08:36)
[2021-04-22] MEDS: Folic Acid 1 MG Tab PO SCH (08:36)
[2021-04-22] MEDS: Pantoprazole 40 MG Tab.CR PO SCH (08:36)
[2021-04-22] MEDS: Potassium Chloride 10 MEQ Tab.ER PO SCH (08:36)
--- NOTE | 2021-04-22 11:55 | PCM.PN ---
- General Info Date of Service: 04/22/21 Admission Dx/Problem (Free Text): Admission Diagnosis/Problem Admission Diagnosis/Problem Hepatic encephalopathy Subjective Update: Patient is a 51-year-old male with a history of alcoholic liver cirrhosis and a history of GI bleeding who presented to the ER due to a mechanical ground-level fall. Pt is still confused. He can only answer simple questions Blood pressure is improving He is now on room air with good oxygen saturation Platelets 68 Total bilirubin 3.3 Ammonia 59 - Review of Systems Systems Review Comment:: General: Reports: Weakness HEENT: Reports: No Symptoms Pulmonary: Reports: No Symptoms Cardiovascular: Reports: No Symptoms Gastrointestinal: Reports: No Symptoms Genitourinary: Reports: No Symptoms Musculoskeletal: Reports: No Symptoms Skin: Reports: No Symptoms Psychiatric: Reports: No Symptoms Hematologic/Lymphatic: Reports: No Symptoms Immunologic: Reports: No Symptoms - Patient Data Vitals - Most Recent: Last Vital Signs Temp 36.4 C 04/22/21 11:19 Pulse 52 L 04/22/21 11:19 Resp 12 04/22/21 11:19 BP 112/66 04/22/21 11:19 Pulse Ox 100 04/22/21 11:19 Weight - Most Recent: 98.656 kg I&O - Last 24 Hours: Intake & Output 04/21/21 04/22/21 04/22/21 22:59 06:59 14:59 Intake Total 2355 1115 Output Total 400 1600 Balance 1955 -485 Lab Results Last 24 Hours: Laboratory Results - last 24 hr 04/22/21 04/22/21 04/22/21 Range/Units 06:00 06:00 06:00 WBC 2.65 L (4.23-9.07) K/mm3 RBC 2.82 L (4.63-6.08) M/mm3 Hgb 10.1 L (13.7-17.5) gm/dl Hct 30.1 L (40.1-51.0) % MCV 106.7 H (79.0-92.2) fl MCH 35.8 H (25.7-32.2) pg MCHC 33.6 (32.2-35.5) g/dl RDW Std Deviation 59.7 H (35.1-43.9) fL Plt Count 68 L (163-337) K/mm3 MPV 9.8 (9.4-12.3) fl Neut % (Auto) 51.7 (34.0-67.9) % Lymph % (Auto) 33.6 (21.8-53.1) % [place] % (Auto) 7.9 (5.3-12.2) % Eos % (Auto) 5.7 (0.8-7.0) Baso % (Auto) 1.1 (0.1-1.2) % Neut # (Auto) 1.37 L (1.78-5.38) K/mm3 Lymph # (Auto) 0.89 L (1.32-3.57) K/mm3 [place] # (Auto) 0.21 L (0.30-0.82) K/mm3 Eos # (Auto) 0.15 (0.04-0.54) K/mm3 Baso # (Auto) 0.03 (0.01-0.08) K/mm3 Manual Slide Review Abnormal smear Sodium 142 (136-145) mEq/L Potassium 3.9 (3.5-5.1) mEq/L Chloride 109 H (98-107) mEq/L Carbon Dioxide 25 (21-32) mEq/L Anion Gap 11.9 (5-15) BUN 8 (7-18) mg/dL Creatinine 0.8 (0.7-1.3) mg/dL Est Cr Clr Drug Dosing 137.13 mL/min Estimated GFR (MDRD) > 60 (>60) mL/min BUN/Creatinine Ratio 10.0 L (14-18) Glucose 108 H (70-99) mg/dL Calcium 7.9 L (8.5-10.1) mg/dL Magnesium 1.8 (1.8-2.4) mg/dL Total Bilirubin 3.3 H (0.2-1.0) mg/dL AST 51 H (15-37) U/L ALT 39 (16-63) U/L Alkaline Phosphatase 84 (46-116) U/L Ammonia 59 H (11-32) umol/L Total Protein 5.8 L (6.4-8.2) g/dl Albumin 2.4 L (3.4-5.0) g/dl Globulin 3.4 gm/dL Albumin/Globulin Ratio 0.7 L (1-2) Med Orders - Current: Current Medications Albuterol/Ipratropium (Albuterol/Ipratropium 3.0-0.5 Mg/3 Ml Neb Soln) 3 ml NEB Q4H PRN PRN Reason: Shortness Of Breath/wheezing Amitriptyline HCl (Amitriptyline 25 Mg Tab) 100 mg PO BEDTIME [facility] Last Admin: 04/21/21 21:24 Dose: 100 mg Documented by: Docusate Sodium (Docusate Sodium 100 Mg Cap) 100 mg PO BID PRN PRN Reason: Constipation Folic Acid (Folic Acid 1 Mg Tab) 1 mg PO DAILY [facility] Last Admin: 04/22/21 08:36 Dose: 1 mg Documented by: Furosemide (Furosemide 20 Mg Tab) 20 mg PO DAILY [facility] Last Admin: 04/22/21 08:36 Dose: 20 mg Documented by: Promethazine HCl 12.5 mg/ (Sodium Chloride) 50.5 mls @ 100 mls/hr IV Q6H PRN PRN Reason: Nausea/Vomiting Potassium Cl/Dextrose/Lact Ringer's (D5 Lr With 20 Meq Kcl) 1,000 mls @ 50 mls/hr IV ASDIRECTED [facility] Last Admin: 04/21/21 16:47 Dose: 50 mls/hr Documented by: Lactulose (Lactulose Soln 10 Gm/15 Ml 30 Ml Ud Cup) 30 gm PO TID [facility] Multivitamins/Minerals/Vitamin C (Multivitamin Tab) 1 tab PO DAILY [facility] Last Admin: 04/22/21 08:36 Dose: 1 tab Documented by: Oxycodone HCl (Oxycodone 5 Mg Tab) 5 mg PO Q4H PRN PRN Reason: Pain (moderate 4-6) Pantoprazole Sodium (Pantoprazole 40 Mg Tab.Cr) 40 mg PO DAILY [facility] Last Admin: 04/22/21 08:36 Dose: 40 mg Documented by: Potassium Chloride (Potassium Chloride 10 Meq Tab.Er) 10 meq PO DAILY [facility] Last Admin: 04/22/21 08:36 Dose: 10 meq Documented by: Propranolol HCl (Propranolol 20 Mg Tab) 20 mg PO DAILY [facility] Last Admin: 04/22/21 08:36 Dose: 20 mg Documented by: Rifaximin (Rifaximin 550 Mg Tab) 550 mg PO BID [facility] Last Admin: 04/22/21 08:36 Dose: 550 mg Documented by: Thiamine HCl (Thiamine 100 Mg Tab) 100 mg PO Q48H [facility] Last Admin: 04/21/21 08:53 Dose: 100 mg Documented by: Discontinued Medications Dextrose/Lactated Ringer's (Dextrose 5%-Lactated Ringers) 1,000 mls @ 125 mls/hr IV ASDIRECTED [facility] Last Admin: 04/21/21 14:47 Dose: 125 mls/hr Documented by: Magnesium Sulfate 4 gm/ Premix 50 mls @ 12.5 mls/hr IV ONETIME ONE Stop: 04/21/21 12:59 Last Admin: 04/21/21 09:25 Dose: 12.5 mls/hr Documented by: Lactulose (Lactulose Soln 10 Gm/15 Ml 30 Ml Ud Cup) 20 gm PO TID [facility] Last Admin: 04/22/21 08:36 Dose: 20 gm Documented by: Morphine Sulfate (Morphine 2 Mg/Ml Syringe) 2 mg IVPUSH Q4H PRN PRN Reason: Pain (severe 7-10) Stop: 04/21/21 14:55 Potassium Chloride (Potassium Chloride 20 Meq Tab.Er) 20 meq PO TIDMEALS [facility] Stop: 04/21/21 17:01 Last Admin: 04/21/21 16:46 Dose: 20 meq Documented by: Propranolol HCl (Propranolol 20 Mg Tab) 40 mg PO DAILY [facility] Last Admin: 04/21/21 08:53 Dose: 40 mg Documented by: - Exam Physical Findings Comments:: General: confusion, Cooperative HEENT: EOMI, Pupils Equal, Pupils Reactive, mild icterus Neck: Supple, Trachea Midline, Full Range of Motion Lungs: Clear to Auscultation, Normal Respiratory Effort Cardiovascular: Regular Rate, Regular Rhythm GI/Abdominal Exam: Normal Bowel Sounds, Soft, Non-Tender, Distended Extremities: Normal Inspection, Normal Range of Motion, Non-Tender Skin: Warm, Dry, Intact (mild jaundice) Neurological: Strength Equal Bilateral, Normal Speech, Normal Tone, Sensation Intact Neuro Extensive - Mental Status: Normal Mood/Affect, disorientation to dlace, disorientation to time Psychiatric: Normal Mood - Patient Data Lab Results Last 24 hrs: Laboratory Results - last 24 hr 04/22/21 04/22/21 04/22/21 Range/Units 06:00 06:00 06:00 WBC 2.65 L (4.23-9.07) K/mm3 RBC 2.82 L (4.63-6.08) M/mm3 Hgb 10.1 L (13.7-17.5) gm/dl Hct 30.1 L (40.1-51.0) % MCV 106.7 H (79.0-92.2) fl MCH 35.8 H (25.7-32.2) pg MCHC 33.6 (32.2-35.5) g/dl RDW Std Deviation 59.7 H (35.1-43.9) fL Plt Count 68 L (163-337) K/mm3 MPV 9.8 (9.4-12.3) fl Neut % (Auto) 51.7 (34.0-67.9) % Lymph % (Auto) 33.6 (21.8-53.1) % [place] % (Auto) 7.9 (5.3-12.2) % Eos % (Auto) 5.7 (0.8-7.0) Baso % (Auto) 1.1 (0.1-1.2) % Neut # (Auto) 1.37 L (1.78-5.38) K/mm3 Lymph # (Auto) 0.89 L (1.32-3.57) K/mm3 [place] # (Auto) 0.21 L (0.30-0.82) K/mm3 Eos # (Auto) 0.15 (0.04-0.54) K/mm3 Baso # (Auto) 0.03 (0.01-0.08) K/mm3 Manual Slide Review Abnormal smear Sodium 142 (136-145) mEq/L Potassium 3.9 (3.5-5.1) mEq/L Chloride 109 H (98-107) mEq/L Carbon Dioxide 25 (21-32) mEq/L Anion Gap 11.9 (5-15) BUN 8 (7-18) mg/dL Creatinine 0.8 (0.7-1.3) mg/dL Est Cr Clr Drug Dosing 137.13 mL/min Estimated GFR (MDRD) > 60 (>60) mL/min BUN/Creatinine Ratio 10.0 L (14-18) Glucose 108 H (70-99) mg/dL Calcium 7.9 L (8.5-10.1) mg/dL Magnesium 1.8 (1.8-2.4) mg/dL Total Bilirubin 3.3 H (0.2-1.0) mg/dL AST 51 H (15-37) U/L ALT 39 (16-63) U/L Alkaline Phosphatase 84 (46-116) U/L Ammonia 59 H (11-32) umol/L Total Protein 5.8 L (6.4-8.2) g/dl Albumin 2.4 L (3.4-5.0) g/dl Globulin 3.4 gm/dL Albumin/Globulin Ratio 0.7 L (1-2) Result Diagrams: 04/22/21 06:00 04/22/21 06:00 Sepsis Event Note - Evaluation Sepsis Screening Result: No Definite Risk - Focused Exam Vital Signs: Vital Signs Temp Pulse Resp BP Pulse Ox 04/22/21 11:19 36.4 C 52 L 12 112/66 100 04/22/21 08:04 65 12 100/66 100 04/22/21 03:40 36.6 C 58 L 16 109/62 99 04/22/21 01:38 36.6 C 63 16 103/66 100 - Problem List Review Problem List Initiated/Reviewed/Updated: Yes - My Orders Last 24 Hours: My Active Orders 04/21/21 16:00 Dextrose 5%-Lact Ringers w/KCl [D5 LR with 20 mEq KCl] 1,000 ml IV ASDIRECTED 04/22/21 09:00 Propranolol [Inderal] 20 mg PO DAILY 04/22/21 15:00 Lactulose [Cephulac] 30 gm PO TID 04/23/21 05:00 AMMONIA VENOUS [CHEM] DAILY CBC WITH AUTO DIFF [HEME] DAILY COMPREHENSIVE METABOLIC PN,CMP [CHEM] DAILY 04/24/21 05:00 AMMONIA VENOUS [CHEM] DAILY CBC WITH AUTO DIFF [HEME] DAILY COMPREHENSIVE METABOLIC PN,CMP [CHEM] DAILY 04/25/21 05:00 AMMONIA VENOUS [CHEM] DAILY CBC WITH AUTO DIFF [HEME] DAILY COMPREHENSIVE METABOLIC PN,CMP [CHEM] DAILY - Plan Plan:: Patient is a 51-year-old male with a history of alcoholic liver cirrhosis and a history of GI bleeding who presented to the ER due to a mechanical ground-level fall. Assessment and plan: Hepatic encephalopathy -ammonia 86 -> 56 ->59 -was admitted to hospital on 04/12/2021 due to encephalopathy -increased lactulose 30 mg tid to titrate 3 BMs/day -continue home rifaximin 550mg bid -Discontinued home lasix 20mg daily -repeat ammonia daily in am Alcoholic liver cirrhosis -MELD score - 16 points, 6.0% Estimated 3-Month Mortality -Discriminant function - 17.0 points. > 32 points indicates poor prognosis and patient may benefit from glucocorticoid therapy -continue folic acid, mv and thiamine COPD -inhalers Thrombocytopenia -Hx of GI bleeding -repeat CBC in am Mechanical ground level fall -most likely related to his encephalopathy -no focal neurological deficits -PT/OT DVT prophylaxis: SCD. no pharmacological DVt prophylaxis due to thrombocytpenia and hx of GI bleeding Code status: full Deposition: PTOT recommended SNF PTOT. 1-2 more days
--- NOTE | 2021-04-22 12:00 | PCM.SN.2 ---
- Free Text/Narrative Note: dockworker Kim and I had a family meeting with patient's and the mother yesterday. I explained CPR and intubation to them at length. The agreed with the CPR and intubation. All questions were answered.
[2021-04-22] MEDS: Dextrose 5%-Lact Ringers w/KCl 1,000 ML IV SCH (13:10)
[2021-04-22] MEDS: Amitriptyline 25 MG Tab PO SCH (20:49)
[2021-04-23] MEDS ORDERED: Magnesium Hydroxide 400 MG/5 ML Susp 30 ML Cup PO ONE (05:34)
[2021-04-23] MEDS: Rifaximin 550 MG Tab PO SCH ×2 (08:12→20:22)
[2021-04-23] MEDS: Propranolol 20 MG Tab PO SCH (08:12)
[2021-04-23] MEDS: Lactulose Soln 10 GM/15 ML 30 ML UD Cup PO SCH ×3 (08:12→20:22)
[2021-04-23] MEDS: Potassium Chloride 10 MEQ Tab.ER PO SCH (08:12)
[2021-04-23] MEDS: Thiamine 100 MG Tab PO SCH (08:13)
[2021-04-23] MEDS: Pantoprazole 40 MG Tab.CR PO SCH (08:13)
[2021-04-23] MEDS: Multivitamin Tab PO SCH (08:13)
[2021-04-23] MEDS: Folic Acid 1 MG Tab PO SCH (08:13)
[2021-04-23] MEDS: Furosemide 20 MG Tab PO SCH (08:13)
[2021-04-23] MEDS ORDERED: Magnesium Hydroxide 400 MG/5 ML Susp 30 ML Cup PO PRN (08:32)
[2021-04-23] MEDS: Dextrose 5%-Lact Ringers w/KCl 1,000 ML IV SCH (09:00)
--- NOTE | 2021-04-23 11:11 | PCM.PN ---
- General Info Date of Service: 04/23/21 Admission Dx/Problem (Free Text): Admission Diagnosis/Problem Admission Diagnosis/Problem Hepatic encephalopathy Subjective Update: Patient is a 51-year-old male with a history of alcoholic liver cirrhosis and a history of GI bleeding who presented to the ER due to a mechanical ground-level fall. Pt is still confused. He can only answer simple questions He has constiption. He has not had BM for days Vital signs are stable at acceptable He is on room air with good oxygen saturation Hemoglobin 10.2, WBC 3.37, platelets 72, red blood cells of 2.81 Potassium 4.0, creatinine 0.9 Total bilirubin 2.9, AST 55, ammonia 82 Patient fell again this morning - Review of Systems Systems Review Comment:: General: Reports: Weakness HEENT: Reports: No Symptoms Pulmonary: Reports: No Symptoms Cardiovascular: Reports: No Symptoms Gastrointestinal: Reports: No Symptoms Genitourinary: Reports: No Symptoms Musculoskeletal: Reports: No Symptoms Skin: Reports: No Symptoms Psychiatric: Reports: No Symptoms Hematologic/Lymphatic: Reports: No Symptoms Immunologic: Reports: No Symptoms - Patient Data Vitals - Most Recent: Last Vital Signs Temp 36.7 C 04/23/21 08:46 Pulse 61 04/23/21 08:46 Resp 17 04/23/21 08:46 BP 111/67 04/23/21 08:46 Pulse Ox 100 04/23/21 08:46 Weight - Most Recent: 98.566 kg I&O - Last 24 Hours: Intake & Output 04/22/21 04/23/21 04/23/21 22:59 06:59 14:59 Intake Total 2599 500 Output Total 1125 600 Balance 1474 -100 Lab Results Last 24 Hours: Laboratory Results - last 24 hr 04/23/21 04/23/21 04/23/21 Range/Units 05:48 05:48 05:48 WBC 3.37 L (4.23-9.07) K/mm3 RBC 2.81 L (4.63-6.08) M/mm3 Hgb 10.2 L (13.7-17.5) gm/dl Hct 30.2 L (40.1-51.0) % MCV 107.5 H (79.0-92.2) fl MCH 36.3 H (25.7-32.2) pg MCHC 33.8 (32.2-35.5) g/dl RDW Std Deviation 59.2 H (35.1-43.9) fL Plt Count 72 L (163-337) K/mm3 MPV 9.7 (9.4-12.3) fl Neut % (Auto) 56.1 (34.0-67.9) % Lymph % (Auto) 29.4 (21.8-53.1) % Saline % (Auto) 7.1 (5.3-12.2) % Eos % (Auto) 6.5 (0.8-7.0) Baso % (Auto) 0.9 (0.1-1.2) % Neut # (Auto) 1.89 (1.78-5.38) K/mm3 Lymph # (Auto) 0.99 L (1.32-3.57) K/mm3 Saline # (Auto) 0.24 L (0.30-0.82) K/mm3 Eos # (Auto) 0.22 (0.04-0.54) K/mm3 Baso # (Auto) 0.03 (0.01-0.08) K/mm3 Manual Slide Review Abnormal smear Sodium 143 (136-145) mEq/L Potassium 4.0 (3.5-5.1) mEq/L Chloride 110 H (98-107) mEq/L Carbon Dioxide 23 (21-32) mEq/L Anion Gap 14.0 (5-15) BUN 6 L (7-18) mg/dL Creatinine 0.9 (0.7-1.3) mg/dL Est Cr Clr Drug Dosing 121.90 mL/min Estimated GFR (MDRD) > 60 (>60) mL/min BUN/Creatinine Ratio 6.7 L (14-18) Glucose 113 H (70-99) mg/dL Calcium 8.5 (8.5-10.1) mg/dL Total Bilirubin 2.9 H (0.2-1.0) mg/dL AST 55 H (15-37) U/L ALT 41 (16-63) U/L Alkaline Phosphatase 95 (46-116) U/L Ammonia 82 H (11-32) umol/L Total Protein 5.8 L (6.4-8.2) g/dl Albumin 2.4 L (3.4-5.0) g/dl Globulin 3.4 gm/dL Albumin/Globulin Ratio 0.7 L (1-2) Med Orders - Current: Current Medications Albuterol/Ipratropium (Albuterol/Ipratropium 3.0-0.5 Mg/3 Ml Neb Soln) 3 ml NEB Q4H PRN PRN Reason: Shortness Of Breath/wheezing Amitriptyline HCl (Amitriptyline 25 Mg Tab) 100 mg PO BEDTIME [facility] Last Admin: 04/22/21 20:49 Dose: 100 mg Documented by: Docusate Sodium (Docusate Sodium 100 Mg Cap) 100 mg PO BID PRN PRN Reason: Constipation Folic Acid (Folic Acid 1 Mg Tab) 1 mg PO DAILY [facility] Last Admin: 04/23/21 08:13 Dose: 1 mg Documented by: Furosemide (Furosemide 20 Mg Tab) 20 mg PO DAILY [facility] Last Admin: 04/23/21 08:13 Dose: 20 mg Documented by: Promethazine HCl 12.5 mg/ (Sodium Chloride) 50.5 mls @ 100 mls/hr IV Q6H PRN PRN Reason: Nausea/Vomiting Potassium Cl/Dextrose/Lact Ringer's (D5 Lr With 20 Meq Kcl) 1,000 mls @ 50 mls/hr IV ASDIRECTED [facility] Last Admin: 04/23/21 09:00 Dose: 50 mls/hr Documented by: Lactulose (Lactulose Soln 10 Gm/15 Ml 30 Ml Ud Cup) 30 gm PO TID [facility] Last Admin: 04/23/21 08:12 Dose: 30 gm Documented by: Magnesium Hydroxide (Magnesium Hydroxide 400 Mg/5 Ml Susp 30 Ml Cup) 30 ml PO Q12H PRN PRN Reason: Constipation Multivitamins/Minerals/Vitamin C (Multivitamin Tab) 1 tab PO DAILY [facility] Last Admin: 04/23/21 08:13 Dose: 1 tab Documented by: Oxycodone HCl (Oxycodone 5 Mg Tab) 5 mg PO Q4H PRN PRN Reason: Pain (moderate 4-6) Pantoprazole Sodium (Pantoprazole 40 Mg Tab.Cr) 40 mg PO DAILY [facility] Last Admin: 04/23/21 08:13 Dose: 40 mg Documented by: Potassium Chloride (Potassium Chloride 10 Meq Tab.Er) 10 meq PO DAILY [facility] Last Admin: 04/23/21 08:12 Dose: 10 meq Documented by: Propranolol HCl (Propranolol 20 Mg Tab) 20 mg PO DAILY [facility] Last Admin: 04/23/21 08:12 Dose: 20 mg Documented by: Rifaximin (Rifaximin 550 Mg Tab) 550 mg PO BID [facility] Last Admin: 04/23/21 08:12 Dose: 550 mg Documented by: Thiamine HCl (Thiamine 100 Mg Tab) 100 mg PO Q48H [facility] Last Admin: 04/23/21 08:13 Dose: 100 mg Documented by: Discontinued Medications Dextrose/Lactated Ringer's (Dextrose 5%-Lactated Ringers) 1,000 mls @ 125 mls/hr IV ASDIRECTED [facility] Last Admin: 04/21/21 14:47 Dose: 125 mls/hr Documented by: Magnesium Sulfate 4 gm/ Premix 50 mls @ 12.5 mls/hr IV ONETIME ONE Stop: 04/21/21 12:59 Last Admin: 04/21/21 09:25 Dose: 12.5 mls/hr Documented by: Lactulose (Lactulose Soln 10 Gm/15 Ml 30 Ml Ud Cup) 20 gm PO TID [facility] Last Admin: 04/22/21 08:36 Dose: 20 gm Documented by: Magnesium Hydroxide (Magnesium Hydroxide 400 Mg/5 Ml Susp 30 Ml Cup) 30 ml PO ONETIME ONE Stop: 04/23/21 05:35 Last Admin: 04/23/21 06:41 Dose: 30 ml Documented by: Morphine Sulfate (Morphine 2 Mg/Ml Syringe) 2 mg IVPUSH Q4H PRN PRN Reason: Pain (severe 7-10) Stop: 04/21/21 14:55 Potassium Chloride (Potassium Chloride 20 Meq Tab.Er) 20 meq PO TIDMEALS [facility] Stop: 04/21/21 17:01 Last Admin: 04/21/21 16:46 Dose: 20 meq Documented by: Propranolol HCl (Propranolol 20 Mg Tab) 40 mg PO DAILY [facility] Last Admin: 04/21/21 08:53 Dose: 40 mg Documented by: - Exam Physical Findings Comments:: General: confusion, Cooperative HEENT: EOMI, Pupils Equal, Pupils Reactive, mild icterus Neck: Supple, Trachea Midline, Full Range of Motion Lungs: Clear to Auscultation, Normal Respiratory Effort Cardiovascular: Regular Rate, Regular Rhythm GI/Abdominal Exam: Normal Bowel Sounds, Soft, Non-Tender, Distended Extremities: Normal Inspection, Normal Range of Motion, Non-Tender, no asterixis Skin: Warm, Dry, Intact (mild jaundice) Neurological: Strength Equal Bilateral, Normal Speech, Normal Tone, Sensation Intact Neuro Extensive - Mental Status: Normal Mood/Affect, disorientation to place, disorientation to time Psychiatric: Normal Mood - Patient Data Lab Results Last 24 hrs: Laboratory Results - last 24 hr 04/23/21 04/23/21 04/23/21 Range/Units 05:48 05:48 05:48 WBC 3.37 L (4.23-9.07) K/mm3 RBC 2.81 L (4.63-6.08) M/mm3 Hgb 10.2 L (13.7-17.5) gm/dl Hct 30.2 L (40.1-51.0) % MCV 107.5 H (79.0-92.2) fl MCH 36.3 H (25.7-32.2) pg MCHC 33.8 (32.2-35.5) g/dl RDW Std Deviation 59.2 H (35.1-43.9) fL Plt Count 72 L (163-337) K/mm3 MPV 9.7 (9.4-12.3) fl Neut % (Auto) 56.1 (34.0-67.9) % Lymph % (Auto) 29.4 (21.8-53.1) % Saline % (Auto) 7.1 (5.3-12.2) % Eos % (Auto) 6.5 (0.8-7.0) Baso % (Auto) 0.9 (0.1-1.2) % Neut # (Auto) 1.89 (1.78-5.38) K/mm3 Lymph # (Auto) 0.99 L (1.32-3.57) K/mm3 Saline # (Auto) 0.24 L (0.30-0.82) K/mm3 Eos # (Auto) 0.22 (0.04-0.54) K/mm3 Baso # (Auto) 0.03 (0.01-0.08) K/mm3 Manual Slide Review Abnormal smear Sodium 143 (136-145) mEq/L Potassium 4.0 (3.5-5.1) mEq/L Chloride 110 H (98-107) mEq/L Carbon Dioxide 23 (21-32) mEq/L Anion Gap 14.0 (5-15) BUN 6 L (7-18) mg/dL Creatinine 0.9 (0.7-1.3) mg/dL Est Cr Clr Drug Dosing 121.90 mL/min Estimated GFR (MDRD) > 60 (>60) mL/min BUN/Creatinine Ratio 6.7 L (14-18) Glucose 113 H (70-99) mg/dL Calcium 8.5 (8.5-10.1) mg/dL Total Bilirubin 2.9 H (0.2-1.0) mg/dL AST 55 H (15-37) U/L ALT 41 (16-63) U/L Alkaline Phosphatase 95 (46-116) U/L Ammonia 82 H (11-32) umol/L Total Protein 5.8 L (6.4-8.2) g/dl Albumin 2.4 L (3.4-5.0) g/dl Globulin 3.4 gm/dL Albumin/Globulin Ratio 0.7 L (1-2) Result Diagrams: 04/23/21 05:48 04/23/21 05:48 Sepsis Event Note - Evaluation Sepsis Screening Result: No Definite Risk - Focused Exam Vital Signs: Vital Signs Temp Pulse Resp BP Pulse Ox 04/23/21 08:46 36.7 C 61 17 111/67 100 04/23/21 05:19 36.7 C 67 16 122/66 98 - Problem List Review Problem List Initiated/Reviewed/Updated: Yes - My Orders Last 24 Hours: My Active Orders 04/22/21 15:00 Lactulose [Cephulac] 30 gm PO TID 04/23/21 08:32 Magnesium Hydroxide [Milk of Magnesia] 30 ml PO Q12H PRN 04/23/21 08:33 Abdomen 1V Flat [CR] Routine 04/23/21 09:41 Head wo Cont [CT] Routine 04/23/21 09:42 One To One Therapy [BH] Urgent 04/24/21 05:00 AMMONIA VENOUS [CHEM] DAILY CBC WITH AUTO DIFF [HEME] DAILY COMPREHENSIVE METABOLIC PN,CMP [CHEM] DAILY 04/25/21 05:00 AMMONIA VENOUS [CHEM] DAILY CBC WITH AUTO DIFF [HEME] DAILY COMPREHENSIVE METABOLIC PN,CMP [CHEM] DAILY - Plan Plan:: Patient is a 51-year-old male with a history of alcoholic liver cirrhosis and a history of GI bleeding who presented to the ER due to a mechanical ground-level fall. Assessment and plan: Hepatic encephalopathy -ammonia 86 -> 56 ->59->82 -was admitted to hospital on 04/12/2021 due to encephalopathy -increased lactulose 30 mg tid to titrate 3 BMs/day -continue home rifaximin 550mg bid -Discontinued home lasix 20mg daily -repeat ammonia daily in am -has not had BMs for days Alcoholic liver cirrhosis -MELD score - 16 points, 6.0% Estimated 3-Month Mortality -Discriminant function - 17.0 points. > 32 points indicates poor prognosis and patient may benefit from glucocorticoid therapy -continue folic acid, mv and thiamine Constipation -As per , he developed constipation recently -XRay abd -colace 100mg bid -Lactulose 30 g 3 times daily -Milk of magnesium 30 cc twice daily COPD -inhalers Thrombocytopenia -Patient has a pancytopenia -Hx of GI bleeding -No evidence of bleeding -repeat CBC in am Mechanical ground level fall -x 2 in the hospital -most likely related to his encephalopathy -no focal neurological deficits -PT/OT -One-to-one DVT prophylaxis: SCD. no pharmacological DVt prophylaxis due to thrombocytpenia and hx of GI bleeding Code status: full Deposition: PTOT recommended SNF PTOT. 1-2 more days Left of stay greater than 96 hours due to slow response to treatment
[2021-04-23] MEDS ORDERED: Bisacodyl 10 MG Supp RECTAL ONE (13:36)
[2021-04-23] MEDS: Amitriptyline 25 MG Tab PO SCH (20:22)
[2021-04-24] MEDS: Dextrose 5%-Lact Ringers w/KCl 1,000 ML IV SCH ×2 (05:56→21:55)
--- NOTE | 2021-04-24 08:31 | CR ---
Abdomen: Supine portable view of the abdomen was obtained. Gas and fecal material is seen within the colon. Surgical clips are seen from prior cholecystectomy. Mild degenerative change is seen within the left hip as well as prominent acetabulum off of both superior hips. No abnormal calcifications or soft tissue abnormality is appreciated. Impression: 1. Scattered gas and stool within the colon. 2. Other findings believed to be incidental. Diagnostic code #2 I agree with preliminary report from [facility] finalized on 04/23/21, 12:04 PM CDT, code 1
--- NOTE | 2021-04-24 08:58 | CT ---
Head CT Technique: Multiple axial sections through the brain were obtained. Comparison: Prior head CT study of 04/12/21. Findings: Ventricles along with basal cisterns and sulci over the convexities are slightly prominent. Scattered areas of diminished density are noted within the periventricular white matter and within portions of the subcortical white matter. No other abnormal parenchymal densities are seen. No evidence of intracranial hemorrhage. No midline shift or mass-effect is seen. Bone window settings were reviewed which show no acute abnormality within the visualized mastoid sinuses or paranasal sinuses. No acute calvarial abnormality is appreciated. Impression: 1. Findings having the appearance of senescent change which is somewhat abnormal for a patient of this age. No change from previous head CT study is seen. Please rule out any history of chronic drug disease as an etiology. 2. Nothing acute is otherwise seen. Diagnostic code #2 I agree with preliminary report from [facility] finalized on 04/23/21, 12:03 PM CDT, code 1
[2021-04-24] MEDS: Lactulose Soln 10 GM/15 ML 30 ML UD Cup PO SCH ×3 (09:18→21:33)
[2021-04-24] MEDS: Propranolol 20 MG Tab PO SCH (09:18)
[2021-04-24] MEDS: Potassium Chloride 10 MEQ Tab.ER PO SCH (09:18)
[2021-04-24] MEDS: Folic Acid 1 MG Tab PO SCH (09:18)
[2021-04-24] MEDS: Pantoprazole 40 MG Tab.CR PO SCH (09:18)
[2021-04-24] MEDS: Rifaximin 550 MG Tab PO SCH ×2 (09:18→21:32)
[2021-04-24] MEDS: Furosemide 20 MG Tab PO SCH (09:18)
[2021-04-24] MEDS: Multivitamin Tab PO SCH (09:18)
--- NOTE | 2021-04-24 12:52 | PCM.PN ---
- General Info Date of Service: 04/24/21 Admission Dx/Problem (Free Text): Admission Diagnosis/Problem Admission Diagnosis/Problem Hepatic encephalopathy Subjective Update: Patient is a 51-year-old male with a history of alcoholic liver cirrhosis and a history of GI bleeding who presented to the ER due to a mechanical ground-level fall. Pt is still confused. He can only answer simple questions He had a large bowel movement yesterday afternoon WBC 3.71, red blood cells of 2.94, platelets 80 Total bilirubin 2.7, AST 50, ALT 40, alkaline phos 105 Ammonia 65 - Review of Systems Systems Review Comment:: General: Reports: Weakness HEENT: Reports: No Symptoms Pulmonary: Reports: No Symptoms Cardiovascular: Reports: No Symptoms Gastrointestinal: Reports: No Symptoms Genitourinary: Reports: No Symptoms Musculoskeletal: Reports: No Symptoms Skin: Reports: No Symptoms Psychiatric: Reports: No Symptoms Hematologic/Lymphatic: Reports: No Symptoms Immunologic: Reports: No Symptoms - Patient Data Vitals - Most Recent: Last Vital Signs Temp 36.2 C 04/24/21 07:55 Pulse 66 04/24/21 07:55 Resp 18 04/24/21 07:55 BP 112/67 04/24/21 07:55 Pulse Ox 100 04/24/21 10:00 Weight - Most Recent: 98.974 kg I&O - Last 24 Hours: Intake & Output 04/23/21 04/24/21 04/24/21 22:59 06:59 14:59 Intake Total 1950 1180 Output Total 1200 650 Balance 750 530 Lab Results Last 24 Hours: Laboratory Results - last 24 hr 04/24/21 04/24/21 04/24/21 Range/Units 06:20 06:20 06:20 WBC 3.71 L (4.23-9.07) K/mm3 RBC 2.94 L (4.63-6.08) M/mm3 Hgb 10.6 L (13.7-17.5) gm/dl Hct 31.6 L (40.1-51.0) % MCV 107.5 H (79.0-92.2) fl MCH 36.1 H (25.7-32.2) pg MCHC 33.5 (32.2-35.5) g/dl RDW Std Deviation 61.3 H (35.1-43.9) fL Plt Count 80 L (163-337) K/mm3 MPV 9.7 (9.4-12.3) fl Neut % (Auto) 60.4 (34.0-67.9) % Lymph % (Auto) 26.1 (21.8-53.1) % Antelope % (Auto) 6.2 (5.3-12.2) % Eos % (Auto) 6.2 (0.8-7.0) Baso % (Auto) 0.8 (0.1-1.2) % Neut # (Auto) 2.24 (1.78-5.38) K/mm3 Lymph # (Auto) 0.97 L (1.32-3.57) K/mm3 Antelope # (Auto) 0.23 L (0.30-0.82) K/mm3 Eos # (Auto) 0.23 (0.04-0.54) K/mm3 Baso # (Auto) 0.03 (0.01-0.08) K/mm3 Manual Slide Review Abnormal smear Sodium 141 (136-145) mEq/L Potassium 4.0 (3.5-5.1) mEq/L Chloride 108 H (98-107) mEq/L Carbon Dioxide 24 (21-32) mEq/L Anion Gap 13.0 (5-15) BUN 6 L (7-18) mg/dL Creatinine 0.9 (0.7-1.3) mg/dL Est Cr Clr Drug Dosing 121.90 mL/min Estimated GFR (MDRD) > 60 (>60) mL/min BUN/Creatinine Ratio 6.7 L (14-18) Glucose 118 H (70-99) mg/dL Calcium 8.0 L (8.5-10.1) mg/dL Total Bilirubin 2.7 H (0.2-1.0) mg/dL AST 50 H (15-37) U/L ALT 40 (16-63) U/L Alkaline Phosphatase 105 (46-116) U/L Ammonia 65 H (11-32) umol/L Total Protein 6.0 L (6.4-8.2) g/dl Albumin 2.5 L (3.4-5.0) g/dl Globulin 3.5 gm/dL Albumin/Globulin Ratio 0.7 L (1-2) Med Orders - Current: Current Medications Albuterol/Ipratropium (Albuterol/Ipratropium 3.0-0.5 Mg/3 Ml Neb Soln) 3 ml NEB Q4H PRN PRN Reason: Shortness Of Breath/wheezing Amitriptyline HCl (Amitriptyline 25 Mg Tab) 100 mg PO BEDTIME [facility] Last Admin: 04/23/21 20:22 Dose: 100 mg Documented by: Docusate Sodium (Docusate Sodium 100 Mg Cap) 100 mg PO BID PRN PRN Reason: Constipation Folic Acid (Folic Acid 1 Mg Tab) 1 mg PO DAILY [facility] Last Admin: 04/24/21 09:18 Dose: 1 mg Documented by: Furosemide (Furosemide 20 Mg Tab) 20 mg PO DAILY [facility] Last Admin: 04/24/21 09:18 Dose: 20 mg Documented by: Promethazine HCl 12.5 mg/ (Sodium Chloride) 50.5 mls @ 100 mls/hr IV Q6H PRN PRN Reason: Nausea/Vomiting Potassium Cl/Dextrose/Lact Ringer's (D5 Lr With 20 Meq Kcl) 1,000 mls @ 50 mls/hr IV ASDIRECTED [facility] Last Admin: 04/24/21 05:56 Dose: 50 mls/hr Documented by: Lactulose (Lactulose Soln 10 Gm/15 Ml 30 Ml Ud Cup) 30 gm PO TID [facility] Last Admin: 04/24/21 09:18 Dose: 30 gm Documented by: Magnesium Hydroxide (Magnesium Hydroxide 400 Mg/5 Ml Susp 30 Ml Cup) 30 ml PO Q12H PRN PRN Reason: Constipation Multivitamins/Minerals/Vitamin C (Multivitamin Tab) 1 tab PO DAILY [facility] Last Admin: 04/24/21 09:18 Dose: 1 tab Documented by: Oxycodone HCl (Oxycodone 5 Mg Tab) 5 mg PO Q4H PRN PRN Reason: Pain (moderate 4-6) Pantoprazole Sodium (Pantoprazole 40 Mg Tab.Cr) 40 mg PO DAILY [facility] Last Admin: 04/24/21 09:18 Dose: 40 mg Documented by: Potassium Chloride (Potassium Chloride 10 Meq Tab.Er) 10 meq PO DAILY [facility] Last Admin: 04/24/21 09:18 Dose: 10 meq Documented by: Propranolol HCl (Propranolol 20 Mg Tab) 20 mg PO DAILY [facility] Last Admin: 04/24/21 09:18 Dose: 20 mg Documented by: Rifaximin (Rifaximin 550 Mg Tab) 550 mg PO BID [facility] Last Admin: 04/24/21 09:18 Dose: 550 mg Documented by: Thiamine HCl (Thiamine 100 Mg Tab) 100 mg PO Q48H [facility] Last Admin: 04/23/21 08:13 Dose: 100 mg Documented by: Discontinued Medications Bisacodyl (Bisacodyl 10 Mg Supp) 10 mg RECTAL ONETIME ONE Stop: 04/23/21 13:37 Last Admin: 04/23/21 13:45 Dose: 10 mg Documented by: Dextrose/Lactated Ringer's (Dextrose 5%-Lactated Ringers) 1,000 mls @ 125 mls/hr IV ASDIRECTED [facility] Last Admin: 04/21/21 14:47 Dose: 125 mls/hr Documented by: Magnesium Sulfate 4 gm/ Premix 50 mls @ 12.5 mls/hr IV ONETIME ONE Stop: 04/21/21 12:59 Last Admin: 04/21/21 09:25 Dose: 12.5 mls/hr Documented by: Lactulose (Lactulose Soln 10 Gm/15 Ml 30 Ml Ud Cup) 20 gm PO TID [facility] Last Admin: 04/22/21 08:36 Dose: 20 gm Documented by: Magnesium Hydroxide (Magnesium Hydroxide 400 Mg/5 Ml Susp 30 Ml Cup) 30 ml PO ONETIME ONE Stop: 04/23/21 05:35 Last Admin: 04/23/21 06:41 Dose: 30 ml Documented by: Morphine Sulfate (Morphine 2 Mg/Ml Syringe) 2 mg IVPUSH Q4H PRN PRN Reason: Pain (severe 7-10) Stop: 04/21/21 14:55 Potassium Chloride (Potassium Chloride 20 Meq Tab.Er) 20 meq PO TIDMEALS [facility] Stop: 04/21/21 17:01 Last Admin: 04/21/21 16:46 Dose: 20 meq Documented by: Propranolol HCl (Propranolol 20 Mg Tab) 40 mg PO DAILY [facility] Last Admin: 04/21/21 08:53 Dose: 40 mg Documented by: - Exam Physical Findings Comments:: General: confusion, Cooperative HEENT: EOMI, Pupils Equal, Pupils Reactive, mild icterus Neck: Supple, Trachea Midline, Full Range of Motion Lungs: Clear to Auscultation, Normal Respiratory Effort Cardiovascular: Regular Rate, Regular Rhythm GI/Abdominal Exam: Normal Bowel Sounds, Soft, Non-Tender, Distended Extremities: Normal Inspection, Normal Range of Motion, Non-Tender, no asterixis Skin: Warm, Dry, Intact (mild jaundice) Neurological: Strength Equal Bilateral, Normal Speech, Normal Tone, Sensation Intact Neuro Extensive - Mental Status: Normal Mood/Affect, disorientation to place, disorientation to time Psychiatric: Normal Mood - Patient Data Lab Results Last 24 hrs: Laboratory Results - last 24 hr 04/24/21 04/24/21 04/24/21 Range/Units 06:20 06:20 06:20 WBC 3.71 L (4.23-9.07) K/mm3 RBC 2.94 L (4.63-6.08) M/mm3 Hgb 10.6 L (13.7-17.5) gm/dl Hct 31.6 L (40.1-51.0) % MCV 107.5 H (79.0-92.2) fl MCH 36.1 H (25.7-32.2) pg MCHC 33.5 (32.2-35.5) g/dl RDW Std Deviation 61.3 H (35.1-43.9) fL Plt Count 80 L (163-337) K/mm3 MPV 9.7 (9.4-12.3) fl Neut % (Auto) 60.4 (34.0-67.9) % Lymph % (Auto) 26.1 (21.8-53.1) % Antelope % (Auto) 6.2 (5.3-12.2) % Eos % (Auto) 6.2 (0.8-7.0) Baso % (Auto) 0.8 (0.1-1.2) % Neut # (Auto) 2.24 (1.78-5.38) K/mm3 Lymph # (Auto) 0.97 L (1.32-3.57) K/mm3 Antelope # (Auto) 0.23 L (0.30-0.82) K/mm3 Eos # (Auto) 0.23 (0.04-0.54) K/mm3 Baso # (Auto) 0.03 (0.01-0.08) K/mm3 Manual Slide Review Abnormal smear Sodium 141 (136-145) mEq/L Potassium 4.0 (3.5-5.1) mEq/L Chloride 108 H (98-107) mEq/L Carbon Dioxide 24 (21-32) mEq/L Anion Gap 13.0 (5-15) BUN 6 L (7-18) mg/dL Creatinine 0.9 (0.7-1.3) mg/dL Est Cr Clr Drug Dosing 121.90 mL/min Estimated GFR (MDRD) > 60 (>60) mL/min BUN/Creatinine Ratio 6.7 L (14-18) Glucose 118 H (70-99) mg/dL Calcium 8.0 L (8.5-10.1) mg/dL Total Bilirubin 2.7 H (0.2-1.0) mg/dL AST 50 H (15-37) U/L ALT 40 (16-63) U/L Alkaline Phosphatase 105 (46-116) U/L Ammonia 65 H (11-32) umol/L Total Protein 6.0 L (6.4-8.2) g/dl Albumin 2.5 L (3.4-5.0) g/dl Globulin 3.5 gm/dL Albumin/Globulin Ratio 0.7 L (1-2) Result Diagrams: 04/24/21 06:20 04/24/21 06:20 Sepsis Event Note - Evaluation Sepsis Screening Result: No Definite Risk - Focused Exam Vital Signs: Vital Signs Temp Pulse Resp BP Pulse Ox Pulse Ox 04/24/21 10:00 100 04/24/21 07:55 36.2 C 66 18 112/67 100 04/24/21 06:07 36.8 C 66 16 103/80 97 - Problem List Review Problem List Initiated/Reviewed/Updated: Yes - My Orders Last 24 Hours: My Active Orders 04/25/21 05:00 AMMONIA VENOUS [CHEM] DAILY CBC WITH AUTO DIFF [HEME] DAILY COMPREHENSIVE METABOLIC PN,CMP [CHEM] DAILY - Plan Plan:: Patient is a 51-year-old male with a history of alcoholic liver cirrhosis and a history of GI bleeding who presented to the ER due to a mechanical ground-level fall. Assessment and plan: Hepatic encephalopathy -ammonia 86 -> 56 ->59->82->65 -was admitted to hospital on 04/12/2021 due to encephalopathy -increased lactulose 30 mg tid to titrate 3 BMs/day. He had a large BM yesterday afternoon -continue home rifaximin 550mg bid -Discontinued home lasix 20mg daily -repeat ammonia daily in am -has not had BMs for days -He has a constipation which most likely resulted in hyperammonemia Alcoholic liver cirrhosis -MELD score - 16 points, 6.0% Estimated 3-Month Mortality -Discriminant function - 17.0 points. > 32 points indicates poor prognosis and patient may benefit from glucocorticoid therapy -continue folic acid, mv and thiamine -Liver enzymes trending down Constipation -As per , he developed constipation recently -colace 100mg bid -Lactulose 30 g 3 times daily -Milk of magnesium 30 cc twice daily -had a large BM yesterday afternoon COPD -inhalers Thrombocytopenia -Patient has a pancytopenia -Hx of GI bleeding -No evidence of bleeding -repeat CBC in am Mechanical ground level fall -x 2 in the hospital -most likely related to his encephalopathy -no focal neurological deficits -PT/OT -One-to-one DVT prophylaxis: SCD. no pharmacological DVt prophylaxis due to thrombocytpenia and hx of GI bleeding Code status: full Deposition: PTOT recommended SNF PTOT. 1-2 more days Length of stay greater than 96 hours due to slow response to treatment
[2021-04-24] MEDS: Amitriptyline 25 MG Tab PO SCH (22:21)
[2021-04-24] MEDS ORDERED: Sodium Chloride 0.9% 250 ML IV ONE (22:30)
[2021-04-24] MEDS ORDERED: Sodium Chloride 0.9% 250 ML ONE (22:51)
[2021-04-25] MEDS: Potassium Chloride 10 MEQ Tab.ER PO SCH (08:17)
[2021-04-25] MEDS: Furosemide 20 MG Tab PO SCH (08:18)
[2021-04-25] MEDS: Thiamine 100 MG Tab PO SCH (08:18)
[2021-04-25] MEDS: Rifaximin 550 MG Tab PO SCH ×2 (08:18→20:24)
[2021-04-25] MEDS: Propranolol 10 MG Tab PO SCH (08:18)
[2021-04-25] MEDS: Folic Acid 1 MG Tab PO SCH (08:18)
[2021-04-25] MEDS: Pantoprazole 40 MG Tab.CR PO SCH (08:18)
[2021-04-25] MEDS: Lactulose Soln 10 GM/15 ML 30 ML UD Cup PO SCH ×3 (08:19→20:24)
[2021-04-25] MEDS: Multivitamin Tab PO SCH (08:19)
--- NOTE | 2021-04-25 08:46 | PCM.PN ---
<Peterson Guzman - Last Filed: 04/25/21 12:56> - General Info Date of Service: 04/25/21 Admission Dx/Problem (Free Text): Admission Diagnosis/Problem Admission Diagnosis/Problem Hepatic encephalopathy Functional Status: Reports: Pain Controlled, Tolerating Diet, Ambulating, Urinating. Denies: New Symptoms - Review of Systems General: Reports: Weakness. Denies: Fever, Fatigue, Malaise, Chills HEENT: Denies: Headaches, Sore Throat Pulmonary: Denies: Shortness of Breath, Cough, Sputum, Wheezing Cardiovascular: Denies: Chest Pain, Palpitations, Edema Gastrointestinal: Reports: Constipation. Denies: Abdominal Pain, Diarrhea, Nausea, Vomiting Genitourinary: Denies: Pain Skin: Denies: Cyanosis Neurological: Reports: Confusion, Pre-Existing Deficit, Difficulty Walking, Weakness, Gait Disturbance. Denies: Dizziness, Headache, Numbness, Paresthesia, Seizure, Syncope, Tingling, Tremors, Change in Speech Systems Review Comment:: Patient remains quite confused but is able to answer basic questions. Patient is alert to person and knows he is in [place] but is unable to recognize that he is in the hospital. He does not know the date and says it is 2000. He believes it is fall. - Patient Data Vitals - Most Recent: Last Vital Signs Temp 98.1 F 04/25/21 07:50 Pulse 73 04/25/21 08:18 Resp 14 04/25/21 07:50 BP 101/64 04/25/21 08:18 Pulse Ox 100 04/25/21 07:50 Weight - Most Recent: 98.702 kg I&O - Last 24 Hours: Intake & Output 04/24/21 04/25/21 04/25/21 22:59 06:59 14:59 Intake Total 1131 1320 Output Total 1925 700 Balance -794 620 Lab Results Last 24 Hours: Laboratory Results - last 24 hr 04/25/21 04/25/21 04/25/21 Range/Units 05:53 05:53 05:53 WBC 3.99 L (4.23-9.07) K/mm3 RBC 2.84 L (4.63-6.08) M/mm3 Hgb 10.4 L (13.7-17.5) gm/dl Hct 30.4 L (40.1-51.0) % MCV 107.0 H (79.0-92.2) fl MCH 36.6 H (25.7-32.2) pg MCHC 34.2 (32.2-35.5) g/dl RDW Std Deviation 60.1 H (35.1-43.9) fL Plt Count 77 L (163-337) K/mm3 MPV 9.5 (9.4-12.3) fl Neut % (Auto) 61.7 (34.0-67.9) % Lymph % (Auto) 24.8 (21.8-53.1) % Tyler % (Auto) 7.0 (5.3-12.2) % Eos % (Auto) 6.0 (0.8-7.0) Baso % (Auto) 0.5 (0.1-1.2) % Neut # (Auto) 2.46 (1.78-5.38) K/mm3 Lymph # (Auto) 0.99 L (1.32-3.57) K/mm3 Tyler # (Auto) 0.28 L (0.30-0.82) K/mm3 Eos # (Auto) 0.24 (0.04-0.54) K/mm3 Baso # (Auto) 0.02 (0.01-0.08) K/mm3 Manual Slide Review Abnormal smear Sodium 144 (136-145) mEq/L Potassium 4.0 (3.5-5.1) mEq/L Chloride 110 H (98-107) mEq/L Carbon Dioxide 26 (21-32) mEq/L Anion Gap 12.0 (5-15) BUN 6 L (7-18) mg/dL Creatinine 0.9 (0.7-1.3) mg/dL Est Cr Clr Drug Dosing 121.90 mL/min Estimated GFR (MDRD) > 60 (>60) mL/min BUN/Creatinine Ratio 6.7 L (14-18) Glucose 115 H (70-99) mg/dL Calcium 8.0 L (8.5-10.1) mg/dL Total Bilirubin 2.5 H (0.2-1.0) mg/dL AST 55 H (15-37) U/L ALT 50 (16-63) U/L Alkaline Phosphatase 134 H (46-116) U/L Ammonia 72 H (11-32) umol/L Total Protein 5.8 L (6.4-8.2) g/dl Albumin 2.4 L (3.4-5.0) g/dl Globulin 3.4 gm/dL Albumin/Globulin Ratio 0.7 L (1-2) Med Orders - Current: Current Medications Albuterol/Ipratropium (Albuterol/Ipratropium 3.0-0.5 Mg/3 Ml Neb Soln) 3 ml NEB Q4H PRN PRN Reason: Shortness Of Breath/wheezing Amitriptyline HCl (Amitriptyline 25 Mg Tab) 100 mg PO BEDTIME [facility] Last Admin: 04/24/21 22:21 Dose: Not Given Documented by: Docusate Sodium (Docusate Sodium 100 Mg Cap) 100 mg PO BID PRN PRN Reason: Constipation Folic Acid (Folic Acid 1 Mg Tab) 1 mg PO DAILY [facility] Last Admin: 04/25/21 08:18 Dose: 1 mg Documented by: Furosemide (Furosemide 20 Mg Tab) 20 mg PO DAILY [facility] Last Admin: 04/25/21 08:18 Dose: 20 mg Documented by: Promethazine HCl 12.5 mg/ (Sodium Chloride) 50.5 mls @ 100 mls/hr IV Q6H PRN PRN Reason: Nausea/Vomiting Potassium Cl/Dextrose/Lact Ringer's (D5 Lr With 20 Meq Kcl) 1,000 mls @ 50 mls/hr IV ASDIRECTED [facility] Last Admin: 04/24/21 21:55 Dose: 50 mls/hr Documented by: Lactulose (Lactulose Soln 10 Gm/15 Ml 30 Ml Ud Cup) 30 gm PO TID [facility] Last Admin: 04/25/21 08:19 Dose: 30 gm Documented by: Magnesium Hydroxide (Magnesium Hydroxide 400 Mg/5 Ml Susp 30 Ml Cup) 30 ml PO Q12H PRN PRN Reason: Constipation Multivitamins/Minerals/Vitamin C (Multivitamin Tab) 1 tab PO DAILY [facility] Last Admin: 04/25/21 08:19 Dose: 1 tab Documented by: Oxycodone HCl (Oxycodone 5 Mg Tab) 5 mg PO Q4H PRN PRN Reason: Pain (moderate 4-6) Pantoprazole Sodium (Pantoprazole 40 Mg Tab.Cr) 40 mg PO DAILY [facility] Last Admin: 04/25/21 08:18 Dose: 40 mg Documented by: Potassium Chloride (Potassium Chloride 10 Meq Tab.Er) 10 meq PO DAILY [facility] Last Admin: 04/25/21 08:17 Dose: 10 meq Documented by: Propranolol HCl (Propranolol 10 Mg Tab) 10 mg PO DAILY [facility] Last Admin: 04/25/21 08:18 Dose: 10 mg Documented by: Rifaximin (Rifaximin 550 Mg Tab) 550 mg PO BID [facility] Last Admin: 04/25/21 08:18 Dose: 550 mg Documented by: Thiamine HCl (Thiamine 100 Mg Tab) 100 mg PO Q48H [facility] Last Admin: 04/25/21 08:18 Dose: 100 mg Documented by: Discontinued Medications Bisacodyl (Bisacodyl 10 Mg Supp) 10 mg RECTAL ONETIME ONE Stop: 04/23/21 13:37 Last Admin: 04/23/21 13:45 Dose: 10 mg Documented by: Dextrose/Lactated Ringer's (Dextrose 5%-Lactated Ringers) 1,000 mls @ 125 mls/hr IV ASDIRECTED [facility] Last Admin: 04/21/21 14:47 Dose: 125 mls/hr Documented by: Magnesium Sulfate 4 gm/ Premix 50 mls @ 12.5 mls/hr IV ONETIME ONE Stop: 04/21/21 12:59 Last Admin: 04/21/21 09:25 Dose: 12.5 mls/hr Documented by: Sodium Chloride (Normal Saline) 250 mls @ 999 mls/hr IV .BOLUS ONE Stop: 04/24/21 22:45 Last Admin: 04/24/21 22:54 Dose: Not Given Documented by: Sodium Chloride (Normal Saline) Confirm Administered Dose 250 mls @ as directed .ROUTE .STK-MED ONE Stop: 04/24/21 22:52 Last Admin: 04/24/21 22:53 Dose: 999 mls/hr Documented by: Lactulose (Lactulose Soln 10 Gm/15 Ml 30 Ml Ud Cup) 20 gm PO TID [facility] Last Admin: 04/22/21 08:36 Dose: 20 gm Documented by: Magnesium Hydroxide (Magnesium Hydroxide 400 Mg/5 Ml Susp 30 Ml Cup) 30 ml PO ONETIME ONE Stop: 04/23/21 05:35 Last Admin: 04/23/21 06:41 Dose: 30 ml Documented by: Morphine Sulfate (Morphine 2 Mg/Ml Syringe) 2 mg IVPUSH Q4H PRN PRN Reason: Pain (severe 7-10) Stop: 04/21/21 14:55 Potassium Chloride (Potassium Chloride 20 Meq Tab.Er) 20 meq PO TIDMEALS [facility] Stop: 04/21/21 17:01 Last Admin: 04/21/21 16:46 Dose: 20 meq Documented by: Propranolol HCl (Propranolol 20 Mg Tab) 40 mg PO DAILY [facility] Last Admin: 04/21/21 08:53 Dose: 40 mg Documented by: Propranolol HCl (Propranolol 20 Mg Tab) 20 mg PO DAILY [facility] Last Admin: 04/24/21 09:18 Dose: 20 mg Documented by: - Exam Quality Assessment: DVT Prophylaxis. No: Supplemental Oxygen, Urine Catheter General: Alert, Cooperative, No Acute Distress. No: Oriented HEENT: Pupils Equal, Pupils Reactive, Mucous Membr. Moist/[place], Scleral Icterus Neck: Supple, Trachea Midline Lungs: Clear to Auscultation, Normal Respiratory Effort Cardiovascular: Regular Rate, Regular Rhythm GI/Abdominal Exam: Normal Bowel Sounds, Soft, Non-Tender, No Distention (Male) Exam: Deferred Back Exam: Normal Inspection, Full Range of Motion Extremities: Normal Inspection, Normal Range of Motion, Non-Tender, No Pedal Edema, Normal Capillary Refill Skin: Warm, Dry, Intact, Other (Mildly jaundiced) Neurological: No New Focal Deficit Psy/Mental Status: Alert - Patient Data Lab Results Last 24 hrs: Laboratory Results - last 24 hr 04/25/21 04/25/21 04/25/21 Range/Units 05:53 05:53 05:53 WBC 3.99 L (4.23-9.07) K/mm3 RBC 2.84 L (4.63-6.08) M/mm3 Hgb 10.4 L (13.7-17.5) gm/dl Hct 30.4 L (40.1-51.0) % MCV 107.0 H (79.0-92.2) fl MCH 36.6 H (25.7-32.2) pg MCHC 34.2 (32.2-35.5) g/dl RDW Std Deviation 60.1 H (35.1-43.9) fL Plt Count 77 L (163-337) K/mm3 MPV 9.5 (9.4-12.3) fl Neut % (Auto) 61.7 (34.0-67.9) % Lymph % (Auto) 24.8 (21.8-53.1) % Tyler % (Auto) 7.0 (5.3-12.2) % Eos % (Auto) 6.0 (0.8-7.0) Baso % (Auto) 0.5 (0.1-1.2) % Neut # (Auto) 2.46 (1.78-5.38) K/mm3 Lymph # (Auto) 0.99 L (1.32-3.57) K/mm3 Tyler # (Auto) 0.28 L (0.30-0.82) K/mm3 Eos # (Auto) 0.24 (0.04-0.54) K/mm3 Baso # (Auto) 0.02 (0.01-0.08) K/mm3 Manual Slide Review Abnormal smear Sodium 144 (136-145) mEq/L Potassium 4.0 (3.5-5.1) mEq/L Chloride 110 H (98-107) mEq/L Carbon Dioxide 26 (21-32) mEq/L Anion Gap 12.0 (5-15) BUN 6 L (7-18) mg/dL Creatinine 0.9 (0.7-1.3) mg/dL Est Cr Clr Drug Dosing 121.90 mL/min Estimated GFR (MDRD) > 60 (>60) mL/min BUN/Creatinine Ratio 6.7 L (14-18) Glucose 115 H (70-99) mg/dL Calcium 8.0 L (8.5-10.1) mg/dL Total Bilirubin 2.5 H (0.2-1.0) mg/dL AST 55 H (15-37) U/L ALT 50 (16-63) U/L Alkaline Phosphatase 134 H (46-116) U/L Ammonia 72 H (11-32) umol/L Total Protein 5.8 L (6.4-8.2) g/dl Albumin 2.4 L (3.4-5.0) g/dl Globulin 3.4 gm/dL Albumin/Globulin Ratio 0.7 L (1-2) Result Diagrams: 04/25/21 05:53 04/25/21 05:53 Sepsis Event Note - Evaluation Sepsis Screening Result: No Definite Risk - Focused Exam Vital Signs: Vital Signs Temp Pulse Resp BP Pulse Ox 04/25/21 08:18 73 101/64 04/25/21 07:50 98.1 F 73 14 101/64 100 04/25/21 05:18 98.2 F 71 18 109/69 99 04/24/21 23:17 69 108/70 99 04/24/21 21:38 66 92/56 L 100 04/24/21 21:25 97.9 F 84 95/64 79 L - Problem List & Annotations (1) Fall during current hospitalization SNOMED Code(s): 8451206 Code(s): W19.XXXA - UNSPECIFIED FALL, INITIAL ENCOUNTER; Y92.239 - UNSP PLACE IN HOSPITAL PLACE Status: Acute Priority: High Current Visit: Yes Qualifiers: Encounter type: initial encounter Qualified Code(s): W19.XXXA - Unspecified fall, initial encounter; Y92.239 - Unspecified place in hospital as the place of occurrence of the external cause (2) Elevated INR SNOMED Code(s): 676432908 Code(s): R79.1 - ABNORMAL COAGULATION PROFILE Status: Chronic Priority: Medium Current Visit: Yes (3) Fall at home SNOMED Code(s): 17334541 Code(s): W19.XXXA - UNSPECIFIED FALL, INITIAL ENCOUNTER; Y92.009 - UNSP PLACE IN UNSP NON-INSTITUT (PRIVATE) RESIDENCE PLACE Status: Acute Priority: High Current Visit: Yes Qualifiers: Encounter type: initial encounter Qualified Code(s): W19.XXXA - Unspecified fall, initial encounter; Y92.009 - Unspecified place in unspecified non-institu tional (private) residence as the place of occurrence of the external cause (4) Hepatic encephalopathy SNOMED Code(s): 59528267 Code(s): K72.90 - HEPATIC FAILURE, UNSPECIFIED WITHOUT COMA Status: Chronic Priority: High Current Visit: Yes (5) Liver cirrhosis SNOMED Code(s): 72826406 Code(s): K74.60 - UNSPECIFIED CIRRHOSIS OF LIVER Status: Chronic Priority: High Current Visit: Yes Qualifiers: Hepatic cirrhosis type: alcoholic cirrhosis Ascites presence: unspecified Qualified Code(s): K70.30 - Alcoholic cirrhosis of liver without ascites (6) Constipation SNOMED Code(s): 41688237 Code(s): K59.00 - CONSTIPATION, UNSPECIFIED Status: Acute Priority: High Current Visit: Yes Qualifiers: Constipation type: unspecified constipation type Qualified Code(s): K59.00 - Constipation, unspecified (7) COPD (chronic obstructive pulmonary disease) SNOMED Code(s): 64790207 Code(s): J44.9 - CHRONIC OBSTRUCTIVE PULMONARY DISEASE, UNSPECIFIED Status: Chronic Priority: High Current Visit: Yes Qualifiers: COPD type: unspecified COPD Qualified Code(s): J44.9 - Chronic obstructive pulmonary disease, unspecified (8) Thrombocytopenia SNOMED Code(s): 818362054 Code(s): D69.6 - THROMBOCYTOPENIA, UNSPECIFIED Status: Chronic Priority: Medium Current Visit: Yes (9) Hospital admission due to social situation SNOMED Code(s): 654972455 Code(s): Z60.9 - PROBLEM RELATED TO SOCIAL ENVIRONMENT, UNSPECIFIED Status: Acute Priority: High Current Visit: Yes - Problem List Review Problem List Initiated/Reviewed/Updated: Yes - Assessment Assessment:: 04/21/2021 Patient is a 51-year-old male with a history of alcoholic liver cirrhosis and a history of GI bleeding who presented to the ER due to a mechanical ground-level fall. Pt is still confused. He can not give reliable to answers to questions. Blood pressure was soft in the morning but improved in the afternoon He is now on room air Potassium 3.3, magnesium 1.7, Hemoglobin 9.8, platelets 168 T bilirubin 3.3, ammonia 56 Patient is a 51-year-old male with a history of alcoholic liver cirrhosis and a history of GI bleeding who presented to the ER due to a mechanical ground-level fall. Pt is still confused. He can only answer simple questions Blood pressure is improving He is now on room air with good oxygen saturation Platelets 68 Total bilirubin 3.3 Ammonia 59 04/23/2021 Patient is a 51-year-old male with a history of alcoholic liver cirrhosis and a history of GI bleeding who presented to the ER due to a mechanical ground-level fall. Pt is still confused. He can only answer simple questions He has constiption. He has not had BM for days Vital signs are stable at acceptable He is on room air with good oxygen saturation Hemoglobin 10.2, WBC 3.37, platelets 72, red blood cells of 2.81 Potassium 4.0, creatinine 0.9 Total bilirubin 2.9, AST 55, ammonia 82 Patient fell again this morning XRay abd - moderate feces is present throughout the colon. The bewel gas pattern is otherwise unremarkable CT of head - no acute change 04/24/2021 Patient is a 51-year-old male with a history of alcoholic liver cirrhosis and a history of GI bleeding who presented to the ER due to a mechanical ground-level fall. Pt is still confused. He can only answer simple questions He had a large bowel movement yesterday afternoon WBC 3.71, red blood cells of 2.94, platelets 80 Total bilirubin 2.7, AST 50, ALT 40, alkaline phos 105 Ammonia 65 04/25/2021 This is a 51-year-old male known to the service who presented to ED on 04/20/2021 with confusion unable to walk. He was admitted from April 12 through April 17 due to a fever and possible UTI. Has a history of alcoholic induced cirrhosis and hepatic encephalopathy. He is chronically jaundiced. Has been falling frequently. During his admission in early April plan was for patient to discharge to SNF, as his was reporting difficulty caring for him. She again returned to the ER reporting difficulty caring for him and she believes he needs placement. He has been working with PT and OT who are recommending SNF placement. Today his WBC is 3.99. Hemoglobin 10.4. Platelet 77,000. Sodium is 144. Potassium 4.0. Chloride 110. Carbon dioxide 26. Anion gap 12.0. BUN is 6. Creatinine 0.9. GFR greater than 60. Glucose is 115. Calcium 8.0. Total bilirubin is 2.5. AST is 55, ALT 50, alkaline phosphatase 134. Ammonia is 72. Protein is 5.8. Albumin is 2.4. Today his has been discussing the possibility of the patient returning home. The patient has had 2 falls while here. He did walk with PT and OT today who said he had his best walk yet today, however he was requiring constant cues to keep his speed down in for assistance while turning. We continue to recommend SNF placement. Family meeting has been called for 1300 today to discuss disposition plan. Otherwise patient remains quite stable. Suspect he will continue to have episodes of improvement and then regression. He continues to receive lactulose 3 times a day. Last BM was 04/23/2021. He remains very confused. During his last visit cognitive evaluation was performed and was 4 out of 30. He continues to ask when he can return home. - Plan Plan:: Patient is a 51-year-old male with a history of alcoholic liver cirrhosis and a history of GI bleeding who presented to the ER due to a mechanical ground-level fall. Assessment and plan: Hepatic encephalopathy -Ammonia 86 -> 56 ->59->82->65-->72 -Was admitted to hospital on 04/12/2021 due to encephalopathy -Increased lactulose 30 mg tid to titrate 3 BMs/day. He had a large BM on 04/23/2021 -Continue home rifaximin 550mg bid -Discontinued home lasix 20mg daily -Repeat ammonia daily in am -He has a constipation which most likely resulted in hyperammonemia Alcoholic liver cirrhosis -MELD score - 16 points, 6.0% Estimated 3-Month Mortality -Discriminant function - 17.0 points. > 32 points indicates poor prognosis and patient may benefit from glucocorticoid therapy -continue folic acid, mv and thiamine -Liver enzymes trending down Constipation -As per , he developed constipation recently -Colace 100mg bid -Lactulose 30 g 3 times daily -Milk of magnesium 30 cc twice daily -Had a large BM on 04/23/2021 COPD -Continue home inhalers Thrombocytopenia -Patient has a pancytopenia -Hx of GI bleeding -No evidence of bleeding -Repeat CBC in am Mechanical ground level fall Hospital admission due to social situation -Has been falling at home -x 2 in the hospital -most likely related to his encephalopathy -no focal neurological deficits -PT/OT -One-to-one therapy DVT prophylaxis: SCD. No pharmacological DVt prophylaxis due to thrombocytopenia and hx of GI bleeding Code status: full PCP: Dr. Barber Deposition: PT/OT Continues to recommend SNF. Pending placement Length of stay greater than 96 hours due to slow response to treatment; Difficulty with discharge disposition. <Govind Rivera - Last Filed: 04/26/21 06:52> - Patient Data Vitals - Most Recent: Last Vital Signs Temp 36.6 C 04/26/21 05:07 Pulse 75 04/26/21 05:07 Resp 16 04/26/21 05:07 BP 132/73 04/26/21 05:07 Pulse Ox 99 04/26/21 05:07 I&O - Last 24 Hours: Intake & Output 04/25/21 04/25/21 04/26/21 14:59 22:59 06:59 Intake Total 1327 400 Output Total 600 1200 Balance 727 -800 Lab Results Last 24 Hours: Laboratory Results - last 24 hr 04/26/21 Range/Units 05:30 Sodium 145 (136-145) mEq/L Potassium 3.9 (3.5-5.1) mEq/L Chloride 111 H (98-107) mEq/L Carbon Dioxide 25 (21-32) mEq/L Anion Gap 12.9 (5-15) BUN 6 L (7-18) mg/dL Creatinine 0.9 (0.7-1.3) mg/dL Est Cr Clr Drug Dosing 121.90 mL/min Estimated GFR (MDRD) > 60 (>60) mL/min BUN/Creatinine Ratio 6.7 L (14-18) Glucose 126 H (70-99) mg/dL Calcium 8.2 L (8.5-10.1) mg/dL Magnesium 1.8 (1.8-2.4) mg/dL Total Bilirubin 2.8 H (0.2-1.0) mg/dL AST 51 H (15-37) U/L ALT 48 (16-63) U/L Alkaline Phosphatase 133 H (46-116) U/L Total Protein 6.1 L (6.4-8.2) g/dl Albumin 2.5 L (3.4-5.0) g/dl Globulin 3.6 gm/dL Albumin/Globulin Ratio 0.7 L (1-2) Med Orders - Current: Current Medications Albuterol/Ipratropium (Albuterol/Ipratropium 3.0-0.5 Mg/3 Ml Neb Soln) 3 ml NEB Q4H PRN PRN Reason: Shortness Of Breath/wheezing Amitriptyline HCl (Amitriptyline 25 Mg Tab) 100 mg PO BEDTIME [facility] Last Admin: 04/25/21 20:23 Dose: 100 mg Documented by: Docusate Sodium (Docusate Sodium 100 Mg Cap) 100 mg PO BID PRN PRN Reason: Constipation Folic Acid (Folic Acid 1 Mg Tab) 1 mg PO DAILY [facility] Last Admin: 04/25/21 08:18 Dose: 1 mg Documented by: Furosemide (Furosemide 20 Mg Tab) 20 mg PO DAILY [facility] Last Admin: 04/25/21 08:18 Dose: 20 mg Documented by: Promethazine HCl 12.5 mg/ (Sodium Chloride) 50.5 mls @ 100 mls/hr IV Q6H PRN PRN Reason: Nausea/Vomiting Lactulose (Lactulose Soln 10 Gm/15 Ml 30 Ml Ud Cup) 30 gm PO TID [facility] Last Admin: 04/25/21 20:24 Dose: 30 gm Documented by: Magnesium Hydroxide (Magnesium Hydroxide 400 Mg/5 Ml Susp 30 Ml Cup) 30 ml PO Q12H PRN PRN Reason: Constipation Multivitamins/Minerals/Vitamin C (Multivitamin Tab) 1 tab PO DAILY [facility] Last Admin: 04/25/21 08:19 Dose: 1 tab Documented by: Oxycodone HCl (Oxycodone 5 Mg Tab) 5 mg PO Q4H PRN PRN Reason: Pain (moderate 4-6) Pantoprazole Sodium (Pantoprazole 40 Mg Tab.Cr) 40 mg PO DAILY [facility] Last Admin: 04/25/21 08:18 Dose: 40 mg Documented by: Potassium Chloride (Potassium Chloride 10 Meq Tab.Er) 10 meq PO DAILY [facility] Last Admin: 04/25/21 08:17 Dose: 10 meq Documented by: Propranolol HCl (Propranolol 10 Mg Tab) 10 mg PO DAILY [facility] Last Admin: 04/25/21 08:18 Dose: 10 mg Documented by: Rifaximin (Rifaximin 550 Mg Tab) 550 mg PO BID [facility] Last Admin: 04/25/21 20:24 Dose: 550 mg Documented by: Thiamine HCl (Thiamine 100 Mg Tab) 100 mg PO Q48H [facility] Last Admin: 04/25/21 08:18 Dose: 100 mg Documented by: Discontinued Medications Bisacodyl (Bisacodyl 10 Mg Supp) 10 mg RECTAL ONETIME ONE Stop: 04/23/21 13:37 Last Admin: 04/23/21 13:45 Dose: 10 mg Documented by: Dextrose/Lactated Ringer's (Dextrose 5%-Lactated Ringers) 1,000 mls @ 125 mls/hr IV ASDIRECTED [facility] Last Admin: 04/21/21 14:47 Dose: 125 mls/hr Documented by: Magnesium Sulfate 4 gm/ Premix 50 mls @ 12.5 mls/hr IV ONETIME ONE Stop: 04/21/21 12:59 Last Admin: 04/21/21 09:25 Dose: 12.5 mls/hr Documented by: Potassium Cl/Dextrose/Lact Ringer's (D5 Lr With 20 Meq Kcl) 1,000 mls @ 50 mls/hr IV ASDIRECTED [facility] Last Admin: 04/24/21 21:55 Dose: 50 mls/hr Documented by: Sodium Chloride (Normal Saline) 250 mls @ 999 mls/hr IV .BOLUS ONE Stop: 04/24/21 22:45 Last Admin: 04/24/21 22:54 Dose: Not Given Documented by: Sodium Chloride (Normal Saline) Confirm Administered Dose 250 mls @ as directed .ROUTE .STK-MED ONE Stop: 04/24/21 22:52 Last Admin: 04/24/21 22:53 Dose: 999 mls/hr Documented by: Lactulose (Lactulose Soln 10 Gm/15 Ml 30 Ml Ud Cup) 20 gm PO TID [facility] Last Admin: 04/22/21 08:36 Dose: 20 gm Documented by: Magnesium Hydroxide (Magnesium Hydroxide 400 Mg/5 Ml Susp 30 Ml Cup) 30 ml PO ONETIME ONE Stop: 04/23/21 05:35 Last Admin: 04/23/21 06:41 Dose: 30 ml Documented by: Morphine Sulfate (Morphine 2 Mg/Ml Syringe) 2 mg IVPUSH Q4H PRN PRN Reason: Pain (severe 7-10) Stop: 04/21/21 14:55 Potassium Chloride (Potassium Chloride 20 Meq Tab.Er) 20 meq PO TIDMEALS [facility] Stop: 04/21/21 17:01 Last Admin: 04/21/21 16:46 Dose: 20 meq Documented by: Propranolol HCl (Propranolol 20 Mg Tab) 40 mg PO DAILY [facility] Last Admin: 04/21/21 08:53 Dose: 40 mg Documented by: Propranolol HCl (Propranolol 20 Mg Tab) 20 mg PO DAILY [facility] Last Admin: 04/24/21 09:18 Dose: 20 mg Documented by: - Patient Data Lab Results Last 24 hrs: Laboratory Results - last 24 hr 04/26/21 Range/Units 05:30 Sodium 145 (136-145) mEq/L Potassium 3.9 (3.5-5.1) mEq/L Chloride 111 H (98-107) mEq/L Carbon Dioxide 25 (21-32) mEq/L Anion Gap 12.9 (5-15) BUN 6 L (7-18) mg/dL Creatinine 0.9 (0.7-1.3) mg/dL Est Cr Clr Drug Dosing 121.90 mL/min Estimated GFR (MDRD) > 60 (>60) mL/min BUN/Creatinine Ratio 6.7 L (14-18) Glucose 126 H (70-99) mg/dL Calcium 8.2 L (8.5-10.1) mg/dL Magnesium 1.8 (1.8-2.4) mg/dL Total Bilirubin 2.8 H (0.2-1.0) mg/dL AST 51 H (15-37) U/L ALT 48 (16-63) U/L Alkaline Phosphatase 133 H (46-116) U/L Total Protein 6.1 L (6.4-8.2) g/dl Albumin 2.5 L (3.4-5.0) g/dl Globulin 3.6 gm/dL Albumin/Globulin Ratio 0.7 L (1-2) Result Diagrams: 04/25/21 05:53 04/26/21 05:30 Sepsis Event Note - Focused Exam Vital Signs: Vital Signs Temp Pulse Resp BP Pulse Ox 04/26/21 05:07 36.6 C 75 16 132/73 99 04/25/21 19:31 36.7 C 69 131/77 100 - Plan Plan:: I have seen and examined the patient independently of Peterson Guzman PA-C, and have reviewed the case with him. I have reviewed and agree with the plan and care as outlined by him. Please see orders.
[2021-04-25] MEDS: Amitriptyline 25 MG Tab PO SCH (20:23)
--- NOTE | 2021-04-26 07:19 | PCM.PN ---
<Peterson Guzman - Last Filed: 04/26/21 11:04> - General Info Date of Service: 04/26/21 Admission Dx/Problem (Free Text): Admission Diagnosis/Problem Admission Diagnosis/Problem Hepatic encephalopathy Functional Status: Reports: Pain Controlled, Tolerating Diet, Ambulating, Urinating. Denies: New Symptoms - Review of Systems General: Reports: Weakness. Denies: Fever, Fatigue, Malaise, Chills HEENT: Reports: No Symptoms. Denies: Headaches, Sore Throat Pulmonary: Reports: No Symptoms. Denies: Shortness of Breath, Cough, Sputum, Wheezing Cardiovascular: Reports: No Symptoms. Denies: Chest Pain, Palpitations, Dyspnea on Exertion, Edema Gastrointestinal: Reports: Constipation. Denies: Abdominal Pain, Diarrhea, Difficulty Swallowing, Nausea, Vomiting Genitourinary: Reports: No Symptoms. Denies: Pain Musculoskeletal: Reports: No Symptoms Skin: Reports: No Symptoms. Denies: Cyanosis Neurological: Reports: Confusion, Pre-Existing Deficit, Difficulty Walking, Weakness, Gait Disturbance. Denies: Numbness, Tingling Psychiatric: Reports: No Symptoms - Patient Data Vitals - Most Recent: Last Vital Signs Temp 97.9 F 04/26/21 05:07 Pulse 75 04/26/21 05:07 Resp 16 04/26/21 05:07 BP 132/73 04/26/21 05:07 Pulse Ox 99 04/26/21 05:07 Weight - Most Recent: 98.702 kg I&O - Last 24 Hours: Intake & Output 04/25/21 04/26/21 04/26/21 22:59 06:59 14:59 Intake Total 1327 400 Output Total 600 1200 Balance 727 -800 Lab Results Last 24 Hours: Laboratory Results - last 24 hr 04/26/21 04/26/21 Range/Units 05:30 05:30 Sodium 145 (136-145) mEq/L Potassium 3.9 (3.5-5.1) mEq/L Chloride 111 H (98-107) mEq/L Carbon Dioxide 25 (21-32) mEq/L Anion Gap 12.9 (5-15) BUN 6 L (7-18) mg/dL Creatinine 0.9 (0.7-1.3) mg/dL Est Cr Clr Drug Dosing 121.90 mL/min Estimated GFR (MDRD) > 60 (>60) mL/min BUN/Creatinine Ratio 6.7 L (14-18) Glucose 126 H (70-99) mg/dL Calcium 8.2 L (8.5-10.1) mg/dL Magnesium 1.8 (1.8-2.4) mg/dL Total Bilirubin 2.8 H (0.2-1.0) mg/dL AST 51 H (15-37) U/L ALT 48 (16-63) U/L Alkaline Phosphatase 133 H (46-116) U/L Ammonia 106 H (11-32) umol/L Total Protein 6.1 L (6.4-8.2) g/dl Albumin 2.5 L (3.4-5.0) g/dl Globulin 3.6 gm/dL Albumin/Globulin Ratio 0.7 L (1-2) Med Orders - Current: Current Medications Albuterol/Ipratropium (Albuterol/Ipratropium 3.0-0.5 Mg/3 Ml Neb Soln) 3 ml NEB Q4H PRN PRN Reason: Shortness Of Breath/wheezing Amitriptyline HCl (Amitriptyline 25 Mg Tab) 100 mg PO BEDTIME [facility] Last Admin: 04/25/21 20:23 Dose: 100 mg Documented by: Docusate Sodium (Docusate Sodium 100 Mg Cap) 100 mg PO BID PRN PRN Reason: Constipation Folic Acid (Folic Acid 1 Mg Tab) 1 mg PO DAILY [facility] Last Admin: 04/25/21 08:18 Dose: 1 mg Documented by: Furosemide (Furosemide 20 Mg Tab) 20 mg PO DAILY [facility] Last Admin: 04/25/21 08:18 Dose: 20 mg Documented by: Promethazine HCl 12.5 mg/ (Sodium Chloride) 50.5 mls @ 100 mls/hr IV Q6H PRN PRN Reason: Nausea/Vomiting Lactulose (Lactulose Soln 10 Gm/15 Ml 30 Ml Ud Cup) 30 gm PO TID [facility] Last Admin: 04/25/21 20:24 Dose: 30 gm Documented by: Magnesium Hydroxide (Magnesium Hydroxide 400 Mg/5 Ml Susp 30 Ml Cup) 30 ml PO Q12H PRN PRN Reason: Constipation Multivitamins/Minerals/Vitamin C (Multivitamin Tab) 1 tab PO DAILY [facility] Last Admin: 04/25/21 08:19 Dose: 1 tab Documented by: Oxycodone HCl (Oxycodone 5 Mg Tab) 5 mg PO Q4H PRN PRN Reason: Pain (moderate 4-6) Pantoprazole Sodium (Pantoprazole 40 Mg Tab.Cr) 40 mg PO DAILY [facility] Last Admin: 04/25/21 08:18 Dose: 40 mg Documented by: Potassium Chloride (Potassium Chloride 10 Meq Tab.Er) 10 meq PO DAILY [facility] Last Admin: 04/25/21 08:17 Dose: 10 meq Documented by: Propranolol HCl (Propranolol 10 Mg Tab) 10 mg PO DAILY [facility] Last Admin: 04/25/21 08:18 Dose: 10 mg Documented by: Rifaximin (Rifaximin 550 Mg Tab) 550 mg PO BID [facility] Last Admin: 04/25/21 20:24 Dose: 550 mg Documented by: Thiamine HCl (Thiamine 100 Mg Tab) 100 mg PO Q48H [facility] Last Admin: 04/25/21 08:18 Dose: 100 mg Documented by: Discontinued Medications Bisacodyl (Bisacodyl 10 Mg Supp) 10 mg RECTAL ONETIME ONE Stop: 04/23/21 13:37 Last Admin: 04/23/21 13:45 Dose: 10 mg Documented by: Dextrose/Lactated Ringer's (Dextrose 5%-Lactated Ringers) 1,000 mls @ 125 mls/hr IV ASDIRECTED [facility] Last Admin: 04/21/21 14:47 Dose: 125 mls/hr Documented by: Magnesium Sulfate 4 gm/ Premix 50 mls @ 12.5 mls/hr IV ONETIME ONE Stop: 04/21/21 12:59 Last Admin: 04/21/21 09:25 Dose: 12.5 mls/hr Documented by: Potassium Cl/Dextrose/Lact Ringer's (D5 Lr With 20 Meq Kcl) 1,000 mls @ 50 mls/hr IV ASDIRECTED [facility] Last Admin: 04/24/21 21:55 Dose: 50 mls/hr Documented by: Sodium Chloride (Normal Saline) 250 mls @ 999 mls/hr IV .BOLUS ONE Stop: 04/24/21 22:45 Last Admin: 04/24/21 22:54 Dose: Not Given Documented by: Sodium Chloride (Normal Saline) Confirm Administered Dose 250 mls @ as directed .ROUTE .STK-MED ONE Stop: 04/24/21 22:52 Last Admin: 04/24/21 22:53 Dose: 999 mls/hr Documented by: Lactulose (Lactulose Soln 10 Gm/15 Ml 30 Ml Ud Cup) 20 gm PO TID [facility] Last Admin: 04/22/21 08:36 Dose: 20 gm Documented by: Magnesium Hydroxide (Magnesium Hydroxide 400 Mg/5 Ml Susp 30 Ml Cup) 30 ml PO ONETIME ONE Stop: 04/23/21 05:35 Last Admin: 04/23/21 06:41 Dose: 30 ml Documented by: Morphine Sulfate (Morphine 2 Mg/Ml Syringe) 2 mg IVPUSH Q4H PRN PRN Reason: Pain (severe 7-10) Stop: 04/21/21 14:55 Potassium Chloride (Potassium Chloride 20 Meq Tab.Er) 20 meq PO TIDMEALS [facility] Stop: 04/21/21 17:01 Last Admin: 04/21/21 16:46 Dose: 20 meq Documented by: Propranolol HCl (Propranolol 20 Mg Tab) 40 mg PO DAILY [facility] Last Admin: 04/21/21 08:53 Dose: 40 mg Documented by: Propranolol HCl (Propranolol 20 Mg Tab) 20 mg PO DAILY [facility] Last Admin: 04/24/21 09:18 Dose: 20 mg Documented by: - Exam Quality Assessment: DVT Prophylaxis. No: Supplemental Oxygen, Urine Catheter General: Alert, Cooperative, No Acute Distress. No: Oriented HEENT: Pupils Equal, Pupils Reactive, Mucous Membr. Moist/[place], Scleral Icterus Neck: Supple, Trachea Midline Lungs: Clear to Auscultation, Normal Respiratory Effort Cardiovascular: Regular Rate, Regular Rhythm GI/Abdominal Exam: Normal Bowel Sounds, Soft, Non-Tender, No Distention (Male) Exam: Deferred Back Exam: Normal Inspection, Full Range of Motion Extremities: Normal Inspection, Normal Range of Motion, Non-Tender, No Pedal Edema, Normal Capillary Refill Skin: Warm, Dry, Intact, Other (Jaundiced ) Neurological: No New Focal Deficit Psy/Mental Status: Alert - Patient Data Lab Results Last 24 hrs: Laboratory Results - last 24 hr 04/26/21 04/26/21 Range/Units 05:30 05:30 Sodium 145 (136-145) mEq/L Potassium 3.9 (3.5-5.1) mEq/L Chloride 111 H (98-107) mEq/L Carbon Dioxide 25 (21-32) mEq/L Anion Gap 12.9 (5-15) BUN 6 L (7-18) mg/dL Creatinine 0.9 (0.7-1.3) mg/dL Est Cr Clr Drug Dosing 121.90 mL/min Estimated GFR (MDRD) > 60 (>60) mL/min BUN/Creatinine Ratio 6.7 L (14-18) Glucose 126 H (70-99) mg/dL Calcium 8.2 L (8.5-10.1) mg/dL Magnesium 1.8 (1.8-2.4) mg/dL Total Bilirubin 2.8 H (0.2-1.0) mg/dL AST 51 H (15-37) U/L ALT 48 (16-63) U/L Alkaline Phosphatase 133 H (46-116) U/L Ammonia 106 H (11-32) umol/L Total Protein 6.1 L (6.4-8.2) g/dl Albumin 2.5 L (3.4-5.0) g/dl Globulin 3.6 gm/dL Albumin/Globulin Ratio 0.7 L (1-2) Result Diagrams: 04/25/21 05:53 04/26/21 05:30 Sepsis Event Note - Evaluation Sepsis Screening Result: No Definite Risk - Focused Exam Vital Signs: Vital Signs Temp Pulse Resp BP Pulse Ox 04/26/21 05:07 97.9 F 75 16 132/73 99 04/25/21 19:31 98.1 F 69 131/77 100 - Problem List & Annotations (1) Fall during current hospitalization SNOMED Code(s): 0264845 Code(s): W19.XXXA - UNSPECIFIED FALL, INITIAL ENCOUNTER; Y92.239 - UNSP PLACE IN HOSPITAL PLACE Status: Acute Priority: High Current Visit: Yes Qualifiers: Encounter type: initial encounter Qualified Code(s): W19.XXXA - Unspecified fall, initial encounter; Y92.239 - Unspecified place in hospital as the place of occurrence of the external cause (2) Elevated INR SNOMED Code(s): 757786542 Code(s): R79.1 - ABNORMAL COAGULATION PROFILE Status: Chronic Priority: Medium Current Visit: Yes (3) Fall at home SNOMED Code(s): 28747544 Code(s): W19.XXXA - UNSPECIFIED FALL, INITIAL ENCOUNTER; Y92.009 - UNSP PLACE IN UNSP NON-INSTITUT (PRIVATE) RESIDENCE PLACE Status: Acute Priority: High Current Visit: Yes Qualifiers: Encounter type: initial encounter Qualified Code(s): W19.XXXA - Unspecified fall, initial encounter; Y92.009 - Unspecified place in unspecified non- institutional (private) residence as the place of occurrence of the external cause (4) Hepatic encephalopathy SNOMED Code(s): 74919506 Code(s): K72.90 - HEPATIC FAILURE, UNSPECIFIED WITHOUT COMA Status: Chronic Priority: High Current Visit: Yes (5) Liver cirrhosis SNOMED Code(s): 62752815 Code(s): K74.60 - UNSPECIFIED CIRRHOSIS OF LIVER Status: Chronic Priority: High Current Visit: Yes Qualifiers: Hepatic cirrhosis type: alcoholic cirrhosis Ascites presence: unspecified Qualified Code(s): K70.30 - Alcoholic cirrhosis of liver without ascites (6) Constipation SNOMED Code(s): 26440872 Code(s): K59.00 - CONSTIPATION, UNSPECIFIED Status: Acute Priority: High Current Visit: Yes Qualifiers: Constipation type: unspecified constipation type Qualified Code(s): K59.00 - Constipation, unspecified (7) COPD (chronic obstructive pulmonary disease) SNOMED Code(s): 26983982 Code(s): J44.9 - CHRONIC OBSTRUCTIVE PULMONARY DISEASE, UNSPECIFIED Status: Chronic Priority: High Current Visit: Yes Qualifiers: COPD type: unspecified COPD Qualified Code(s): J44.9 - Chronic obstructive pulmonary disease, unspecified (8) Thrombocytopenia SNOMED Code(s): 179759044 Code(s): D69.6 - THROMBOCYTOPENIA, UNSPECIFIED Status: Chronic Priority: Medium Current Visit: Yes (9) Hospital admission due to social situation SNOMED Code(s): 663973532 Code(s): Z60.9 - PROBLEM RELATED TO SOCIAL ENVIRONMENT, UNSPECIFIED Status: Acute Priority: High Current Visit: Yes (10) Wernicke encephalopathy SNOMED Code(s): 13487664 Code(s): E51.2 - WERNICKE'S ENCEPHALOPATHY Status: Chronic Priority: High Current Visit: Yes - Problem List Review Problem List Initiated/Reviewed/Updated: Yes - My Orders Last 24 Hours: My Active Orders 04/27/21 05:11 AMMONIA VENOUS [CHEM] AM CMP [COMPREHENSIVE METABOLIC PN,CMP] [CHEM] AM MAGNESIUM [CHEM] AM 04/28/21 05:11 AMMONIA VENOUS [CHEM] AM CMP [COMPREHENSIVE METABOLIC PN,CMP] [CHEM] AM MAGNESIUM [CHEM] AM 04/29/21 05:11 AMMONIA VENOUS [CHEM] AM CMP [COMPREHENSIVE METABOLIC PN,CMP] [CHEM] AM MAGNESIUM [CHEM] AM - Assessment Assessment:: 04/21/2021 Patient is a 51-year-old male with a history of alcoholic liver cirrhosis and a history of GI bleeding who presented to the ER due to a mechanical ground-level fall. Pt is still confused. He can not give reliable to answers to questions. Blood pressure was soft in the morning but improved in the afternoon He is now on room air Potassium 3.3, magnesium 1.7, Hemoglobin 9.8, platelets 168 T bilirubin 3.3, ammonia 56 Patient is a 51-year-old male with a history of alcoholic liver cirrhosis and a history of GI bleeding who presented to the ER due to a mechanical ground-level fall. Pt is still confused. He can only answer simple questions Blood pressure is improving He is now on room air with good oxygen saturation Platelets 68 Total bilirubin 3.3 Ammonia 59 04/23/2021 Patient is a 51-year-old male with a history of alcoholic liver cirrhosis and a history of GI bleeding who presented to the ER due to a mechanical ground-level fall. Pt is still confused. He can only answer simple questions He has constiption. He has not had BM for days Vital signs are stable at acceptable He is on room air with good oxygen saturation Hemoglobin 10.2, WBC 3.37, platelets 72, red blood cells of 2.81 Potassium 4.0, creatinine 0.9 Total bilirubin 2.9, AST 55, ammonia 82 Patient fell again this morning XRay abd - moderate feces is present throughout the colon. The bewel gas pattern is otherwise unremarkable CT of head - no acute change 04/24/2021 Patient is a 51-year-old male with a history of alcoholic liver cirrhosis and a history of GI bleeding who presented to the ER due to a mechanical ground-level fall. Pt is still confused. He can only answer simple questions He had a large bowel movement yesterday afternoon WBC 3.71, red blood cells of 2.94, platelets 80 Total bilirubin 2.7, AST 50, ALT 40, alkaline phos 105 Ammonia 65 04/25/2021 This is a 51-year-old male known to the service who presented to ED on 04/20/2021 with confusion unable to walk. He was admitted from April 12 through April 17 due to a fever and possible UTI. Has a history of alcoholic induced cirrhosis and hepatic encephalopathy. He is chronically jaundiced. Has been falling frequently. During his admission in early April plan was for patient to discharge to SNF, as his was reporting difficulty caring for him. She again returned to the ER reporting difficulty caring for him and she believes he needs placement. He has been working with PT and OT who are recommending SNF placement. Today his WBC is 3.99. Hemoglobin 10.4. Platelet 77,000. Sodium is 144. Potassium 4.0. Chloride 110. Carbon dioxide 26. Anion gap 12.0. BUN is 6. Creatinine 0.9. GFR greater than 60. Glucose is 115. Calcium 8.0. Total bilirubin is 2.5. AST is 55, ALT 50, alkaline phosphatase 134. Ammonia is 72. Protein is 5.8. Albumin is 2.4. Today his has been discussing the possibility of the patient returning home. The patient has had 2 falls while here. He did walk with PT and OT today who said he had his best walk yet today, however he was requiring constant cues to keep his speed down in for assistance while turning. We continue to recommend SNF placement. Family meeting has been called for 1300 today to discuss disposition plan. Otherwise patient remains quite stable. Suspect he will continue to have episodes of improvement and then regression. He continues to receive lactulose 3 times a day. Last BM was 04/23/2021. He remains very confused. During his last visit cognitive evaluation was performed and was 4 out of 30. He continues to ask when he can return home. 04/26/2021 51-year-old male known to the service who was admitted on 04/20/2021 due to confusion and inability to walk. Family meeting was held yesterday to discuss discharge disposition and although the team continues to recommend SNF placement the family does report they can provide 24/7 cares for him and would like to t young him home. Labs today were obtained with a sodium of 145 and potassium of 3.9. Anion gap is 12.9. GFR greater than 60. Glucose 126. Magnesium is 1.8. Bilirubin is 2.8. AST is 51, ALT 48, alkaline phosphatase 133. Ammonia has increased greatly to 106. Albumin is 2.5. Patient has not had a bowel movement since the , even while on 3 times daily 30 mg lactulose. Because of this we will order a lactulose enema today. Otherwise patient is alert but remains confused. He does state that he feels okay. He has been up ambulating and working with therapies. Plan will be to keep him at least until tomorrow and attempt to get his ammonia down. We will then revisit disposition tomorrow. He is currently a 2 assist and we are hoping this improves with a decrease in serum ammonia. - Plan Plan:: Hepatic encephalopathy -Ammonia 86 -> 56 ->59->82->65-->72-->106 -Was admitted to hospital on 04/12/2021 due to encephalopathy -Increased lactulose 30 mg tid to titrate 3 BMs/day. He had a large BM on 04/23/2021 -Continue home rifaximin 550mg bid -Discontinued home lasix 20mg daily -Repeat ammonia daily in am -He has a constipation which most likely resulted in hyperammonemia -Lactulose enema today Alcoholic liver cirrhosis -MELD score - 16 points, 6.0% Estimated 3-Month Mortality -Discriminant function - 17.0 points. > 32 points indicates poor prognosis and patient may benefit from glucocorticoid therapy -continue folic acid, mv and thiamine -Liver enzymes trending down Constipation -As per , he developed constipation recently -Colace 100mg bid -Lactulose 30 g 3 times daily -Milk of magnesium 30 cc twice daily -Had a large BM on 04/23/2021 COPD -Continue home inhalers Thrombocytopenia -Patient has a pancytopenia -Hx of GI bleeding -No evidence of bleeding -Repeat CBC in am Mechanical ground level fall Hospital admission due to social situation -Has been falling at home -x 2 in the hospital -most likely related to his encephalopathy -no focal neurological deficits -PT/OT -One-to-one therapy DVT prophylaxis: SCD. No pharmacological DVt prophylaxis due to thrombocytopenia and hx of GI bleeding Code status: full PCP: Dr. Barber Deposition: PT/OT Continues to recommend SNF. Length of stay greater than 96 hours due to slow response to treatment; Difficulty with discharge disposition. <Govind Rivera - Last Filed: 04/26/21 15:40> - Patient Data Vitals - Most Recent: Last Vital Signs Temp 36.6 C 04/26/21 15:04 Pulse 71 04/26/21 15:04 Resp 14 04/26/21 15:04 BP 111/82 04/26/21 15:04 Pulse Ox 100 04/26/21 15:04 I&O - Last 24 Hours: Intake & Output 04/26/21 04/26/21 04/26/21 06:59 14:59 22:59 Intake Total 400 200 890 Output Total 1200 650 Balance -800 200 240 Lab Results Last 24 Hours: Laboratory Results - last 24 hr 04/26/21 04/26/21 Range/Units 05:30 05:30 Sodium 145 (136-145) mEq/L Potassium 3.9 (3.5-5.1) mEq/L Chloride 111 H (98-107) mEq/L Carbon Dioxide 25 (21-32) mEq/L Anion Gap 12.9 (5-15) BUN 6 L (7-18) mg/dL Creatinine 0.9 (0.7-1.3) mg/dL Est Cr Clr Drug Dosing 121.90 mL/min Estimated GFR (MDRD) > 60 (>60) mL/min BUN/Creatinine Ratio 6.7 L (14-18) Glucose 126 H (70-99) mg/dL Calcium 8.2 L (8.5-10.1) mg/dL Magnesium 1.8 (1.8-2.4) mg/dL Total Bilirubin 2.8 H (0.2-1.0) mg/dL AST 51 H (15-37) U/L ALT 48 (16-63) U/L Alkaline Phosphatase 133 H (46-116) U/L Ammonia 106 H (11-32) umol/L Total Protein 6.1 L (6.4-8.2) g/dl Albumin 2.5 L (3.4-5.0) g/dl Globulin 3.6 gm/dL Albumin/Globulin Ratio 0.7 L (1-2) Med Orders - Current: Current Medications Albuterol/Ipratropium (Albuterol/Ipratropium 3.0-0.5 Mg/3 Ml Neb Soln) 3 ml NEB Q4H PRN PRN Reason: Shortness Of Breath/wheezing Amitriptyline HCl (Amitriptyline 25 Mg Tab) 100 mg PO BEDTIME [facility] Last Admin: 04/25/21 20:23 Dose: 100 mg Documented by: Bisacodyl (Bisacodyl 10 Mg Supp) 10 mg RECTAL DAILY PRN PRN Reason: Constipation Folic Acid (Folic Acid 1 Mg Tab) 1 mg PO DAILY [facility] Last Admin: 04/26/21 09:33 Dose: 1 mg Documented by: Furosemide (Furosemide 20 Mg Tab) 20 mg PO DAILY [facility] Last Admin: 04/26/21 09:33 Dose: 20 mg Documented by: Promethazine HCl 12.5 mg/ (Sodium Chloride) 50.5 mls @ 100 mls/hr IV Q6H PRN PRN Reason: Nausea/Vomiting Lactulose (Lactulose Soln 10 Gm/15 Ml 30 Ml Ud Cup) 30 gm PO TID [facility] Last Admin: 04/26/21 14:07 Dose: 30 gm Documented by: Magnesium Hydroxide (Magnesium Hydroxide 400 Mg/5 Ml Susp 30 Ml Cup) 30 ml PO Q12H PRN PRN Reason: Constipation Multivitamins/Minerals/Vitamin C (Multivitamin Tab) 1 tab PO DAILY [facility] Last Admin: 04/26/21 09:36 Dose: 1 tab Documented by: Oxycodone HCl (Oxycodone 5 Mg Tab) 5 mg PO Q4H PRN PRN Reason: Pain (moderate 4-6) Pantoprazole Sodium (Pantoprazole 40 Mg Tab.Cr) 40 mg PO DAILY [facility] Last Admin: 04/26/21 09:36 Dose: 40 mg Documented by: Potassium Chloride (Potassium Chloride 10 Meq Tab.Er) 10 meq PO DAILY [facility] Last Admin: 04/26/21 09:36 Dose: 10 meq Documented by: Propranolol HCl (Propranolol 10 Mg Tab) 10 mg PO DAILY [facility] Last Admin: 04/26/21 10:30 Dose: Not Given Documented by: Rifaximin (Rifaximin 550 Mg Tab) 550 mg PO BID [facility] Last Admin: 04/26/21 09:33 Dose: 550 mg Documented by: Senna/Docusate Sodium (Docusate Sodium/Sennosides 50-8.6 Mg Tab) 2 tab PO BID [facility] Thiamine HCl (Thiamine 100 Mg Tab) 100 mg PO Q48H [facility] Last Admin: 04/25/21 08:18 Dose: 100 mg Documented by: Discontinued Medications Bisacodyl (Bisacodyl 10 Mg Supp) 10 mg RECTAL ONETIME ONE Stop: 04/23/21 13:37 Last Admin: 04/23/21 13:45 Dose: 10 mg Documented by: Docusate Sodium (Docusate Sodium 100 Mg Cap) 100 mg PO BID PRN PRN Reason: Constipation Dextrose/Lactated Ringer's (Dextrose 5%-Lactated Ringers) 1,000 mls @ 125 mls/hr IV ASDIRECTED [facility] Last Admin: 04/21/21 14:47 Dose: 125 mls/hr Documented by: Magnesium Sulfate 4 gm/ Premix 50 mls @ 12.5 mls/hr IV ONETIME ONE Stop: 04/21/21 12:59 Last Admin: 04/21/21 09:25 Dose: 12.5 mls/hr Documented by: Potassium Cl/Dextrose/Lact Ringer's (D5 Lr With 20 Meq Kcl) 1,000 mls @ 50 mls/hr IV ASDIRECTED [facility] Last Admin: 04/24/21 21:55 Dose: 50 mls/hr Documented by: Sodium Chloride (Normal Saline) 250 mls @ 999 mls/hr IV .BOLUS ONE Stop: 04/24/21 22:45 Last Admin: 04/24/21 22:54 Dose: Not Given Documented by: Sodium Chloride (Normal Saline) Confirm Administered Dose 250 mls @ as directed .ROUTE .STK-MED ONE Stop: 04/24/21 22:52 Last Admin: 04/24/21 22:53 Dose: 999 mls/hr Documented by: Lactulose (Lactulose Soln 10 Gm/15 Ml 30 Ml Ud Cup) 20 gm PO TID [facility] Last Admin: 04/22/21 08:36 Dose: 20 gm Documented by: Lactulose (Lactulose Soln 10 Gm/15 Ml 30 Ml Ud Cup) 200 gm .XX ONETIME ONE Stop: 04/26/21 09:31 Last Admin: 04/26/21 09:43 Dose: 200 gm Documented by: Magnesium Hydroxide (Magnesium Hydroxide 400 Mg/5 Ml Susp 30 Ml Cup) 30 ml PO ONETIME ONE Stop: 04/23/21 05:35 Last Admin: 04/23/21 06:41 Dose: 30 ml Documented by: Morphine Sulfate (Morphine 2 Mg/Ml Syringe) 2 mg IVPUSH Q4H PRN PRN Reason: Pain (severe 7-10) Stop: 04/21/21 14:55 Potassium Chloride (Potassium Chloride 20 Meq Tab.Er) 20 meq PO TIDMEALS [facility] Stop: 04/21/21 17:01 Last Admin: 04/21/21 16:46 Dose: 20 meq Documented by: Propranolol HCl (Propranolol 20 Mg Tab) 40 mg PO DAILY [facility] Last Admin: 04/21/21 08:53 Dose: 40 mg Documented by: Propranolol HCl (Propranolol 20 Mg Tab) 20 mg PO DAILY [facility] Last Admin: 04/24/21 09:18 Dose: 20 mg Documented by: - Patient Data Lab Results Last 24 hrs: Laboratory Results - last 24 hr 04/26/21 04/26/21 Range/Units 05:30 05:30 Sodium 145 (136-145) mEq/L Potassium 3.9 (3.5-5.1) mEq/L Chloride 111 H (98-107) mEq/L Carbon Dioxide 25 (21-32) mEq/L Anion Gap 12.9 (5-15) BUN 6 L (7-18) mg/dL Creatinine 0.9 (0.7-1.3) mg/dL Est Cr Clr Drug Dosing 121.90 mL/min Estimated GFR (MDRD) > 60 (>60) mL/min BUN/Creatinine Ratio 6.7 L (14-18) Glucose 126 H (70-99) mg/dL Calcium 8.2 L (8.5-10.1) mg/dL Magnesium 1.8 (1.8-2.4) mg/dL Total Bilirubin 2.8 H (0.2-1.0) mg/dL AST 51 H (15-37) U/L ALT 48 (16-63) U/L Alkaline Phosphatase 133 H (46-116) U/L Ammonia 106 H (11-32) umol/L Total Protein 6.1 L (6.4-8.2) g/dl Albumin 2.5 L (3.4-5.0) g/dl Globulin 3.6 gm/dL Albumin/Globulin Ratio 0.7 L (1-2) Result Diagrams: 04/25/21 05:53 04/26/21 05:30 Sepsis Event Note - Focused Exam Vital Signs: Vital Signs Temp Pulse Resp BP Pulse Ox 04/26/21 15:04 36.6 C 71 14 111/82 100 04/26/21 11:57 36.6 C 68 16 122/87 100 04/26/21 09:35 67 95/52 L 100 04/26/21 07:47 36.8 C 76 16 100/57 L 98 04/26/21 05:07 36.6 C 75 16 132/73 99 - Plan Plan:: I have seen and examined the patient independently of Peterson Guzman PA-C, and have reviewed the case with him. I have reviewed and agree with the plan and care as outlined by him. Please see orders.
[2021-04-26] MEDS ORDERED: Lactulose Soln 10 GM/15 ML 30 ML UD Cup ONE (09:30)
[2021-04-26] MEDS: Lactulose Soln 10 GM/15 ML 30 ML UD Cup PO SCH ×3 (09:32→20:45)
[2021-04-26] MEDS: Rifaximin 550 MG Tab PO SCH ×2 (09:33→20:46)
[2021-04-26] MEDS: Furosemide 20 MG Tab PO SCH (09:33)
[2021-04-26] MEDS: Folic Acid 1 MG Tab PO SCH (09:33)
[2021-04-26] MEDS: Potassium Chloride 10 MEQ Tab.ER PO SCH (09:36)
[2021-04-26] MEDS: Pantoprazole 40 MG Tab.CR PO SCH (09:36)
[2021-04-26] MEDS: Multivitamin Tab PO SCH (09:36)
[2021-04-26] MEDS: Propranolol 10 MG Tab PO SCH (10:30)
[2021-04-26] MEDS ORDERED: Bisacodyl 10 MG Supp RECTAL PRN (13:42)
[2021-04-26] MEDS: Amitriptyline 25 MG Tab PO SCH (20:46)
[2021-04-27] MEDS: Magnesium Sulfate/Water 2 GM in Premix Bag 1 BAG IV ONE ×2 (07:29→08:15)
[2021-04-27] MEDS ORDERED: Magnesium Oxide 400 MG Tab PO ONE (07:37)
[2021-04-27] MEDS: Lactulose Soln 10 GM/15 ML 30 ML UD Cup PO SCH ×2 (07:48→08:06)
[2021-04-27] MEDS: Rifaximin 550 MG Tab PO SCH ×2 (07:53→08:06)
[2021-04-27] MEDS: Potassium Chloride 10 MEQ Tab.ER PO SCH ×2 (07:54→08:06)
[2021-04-27] MEDS: Thiamine 100 MG Tab PO SCH ×2 (07:55→08:06)
[2021-04-27] MEDS: Furosemide 20 MG Tab PO SCH (08:00)
--- NOTE | 2021-04-27 08:00 | PCM.DCSUM1 ---
<Peterson Guzman - Last Filed: 04/27/21 10:28> Discharge Summary - Hospital Course HPI Initial Comments: Patient is a 51-year-old male with a history of alcoholic liver cirrhosis and a history of GI bleeding who presented to the ER due to a mechanical ground-level fall. Pt added that he had multiple falls recently. Patient was admitted to our hospital on April 12, 2021 due to UTI and encephalopathy and discharged on April 17, 2021. During that admission, ammonia 60. Patient has an alcoholic liver cirrhosis. He stopped drinking alcohol April 03. In the ER, ammonia 86. stated that she is no longer able to take care of him and would like to send him to SNF. But patient self stated to ER physician Dr. Morse that he does not want to go to SNF. Diagnosis: Stroke: No - Discharge Data Discharge Date: 04/27/21 (Admit date: 04/20/2021) Discharge Disposition: Home, Self-Care 01 Condition: Good - Referral to Home Health Date of Face to Face Encounter: 04/27/21 Reason for Homebound Status: See discharge summary Primary Care Physician: Roverto Freeman MD Skilled Need: See discharge summary - Discharge Diagnosis/Problem(s) (1) Fall during current hospitalization SNOMED Code(s): 2307645 ICD Code: W19.XXXA - UNSPECIFIED FALL, INITIAL ENCOUNTER; Y92.239 - UNSP PLACE IN HOSPITAL PLACE Status: Acute Priority: High Qualifiers: Encounter type: initial encounter Qualified Code(s): W19.XXXA - Unspecified fall, initial encounter; Y92.239 - Unspecified place in hospital as the place of occurrence of the external cause (2) Elevated INR SNOMED Code(s): 549710672 ICD Code: R79.1 - ABNORMAL COAGULATION PROFILE Status: Chronic Priority: Medium (3) Fall at home SNOMED Code(s): 58410616 ICD Code: W19.XXXA - UNSPECIFIED FALL, INITIAL ENCOUNTER; Y92.009 - UNSP PLACE IN UNSP NON-INSTITUT (PRIVATE) RESIDENCE PLACE Status: Acute Priority: High Qualifiers: Encounter type: initial encounter Qualified Code(s): W19.XXXA - Unspecified fall, initial encounter; Y92.009 - Unspecified place in unspecified non- institutional (private) residence as the place of occurrence of the external cause (4) Hepatic encephalopathy SNOMED Code(s): 33135617 ICD Code: K72.90 - HEPATIC FAILURE, UNSPECIFIED WITHOUT COMA Status: Chronic Priority: High (5) Liver cirrhosis SNOMED Code(s): 58102509 ICD Code: K74.60 - UNSPECIFIED CIRRHOSIS OF LIVER Status: Chronic Priority: High Qualifiers: Hepatic cirrhosis type: alcoholic cirrhosis Ascites presence: unspecified Qualified Code(s): K70.30 - Alcoholic cirrhosis of liver without ascites (6) Constipation SNOMED Code(s): 24791110 ICD Code: K59.00 - CONSTIPATION, UNSPECIFIED Status: Acute Priority: High Qualifiers: Constipation type: unspecified constipation type Qualified Code(s): K59.00 - Constipation, unspecified (7) COPD (chronic obstructive pulmonary disease) SNOMED Code(s): 28855062 ICD Code: J44.9 - CHRONIC OBSTRUCTIVE PULMONARY DISEASE, UNSPECIFIED Status: Chronic Priority: High Qualifiers: COPD type: unspecified COPD Qualified Code(s): J44.9 - Chronic obstructive pulmonary disease, unspecified (8) Thrombocytopenia SNOMED Code(s): 915548881 ICD Code: D69.6 - THROMBOCYTOPENIA, UNSPECIFIED Status: Chronic Priority: Medium (9) Hospital admission due to social situation SNOMED Code(s): 069399010 ICD Code: Z60.9 - PROBLEM RELATED TO SOCIAL ENVIRONMENT, UNSPECIFIED Status: Acute Priority: High (10) Wernicke encephalopathy SNOMED Code(s): 01155633 ICD Code: E51.2 - WERNICKE'S ENCEPHALOPATHY Status: Chronic Priority: High (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 -Patient was having constipation here, even with lactulose. Please ask about bowel movement regularity -Recommend repeat CBC, CMP, ammonia, and magnesium at follow-up -Family opted to take patient home with 24/7 cares. Please ask about how this is going. Follow-up with GI/Hepatology as scheduled. Hospital Course: This is a 51-year-old male, well-known to this service from prior admissions, who presented to ED on 04/20/2021 after mechanical ground-level fall. Patient has a history of alcoholic cirrhosis resulting in hyperbilirubinemia and elevated ammonia. He also has a history of GI bleed. Throughout his stay his hemoglobin and platelets have been low. His ammonia has been variable from the 50s all the way up into the low 100s. He has been on lactulose 3 times daily and even with this has battled constipation. He was started on senna plus, along with as needed milk of magnesia and rectal Dulcolax suppositories. He ultimately required a lactulose enema while here which resulted in a large bowel movement, decreasing his ammonia by 50 points and causing a 6 pound weight loss. Throughout his stay he has remained very confused and required assistance with ambulation. His confusion and support requirement has increased corresponding with his elevated ammonia. He did work with physical therapy and Occupational Therapy who are recommending SNF placement. Team has been recommending SNF placement however family has been against this. While they did bring him in because they were unable to care for him patient's states that they have been able to find 24/7 help between her and friends/neighbors. She reports she sleeps in a bed with him and can feel when he attempts to get out. He is a very high fall risk. He is fallen multiple times in the past. Because of this the family has requested that the patient be discharged home. While our team continues to recommend SNF placement this does seem reasonable. Social work has been heavily involved in the patient's care and after discussion the patient's did agree to hospice care. MELD score - 16 points, 6.0% Estimated 3-Month Mortality. Discriminant function - 17.0 points. > 32 points indicates poor prognosis and patient may benefit from glucocorticoid therapy. Ammonia trend: 86 -> 56 ->59->82->65-->72-->106-->57. is made aware that it is very important for the patient to have at least 1 bowel movement daily. He may need enemas after discharge. He is on home thiamine and folic acid. He did have 2 falls while in the hospital, none of which resulted in injury. Because of this he was placed on one-to-one therapy. Recommend patient follow- up with primary care provider within 7 to 10 days, sooner if needed. Recommend patient follow-up with GI/hepatology at next available. Patient will be discharged on 30mg 3 times daily lactulose, 10 mg rectal Dulcolax suppository as needed for constipation, 30 ml p.o. milk of magnesia as needed for constipation, 2 tabs p.o. twice daily senna plus, and patient's home propranolol was decreased from 20 mg p.o. daily to 10 mg p.o. daily. Otherwise all home medications were continued. Patient discharged home today. Unfortunately patient is a very high fall risk, very high readmission risk, and carries a very high risk of mortality. Patient's is aware of all these concerns. We are recommending a walker at discharge as patient has difficulty with unsteady gait, weakness, and generalized difficulty with ambulation. - Patient Instructions Diet: Low Sodium Activity: As Tolerated Driving: Do Not Drive Showering/Bathing: May Shower Notify Provider of: Fever, Increased Pain, Nausea and/or Vomiting Other/Special Instructions: Follow-up with primary care provider within 7-10 days of discharge, sooner if needed. Recommend he follow-up with GI/Liver specialty at next available. It is very important that Elmer has a bowel movement at least once a day. This is how his ammonia will go down. We have prescribed as needed rectal suppository and scheduled laxitive/stool softeners. If he continues to have constipation issues you may talk with his primary care provider about adjusting his regimine. He may require occasional enemas and these can be purchased [id number]. We discussed alf care and you indicated this is not something you feel would be in Elmer's best interest. Should you change your mind you may contact the alf directly for po ssible admission. Anticipate good days and bad days in terms of his mental status. It is imperative he avoid alcohol. Resume home medications as directed. Should sympotms return or worsen contact primary care provider or return to the Emergency Department. - Discharge Plan *PRESCRIPTION DRUG MONITORING PROGRAM REVIEWED*: No *COPY OF PRESCRIPTION DRUG MONITORING REPORT IN PATIENT LILA: No Prescriptions/Med Rec: Lactulose [Cephulac] 30 gm PO TID #60 cup bisacodyL [Dulcolax] 10 mg RECTAL DAILY PRN #10 supp PRN Reason: Constipation Propranolol [Inderal] 10 mg PO DAILY #20 tablet Magnesium Hydroxide [Milk of Magnesia] 30 ml PO Q12H PRN #10 cup PRN Reason: Constipation Docusate Sodium/Sennosides [Senna Plus] 2 tab PO BID #40 tablet Home Medications: Home Meds Furosemide 20 mg PO DAILY 02/18/21 [History] Folic Acid 1 mg PO DAILY #20 tablet 02/19/21 [Rx] Magnesium Oxide [Magnesium] 400 mg PO DAILY #4 tablet 02/19/21 [Rx] Amitriptyline [Elavil] 100 mg BEDTIME 04/05/21 [History] Potassium Chloride 10 meq PO DAILY 04/05/21 [History] Thiamine [Vitamin B-1] 100 mg PO Q48H 04/05/21 [History] Pantoprazole Sodium [Protonix] 40 mg PO DAILY 04/12/21 [History] Multivit with Minerals/Lutein [A Thru Z Advanced Formula Tab] 1 each PO DAILY 90 Days #100 tablet 04/17/21 [Rx] Rifaximin [Xifaxan] 550 mg PO BID 30 Days #60 tablet 04/17/21 [Rx] Docusate Sodium/Sennosides [Senna Plus] 2 tab PO BID #40 tablet 04/27/21 [Rx] Lactulose [Cephulac] 30 gm PO TID #60 cup 04/27/21 [Rx] Magnesium Hydroxide [Milk of Magnesia] 30 ml PO Q12H PRN #10 cup 04/27/21 [Rx] Propranolol [Inderal] 10 mg PO DAILY #20 tablet 04/27/21 [Rx] bisacodyL [Dulcolax] 10 mg RECTAL DAILY PRN #10 supp 04/27/21 [Rx] Oxygen Therapy Mode: Room Air Patient Handouts: Steps to Quit Smoking Forms: ED Department Discharge Referrals: GI, Specialist [Other] (GI clinic will call for appt. date and time after infomation has been reviewed. Currently Mid June is the closest appt. time available, but after reviewing information they could possible try to get patient in sooner. Any questions please call [phone]) Roverto Freeman MD [Primary Care Provider] - 05/03/21 8:30 am (check in time is at 8:15) - Discharge Summary/Plan Comment DC Time >30 min.: Yes (45 mins ) - General Info Date of Service: 04/27/21 Admission Dx/Problem (Free Text: Admission Diagnosis/Problem Admission Diagnosis/Problem Hepatic encephalopathy Functional Status: Reports: Pain Controlled, Tolerating Diet, Ambulating, Urinating. Denies: New Symptoms - Review of Systems General: Reports: No Symptoms. Denies: Fever HEENT: Reports: No Symptoms Pulmonary: Reports: No Symptoms. Denies: Cough Cardiovascular: Reports: No Symptoms. Denies: Edema Gastrointestinal: Reports: Constipation. Denies: Diarrhea, Vomiting Genitourinary: Reports: No Symptoms Musculoskeletal: Reports: No Symptoms Skin: Reports: No Symptoms Neurological: Reports: Confusion, Pre-Existing Deficit, Difficulty Walking, Gait Disturbance Psychiatric: Reports: No Symptoms - Patient Data Vitals - Most Recent: Last Vital Signs Temp 97.9 F 04/27/21 03:53 Pulse 77 04/27/21 03:53 Resp 16 04/27/21 03:53 BP 124/91 H 04/27/21 03:53 Pulse Ox 97 04/27/21 03:53 Weight - Most Recent: 95.436 kg I&O - Last 24 hours: Intake & Output 04/26/21 04/27/21 04/27/21 22:59 06:59 14:59 Intake Total 1070 200 Output Total 650 500 Balance 420 -300 Lab Results - Last 24 hrs: Laboratory Results - last 24 hr 04/27/21 04/27/21 Range/Units 05:10 05:10 Sodium 143 (136-145) mEq/L Potassium 3.8 (3.5-5.1) mEq/L Chloride 108 H (98-107) mEq/L Carbon Dioxide 24 (21-32) mEq/L Anion Gap 14.8 (5-15) BUN 7 (7-18) mg/dL Creatinine 0.8 (0.7-1.3) mg/dL Est Cr Clr Drug Dosing 137.13 mL/min Estimated GFR (MDRD) > 60 (>60) mL/min BUN/Creatinine Ratio 8.8 L (14-18) Glucose 111 H (70-99) mg/dL Calcium 8.1 L (8.5-10.1) mg/dL Magnesium 1.6 L (1.8-2.4) mg/dL Total Bilirubin 3.7 H (0.2-1.0) mg/dL AST 46 H (15-37) U/L ALT 44 (16-63) U/L Alkaline Phosphatase 107 (46-116) U/L Ammonia 57 H (11-32) umol/L Total Protein 6.2 L (6.4-8.2) g/dl Albumin 2.5 L (3.4-5.0) g/dl Globulin 3.7 gm/dL Albumin/Globulin Ratio 0.7 L (1-2) Med Orders - Current: Current Medications Albuterol/Ipratropium (Albuterol/Ipratropium 3.0-0.5 Mg/3 Ml Neb Soln) 3 ml NEB Q4H PRN PRN Reason: Shortness Of Breath/wheezing Amitriptyline HCl (Amitriptyline 25 Mg Tab) 100 mg PO BEDTIME [facility] Last Admin: 04/26/21 20:46 Dose: 100 mg Documented by: Bisacodyl (Bisacodyl 10 Mg Supp) 10 mg RECTAL DAILY PRN PRN Reason: Constipation Folic Acid (Folic Acid 1 Mg Tab) 1 mg PO DAILY [facility] Last Admin: 04/26/21 09:33 Dose: 1 mg Documented by: Furosemide (Furosemide 20 Mg Tab) 20 mg PO DAILY [facility] Last Admin: 04/26/21 09:33 Dose: 20 mg Documented by: Promethazine HCl 12.5 mg/ (Sodium Chloride) 50.5 mls @ 100 mls/hr IV Q6H PRN PRN Reason: Nausea/Vomiting Lactulose (Lactulose Soln 10 Gm/15 Ml 30 Ml Ud Cup) 30 gm PO TID [facility] Last Admin: 04/27/21 07:48 Dose: 30 gm Documented by: Magnesium Hydroxide (Magnesium Hydroxide 400 Mg/5 Ml Susp 30 Ml Cup) 30 ml PO Q12H PRN PRN Reason: Constipation Multivitamins/Minerals/Vitamin C (Multivitamin Tab) 1 tab PO DAILY [facility] Last Admin: 04/26/21 09:36 Dose: 1 tab Documented by: Oxycodone HCl (Oxycodone 5 Mg Tab) 5 mg PO Q4H PRN PRN Reason: Pain (moderate 4-6) Pantoprazole Sodium (Pantoprazole 40 Mg Tab.Cr) 40 mg PO DAILY [facility] Last Admin: 04/26/21 09:36 Dose: 40 mg Documented by: Potassium Chloride (Potassium Chloride 10 Meq Tab.Er) 10 meq PO DAILY [facility] Last Admin: 04/27/21 07:54 Dose: 10 meq Documented by: Propranolol HCl (Propranolol 10 Mg Tab) 10 mg PO DAILY [facility] Last Admin: 04/26/21 10:30 Dose: Not Given Documented by: Rifaximin (Rifaximin 550 Mg Tab) 550 mg PO BID [facility] Last Admin: 04/27/21 07:53 Dose: 550 mg Documented by: Senna/Docusate Sodium (Docusate Sodium/Sennosides 50-8.6 Mg Tab) 2 tab PO BID [facility] Last Admin: 04/26/21 20:46 Dose: 2 tab Documented by: Thiamine HCl (Thiamine 100 Mg Tab) 100 mg PO Q48H [facility] Last Admin: 04/27/21 07:55 Dose: 100 mg Documented by: Discontinued Medications Bisacodyl (Bisacodyl 10 Mg Supp) 10 mg RECTAL ONETIME ONE Stop: 04/23/21 13:37 Last Admin: 04/23/21 13:45 Dose: 10 mg Documented by: Docusate Sodium (Docusate Sodium 100 Mg Cap) 100 mg PO BID PRN PRN Reason: Constipation Dextrose/Lactated Ringer's (Dextrose 5%-Lactated Ringers) 1,000 mls @ 125 mls/hr IV ASDIRECTED [facility] Last Admin: 04/21/21 14:47 Dose: 125 mls/hr Documented by: Magnesium Sulfate 4 gm/ Premix 50 mls @ 12.5 mls/hr IV ONETIME ONE Stop: 04/21/21 12:59 Last Admin: 04/21/21 09:25 Dose: 12.5 mls/hr Documented by: Potassium Cl/Dextrose/Lact Ringer's (D5 Lr With 20 Meq Kcl) 1,000 mls @ 50 mls/hr IV ASDIRECTED [facility] Last Admin: 04/24/21 21:55 Dose: 50 mls/hr Documented by: Sodium Chloride (Normal Saline) 250 mls @ 999 mls/hr IV .BOLUS ONE Stop: 04/24/21 22:45 Last Admin: 04/24/21 22:54 Dose: Not Given Documented by: Sodium Chloride (Normal Saline) Confirm Administered Dose 250 mls @ as directed .ROUTE .STK-MED ONE Stop: 04/24/21 22:52 Last Admin: 04/24/21 22:53 Dose: 999 mls/hr Documented by: Magnesium Sulfate 2 gm/ Premix 50 mls @ 25 mls/hr IV ONETIME ONE Stop: 04/27/21 09:23 Lactulose (Lactulose Soln 10 Gm/15 Ml 30 Ml Ud Cup) 20 gm PO TID [facility] Last Admin: 04/22/21 08:36 Dose: 20 gm Documented by: Lactulose (Lactulose Soln 10 Gm/15 Ml 30 Ml Ud Cup) 200 gm .XX ONETIME ONE Stop: 04/26/21 09:31 Last Admin: 04/26/21 09:43 Dose: 200 gm Documented by: Magnesium Hydroxide (Magnesium Hydroxide 400 Mg/5 Ml Susp 30 Ml Cup) 30 ml PO ONETIME ONE Stop: 04/23/21 05:35 Last Admin: 04/23/21 06:41 Dose: 30 ml Documented by: Magnesium Oxide (Magnesium Oxide 400 Mg Tab) 800 mg PO ONETIME ONE Stop: 04/27/21 07:38 Last Admin: 04/27/21 07:51 Dose: 800 mg Documented by: Morphine Sulfate (Morphine 2 Mg/Ml Syringe) 2 mg IVPUSH Q4H PRN PRN Reason: Pain (severe 7-10) Stop: 04/21/21 14:55 Potassium Chloride (Potassium Chloride 20 Meq Tab.Er) 20 meq PO TIDMEALS [facility] Stop: 04/21/21 17:01 Last Admin: 04/21/21 16:46 Dose: 20 meq Documented by: Propranolol HCl (Propranolol 20 Mg Tab) 40 mg PO DAILY [facility] Last Admin: 04/21/21 08:53 Dose: 40 mg Documented by: Propranolol HCl (Propranolol 20 Mg Tab) 20 mg PO DAILY [facility] Last Admin: 04/24/21 09:18 Dose: 20 mg Documented by: - Exam Quality Assessment: Reports: DVT Prophylaxis. Denies: Supplemental Oxygen, Urine Catheter General: Reports: Alert, Cooperative, No Acute Distress. Denies: Oriented HEENT: Reports: Pupils Equal, Pupils Reactive, Mucous Membr. Moist/[place], Scleral Icterus Neck: Reports: Supple, Trachea Midline Lungs: Reports: Clear to Auscultation, Normal Respiratory Effort Cardiovascular: Reports: Regular Rate, Regular Rhythm GI/Abdominal Exam: Normal Bowel Sounds, Soft, Non-Tender, No Distention (Male) Exam: Deferred Rectal (Males) Exam: Deferred Back Exam: Reports: Normal Inspection, Full Range of Motion Extremities: Normal Inspection, Normal Range of Motion, Non-Tender, No Pedal Edema, Normal Capillary Refill Skin: Reports: Warm, Dry, Intact, Other (Mildly jaundiced ) Neurological: Reports: No New Focal Deficit Psy/Mental Status: Reports: Alert <Govind Rivera - Last Filed: 04/27/21 13:54> Discharge Summary - Referral to Home Health Primary Care Physician: Roverto Freeman MD - Patient Summary/Data Consults: Consultations 04/20/21 11:06 Consult to Case Management/Hydraulic Press Servicer [CONS] Routine 04/20/21 14:53 OT Evaluation and Treatment [CONS] Routine PT Evaluation and Treatment [CONS] Routine Hospital Course: I have seen and examined the patient independently of Peterson Guzman PA-C, and have reviewed the case with him. I have reviewed and agree with the plan and care as outlined by him. Please see orders. - Patient Data Vitals - Most Recent: Last Vital Signs Temp 36.7 C 04/27/21 08:03 Pulse 82 04/27/21 08:03 Resp 18 04/27/21 08:03 BP 122/68 04/27/21 08:03 Pulse Ox 100 04/27/21 08:03 I&O - Last 24 hours: Intake & Output 04/26/21 04/27/21 04/27/21 22:59 06:59 14:59 Intake Total 1070 200 Output Total 650 500 Balance 420 -300 Lab Results - Last 24 hrs: Laboratory Results - last 24 hr 04/27/21 04/27/21 Range/Units 05:10 05:10 Sodium 143 (136-145) mEq/L Potassium 3.8 (3.5-5.1) mEq/L Chloride 108 H (98-107) mEq/L Carbon Dioxide 24 (21-32) mEq/L Anion Gap 14.8 (5-15) BUN 7 (7-18) mg/dL Creatinine 0.8 (0.7-1.3) mg/dL Est Cr Clr Drug Dosing 137.13 mL/min Estimated GFR (MDRD) > 60 (>60) mL/min BUN/Creatinine Ratio 8.8 L (14-18) Glucose 111 H (70-99) mg/dL Calcium 8.1 L (8.5-10.1) mg/dL Magnesium 1.6 L (1.8-2.4) mg/dL Total Bilirubin 3.7 H (0.2-1.0) mg/dL AST 46 H (15-37) U/L ALT 44 (16-63) U/L Alkaline Phosphatase 107 (46-116) U/L Ammonia 57 H (11-32) umol/L Total Protein 6.2 L (6.4-8.2) g/dl Albumin 2.5 L (3.4-5.0) g/dl Globulin 3.7 gm/dL Albumin/Globulin Ratio 0.7 L (1-2) Med Orders - Current: Current Medications Discontinued Medications Albuterol/Ipratropium (Albuterol/Ipratropium 3.0-0.5 Mg/3 Ml Neb Soln) 3 ml NEB Q4H PRN PRN Reason: Shortness Of Breath/wheezing Amitriptyline HCl (Amitriptyline 25 Mg Tab) 100 mg PO BEDTIME [facility] Last Admin: 04/26/21 20:46 Dose: 100 mg Documented by: Bisacodyl (Bisacodyl 10 Mg Supp) 10 mg RECTAL ONETIME ONE Stop: 04/23/21 13:37 Last Admin: 04/23/21 13:45 Dose: 10 mg Documented by: Bisacodyl (Bisacodyl 10 Mg Supp) 10 mg RECTAL DAILY PRN PRN Reason: Constipation Docusate Sodium (Docusate Sodium 100 Mg Cap) 100 mg PO BID PRN PRN Reason: Constipation Folic Acid (Folic Acid 1 Mg Tab) 1 mg PO DAILY [facility] Last Admin: 04/27/21 08:04 Dose: 1 mg Documented by: Furosemide (Furosemide 20 Mg Tab) 20 mg PO DAILY [facility] Last Admin: 04/27/21 08:00 Dose: 20 mg Documented by: Dextrose/Lactated Ringer's (Dextrose 5%-Lactated Ringers) 1,000 mls @ 125 mls/hr IV ASDIRECTED [facility] Last Admin: 04/21/21 14:47 Dose: 125 mls/hr Documented by: Promethazine HCl 12.5 mg/ (Sodium Chloride) 50.5 mls @ 100 mls/hr IV Q6H PRN PRN Reason: Nausea/Vomiting Magnesium Sulfate 4 gm/ Premix 50 mls @ 12.5 mls/hr IV ONETIME ONE Stop: 04/21/21 12:59 Last Admin: 04/21/21 09:25 Dose: 12.5 mls/hr Documented by: Potassium Cl/Dextrose/Lact Ringer's (D5 Lr With 20 Meq Kcl) 1,000 mls @ 50 m ls/hr IV ASDIRECTED [facility] Last Admin: 04/24/21 21:55 Dose: 50 mls/hr Documented by: Sodium Chloride (Normal Saline) 250 mls @ 999 mls/hr IV .BOLUS ONE Stop: 04/24/21 22:45 Last Admin: 04/24/21 22:54 Dose: Not Given Documented by: Sodium Chloride (Normal Saline) Confirm Administered Dose 250 mls @ as directed .ROUTE .STK-MED ONE Stop: 04/24/21 22:52 Last Admin: 04/24/21 22:53 Dose: 999 mls/hr Documented by: Magnesium Sulfate 2 gm/ Premix 50 mls @ 25 mls/hr IV ONETIME ONE Stop: 04/27/21 09:23 Last Admin: 04/27/21 08:15 Dose: Not Given Documented by: Lactulose (Lactulose Soln 10 Gm/15 Ml 30 Ml Ud Cup) 20 gm PO TID [facility] Last Admin: 04/22/21 08:36 Dose: 20 gm Documented by: Lactulose (Lactulose Soln 10 Gm/15 Ml 30 Ml Ud Cup) 30 gm PO TID [facility] Last Admin: 04/27/21 08:06 Dose: 30 gm Documented by: Lactulose (Lactulose Soln 10 Gm/15 Ml 30 Ml Ud Cup) 200 gm .XX ONETIME ONE Stop: 04/26/21 09:31 Last Admin: 04/26/21 09:43 Dose: 200 gm Documented by: Magnesium Hydroxide (Magnesium Hydroxide 400 Mg/5 Ml Susp 30 Ml Cup) 30 ml PO ONETIME ONE Stop: 04/23/21 05:35 Last Admin: 04/23/21 06:41 Dose: 30 ml Documented by: Magnesium Hydroxide (Magnesium Hydroxide 400 Mg/5 Ml Susp 30 Ml Cup) 30 ml PO Q12H PRN PRN Reason: Constipation Magnesium Oxide (Magnesium Oxide 400 Mg Tab) 800 mg PO ONETIME ONE Stop: 04/27/21 07:38 Last Admin: 04/27/21 07:51 Dose: 800 mg Documented by: Morphine Sulfate (Morphine 2 Mg/Ml Syringe) 2 mg IVPUSH Q4H PRN PRN Reason: Pain (severe 7-10) Stop: 04/21/21 14:55 Multivitamins/Minerals/Vitamin C (Multivitamin Tab) 1 tab PO DAILY [facility] Last Admin: 04/27/21 08:04 Dose: 1 tab Documented by: Oxycodone HCl (Oxycodone 5 Mg Tab) 5 mg PO Q4H PRN PRN Reason: Pain (moderate 4-6) Pantoprazole Sodium (Pantoprazole 40 Mg Tab.Cr) 40 mg PO DAILY [facility] Last Admin: 04/27/21 08:02 Dose: 40 mg Documented by: Potassium Chloride (Potassium Chloride 10 Meq Tab.Er) 10 meq PO DAILY [facility] Last Admin: 04/27/21 08:06 Dose: 10 meq Documented by: Potassium Chloride (Potassium Chloride 20 Meq Tab.Er) 20 meq PO TIDMEALS [facility] Stop: 04/21/21 17:01 Last Admin: 04/21/21 16:46 Dose: 20 meq Documented by: Propranolol HCl (Propranolol 20 Mg Tab) 40 mg PO DAILY [facility] Last Admin: 04/21/21 08:53 Dose: 40 mg Documented by: Propranolol HCl (Propranolol 20 Mg Tab) 20 mg PO DAILY [facility] Last Admin: 04/24/21 09:18 Dose: 20 mg Documented by: Propranolol HCl (Propranolol 10 Mg Tab) 10 mg PO DAILY [facility] Last Admin: 04/27/21 08:03 Dose: 10 mg Documented by: Rifaximin (Rifaximin 550 Mg Tab) 550 mg PO BID [facility] Last Admin: 04/27/21 08:06 Dose: 550 mg Documented by: Senna/Docusate Sodium (Docusate Sodium/Sennosides 50-8.6 Mg Tab) 2 tab PO BID [facility] Last Admin: 04/27/21 08:00 Dose: 2 tab Documented by: Thiamine HCl (Thiamine 100 Mg Tab) 100 mg PO Q48H [facility] Last Admin: 04/27/21 08:06 Dose: 100 mg Documented by:
[2021-04-27] MEDS: Pantoprazole 40 MG Tab.CR PO SCH (08:02)
[2021-04-27] MEDS: Propranolol 10 MG Tab PO SCH (08:03)
[2021-04-27] MEDS: Multivitamin Tab PO SCH (08:04)
[2021-04-27] MEDS: Folic Acid 1 MG Tab PO SCH (08:04)
== END 2021-04-27 10:30 | disposition home or self-care (01) | DRG 442 ==
LOC: JD.ED 10:42 → JD.MS 13:37
PROVIDERS: ADMIT Internal Medicine; ATTEND Internal Medicine
DX: K72.90 Hepatic failure, unspecified without coma (principal); E51.2 Wernicke's encephalopathy; K70.30 Alcoholic cirrhosis of liver without ascites; K59.00 Constipation, unspecified; J44.9 Chronic obstructive pulmonary disease, unspecified; D69.6 Thrombocytopenia, unspecified; Z51.5 Encounter for palliative care; R79.1 Abnormal coagulation profile; Z66 Do not resuscitate; Z20.822 Contact with and (suspected) exposure to COVID-19; Z60.9 Problem related to social environment, unspecified; H54.7 Unspecified visual loss; K21.9 Gastro-esophageal reflux disease without esophagitis; M54.9 Dorsalgia, unspecified; G89.29 Other chronic pain; M19.90 Unspecified osteoarthritis, unspecified site; F41.9 Anxiety disorder, unspecified; F32.9 Major depressive disorder, single episode, unspecified; W19.XXXA Unspecified fall, initial encounter; F90.9 Attention-deficit hyperactivity disorder, unspecified type; F17.200 Nicotine dependence, unspecified, uncomplicated; Z91.09 Other allergy status, other than to drugs and biological substances; Z86.73 Personal history of transient ischemic attack (TIA), and cerebral infarction without residual deficits; Z90.49 Acquired absence of other specified parts of digestive tract; Z79.899 Other long term (current) drug therapy; Y92.009 Unspecified place in unspecified non-institutional (private) residence as the place of occurrence of the external cause
CPT/HCPCS: 36415; 70450; 70450-26; 71045; 71045-26; 74018; 74018-26; 80053; 81001; 82140; 83735; 83880; 84484; 85025; 85610; 85730; 86140; 93005; 93010; 94762; 97110-GP; 97116-GP; 97162-GP; 97167-GO; 97530-GO; 99284; 99285-25; A9270-GY; J3475; J3480; J7050; J7121; U0002